=== PATIENT | female | born 1960 | race Caucasian/White ===

== ENCOUNTER 2020-01-15 00:37 | Outpatient (CLI) | payer BC, SELFPAY ==
[2020-01-15 18:53] LABS: SARS-CoV-2 RNA PCR Negative
== END 2020-01-15 00:38 | disposition home or self-care (01) ==
LOC: ANHCOVIDDT 00:37
PROVIDERS: PCP Family Medicine; Visit Provider Internal Medicine Gastroenterology
DX: Z01.812 Encounter for preprocedural laboratory examination (principal); Z11.59 Encounter for screening for other viral diseases
CPT/HCPCS: 87635; C9803; U0003

== ENCOUNTER 2020-01-17 00:18 | Day surgery (SDC) | payer BC, SELFPAY ==
[2020-01-09 12:35] VITALS: BMI 24.2
[2020-01-17] MEDS: LACTATED RINGERS 1,000 ML 150 ML IV CONT (07:34)
[2020-01-17 07:38] VITALS: BP 107/46; PULSE 60; RESP 16; TEMP 36.6; O2SAT 100
--- NOTE | 2020-01-17 07:50 | PM.HPGS ---
History of Present Illness History of Present Illness Consent: Risks, benefits, and alternatives have been discussed and questions answered. Patient agrees to proceed with procedure. Chief complaint: Neoplasm Screening Narrative: Brianna Norman is a 59 year old female here for screening colonoscopy. She has had a polyp PMFSH Past Medical History Medical History (Updated 01/17/20 @ 07:50 by Meño Lopez MD) Benign essential HTN Colon polyps Tobacco abuse Surgical History Surgical History History of endometrial ablation Hx of section Hx of tubal ligation Family History Family History Sibling Acute myocardial infarction Other Diabetes mellitus Social History Social History Smoking status: Current every day smoker Tobacco type: cigarettes Second hand tobacco smoke exposure: Yes Alcohol intake: current Substance use: never Substance use type: does not use Gender identity (if verbalized by the patient): Female Meds Home Medications and Allergies Home Medications Medication Instructions Recorded Confirmed Type amlodipine 10 mg tablet 10 mg PO DAILY #90 tablet 12/30/19 01/17/20 Rx Allergies Allergy/AdvReac Type Severity Reaction Status Date / Time codeine Allergy Severe pancreas Verified 01/17/20 07:37 rejects it Penicillins Allergy Itching Verified 01/17/20 07:37 Vital Signs Vital Signs - 24 hr 01/17/20 07:38 Temperature 36.6 C Pulse Rate 60 Respiratory Rate 16 Blood Pressure 107/46 L Pulse Oximetry 100 Exam Resp: Auscultation: clear to auscultation bilaterally Cardio: Rate: regular rate Rhythm: regular rhythm GI: GI Palp: Yes Soft to palpation and No Tenderness to palpation present (GI) Assessment and Plan Assessment and plan (1) Colon cancer screening: Code(s): Z12.11 - Encounter for screening for malignant neoplasm of colon Status: Acute Assessment and Plan: Colonoscopy with possible biopsy or polypectomy or cautery or injection of substances.
--- NOTE | 2020-01-17 08:20 | WPDANESEPPF ---
Anes - Initial Pre Proc Eval Procedure: Operation Date: 01/17/20 08:30 Proposed Procedures p Screening Colonoscopy - Meño Lopez MD Date/Time: 01/17/20 08:20 Surgeon: Meño Lopez MD Pre Op Diagnosis: Neoplasm Screening Patient Data Age: 59 Gender: F Height: 5 ft 5 in Weight: 67.5 kg Last Vital Signs Temp 98 F 01/17/20 07:38 Pulse 60 01/17/20 07:38 Resp 16 01/17/20 07:38 BP 107/46 L 01/17/20 07:38 Pulse Ox 100 01/17/20 07:38 Allergies Allergy/AdvReac Type Severity Reaction Status Date / Time codeine Allergy Severe pancreas Verified 01/17/20 07:37 rejects it Penicillins Allergy Itching Verified 01/17/20 07:37 Home Medications Medication Instructions Recorded Confirmed Type amlodipine 10 mg tablet 10 mg PO DAILY #90 tablet 12/30/19 01/17/20 Rx Patient hx anesthesia problems: none Family hx anesthesia problems: none PMFSH Past Medical History Medical History (Updated 01/17/20 @ 07:50 by Meño Lopez MD) Benign essential HTN Colon polyps Tobacco abuse Surgical History Surgical History History of endometrial ablation Hx of section Hx of tubal ligation Family History Family History Sibling Acute myocardial infarction Other Diabetes mellitus Social History Social History Smoking status: Current every day smoker Tobacco type: cigarettes Second hand tobacco smoke exposure: Yes Alcohol intake: current Substance use: never Substance use type: does not use Gender identity (if verbalized by the patient): Female Anes - Eval Final PreProcedure Day of Procedure 01/17/20 08:20 Patient weight: normal Heart: regular rate and rhythm Lungs: clear to auscultation Airway: Mallampati scale class II Neurological: alert and oriented Last oral intake: >/= 8 hours ASA classification: II Emergent: no Anesthetic plan: proceed Anesthesia type and monitoring: general GIVS and standard monitoring Informed Consent: The patient's anesthetic plan and its attendant risks and benefits were discussed with the patient/family/POA. Questions were solicited and answers provided to the satisfaction of the patient/family/POA.
[2020-01-17 08:48] VITALS: BP 100/65; PULSE 58; RESP 18; O2SAT 100
[2020-01-17 08:58] VITALS: BP 104/68; PULSE 57; RESP 15; O2SAT 100
[2020-01-17 09:08] VITALS: BP 111/75; PULSE 60; RESP 18; O2SAT 100
== END 2020-01-17 09:25 | disposition home or self-care (01) ==
PROVIDERS: PCP Family Medicine; Visit Provider Internal Medicine Gastroenterology
PROC: 0DJD8ZZ Inspection of Lower Intestinal Tract, Via Natural or Artificial Opening Endoscopic (ICD-10-PCS; CPT 45378; principal; 2020-01-17 08:30)
DX: Z12.11 Encounter for screening for malignant neoplasm of colon (principal); D12.4 Benign neoplasm of descending colon; K63.5 Polyp of colon; K57.30 Diverticulosis of large intestine without perforation or abscess without bleeding; I10 Essential (primary) hypertension; F17.210 Nicotine dependence, cigarettes, uncomplicated
CPT/HCPCS: 45385; 88305; J2704; J7120

== ENCOUNTER → 2020-09-01 02:55 | Outpatient (CLI) | payer BC, SELFPAY ==
[2020-09-01 18:08] LABS: SARS-CoV-2 RNA PCR Negative
== END ==
PROVIDERS: PCP Family Medicine; Visit Provider Podiatrist Foot & Ankle Surgery
DX: Z01.812 Encounter for preprocedural laboratory examination (principal); Z20.822 Contact with and (suspected) exposure to COVID-19
CPT/HCPCS: C9803; U0003; U0005

== ENCOUNTER 2020-09-01 13:03 | Outpatient (CLI) | payer BC, SELFPAY ==
--- NOTE | 2020-09-01 08:15 | ECG_ITS ---
Measurements Intervals [place] Rate: 62 P: 69 GA: 147 QRS: 56 QRSD: 88 T: 53 QT: 390 QTc: 396 Interpretive Statements SINUS RHYTHM INCOMPLETE RIGHT BUNDLE BRANCH BLOCK BORDERLINE R WAVE PROGRESSION, ANTERIOR LEADS BORDERLINE ST-T WAVE ABNORMALITY- ANTEROLAT/INF LEADS BORDERLINE ECG Electronically Signed On 09-01-2020 8:26:37 CDT by Luciano Rivera D.O.
== END 2020-09-01 13:04 | disposition home or self-care (01) ==
LOC: ANHSURGERY 09-23 13:04
PROVIDERS: PCP Family Medicine; Visit Provider Podiatrist Foot & Ankle Surgery
DX: I10 Essential (primary) hypertension (principal); Z01.818 Encounter for other preprocedural examination; I45.10 Unspecified right bundle-branch block; R94.31 Abnormal electrocardiogram [ECG] [EKG]
CPT/HCPCS: 93005

== ENCOUNTER 2020-09-04 01:10 | Day surgery (SDC) | payer BC, SELFPAY ==
[2020-08-26 13:48] VITALS: BMI 24.5
--- NOTE | ~2020-09-04 | XR_ITS ---
EXAMINATION: XR surgery orthopedic DATE: 09/04/2020 08:12 INDICATION: Cheilectomy of the right first metatarsophalangeal joint. TECHNIQUE: 2 fluoroscopic spot images of the right forefoot were obtained during procedure performed by Dr. Jacobs. Radiologist was not present for the imaging or procedure. The amount of fluoroscopy time used during this procedure was 0.1 minutes. COMPARISON: None. FINDINGS: Chronic osteotomy at the neck of the fifth metatarsal with smooth corticated margin and widening of t he fifth metacarpophalangeal joint space. Alignment is otherwise normal. No fractures. Moderate joint space narrowing at the first metacarpophalangeal joint. IMPRESSION: 1. Fluoroscopy utilized during reported cheilectomy at the right first metatarsophalangeal joint. See procedure note for further detail. Reviewed, dictated and finalized at location A. IMPRESSION: 1. Fluoroscopy utilized during reported cheilectomy at the right first metatars ophalangeal joint. See procedure note for further detail.
[2020-09-04 06:22] VITALS: BP 110/71; PULSE 66; RESP 18; TEMP 36.3; O2SAT 99
[2020-09-04] MEDS: LACTATED RINGERS 1,000 ML 30 ML IV CONT (06:42)
--- NOTE | 2020-09-04 06:50 | WPDANESEPPF ---
Anes - Initial Pre Proc Eval Procedure: Operation Date: 09/04/20 07:30 Proposed Procedures p Cheilectomy Of First Metatarsal Phalangeal Joint, Right Foot - Jacinto Jacobs JR, MD Date/Time: 09/04/20 06:50 Surgeon: Jacinto Jacobs JR, MD Pre Op Diagnosis: Bone Spur Right 1st MPJ Patient Data Age: 59 Gender: F Height: 5 ft 5 in Weight: 67 kg Allergies Allergy/AdvReac Type Severity Reaction Status Date / Time codeine Allergy Severe pancreas Verified 08/26/20 13:48 rejects it Penicillins Allergy Mild Itching Verified 08/26/20 13:48 Home Medications Medication Instructions Recorded Confirmed Type nicotine 21 mg/24 hr daily 1 patch TRANSDERMAL DAILY #28 ea 08/04/20 08/26/20 Rx transdermal patch amlodipine 10 mg PO HS 08/26/20 08/26/20 History Patient hx anesthesia problems: none Family hx anesthesia problems: none PMFSH Past Medical History Medical History Benign essential HTN Colon polyps Tobacco abuse Surgical History Surgical History History of endometrial ablation Hx of section Hx of colonoscopy 2019, repeat in 3 years- mltpl. polyps. Hx of tubal ligation Family History Family History Sibling Acute myocardial infarction Other Diabetes mellitus Social History Social History Social History: Smoking packs per day: 0.5 Smoking cigarettes per day: 10.0 Years smoked: 30 Smoking pack-years: 15.00 Smoking status: Current every day smoker Tobacco type: cigarettes Second hand tobacco smoke exposure: Yes Alcohol intake: current Alcohol use details: SOCIAL - APPROX TWICE/MONTH Substance use: never Substance use type: does not use Living arrangements: alone Gender identity (if verbalized by the patient): Female Spiritual care concerns: No Anes - Eval Final PreProcedure Day of Procedure 09/04/20 06:50 Patient weight: normal Heart: regular rate and rhythm Lungs: clear to auscultation Airway: Mallampati scale class II Neurological: alert and oriented Last oral intake: >/= 8 hours ASA classification: II Emergent: no Anesthetic plan: proceed Anesthesia type and monitoring: general GIVS and standard monitoring Informed Consent: The patient's anesthetic plan and its attendant risks and benefits were discussed with the patient/family/POA. Questions were solicited and answers provided to the satisfaction of the patient/family/POA.
--- NOTE | 2020-09-04 07:12 | WPDHPUPDATE1 ---
History and Physical Update Update Date/Time: 09/04/20 07:12 History and Physical has been reviewed, including an updated exam of the patient. There are NO changes in the patient's condition. Risks, benefits, and alternatives have been discussed and questions answered. Patient agrees to proceed with procedure.
[2020-09-04] MEDS: ceFAZolin 2 GM/D5W 50 ML 2 GM/50 ML BAG IVPB (07:23)
[2020-09-04] MEDS: LIDOCAINE HCL 2% PF INJ 5 ML VIAL 10 ML INFILTRATE (07:50)
[2020-09-04 08:16] VITALS: BP 127/67; PULSE 66; RESP 12; O2SAT 100
--- NOTE | 2020-09-04 08:24 | PM.PROC ---
Procedure Note - Detailed Date of procedure: 09/04/20 Pre-op diagnosis: Bone Spur Right 1st MPJ Post-op diagnosis: same Procedure performed: Cheilectomy 1st metatarsal phalangeal joint right foot Anesthesia: GLMA and local Surgeon: Jacinto Jacobs JR, DPM Estimated blood loss (mL): 1 Drains: No Packing: No Pathology: yes (Dorsal spur sent for gross and histo) Complications: No immediate complications Condition: stable Disposition: same day Findings: PROCEDURE IN DETAIL: Under mild sedation, the patient was brought into the operating room, placed on the operating table in supine position. A pneumatic ankle tourniquet was placed about the patient's right ankle. Following general LMA, a local anesthetic block was obtained about the foot and ankle utilizing 20 cc of a 1:1 of 2% Lidocaine plain and 0.5% Marcaine plain. The foot was then scrubbed, prepped, and draped in the usual aseptic manner. An Esmarch bandage was then used to exsanguinate the patient's foot and the pneumatic ankle tourniquet was then inflated. Surgery began in the following manner: Attention was directed to the dorsal aspect of the 1st metatarsophalangeal joint where there was a large osteophyte noted along the dorsomedial aspect of the joint. The incision was made starting along the central shaft of the 1st metatarsal and extending just proximal to the interphalangeal joint of the hallux. The incision was continued deep down through the subcutaneous tissues using sharp and blunt dissection. All bleeders were cauterized as necessary. At this point, the dissection was continued down to the level of the periosteum and capsular structures overlying the 1st metatarsophalangeal joint. A full length periosteum and capsular incision was made just medial to the extensor hallucis longus tendon. The periosteum and capsular structures were freed from the base of the proximal phalanx as well as the distal 1st metatarsal. At this point, the 1st metatarsophalangeal joint was identified. There was moderate loss of articular cartilage to the dorsal aspect of head of the 1st metatarsal . There was significant broadening and hypertrophy of the 1st metatarsophalangeal joint with a very large dorsal spur. Utilizing a sagittal bone saw, the hypertrophied 1st metatarsal was resected dorsally, medially, and laterally. A power bur was used to make sure that there were no rough edges and also to further debride the hypertrophic 1st metatarsal Approximately one third of the dorsal first metatarsal was resected. Next, a rongeur was used to resect all hypertrophic base of the proximal phalanx. Moreover, the wound site was then flushed with copious amounts of sterile saline. Fluoroscopy was adequate resection of the osseous proliferation to the first metatarsal phalangeal joint. Next, the periosteum and capsular structures were reapproximated with 3-0 PDS. Next, the subcutaneous structures were reapproximated with 4-0 Vicryl. Next, the skin was reapproximated and coapted utilizing 4-0 Monocryl in running subcuticular suture fashion technique. Upon completion of the procedure, the incision was dressed with Steri-Strips, Adaptic, 4x4s, Kerlix, and Coban. The pneumatic ankle tourniquet was then deflated and a prompt hyperemic response was noted to all digits of the foot. A surgical shoe was then applied to the affected lower extremity. It is important to note that Dr. Jacobs was present throughout the procedure. The patient did very well with the procedure and the anesthesia. He was transferred to the recovery room with vital signs stable and vascular status intact to all toes of the foot. Following a period of postoperative monitoring, the patient will be discharged home on the following written and oral postoperative instructions: 1. Keep the dressing clean, dry, and intact. 2. The patient to be protected weight bearing with a surgical shoe. 3. The patient should ice and elevate the affe
[2020-09-04 08:46] VITALS: BP 111/69; PULSE 58; RESP 16; O2SAT 97
--- NOTE | 2020-09-04 08:53 | SUR.PHASEII ---
PT AWAKE AND ALERT. STATES MILD PAIN TO FOOT. FAMILY AT BEDSIDE.
[2020-09-04 09:16] VITALS: BP 116/69; PULSE 67; RESP 18
== END 2020-09-04 09:32 | disposition home or self-care (01) ==
PROVIDERS: PCP Family Medicine; Visit Provider Podiatrist Foot & Ankle Surgery
PROC: (CPT 28289; principal; 2020-09-04 07:30)
DX: M25.774 Osteophyte, right foot (principal); M19.071 Primary osteoarthritis, right ankle and foot; I10 Essential (primary) hypertension; F17.210 Nicotine dependence, cigarettes, uncomplicated
CPT/HCPCS: 28122; 88304; 88309; 88311; J0690; J1170; J1200; J2250; J2405; J2704; J3010; J7120

== ENCOUNTER → 2021-10-06 17:41 | Outpatient (CLI) | payer BC, SELFPAY ==
--- NOTE | ~2021-10-06 | MM_ITS ---
EXAMINATION: MM screening tomi BI w ciro HISTORY: Screening TECHNIQUE: Craniocaudal and mediolateral oblique 3-D tomosynthesis images were obtained and synthetic 2-D images were generated. CAD analysis was submitted and interpreted. COMPARISON: Comparison to multiple prior studies sequentially, with oldest reviewed study dated 01/01. BREAST PARENCHYMAL COMPOSITION: There are scattered areas of fibroglandular density. FINDINGS: There is no evidence of suspicious mass, calcification, or architectural distortion to sugg est malignancy in either breast. There has been no suspicious interval change. IMPRESSION: 1. No mammographic evidence of malignancy. 2. Recommend routine screening mammography in one year. BI-RADS Category 1: Negative Reviewed, dictated and finalized at location A.
== END ==
PROVIDERS: PCP Family Medicine; Visit Provider Nurse Practitioner Gerontology
DX: Z12.31 Encounter for screening mammogram for malignant neoplasm of breast (principal)
CPT/HCPCS: 77063; 77067

== ENCOUNTER → 2021-10-18 16:15 | Outpatient (CLI) | payer BC, SELFPAY ==
--- NOTE | ~2021-10-18 | US_ITS ---
US thyroid INDICATION: Thyroid nodule TECHNIQUE: Real-time sonographic images of the thyroid gland were obtained. COMPARISON: No prior studies for comparison. FINDINGS: The right thyroid lobe measures 4.8 x 1.4 x 1.8 cm. The left thyroid lobe measures 4.8 x 1 .7 x 1.9 cm. In the right lobe there is a small 3 mm hypoechoic spongiform mass which is wider than t all, smoothly marginated without calcifications, TR 2, likely benign. Also in the right lobe near the isthmus is a oval hypoechoic mass with internal small internal cystic component measuring 1.9 x 1.5 x 1.1 cm. There is internal vascularity with posterior acoustic enhancement, wider than tall, slightl y irregular margins and no significant calcification, TR 4. Normal vascular flow is present. IMPRESSION: 1. Hypoechoic right thyroid mass measuring up to 1.9 cm. Ultrasound-guided fine-needle aspiration bi opsy recommended. Reviewed, dictated and finalized at location A. IMPRESSION: 1. Hypoechoic right thyroid mass measuring up to 1.9 cm. Ultrasound-guided fin e-needle aspiration biopsy recommended.
--- NOTE | ~2021-10-18 | XR_ITS ---
EXAM: XR hip RT min 3V w AP pelvis HISTORY: pain COMPARISON: None available FINDINGS: Normal mineralization. Mild degenerative change in the lower lumbar spine. Moderate right and mild left superior hip joint space narrowing. Subchondral sclerosis and cyst formation in the rig ht hip. Scattered right hip soft tissue calcification. No fracture or dislocation. Osteitis pubis. IMPRESSION: Moderate right hip osteoarthritis. Reviewed, dictated and finalized at location K.
== END ==
PROVIDERS: PCP Family Medicine; Visit Provider Family Medicine
DX: E04.1 Nontoxic single thyroid nodule (principal); G89.29 Other chronic pain; M54.50 Low back pain, unspecified; M16.11 Unilateral primary osteoarthritis, right hip
CPT/HCPCS: 73502; 76536

== ENCOUNTER → 2021-10-27 15:34 | Outpatient (CLI) | payer BC, SELFPAY ==
--- NOTE | ~2021-10-27 | XR_ITS ---
EXAM: XR lumbar spine 2-3V HISTORY: M54.50 - Low back pain, unspecified . COMPARISON: None available. FINDINGS: 5 nonrib-bearing lumbar-type vertebral bodies. Pedicles intact. 4 mm anterolisthesis of L4 on L5. Vertebral presumed physiologic wedging at L1. Mild disc space narrowing at L2-3 and L3-4, wit h moderate narrowing at L4-5. Facet sclerosis in the mid and lower lumbar spine. No fracture or dislo cation. IMPRESSION: Grade 1 anterolisthesis of L4 on L5, likely on a degenerative basis, with moderate degene rative disc disease. Mid and lower lumbar facet arthropathy. Reviewed, dictated and finalized at location K. IMPRESSION: Grade 1 anterolisthesis of L4 on L5, likely on a degenerative basis , with moderate degenerative disc disease. Mid and lower lumbar facet arthropat hy.
== END ==
PROVIDERS: PCP Family Medicine; Visit Provider Family Medicine
DX: M51.36 Other intervertebral disc degeneration, lumbar region (principal)
CPT/HCPCS: 72100

== ENCOUNTER 2021-11-04 08:37 | Outpatient (CLI) | payer BC, SELFPAY ==
--- NOTE | ~2021-11-04 | US_ITS ---
EXAMINATION: US FNA w image guidance DATE: 11/04/2021 10:16 INDICATION: Nontoxic single thyroid nodule. TECHNIQUE: The procedure and its benefits and risks were discussed with the patient. Risks specifically discusse d included bleeding. The patient verbalized understanding of the risks and agreed to proceed. The nec k was prepped and draped in the usual sterile manner. 1% lidocaine was used for local anesthesia. 6 passes were made with a 25G needle into the lesion under ultrasound guidance. There were no immedia te complications. FINDINGS: Grayscale ultrasound images demonstrate needles advanced into a 1.9 cm nodule in right thyroid lobe a nd thyroid isthmus for biopsy. IMPRESSION: 1. Ultrasound-guided fine needle aspiration of a 1.9 cm nodule in right thyroid lobe and thyroid ist hmus. Reviewed, dictated and finalized at location A. IMPRESSION: 1. Ultrasound-guided fine needle aspiration of a 1.9 cm nodule in right thyroi d lobe and thyroid isthmus.
== END 2021-11-04 08:38 | disposition home or self-care (01) ==
PROVIDERS: PCP Family Medicine; Visit Provider Nurse Practitioner Gerontology
DX: E04.1 Nontoxic single thyroid nodule (principal)
CPT/HCPCS: 10005; 88173; 88305

== ENCOUNTER → 2022-02-19 11:32 | Outpatient (CLI) | payer BC, SELFPAY ==
--- NOTE | ~2022-02-19 | US_ITS ---
EXAMINATION: US thyroid DATE: 02/19/2022 12:17 INDICATION: Thyroid nodule. TECHNIQUE: Multiple ultrasound images of the thyroid were obtained. COMPARISON: Ultrasound 10/18/2021 FINDINGS: The right thyroid lobe measures 4.7 x 1.6 x 2.2 cm. The left thyroid lobe measures 4.6 x 1.5 x 1.7 c m. In the right thyroid lobe, there is a 3 mm nodule, likely not clinically significant. In the right thyroid lobe and thyroid isthmus, there is a 1.6 cm predominantly solid, hypoechoic, wider than tall nodule with smooth margin and punctate echogenic foci (TI-RADS TR5). IMPRESSION: 1. Stable 1.6 cm thyroid nodule status post nondiagnostic biopsy on 11/04/2021. Repeat ultrasound-guid ed fine-needle aspiration is recommended. Reviewed, dictated and finalized at location A. IMPRESSION: 1. Stable 1.6 cm thyroid nodule status post nondiagnostic biopsy on 11/04/2021. Repeat ultrasound-guided fine-needle aspiration is recommended.
== END ==
PROVIDERS: PCP Family Medicine; Visit Provider Physician Assistant
DX: E04.1 Nontoxic single thyroid nodule (principal)
CPT/HCPCS: 76536

== ENCOUNTER 2022-03-05 20:36 | Emergency (ER) | payer BC, SELFPAY ==
--- NOTE | ~2022-03-05 | CT_ITS ---
EXAMINATION: CT abdomen pelvis w con DATE: 03/06/2022 00:51 INDICATION: Left lower quadrant pain. Nausea and vomiting. TECHNIQUE: Computed tomography (CT) of the abdomen and pelvis was performed with 100 cc Omnipaque 350 intravenous contrast. The dose-length product was 518.06 mGy-cm. Automated exposure control and iter ative reconstruction technique were employed. COMPARISON: CT dated 04/23/2017 FINDINGS: Lung bases are unremarkable. Heart size normal. No significant pleural or pericardial effus ion. Small fat-containing umbilical hernia. The liver, pancreas, adrenal glands and kidneys are unremarkable. There are small low-density lesion in the right kidney, most likely benign. There are calcified granulomas of the spleen. There is abnor mal thickening of the descending and proximal sigmoid colon. No evidence for perforation or abscess. Small amount of free fluid in the pelvis. Bladder is unremarkable. Multiple sclerotic lesion in T10, likely bone island. Mild lumbar spondylosis with grade 1 degenerative spondylolisthesis at L4-5. IMPRESSION: 1. Segmental thickening of the colon, consistent with colitis, most likely infectious or inflammatory . Ischemic colitis is less favored. Reviewed, dictated and finalized at location A. IMPRESSION: 1. Segmental thickening of the colon, consistent with colitis, most likely infe ctious or inflammatory. Ischemic colitis is less favored.
[2022-03-05 20:45] VITALS: BP 125/91; PULSE 96; RESP 17; TEMP 37.1; O2SAT 99
[2022-03-05 20:56] LABS: Basophils Percent Auto 0.3 % (0.2-1.2); Eosinophils Absolute Auto 0.1 K/mm3 (0-0.3); Eosinophils Percent Auto 1.2 % (0-4.4); Hematocrit 36.4 % (37.0-47.0); Immature Granulocyte Absolute 0.02 K/mm3 (0.00-0.031); Immature Granulocyte Percent A 0.2 % (0-0.5); Lymphocytes Absolute Auto 2.32 K/mm3 (0.9-3.2); Lymphocytes Percent Auto 24.6 % (18.3-44.2); Mean Corpuscular Hemoglobin 29.9 pg (26-34); Mean Corpuscular Volume 90.5 fl (80-100); Mean Platelet Volume 9.7 fl (7.4-10.4); Monocytes Absolute Auto 0.8 K/mm3 (0.1-0.6); Monocytes Percent Auto 8.2 % (2.6-8.5); Neutrophils Absolute Auto 6.2 K/mm3 (1.3-6.7); Neutrophils Percent Auto 65.5 % (45.5-73.1); Platelet Count Result 294 k/mm3 (150-375); Red Blood Count 4.02 M/mm3 (4.2-5.4); Red Cell Distribution Width 12.7 % (11.5-14.5); White Blood Count 9.4 K/mm3 (4.5-10.0)
[2022-03-05 21:06] LABS: Alanine Aminotransferase 22 U/L (6-35); Albumin Level 4.3 g/dL (3.5-5.1); Alkaline Phosphatase 57 U/L (38-126); Anion Gap 10 mmol/L (8-16); Aspartate Amino Transferase 34 U/L (14-36); Bilirubin,Total 0.5 mg/dL (0.2-1.3); Blood Urea Nitrogen 8 mg/dL (7-17); Calcium 9.1 mg/dL (8.4-10.2); Carbon Dioxide 24 mmol/L (22-30); Chloride 106 mmol/L (98-107); Estimated CRCL calculation 59 ml/min; Estimated Glomerular Filt Rate > 60; Glucose 101 mg/dL (65-110); INR 1.1; Potassium 3.6 mmol/L (3.4-5.0); Prothrombin Time 13.9 Seconds (11.1-14.7); Sodium 140 mmol/L (137-145)
[2022-03-05 21:07] LABS: Partial Thromboplastin Time 32.6 SECONDS (22.3-36.8)
[2022-03-05 22:52] VITALS: BP 147/98; PULSE 82; RESP 16; O2SAT 97
--- NOTE | 2022-03-05 23:52 | ED.GENADULT ---
HPI - General Adult General Chief complaint: GI Bleed Stated complaint: blood in stool Time Seen by Provider: 03/05/22 22:49 History of Present Illness HPI narrative: Patient is a 61-year-old female that presents the emergency department with chief complaint of left lower quadrant pain. Patient reports that she had some fullness to her abdomen she took some milk of magnesia and had multiple bowel movements. The patient reports toward the end of it she started having diarrhea and then had some blood/pink-tinged stool. Patient states that the pain in the left lower quadrant is sore reports that she has history of diverticulosis and has not had an episode of diverticulitis. Patient reports she is had several other bowel movements where she is passed some clots patient denies being on blood thinners Related Data Allergies Allergy/AdvReac Type Severity Reaction Status Date / Time codeine Allergy Severe pancreas Verified 03/05/22 22:52 FAILURE morphine Allergy Severe PANCREATIC Verified 03/05/22 22:52 FAILURE Penicillins Allergy Mild Itching Verified 03/05/22 22:52 Review of Systems Review of Systems: A 10 system review of systems was completed on the patient and is negative except for what is stated in the HPI. Nursing and ancillary documentation was reviewed. [facility] Past Medical History Medical History Benign essential HTN Colon polyps History of COVID-19 Tobacco abuse Surgical History Surgical History H/O foot surgery History of endometrial ablation Hx of section Hx of colonoscopy 2019, repeat in 3 years- mltpl. polyps. Hx of tubal ligation Family History Family History Sibling Acute myocardial infarction Heart disease Father Diabetes mellitus Social History Social History Social History: Smoking packs per day: 0.5 Smoking cigarettes per day: 10.0 Years smoked: 30 Smoking pack-years: 15.00 Smoking status: Former smoker Tobacco type: cigarettes Second hand tobacco smoke exposure: Yes Smoking end date: 05/05/21 Alcohol intake: current Alcohol use details: SOCIAL - APPROX TWICE/MONTH Substance use: never Substance use type: does not use Gender identity (if verbalized by the patient): Female Sexual Orientation (if Verbalized by the Patient): Straight or Heterosexual Spiritual care concerns: No Exam Narrative: GENERAL: Well-appearing, well-nourished, and in no acute distress. HEAD: Normocephalic, atraumatic. EYES: PERRLA and EOMI. ENT: Nares clear, no rhinorrhea or epistaxis. Mucous membranes moist. NECK: Supple. CHEST: Clear to auscultation. No respiratory distress. HEART: Regular rate and rhythm. No murmur heard. Normal peripheral pulses. ABDOMEN: Soft, nontender, nondistended, normal active bowel sounds. EXTREMITIES: Normal range of motion. No edema. SKIN: Warm, dry, no rash. NEURO: No focal deficits. Alert and oriented x3. PSYCH: Normal mood and affect. Course Course Emergency Course: CT scan showed evidence of colitis. Patient is feeling much better at this time the patient be started on Cipro and Flagyl Vital Signs Vital signs: Vital Signs Temperature 37.1 C 03/05/22 20:45 Pulse Rate 96 03/05/22 20:45 Respiratory Rate 17 03/05/22 20:45 Blood Pressure 125/91 H 03/05/22 20:45 Pulse Oximetry 99 03/05/22 20:45 Oxygen Delivery Room Air 03/05/22 20:45 Temperature 37.1 C 03/05/22 20:45 Pulse Rate 79 03/06/22 01:44 Respiratory Rate 16 03/06/22 01:44 Blood Pressure 122/82 03/06/22 01:44 Pulse Oximetry 96 03/06/22 01:44 Oxygen Delivery Room Air 03/05/22 20:45 Medical Decision Making Vital Signs Vital Signs: Vital Signs Temperature 37.1
[2022-03-06 00:06] VITALS: BP 118/85; PULSE 69; RESP 18; O2SAT 97
[2022-03-06] MEDS: ONDANSETRON INJ 4 MG/2 ML VIAL IV PUSH (00:10)
[2022-03-06] MEDS: SODIUM CHLORIDE 0.9% IV 1,000 ML 999 ML IV CONT (00:10)
[2022-03-06 01:44] VITALS: BP 122/82; PULSE 79; RESP 16; O2SAT 96
[2022-03-06] MEDS: metroNIDAZOLE 250 MG TABLET 500 MG PO (02:19)
[2022-03-06] MEDS: CIPROFLOXACIN 500 MG TAB PO (02:19)
== END 2022-03-06 02:23 | disposition home or self-care (01) ==
PROVIDERS: Emergency Provider Emergency Medicine; PCP Family Medicine
DX: K52.9 Noninfective gastroenteritis and colitis, unspecified (principal); I10 Essential (primary) hypertension; Z86.16 Personal history of COVID-19; Z86.010 Personal history of colon polyps; Z87.891 Personal history of nicotine dependence
CPT/HCPCS: 36415; 74177; 80053; 85025; 85610; 85730; 86850; 86900; 86901; 96361; 96374; 99284; A9270; J2405; J7030; Q9967

== ENCOUNTER 2022-03-22 09:05 | Outpatient (CLI) | payer BC, SELFPAY ==
--- NOTE | ~2022-03-22 | US_ITS ---
EXAMINATION: US FNA w image guidance DATE: 03/22/2022 09:53 INDICATION: Nontoxic single thyroid nodule. TECHNIQUE: The procedure and its benefits and risks were discussed with the patient. Risks specifically discusse d included bleeding. The patient verbalized understanding of the risks and agreed to proceed. The nec k was prepped and draped in the usual sterile manner. 1% lidocaine was used for local anesthesia. 6 passes were made with a 25G needle into the lesion under ultrasound guidance. There were no immedia te complications. FINDINGS: Grayscale ultrasound images demonstrate needles advanced into a 1.9 cm nodule in right thyroid lobe a nd thyroid isthmus for biopsy. IMPRESSION: 1. Ultrasound-guided fine needle aspiration of a thyroid nodule. Reviewed, dictated and finalized at location A.
== END 2022-03-22 09:06 | disposition home or self-care (01) ==
PROVIDERS: PCP Family Medicine; Visit Provider Physician Assistant
DX: E04.1 Nontoxic single thyroid nodule (principal)
CPT/HCPCS: 10005; 88173; 88305

== ENCOUNTER 2022-07-14 10:50 | Outpatient (RCR) | payer BC, SELFPAY ==
[2022-07-14 11:06] VITALS: BMI 28.7
== END 2022-10-03 12:36 | disposition home or self-care (01) ==
LOC: ANHDMC 10:50
PROVIDERS: PCP Internal Medicine; Visit Provider Internal Medicine
DX: E66.3 Overweight (principal); Z68.25 Body mass index [BMI] 25.0-25.9, adult; Z71.3 Dietary counseling and surveillance
CPT/HCPCS: 97802

== ENCOUNTER 2022-08-01 00:22 | Day surgery (SDC) | payer BC, SELFPAY ==
[2022-07-18 14:37] VITALS: BMI 28.4
--- NOTE | 2022-07-29 16:33 | PM.HPGS ---
History of Present Illness History of Present Illness Consent: Risks, benefits, and alternatives have been discussed and questions answered. Patient agrees to proceed with procedure. Chief complaint: noneffective gastritis&colitis,cbh,hxcolon polyps Narrative: Brianna Norman is a 61 year old female With a change in bowel habits. Reports 1-2 non-bloody pasty stools daily with associated bloating and gas since Feb after being diagnosed with colitis. she states that? back in February she developed severe left lower quadrant pain and constipation and bloody stools. This prompted her to follow up in [place] [facility]. CT scan revealed segmental thickening of the colon, consistent with colitis most likely infection or inflammatory. Ischemic colitis was less favored. ? She was treated with antibiotics and states pain got better but since then she reports 1-2 soft pasty stools per day with associated bloating and gas.? she does also have a history of polyps. 3 years ago I removed 3 polyps from her colon. Review of Systems Review of Systems: All systems reviewed & are unremarkable except as noted in HPI and below PMFSH Past Medical History Medical History Benign essential HTN Colon polyps History of COVID-19 Hypertension Tobacco abuse Surgical History Surgical History H/O foot surgery History of endometrial ablation Hx of section Hx of colonoscopy 2019, repeat in 3 years- mltpl. polyps. Hx of tubal ligation Family History Family History Sibling Acute myocardial infarction Heart disease Diabetes mellitus Father Diabetes mellitus Hypertension Mother Hypertension Social History Social History Social History: Smoking packs per day: 1 Smoking cigarettes per day: 20.0 Years smoked: 40 Smoking pack-years: 40.00 Smoking status: Former smoker Tobacco type: cigarettes Second hand tobacco smoke exposure: Yes Smoking end date: 05/05/21 Alcohol intake: current Drinks per week: 4 Alcohol use details: SOCIAL - APPROX TWICE/MONTH Substance use: current Substance use type: does not use Lack of Transportation: No Lack of Food: Never True Current Housing: I Have Housing Concerned About Future Housing: No Difficulty Paying Gas/Electric Bills: No Difficulty Paying for Meds: No Currently Unemployed: No Education: High School Diploma/GED Difficulty w/ Childcare or Family Care: No Living arrangements: alone Occupation/Education: occupation Gender identity (if verbalized by the patient): Female Sexual Orientation (if Verbalized by the Patient): Straight or Heterosexual Spiritual care concerns: No Meds Home Medications and Allergies Home Medications Medication Instructions Recorded Confirmed Type multivitamin 1 tablet PO DAILY 06/14/22 07/18/22 History Daily Probiotic 1 tablet PO DAILY 07/18/22 07/18/22 History Metamucil 2 packet PO DAILY 07/18/22 07/18/22 History amlodipine 10 mg tablet 10 mg PO HS #90 tabs 07/29/22 08/01/22 Rx Allergies Allergy/AdvReac Type Severity Reaction Status Date / Time codeine Allergy Severe pancreas Verified 08/01/22 07:27 FAILURE morphine Allergy Severe PANCREATIC Verified 08/01/22 07:27 FAILURE Penicillins Allergy Mild Itching Verified 08/01/22 07:27 Exam Const: General: alert Orientation/consciousness: patient oriented x3 Resp: Auscultation: clear to auscultation bilaterally Cardio: Rate: regular rate Rhythm: regular rhythm GI: GI Palp: Yes Soft to palpation and No Tenderness to palpation present (GI) Neuro: General: patient oriented x3 Assessment and Plan Assessment and plan (1) Change in bowel habits: Code(s): R19.4 - Change in bowel habit Status: Acute Asses
--- NOTE | 2022-08-01 07:23 | WPDANESEPPF ---
Anes - Initial Pre Proc Eval Procedure: Operation Date: 08/01/22 08:30 Proposed Procedures p Colonoscopy - Meño Lopez MD Date/Time: 08/01/22 07:23 Surgeon: Meño Lopez MD Pre Op Diagnosis: noneffective gastritis&colitis,cbh,hxcolon polyps Patient Data Age: 61 Gender: F Height: 1.65 m Weight: 77.5 kg Allergies Allergy/AdvReac Type Severity Reaction Status Date / Time codeine Allergy Severe pancreas Verified 08/01/22 07:27 FAILURE morphine Allergy Severe PANCREATIC Verified 08/01/22 07:27 FAILURE Penicillins Allergy Mild Itching Verified 08/01/22 07:27 Home Medications Medication Instructions Recorded Confirmed Type multivitamin 1 tablet PO DAILY 06/14/22 07/18/22 History Daily Probiotic 1 tablet PO DAILY 07/18/22 07/18/22 History Metamucil 2 packet PO DAILY 07/18/22 07/18/22 History amlodipine 10 mg tablet 10 mg PO HS #90 tabs 07/29/22 08/01/22 Rx Patient hx anesthesia problems: none Family hx anesthesia problems: none Results Review: All pre-operative results and documents have been reviewed as part of the pre-operative evaluation. [facility] Past Medical History Medical History Benign essential HTN Colon polyps History of COVID-19 Hypertension Tobacco abuse Surgical History Surgical History H/O foot surgery History of endometrial ablation Hx of section Hx of colonoscopy 2019, repeat in 3 years- mltpl. polyps. Hx of tubal ligation Family History Family History Sibling Acute myocardial infarction Heart disease Diabetes mellitus Father Diabetes mellitus Hypertension Mother Hypertension Social History Social History Social History: Smoking packs per day: 1 Smoking cigarettes per day: 20.0 Years smoked: 40 Smoking pack-years: 40.00 Smoking status: Former smoker Tobacco type: cigarettes Second hand tobacco smoke exposure: Yes Smoking end date: 05/05/21 Alcohol intake: current Drinks per week: 4 Alcohol use details: SOCIAL - APPROX TWICE/MONTH Substance use: current Substance use type: does not use Lack of Transportation: No Lack of Food: Never True Current Housing: I Have Housing Concerned About Future Housing: No Difficulty Paying Gas/Electric Bills: No Difficulty Paying for Meds: No Currently Unemployed: No Education: High School Diploma/GED Difficulty w/ Childcare or Family Care: No Living arrangements: alone Occupation/Education: occupation Gender identity (if verbalized by the patient): Female Sexual Orientation (if Verbalized by the Patient): Straight or Heterosexual Spiritual care concerns: No Anes - Eval Final PreProcedure Day of Procedure 08/01/22 07:23 Patient weight: normal Heart: regular rate and rhythm Lungs: clear to auscultation Airway: Mallampati scale class II Neurological: alert and oriented Last oral intake: >/= 8 hours ASA classification: II Emergent: no Anesthetic plan: proceed Anesthesia type and monitoring: general GIVS and standard monitoring Results Review: All pre-operative results and documents have been reviewed as part of the pre-operative evaluation. Informed Consent: The patient's anesthetic plan and its attendant risks and benefits were discussed with the patient/family/POA. Questions were solicited and answers provided to the satisfaction of the patient/family/POA.
[2022-08-01 07:29] VITALS: BP 116/81; PULSE 74; RESP 16; TEMP 36.6; O2SAT 97
[2022-08-01] MEDS: LACTATED RINGERS 1,000 ML 150 ML IV CONT (07:43)
[2022-08-01 08:41] VITALS: BP 104/67; PULSE 66; RESP 16; O2SAT 100
[2022-08-01 08:51] VITALS: BP 114/75; PULSE 64; RESP 16; O2SAT 100
[2022-08-01 09:01] VITALS: BP 116/74; PULSE 62; RESP 18; O2SAT 100
== END 2022-08-01 09:08 | disposition home or self-care (01) ==
PROVIDERS: PCP Internal Medicine; Visit Provider Internal Medicine Gastroenterology
PROC: 0DJD8ZZ Inspection of Lower Intestinal Tract, Via Natural or Artificial Opening Endoscopic (ICD-10-PCS; CPT 45378; principal; 2022-08-01 08:30)
DX: R19.4 Change in bowel habit (principal); K57.30 Diverticulosis of large intestine without perforation or abscess without bleeding; D12.4 Benign neoplasm of descending colon; I10 Essential (primary) hypertension; Z87.891 Personal history of nicotine dependence; Z87.19 Personal history of other diseases of the digestive system
CPT/HCPCS: 45380; 88305; J2704; J7120

== ENCOUNTER 2022-09-23 16:20 | Outpatient (CLI) | payer BC, SELFPAY ==
--- NOTE | ~2022-09-23 | CT_ITS ---
EXAMINATION: CT lung screening DATE: 09/23/2022 16:38 INDICATION: Personal history of nicotine dependence, current smoker with 30 pack year history TECHNIQUE: Computed tomography (CT) of the chest was performed without intravenous contrast. The dose -length product (DLP) was 86.01 mGy-cm. Automated exposure control and iterative reconstruction techn [employer] were employed. COMPARISON: None FINDINGS: There is a 3 mm nodule of the right middle lobe. There are scattered 1 to 2 mm nodules in t he upper lobes. No pleural effusion or pneumothorax. The lungs are free of acute opacities. No pathol ogically enlarged thoracic lymph nodes are identified. The heart size is normal. There is calcified c oronary artery atherosclerosis. Calcified mediastinal and bilateral hilar lymph nodes are consistent with old granulomatous disease. Punctate calcifications in otherwise normal appearing liver and splee n also likely represent healed granulomatous disease. IMPRESSION: 1. Lung-RADS category 2: Benign appearance or behavior. Continue annual screening with noncontrast lo w-dose chest CT in 12 months. Reviewed, dictated and finalized at location F. IMPRESSION: 1. Lung-RADS category 2: Benign appearance or behavior. Continue annual screeni ng with noncontrast low-dose chest CT in 12 months.
== END 2022-09-23 16:21 | disposition home or self-care (01) ==
PROVIDERS: PCP Internal Medicine; Visit Provider Internal Medicine
DX: Z12.2 Encounter for screening for malignant neoplasm of respiratory organs (principal); F17.210 Nicotine dependence, cigarettes, uncomplicated
CPT/HCPCS: 71271

== ENCOUNTER 2022-10-20 12:24 | Outpatient (CLI) | payer BC, SELFPAY ==
--- NOTE | 2022-10-20 12:26 | ECHO_ITS ---
Patient Info Name: Brianna Norman Age: 61 years : 1960 Gender: Female Ht: 65 in Wt: 168 lbs BSA: 1.89 m2 Technical Quality: Good Exam Date: 10/20/2022 1:10 PM Exam Location: [facility] Pulmonary Patient Status: Outpatient Admit Date: 10/20/2022 Staff Ordering Physician: Villa Talavera DO Swamper: Abiola Engle RDCS Attending Provider: Villa Talavera DO Referring Physician: Sadaf HUERTAS; Exam Type: CA echo doppler color flow Study Info Indications R06.09 - Other forms of dyspnea Complete two-dimensional, color flow and Doppler transthoracic echocardiogram is performed. Summary 1. Complete two-dimensional, color flow and Doppler transthoracic echocardiogram is performed. 2. Left ventricular chamber dimension is normal. 3. Left ventricular systolic function is normal, estimated at 60-65%. 4. The left ventricular diastolic function is grade II diastolic dysfunction. 5. E/e' 14 is mildly elevated. 6. Left atrial chamber dimension is mildly enlarged. 7. There is mild mitral valve regurgitation. 8. There is trace pulmonic regurgitation. Left Ventricle E/e' 14 is mildly elevated. Left ventricular chamber dimension is normal. Left ventricular systolic function is normal, estimated at 60-65%. The left ventricular diastolic function is grade II diastolic dysfunction. Right Ventricle Right ventricular systolic function is normal and with normal TAPSE 1.8 cm. Right ventricular chamber dimension is normal. Left Atria Left atrial chamber dimension is mildly enlarged. Right Atria Right atrial chamber dimension is normal. Aortic Valve The aortic valve is trileaflet. There is no aortic valve stenosis. There is no aortic valve regurgitation. Pulmonic Valve There is trace pulmonic regurgitation. Mitral Valve There is no mitral valve stenosis. There is mild mitral valve regurgitation. Tricuspid Valve There is no tricuspid valve regurgitation. Pericardium/Pleural There is no pericardial effusion. Inferior Vena Cava Normal inferior vena cava with >50% collapse upon inspiration consistent with normal right atrial pressure, 5 mmHg. Aorta The aortic root size at the sinus of Valsalva is normal. Left Ventricular Outflow Tract Name Value Normal LVOT 2D LVOT Diameter 1.9 cm LVOT Doppler LVOT Peak Gradient 5 mmHg LVOT Mean Gradient 2 mmHg LVOT VTI 24 cm LVOT VTI/AV VTI Ratio 0.8 LVOT Stroke Volume 71 ml LVOT CO 4.4 l/min LVOT CI 2.4 l/min/m2 Pulmonic Valve Name Value Normal RVOT Doppler RVOT Peak Gradient 2 mmHg PV Doppler PV Peak Gradient 3 mmHg Mitral Valve
== END 2022-10-20 12:25 | disposition home or self-care (01) ==
LOC: ANHCARD 12:24
PROVIDERS: PCP Internal Medicine; Visit Provider Internal Medicine
DX: R06.09 Other forms of dyspnea (principal); R42 Dizziness and giddiness; I34.0 Nonrheumatic mitral (valve) insufficiency
CPT/HCPCS: 93306

== ENCOUNTER 2023-05-19 13:26 | Outpatient (CLI) | payer BC, SELFPAY ==
--- NOTE | ~2023-05-19 | MR_ITS ---
MRI of the lumbar spine Clinical History: Back pain Technique: Axial T2-weighted images, and sagittal T1-weighted, T2-weighted, and and T2 fat-sat images were acquired. Findings: There is no fracture in the lumbar spine. There is 3 mm anterolisthesis of L4 over L5. No b one marrow signal abnormality seen. At L1-L2, there is no disc bulge or herniation. No significant central canal stenosis or neural elizabeth inal narrowing. At L2-L3, there is minimal disc bulge. There is minimal facet joint degenerative change. No spinal ca nal stenosis or neural foraminal narrowing. At L3-L4, there is mild disc bulge with advanced facet arthropathy. No central canal stenosis or neur al foraminal narrowing. At L4-L5, there is disc bulge and advanced facet arthropathy. No delfino central canal stenosis. There is minimal right neural foraminal narrowing. Left neural foramen preserved. At L5-S1, there is central disc protrusion with severe facet arthropathy bilaterally. No central corinne l stenosis. There is mild left neural foraminal narrowing. Paravertebral soft tissues are unremarkable. Impression: Mild degenerative spondylosis, as above. Minimal grade 1 anterolisthesis of L4 over L5. Reviewed, dictated and finalized at location . TRANSFER TECHNICIAN Impression: Mild degenerative spondylosis, as above. Minimal grade 1 anterolisthesis of L4 over L5.
== END 2023-05-19 13:27 | disposition home or self-care (01) ==
LOC: ANHIMG 13:30
PROVIDERS: PCP Internal Medicine; Visit Provider Physician Assistant
DX: M43.06 Spondylolysis, lumbar region (principal)
CPT/HCPCS: 72148

== ENCOUNTER 2023-10-07 10:06 | Outpatient (CLI) | payer BC, SELFPAY ==
--- NOTE | ~2023-10-07 | MM_ITS ---
EXAMINATION: MM screening tomi BI w ciro HISTORY: Screening mammogram TECHNIQUE: Craniocaudal and mediolateral oblique 3-D tomosynthesis images were obtained and synthetic 2-D images were generated. CAD analysis was submitted and interpreted. COMPARISON: October 06, 2021, 05/11/2020 bilateral screening mammogram examinations BREAST PARENCHYMAL COMPOSITION: There are scattered areas of fibroglandular density. FINDINGS: Biopsy marker on the right; history of prior benign right breast biopsy and benign left axi llary biopsy. There is no evidence of suspicious mass, calcification, or architectural distortion to suggest malignancy in either breast. There has been no suspicious interval change. IMPRESSION: 1. No mammographic evidence of malignancy. 2. Recommend routine screening mammography in one year. BI-RADS Category 1: Negative Reviewed, dictated and finalized at location A.
== END 2023-10-07 10:07 ==
LOC: MICIMG 10:07
DX: Z12.31 Encounter for screening mammogram for malignant neoplasm of breast (principal)
CPT/HCPCS: 77063; 77067

== ENCOUNTER 2023-10-10 07:18 | Outpatient (CLI) | payer BC, SELFPAY ==
[2023-10-10 08:07] LABS: Basophils Percent Auto 0.7 % (0.2-1.2); Eosinophils Absolute Auto 0.1 K/mm3 (0-0.3); Eosinophils Percent Auto 2.4 % (0-4.4); Hematocrit 39.5 % (37.0-47.0); Hemoglobin 12.8 g/dL (12.0-15.0); Immature Granulocyte Absolute 0.02 K/mm3 (0.00-0.031); Immature Granulocyte Percent A 0.4 % (0-0.5); Lymphocytes Absolute Auto 1.75 K/mm3 (0.9-3.2); Lymphocytes Percent Auto 31.8 % (18.3-44.2); Mean Corpuscular HGB Conc 32.4 g/dl (32-36); Mean Corpuscular Hemoglobin 30.5 pg (26-34); Mean Platelet Volume 10.5 fl (7.4-10.4); Monocytes Absolute Auto 0.5 K/mm3 (0.1-0.6); Monocytes Percent Auto 8.7 % (2.6-8.5); Neutrophils Absolute Auto 3.1 K/mm3 (1.3-6.7); Platelet Count Result 298 k/mm3 (150-375); White Blood Count 5.5 K/mm3 (4.5-10.0)
[2023-10-10 08:11] LABS: Alanine Aminotransferase 16 U/L (6-35); Albumin Level 4.4 g/dL (3.5-5.1); Alkaline Phosphatase 63 U/L (38-126); Anion Gap 4 mmol/L (4-12); Aspartate Amino Transferase 19 U/L (14-36); Bilirubin,Total 0.5 mg/dL (0.2-1.3); Blood Urea Nitrogen 16 mg/dL (7-17); Calcium 9.3 mg/dL (8.4-10.2); Carbon Dioxide 26 mmol/L (22-30); Chloride 110 mmol/L (98-107); Cholesterol 214 mg/dL (0-200); Estimated Glomerular Filt Rate > 60; Glucose 108 mg/dL (65-110); HDL Direct 68 mg/dL; Potassium 4.3 mmol/L (3.4-5.0); Sodium 140 mmol/L (137-145); Triglycerides 78 mg/dL (<150)
[2023-10-10 08:22] LABS: LDL Cholesterol Direct 118 mg/dL
== END 2023-10-10 07:19 | disposition home or self-care (01) ==
LOC: ANHLAB 07:19
PROVIDERS: Visit Provider Physician Assistant
DX: E78.5 Hyperlipidemia, unspecified (principal); I10 Essential (primary) hypertension; R53.83 Other fatigue
CPT/HCPCS: 36415; 80053; 80061; 84443; 85025

== ENCOUNTER 2024-01-11 08:23 | Emergency (ER) | payer BC, SELFPAY ==
--- NOTE | ~2024-01-11 | CT_ITS ---
CT of the Abdomen and Pelvis: Indication: Abdominal pain Technique: 2.5 mm axial scans were obtained through the abdomen and pelvis following intravenous adm inistration of 100 cc of Omnipaque 350. Dose reduction technique was used on this scan by utilizing a utomated exposure control and iterative reconstruction technique. The dose-length product (DLP) was 6 41.23 mGy-cm. COMPARISON: 03/06/2022 Findings: Scans through the lung bases are unremarkable. The liver, spleen, pancreas, gallbladder, adrenals and kidneys are within normal limits. There are at herosclerotic calcifications of the aorta. No lymphadenopathy. No bowel obstruction or bowel wall thickening. There is no evidence to suggest acute appendicitis. Images through the pelvis were performed. Urinary bladder unremarkable. No adnexal mass seen. No asci senia. Impression: No significant abnormalities seen. Reviewed, dictated and finalized at [facility]. Impression: No significant abnormalities seen.
--- NOTE | 2024-01-11 08:27 | ED.GENADULT ---
HPI - General Adult General Chief complaint: Abdominal Pain Stated complaint: COLITIS? Time Seen by Provider: 01/11/24 08:26 History of Present Illness HPI narrative: Patient is a 63-year-old female who presents ER with concerns for colitis. Reports she had a loose bowel movement today that had pink blood within it. No large clots. Patient recently increased the dosage of her is up found injection for weight loss. This was 5 days ago. She has been having some abdominal cramping related to this. No fevers or chills or sweats. No urinary symptoms. Related Data Allergies Allergy/AdvReac Type Severity Reaction Status Date / Time codeine Allergy Severe pancreas Verified 01/11/24 08:45 FAILURE morphine Allergy Severe PANCREATIC Verified 01/11/24 08:45 FAILURE Penicillins Allergy Mild Itching Verified 01/11/24 08:45 Review of Systems Review of Systems: All systems reviewed & are unremarkable except as noted in HPI and below Constitutional: Constitutional: Reports no additional constitutional complaints Cardiovascular: Cardiovascular: Reports no additional cardiovascular complaints Respiratory: Respiratory: Reports no additional respiratory complaints Gastrointestinal: Gastrointestinal: Reports abdominal pain, Reports diarrhea, Denies nausea and Denies vomiting Genitourinary: Genitourinary: Reports no additional female genitourinary complaints [facility] Past Medical History Medical History Benign essential HTN Colon polyps History of COVID-19 Hypertension Tobacco abuse Surgical History Surgical History H/O foot surgery History of endometrial ablation Hx of section Hx of colonoscopy 2019, repeat in 3 years- mltpl. polyps. Hx of tubal ligation Family History Family History Sibling Acute myocardial infarction Heart disease Diabetes mellitus Father Diabetes mellitus Hypertension Mother Hypertension Social History Social History Social History: Smoking packs per day: 1 Smoking cigarettes per day: 20.0 Years smoked: 40 Smoking pack-years: 40.00 Smoking status: Former smoker Tobacco type: cigarettes Second hand tobacco smoke exposure: Yes Smoking end date: 05/05/21 Alcohol intake: current Drinks per week: 4 Alcohol use details: SOCIAL - APPROX TWICE/MONTH Substance use: current Substance use type: does not use Lack of Transportation: No Lack of Food: Never True Current Housing: I Have Housing Concerned About Future Housing: No Difficulty Paying Gas/Electric Bills: No Difficulty Paying for Meds: No Currently Unemployed: No Education: High School Diploma/GED Difficulty w/ Childcare or Family Care: No Living arrangements: alone Occupation/Education: occupation Gender identity (if verbalized by the patient): Female Sexual Orientation (if Verbalized by the Patient): Straight or Heterosexual Spiritual care concerns: No Exam Narrative: GENERAL: Well-appearing, well-nourished, and in no acute distress. HEAD: Normocephalic, atraumatic. ENT: Mucous membranes moist. CHEST: Clear to auscultation. No respiratory distress. HEART: Regular rate and rhythm. Normal peripheral pulses. ABDOMEN: Soft, nontender, nondistended. EXTREMITIES: Normal range of motion. No edema. SKIN: Warm, dry, no rash. NEURO: Alert and oriented x3. PSYCH: Normal mood and affect. Course Vital Signs Vital signs: Vital Signs Temperature 98.5 F 01/11/24 08:32 Pulse Rate 84 01/11/24 08:32 Respiratory Rate 18 01/11/24 08:32 Blood Pressure 144/98 H 01/11/24 08:32 Pulse Oximetry 98 01/11/24 08:32 Oxygen Delivery Room Air 01/11/24 08:32 Temperature 98.5 F 01/11/24 08:32 Pulse Rate 84
[2024-01-11 08:32] VITALS: BP 144/98; PULSE 84; RESP 18; TEMP 36.9; O2SAT 98
[2024-01-11 08:51] LABS: Basophils Percent Auto 0.4 % (0.2-1.2); Eosinophils Percent Auto 0.3 % (0-4.4); Hematocrit 37.8 % (37.0-47.0); Hemoglobin 13.1 g/dL (12.0-15.0); Immature Granulocyte Absolute 0.02 K/mm3 (0.00-0.031); Immature Granulocyte Percent A 0.3 % (0-0.5); Lymphocytes Absolute Auto 1.29 K/mm3 (0.9-3.2); Lymphocytes Percent Auto 19.1 % (18.3-44.2); Mean Corpuscular HGB Conc 34.7 g/dl (32-36); Mean Corpuscular Volume 89.6 fl (80-100); Monocytes Absolute Auto 0.6 K/mm3 (0.1-0.6); Monocytes Percent Auto 8.9 % (2.6-8.5); Neutrophils Absolute Auto 4.8 K/mm3 (1.3-6.7); Platelet Count Result 302 k/mm3 (150-375); Red Blood Count 4.22 M/mm3 (4.2-5.4); Red Cell Distribution Width 12.3 % (11.5-14.5); White Blood Count 6.8 K/mm3 (4.5-10.0)
[2024-01-11 08:58] LABS: Alanine Aminotransferase 13 U/L (6-35); Albumin Level 4.8 g/dL (3.5-5.1); Alkaline Phosphatase 66 U/L (38-126); Anion Gap 13 mmol/L (4-12); Aspartate Amino Transferase 19 U/L (14-36); Bilirubin,Total 0.8 mg/dL (0.2-1.3); Blood Urea Nitrogen 10 mg/dL (7-17); Calcium 9.9 mg/dL (8.4-10.2); Carbon Dioxide 22 mmol/L (22-30); Chloride 100 mmol/L (98-107); Estimated CRCL calculation 58 ml/min; Estimated Glomerular Filt Rate > 60; Glucose 114 mg/dL (65-110); Lipase 118 U/L (23-300); Potassium 3.7 mmol/L (3.4-5.0); Sodium 135 mmol/L (137-145)
[2024-01-11 09:36] LABS: Add Urine Microscopic? YES; Appearance Urine Clear (Clear); Bacteria Urine None Seen /hpf; Bilirubin Urine Negative (Negative); Blood Urine Negative (Negative); Color Urine Yellow (Yellow); Glucose Urine UA Negative (Negative); Ketones Urine Negative (Negative); Leukocyte Esterase Ur 1+ LEU/UL (Negative); Need Manual Microscopic Reviewed; Nitrate Urine Negative (Negative); Protein Urine Negative (Negative); RBC Urine 0-2 /hpf (0-2); Specific Grav Ur 1.013 (1.001-1.035); Squamous Epithelial Cell Urine Occasional /hpf (Few); Urobilinogen Urine 0.2 mg/dL (<2.0); WBC Urine 0-5 /hpf (0-3); pH Urine 7.5 (5.0-9.0)
[2024-01-11 10:12] VITALS: BP 130/90; PULSE 77; RESP 19; O2SAT 99
[2024-01-11] MEDS: DICYCLOMINE HCL INJ 20 MG/2 ML VIAL IM (10:23)
[2024-01-11] MEDS: ONDANSETRON INJ 4 MG/2 ML VIAL IV PUSH (10:23)
== END 2024-01-11 10:29 | disposition home or self-care (01) ==
PROVIDERS: Emergency Provider Emergency Medicine; PCP Internal Medicine
DX: R10.9 Unspecified abdominal pain (principal); K92.1 Melena; I10 Essential (primary) hypertension; Z87.891 Personal history of nicotine dependence
CPT/HCPCS: 36415; 74177; 80053; 81001; 83690; 85025; 96372; 96374; 99284; J0500; J2405; Q9967

== ENCOUNTER 2024-02-26 16:35 | Outpatient (CLI) | payer BC, SELFPAY ==
[2024-02-26 17:26] LABS: Strep Group A RT-PCR NOT DETECTED (Negative)
== END 2024-02-26 16:36 | disposition home or self-care (01) ==
LOC: ANHLAB 16:37
PROVIDERS: PCP Internal Medicine; Visit Provider Internal Medicine
DX: J02.9 Acute pharyngitis, unspecified (principal)
CPT/HCPCS: 87651

== ENCOUNTER 2024-05-27 07:52 | Outpatient (CLI) | payer BC, SELFPAY ==
--- NOTE | ~2024-05-27 | CT_ITS ---
CT Scan of the Chest without Contrast: Clinical Indication: Lung cancer screening, nicotine dependence Technique: Contiguous sections were acquired throughout the chest without intravenous contrast. Dose reduction technique was used on this scan by utilizing automated exposure control and iterative recon struction technique. The dose-length product (DLP) was 57.12 mGy-cm. COMPARISON: 09/23/2022 Findings: There is no evidence of any significant mediastinal, hilar or axillary lymphadenopathy. Calcified med iastinal lymph nodes are present. There is no evidence of pleural or pericardial effusion. Stable 3 mm triangular nodule in the right middle lobe. Images through the upper abdomen reveal no abnormalities. Impression: Lung RADS 2: Benign appearance. 12 month follow-up screening CT advised. Reviewed, dictated and finalized at location . EMIC GUIDANCE SPECIALIST Impression: Lung RADS 2: Benign appearance. 12 month follow-up screening CT advised.
--- OUTSIDE RECORDS SUMMARY | 2024-06-02 01:44 | XMS_ITS | Encounter Summary ---
Author Organization [facility] Address [address] [place] [address] Care Team Providers Care Undergraduate Advisor Name Role Phone Sunny West MD Unavailable [phone] Jacky STEPHENS MD, Kelechi Primary Care Provider Brooke vailable Reason for Visit * Reason Onset Date Comments Smoking Cessation 12/21/2018 Encounter Details Date Type Department Care Team (Late st Contact Info) Description 12/21/2018 Telephone [facility] Medical [facility] Medicine [address] [place] [address] Kelechi Rico III, MD RETIRED Smoking Cessation Social History Tobacco Use Types Packs/Day Years Used Date Smoking Tobacco: Every Day Cigarettes 1 20 Started: 04/22/1995; Last attempted to quit: 04/22/2015 Smokeless Tobacco: Never Alcohol Use Standard Drinks/Week Comments Yes 0.8 (1 standard drink = 0.6 oz p ure alcohol) 04/20/09 Sex and Gender Information Value Date Recorded Sex Assigned at Not on file Gender Identity Not on file Sexual Orientation Not on file documented as of this encounter Miscellaneous Notes * Telephone Encounter - Courtney Burkett RN - 12/21/2018 12:19 PM CDT Spoke with pt, she will look into this and call back with a new pharmacy. * Telephone Encounter - Courtney Burkett RN - 12/21/2018 11:54 AM CDT Spoke with pharmacy, they do not carry this. Left message with pt to see which pharmacy she would like me to call. * Telephone Encounter - Kelechi Rico III, MD - 12/21/2018 11:05 AM CDT Nicotrol Inhaler * Telephone Encounter - Courtney Burkett RN - 12/21/2018 9:42 AM CDT Pt requesting to try nicorette inhalator, gum is not helping and thinks her additction is more related to the act of smoking rather than nicotine addiction. Requesting this to be sent as a script, states her insurance will cover. Can't find in [employer], ok to phone in? documented in this encounter Plan of Treatment Not on file documented as of this encounter Goals Goal Patient Goal Type Associated Problems Recent Progress Patient-Stated? Author Quit smoking / using tobacco Lifestyle On track( 015 11:44 AM HIGH WIRE ARTIST) No Courtney Dockery documented as of this encounter Visit Diagnoses Not on filedocumented in this encounter Care Teams Undergraduate Advisor Relationship Specialty Start Date End Date Sunny West MD PCP - OBGYN 03/28/08 Kelechi Rico III, MD RETIRED PCP - General 01/12/12 05/10/20 documented as of this encounter
--- OUTSIDE RECORDS SUMMARY | 2024-06-02 01:44 | XMS_ITS | Encounter Summary ---
Author Organization [facility] Health Address [address] [place] [address] Care Team Providers Care Associate Professor Of Surgery Name Role Phone Sunny [place] MD Unavailable [phone] Akilah Duong MD Primary Care Provider + Reason for Referral * Radiology Services (Routine) - Closed Specialty Diagnoses / Procedures Referred By Contac t Referred To Contact Diagnoses Visit for screening mammogram Procedures VICKY SCREENING DIGITAL IMAGE BILATERAL G0202 Akilah Duong MD [address] [place] [address] Phone: [phone] Fax: [phone] Referral ID Status Reason Start Date Expiration Date Visits Re quested Visits Authorized [id number] Closed 05/11/2020 05/11/2021 1 1 LEMAKER Reason for Visit * Radiology Services (Routine) - Closed Specialty Diagnoses / Procedures Referred By Lindy avila Referred To Contact Diagnoses Visit for screening mammogram Procedures VICKY SCREENING DIGITAL IMAGE BILATERAL G0202 Akilah Duong MD [address] [place] [address] Phone: [phone] Fax: [phone] Referral ID Status Reason Start Date Expiration Date Visits Re quested Visits Authorized [id number] Closed 05/11/2020 05/11/2021 1 1 Encounter Details Date Type Department Care Team (Latest Contact Info) Description 05/11/2020 12:30 PM CANDLEMAKER - 05/11/2020 11:59 PM CANDLEMAKER Hospital Encounter [facility] Breast Care [address] [facility] [address] [place] [address] Akilah Duong MD [address] [place] [address] Discharge Disposition: Home or Self Care Social History Tobacco Use Types Packs/Day Years [...] on file documented as of this encounter Medications at Time of Discharge Medication Sig Dispensed Refills Start Date End Date amLODIPine (NORVASC) 10 MG tablet Take 1 tablet by mouth once daily 90 tablet 3 07/03/2019 05/27/2024 nicotine (NICODERM CQ) 21 MG/24HR patch Apply 1 patch to skin once daily 30 patch 6 12/24/2018 05/27/2022 documented as of this encounter Plan of Treatment Not on file documented as of this encounter Goals Goal Patient Goal Type Associated Problems Recent Progress Patient-Stated? Author Quit smoking / using tobacco Lifestyle On track( 015 11:44 AM CANDLEMAKER) No Courtney Dockery documented as of this encounter Procedures Procedure Name Priority Date/Time Associated Diagnosis Comments MAMMO BILAT SCREENING Routine 05/11/2020 12:48 PM CANDLEMAKER Visit for screening mammogram documented in this encounter Results * VICKY SCREENING DIGITAL IMAGE BILATERAL G0202 (05/11/2020 12:48 PM CANDLEMAKER) Anatomical Region Laterality Modality Breast Bilateral Mammography 05/11/2020 1:35 PM CANDLEMAKER Impressions 05/11/2020 1:57 PM CANDLEMAKER No mammographic evidence of malignancy in either breast. ASSESSMENT: BIRADS Category 1: Negative mammogram. RECOMMENDATION: Bilateral screening mammogram in one year. Thank you for allowing us to participate in the care of your patient. [facility] Breast Care utilizes [employer] as a reminder system to notify patients of their next recommended mammogram. *Reading Radiologist: Jacki Glover on 05/11/2020 at 1:57 PM Narrative 05/11/2020 1:57 PM CANDLEMAKER EXAMINATION: Digital screening mammogram. Low-dose full-field digital breast tomosynthesis examination was performed with synthetic 2D images and 3D acquisitions. Computer assisted detection was utilized. DATE: 05/11/2020 12:32 PM PRIOR: ??03/08/2019 and prior mammograms dating back to 10/16/2014. BREAST PARENCHYMAL DENSITY: The breasts are heterogeneously dense, which may obscure small masses. RISK ASSESSMENT CALCULATION: Not offered due to COVID contact precautions. FINDINGS: No suspicious masses, areas of architectural distortion or microcalcifications are evident on synthetic 2D mammogram or tomosynthesis images. There has been no significant interval change since the prior examination. Akilah Duong MD MAMMO ORDERABLES documented in this encounter Visit Diagnoses Diagnosis Visit for screening mammogram Other screening mammogram documented in this encounter Care Teams Associate Professor Of Surgery Relationship Specialty Start Date End Date Sunny [place] MD PCP - OBGYN 03/28/08 Akilah Duong MD [address] [place] [address] PCP - General Family Medicine 05/11/20 08/16/22 documented as of this encounter
--- OUTSIDE RECORDS SUMMARY | 2024-06-02 01:44 | XMS_ITS | Encounter Summary ---
Author Organization [facility] Health Address [address] [place] [address] Care Team Providers Care Material Manager Name Role Phone Sunny [place] MD Unavailable [phone] Jacky STEPHENS MD, Kelechi Primary Care Provider Brooke vailable Reason for Referral * Radiology Services (Routine) - Closed Specialty Diagnoses / Procedures Referred By Contac t Referred To Contact Diagnoses Visit for screening mammogram Procedures VICKY SCREENING DIGITAL IMAGE BILATERAL G0202 Sunny [place] MD [address] [place] [address] Referral ID Status Reason Start Date Expiration Date Visits Re quested Visits Authorized [id number] Closed 03/08/2019 09/04/2019 1 1 Reason for Visit * Radiology Services (Routine) - Closed Specialty Diagnoses / Procedures Referred By Contac t Referred To Contact Diagnoses Visit for screening mammogram Procedures VICKY SCREENING DIGITAL IMAGE BILATERAL G0202 Sunny [place] MD [address] [place] [address] Referral ID Status Reason Start Date Expiration Date Visits Re quested Visits Authorized [id number] Closed 03/08/2019 09/04/2019 1 1 Encounter Details Date Type Department Care Team (Latest Contact Info) Description 03/08/2019 10:14 AM CDT - 03/08/2019 11:59 PM CDT Hospital Encounter [facility] Breast Care [address] [place] [address] Sunny [place] MD [address] [place] [address] Discharge Disposition: Home or Self Care Social [...] Sig Dispensed Refills Start Date End Date nicotine (NICODERM CQ) 21 MG/24HR patch Apply 1 patch to skin once daily 30 patch 6 12/24/2018 05/27/2022 documented as of this encounter Plan of Treatment Not on file documented as of this encounter Goals Goal Patient Goal Type Associated Problems Recent Progress Patient-Stated? Author Quit smoking / using tobacco Lifestyle On track( 015 11:44 AM SCREENING SPECIALIST) Courtney Victor documented as of this encounter Procedures Procedure Name Priority Date/Time Associated Diagnosis Comments MAMMO BILAT SCREENING Routine 03/08/2019 10:27 AM CDT Visit for screening mammogram documented in this encounter Results * VICKY SCREENING DIGITAL IMAGE BILATERAL G0202 (03/08/2019 10:27 AM CDT) Anatomical Region Laterality Modality Breast Bilateral Mammography 03/08/2019 10:3 3 AM CDT Impressions 03/08/2019 1:03 PM CDT No mammographic evidence of malignancy in either breast. ASSESSMENT: BIRADS Category 1: Negative mammogram. RECOMMENDATION: Bilateral screening mammogram in one year. Thank you for allowing us to participate in the care of your patient. [facility] Breast Care utilizes [employer] as a reminder system to notify patients of their next recommended mammogram. I, Jacki Glover, have personally reviewed the images and I agree with this report. Reading Radiologist: Jacki Glover MD on 03/08/2019 at 1:03 PM Narrative 03/08/2019 1:03 PM CDT EXAMINATION: Digital screening mammogram on 03/08/2019. Low-dose full-field digital breast tomosynthesis examination was performed with synthetic 2D images and 3D acquisitions. Computer assisted detection was utilized. PRIOR: Multiple prior mammograms, most recently 01/01/2018 and dating back to 10/16/2014. BREAST PARENCHYMAL DENSITY: The breasts are heterogeneously dense, which may obscure small masses. RISK ASSESSMENT CALCULATION: Based on the information provided by your patient, her lifetime risk of breast cancer is average (<15%). Additional quantitative risk model data and patient history details have been scanned as a document/letter in [facility] electronic medical record (media tab). Please note this information is only as accurate as the data entered by the patient. FINDINGS: No suspicious masses, areas of architectural distortion or microcalcifications are evident on synthetic 2D mammogram or tomosynthesis images. There has been no significant interval change since the prior examination. Sunny [place] MD MAMMO ORDERABLES documented in this encounter Visit Diagnoses Diagnosis Visit for screening mammogram Other screening mammogram documented in this encounter Care Teams Material Manager Relationship Specialty Start Date End Date Sunny [place] MD PCP - OBGYN 03/28/08 Kelechi Rico III, MD RETIRED PCP - General 01/12/12 05/10/20 documented as of this encounter
--- OUTSIDE RECORDS SUMMARY | 2024-06-02 01:44 | XMS_ITS | Encounter Summary ---
Author Organization [facility] Address [address] [place] [address] Care Team Providers Care Field Automobile Adjuster Name Role Phone Sunny [place] MD Unavailable [phone] Jacky STEPHENS MD, Kelechi Primary Care Provider Brooke vailable Reason for Visit * Reason Comments Hypertension Encounter Details Date Type Department Care Team (Late st Contact Info) Description 04/15/2019 1:30 PM TEST MANAGER Office Visit [facility] Medical [facility] - Internal Medicine [address] [facility] [address] [place], [place] [id number] Kelechi Rico III, MD RETIRED Essential hypertension (Primary Dx) Social History Tobacco Use Types Packs/Day Years Used Date Smoking Tobacco: Every Day Cigarettes 1 20 Started: 04/22/1995; Last attempted to quit: 04/22/2015 Smokeless Tobacco: Never Tobacco Cessation:Ready to Q uit: Yes; Counseling Given: Yes Alcohol Use Standard Drinks/Week Comments Yes 0.8 (1 standard drink = 0.6 oz p ure alcohol) 04/20/09 Sex and Gender Information Value Date Recorded Sex Assigned at Not on file Gender Identity Not on file Sexual Orientation Not on file documented as of this encounter Last Filed Vital Signs Vital Sign Reading Time Taken Comments Blood Pressure 136/94 04/15/2019 1:13 PM TEST MANAGER Pulse 72 04/15/2019 1:13 PM TEST MANAGER Temperature - - Respiratory Rate - - Oxygen Saturation - - Inhaled Oxygen Concentration - - Weight 67.6 kg (149 lb) 04/15/2019 1:13 PM TEST MANAGER Height 165.1 cm (5' 5 ) 04/15/2019 1:13 PM TEST MANAGER Body Mass Index 24.79 04/15/2019 1:13 PM TEST MANAGER documented in this encounter Progress Notes * Kelechi Rico III, MD - 04/15/2019 1:34 PM CST The patient is seen for follow up of consistently elevated BP. Mother and son have HTN. No added salt. ROS: taking medications as instructed, no medication side effects noted, no TIA's, no chest pain onexertion, no dyspnea on exertion, no swelling of ankles. 2 headaches last few months. Not a daily morning phenomenon. Catch and pain right hip and back. Son and family still with her. He is now contributing to housingcost. Smoking less, not daily. Med list reviewed with patient. Exam: BP 136/94 Pulse 72 Ht 1.651 m (5' 5 ) Wt 67.6 kg (149 lb) BMI 24.79 kg/m2 BP right arm 130 84 General appearance: alert, cooperative, breathing comfortably, no distress Carotid 2+, no bruits Heart: regular rhythm, normal S1 and S2, without murmurs, rubs or gallops Lungs: breath sounds normal and symmetric. No rales or wheezes Extremities: no clubbing, cyanosis. 0 edema. Assessment: Encounter Diagnosis Name Primary? Essential hypertension Yes Plan: Orders Placed This Encounter ??? amLODIPine (NORVASC) 5 MG tablet Sig: Take 1 tablet by mouth once daily Dispense: 30 tablet Refill: 11 Continue current medications. MANAGER documented in this encounter Plan of Treatment Not on file documented as of this encounter Goals Goal Patient Goal Type Associated Problems Recent Progress Patient-Stated? Author Quit smoking / using tobacco Lifestyle On track( 015 11:44 AM TEST MANAGER) No Courtney Dockery documented as of this encounter Visit Diagnoses Diagnosis Essential hypertension- Primary documented in this encounter Care Teams Field Automobile Adjuster Relationship Specialty Start Date End Date Sunny [place] MD PCP - OBGYN 03/28/08 Kelechi Rico III, MD RETIRED PCP - General 01/12/12 05/10/20 documented as of this encounter
--- OUTSIDE RECORDS SUMMARY | 2024-06-02 01:44 | XMS_ITS | Encounter Summary ---
Author Organization [facility] Address [address] [facility] [place] [address] Care Team Providers Care Advanced Practice Provider Name Role Phone Sunny West MD Unavailable [phone] Villa Talavera DO Primary Care Provider [phone] Reason for Visit * Reason Comments Well Women Exam Encounter Details Date Type Department Care Team (Late st Contact Info) Description 05/31/2023 11:00 AM SHEET TURNER Office Visit [facility] - OPTICAL MECHANIC APPRENTICE [address] [place] [address], [address] [place] [phone] Sunny West MD [address] [place] [address]. [address] [place] [phone] Pap smear, as part of routine gynecological examination (Primary Dx) Social History Tobacco Use Types Packs/Day Years Used Date Smoking Tobacco: Former Cigarettes 1 20 1 07/05/2000 - 05/05/2021 Smokeless Tobacco: Never Tobacco Cessation:Counseling Given: Not Answered Alcohol Use Standard Drinks/Week Comments Yes 0.8 (1 standard drink = 0.6 oz p ure alcohol) 04/20/09 PHQ-2 Answer Date Recorded PHQ2 TOTAL SCORE 0 05/27/2022 Sex and Gender Information Value Date Recorded Sex Assigned at Not on file Gender Identity Not on file Sexual Orientation Not on file documented as of this encounter Last Filed Vital Signs Vital Sign Reading Time Taken Comments Blood Pressure 136/84 05/31/2023 11:07 AM SHEET TURNER Pulse - - Temperature - - Respiratory Rate - - Oxygen Saturation - - Inhaled Oxygen Concentration - - Weight 75.8 kg (167 lb) 05/31/2023 11:07 AM SHEET TURNER Height 165.1 cm (5' 5 ) 05/31/2023 11:07 AM SHEET TURNER Body Mass Index 27.79 05/31/2023 11:07 AM SHEET TURNER documented in this encounter Progress Notes * Sunny West MD - 05/31/2023 11:22 AM CST Well Woman Yearly Exam (Post Menopausal) HISTORY: Brianna Norman is a 62 year old female here for a Well Woman exam. Patient does not have other gynecological issues or concerns. Last Pap: normal. Last mammogram: Performed 2021, and was normal Other pertinent REMEDIAL TEACHER history: None Other pertinent history: Medical, Surgical, Family, and Social History Reviewed. Allergies reviewed. Review of Systems Pertinent items are noted in HPI EXAMINATION BP 136/84 (BP SITE: LEFT ARM, BP POSITION: SITTING, BP Cuff Size: A) Ht 1.651 m (5' 5 ) Wt 75.8kg (167 lb) General Appearance: alert, cooperative, no distress Extremities: no clubbing, cyanosis or edema Breasts: symmetric, nontender, no masses or discharge Lungs: breath sounds normal and symmetric; no rales or wheezes Heart: regular rhythm, normal S1 and S2, without murmurs, gallops or rubs Abdomen: Soft without mass, non-tender Pelvic: Vulva and vagina appear normal. Bimanual exam reveals normal uterus and adnexa. Vaginal Atrophy: Yes,mild ASSESSMENT Normal Postmenopausal REMEDIAL TEACHER Well Woman Exam. Patient Active Problem List: Submucous leiomyoma of uterus GERD (gastroesophageal reflux disease) Vitamin D deficiency Pure hypercholesterolemia Family history of premature coronary artery disease Screen for colon cancer ord'd 05/02/13, Chronic depression Polyp of ascending colon-tubular adenoma PLAN See orders, medications, patient instructions. Routine Mammograms recommended. T TURNER documented in this encounter Plan of Treatment Not on file documented as of this encounter Goals Goal Patient Goal Type Associated Problems Recent Progress Patient-Stated? Author Quit smoking / using tobacco Lifestyle On track( 015 11:44 AM SHEET TURNER) No Courtney Dockery documented as of this encounter Procedures Procedure Name Priority Date/Time Associated Diagnosis Comments PAP IG RFLX HPV HR ASCUS RFLX 16/18/45 Routine 05/31/2023 12:12 PM SHEET TURNER Pap smear, as part of routine gynecological examination documented in this encounter Results * PAP IG RFLX HPV HR ASCUS RFLX 16/18/45 (05/31/2023 12:12 PM SHEET TURNER) Diagnosis [facility] ACCOUNT BILL Comment:NEGATIVE FOR INTRAEP ITHELIAL LESION OR MALIGNANCY. Specimen Adequacy [facility] ACCOUNT BILL Comment:Satisfactory for karen luation. No endocervical component is identified. Clinician Provided ICD10 [facility] ACCOUNT BILL Comment:Z01.419 Performed by [facility] ACCOUNT BILL Comment:Courtney Morelos Cytot echnologist ([facility]) Comment . [facility] ACCOUNT BILL Note [facility] ACCOUNT BILL Comment: The Pap smear is a screening test designed to aid in the detection of premalignant and malignant conditions of the uterine cervix. ??It is not a diagnostic procedure and should not be used as the sole means of detecting cervical cancer. ??Both false-positive and false-negative reports do occur. ? . IGLBP CPT Code Automation [facility] ACCOUNT BILL Comment: This liquid based ThinPrep(R) pap test was screened with the use of an image guided system. Note [facility] ACCOUNT BILL Comment: The HPV DNA reflex criteria were not met with this specimen result therefore, no HPV testing was performed. ? . Pathology/Cytolog y PART OF UTERINE CERVIX / Unknown 05/31/2023 12:12 PM SHEET TURNER 05/31/2023 Narrative [facility] ACCOUNT BILL - 06/02/2023 3:09 PM SHEET TURNER No. of containers..01 ThinPrep Vial Resulting Agency Comment Lab Testing performed at: [facility] [address] ??[place] [id number] Sunny [place] MD LAB - PATHOLOGY/CYTO LOGY ORDERABLES [facility] ACCOUNT BILL [address] [place] [address] documented in this encounter Visit Diagnoses Diagnosis Pap smear, as part of routine gynecological examination- Primary Screening for malignant neoplasm of the cervix documented in this encounter Care Teams Advanced Practice Provider Relationship Specialty Start Date End Date Sunny [place] MD PCP - OBGYN 03/28/08 Villa Talavera DO [address] [id number] PCP - General 08/17/22 documented as of this encounter
--- OUTSIDE RECORDS SUMMARY | 2024-06-02 01:44 | XMS_ITS | Encounter Summary ---
Author Organization [facility] Address [address] [place] [address] Care Team Providers Care Sr. Operations Manager Name Role Phone Sunny [place] MD Unavailable [phone] Jacky STEPHENS MD, Kelechi Primary Care Provider Brooke vailable Reason for Referral * Radiology Services (Routine) - Closed Specialty Diagnoses / Procedures Referred By Contac t Referred To Contact Nuclear Medicine Diagnoses Epigastric pain Procedures NM HEPATOBILIARY W CCK Kelechi Lopez III, MD RETIRED Referral ID Status Reason Start Date Expiration Date Visits Re quested Visits Authorized [id number] Closed 07/30/2018 01/26/2019 1 1 ATRIC AUDIOLOGIST Reason for Visit * Radiology Services (Routine) - Closed Specialty Diagnoses / Procedures Referred By Contac t Referred To Contact Nuclear Medicine Diagnoses Epigastric pain Procedures NM HEPATOBILIARY W CCK Kelechi Lopez III, MD RETIRED Referral ID Status Reason Start Date Expiration Date Visits Re quested Visits Authorized [id number] Closed 07/30/2018 01/26/2019 1 1 Encounter Details Date Type Department Care Team (Latest Contact Info) Description 08/06/2018 11:09 AM PEDIATRIC AUDIOLOGIST - 08/06/2018 11:59 PM PEDIATRIC AUDIOLOGIST Hospital Encounter [facility] - Nuclear Medicine [address] [place] [address] Kelechi Rico III, MD RETIRED Discharge Disposition: Home or Self Care Social [...] on file documented as of this encounter Plan of Treatment Not on file documented as of this encounter Goals Goal Patient Goal Type Associated Problems Recent Progress Patient-Stated? Author Quit smoking / using tobacco Lifestyle On track( 015 11:44 AM PEDIATRIC AUDIOLOGIST) No NahedCourtney murray documented as of this encounter Procedures Procedure Name Priority Date/Time Associated Diagnosis Comments NM HEPATOBILIARY W EF Routine 08/06/2018 1:05 PM PEDIATRIC AUDIOLOGIST Epigastric pain documented in this encounter Results * NM HEPATOBILIARY W CCK EF (08/06/2018 1:05 PM PEDIATRIC AUDIOLOGIST) Anatomical Region Laterality Modality Abdomen Nuclear Medicine 08/06/2018 3:28 PM PEDIATRIC AUDIOLOGIST Impressions 08/06/2018 3:33 PM PEDIATRIC AUDIOLOGIST 1. Delayed gallbladder filling at 90 minutes with normal ejection fraction of 96%. 2. No evidence of enterogastric reflux. Reading Radiologist: Ivanna Fong MD on 08/06/2018 at 3:33 PM Narrative 08/06/2018 3:33 PM PEDIATRIC AUDIOLOGIST Hepatobiliary scan with pharmacologic intervention. HISTORY: 57 year old female with abdominal pain. TECHNIQUE: A dose of 5.8 mCi Tc-99m Choletec was administered intravenously. Dynamic anterior images of the abdomen were obtained for 1 hour. Additional images of the abdomen were obtained at 60 minutes after drinking 8 ounces of Ensure. CCK is not available at this time. FINDINGS: ??No prior HIDA scan is available for comparison. There is normal clearance of the blood pool. Tracer activity is seen in biliary system and common bile duct at 10 minutes. Bowel activity is noted at 20 minutes. There is no evidence of gallbladder activity in the first 60 minutes. ??Additional delayed images at 90 minutes demonstrates diffuse gallbladder uptake. Post fatty meal images demonstrate adequate emptying of the gallbladder. By computer analysis gallbladder ejection fraction is calculated to be 96% which is normal. Procedure Note Ivanna Fong, DO - 08/06/2018 Hepatobiliary scan with pharmacologic intervention. HISTORY: 57 year old female with abdominal pain. TECHNIQUE: A dose of 5.8 mCi Tc-99m Choletec was administered intravenously. Dynamic anterior images of the abdomen were obtained for 1 hour. Additional images of the abdomen were obtained at 60 minutes after drinking 8 ounces of Ensure. CCK is not available at this time. FINDINGS: No prior HIDA scan is available for comparison. There is normal clearance of the blood pool. Tracer activity is seen in biliary system and common bile duct at 10 minutes. Bowel activity is noted at 20 minutes. There is no evidence of gallbladder activity in the first 60 minutes. Additional delayed images at 90 minutes demonstrates diffuse gallbladder uptake. Post fatty meal images demonstrate adequate emptying of the gallbladder. By computer analysis gallbladder ejection fraction is calculated to be 96% which is normal. IMPRESSION 1. Delayed gallbladder filling at 90 minutes with normal ejection fraction of 96%. 2. No evidence of enterogastric reflux. Reading Radiologist: Ivanna Fong MD on 08/06/2018 at 3:33 PM Kelechi Rico III, MD NM ORDERABLES documented in this encounter Visit Diagnoses Diagnosis Epigastric pain Abdominal pain, epigastric documented in this encounter Care Teams Sr. Operations Manager Relationship Specialty Start Date End Date Sunny [place] MD PCP - OBGYN 03/28/08 Kelechi Rico III, MD RETIRED PCP - General 01/12/12 05/10/20 documented as of this encounter
--- OUTSIDE RECORDS SUMMARY | 2024-06-02 01:44 | XMS_ITS | Encounter Summary ---
Author Organization [facility] Address [address] [place] [address] Care Team Providers Care Processor Inspector Name Role Phone Sunny West MD Unavailable [phone] Jacky STEPHENS MD, Kelechi Primary Care Provider Brooke vailable Reason for Visit * Reason Onset Date Comments Results 08/07/2018 Encounter Details Date Type Department Care Team (Late st Contact Info) Description 08/07/2018 Telephone [facility] Medical [facility] - Internal Medicine [address] [facility] [address] [place], [place] [id number] Kelechi Rico III, MD RETIRED Results Social History Tobacco Use Types Packs/Day Years [...] encounter Miscellaneous Notes * Telephone Encounter - Erin Silverio - 08/07/2018 10:07 AM CST Pt called back and advised of results. CAL SUPPORT SPECIALIST * Telephone Encounter - Courtney Dockery - 08/07/2018 10:00 AM CST Left a message for pt to call office back. CAL SUPPORT SPECIALIST * Telephone Encounter - Courtney Dockery - 08/07/2018 9:58 AM CST ----- Message from Kelechi Rico III, MD sent at 08/06/2018 6:54 PM MEDICAL SUPPORT SPECIALIST ----- Call pt-HIDA scan not indicative of biliary tract disease. Negative. CAL SUPPORT SPECIALIST documented in this encounter Plan of Treatment Not on file documented as of this encounter Goals Goal Patient Goal Type Associated Problems Recent Progress Patient-Stated? Author Quit smoking / using tobacco Lifestyle On track( 015 11:44 AM MEDICAL SUPPORT SPECIALIST) No Courtney Dockery documented as of this encounter Visit Diagnoses Not on filedocumented in this encounter Care Teams Processor Inspector Relationship Specialty Start Date End Date Sunny West MD PCP - OBGYN 03/28/08 Kelechi Rico III, MD RETIRED PCP - General 01/12/12 05/10/20 documented as of this encounter
--- OUTSIDE RECORDS SUMMARY | 2024-06-02 01:44 | XMS_ITS | Encounter Summary ---
Author Organization [facility] Health Address [address] [place] [address] Care Team Providers Care Golf Club Weighter Name Role Phone Sunny West MD Unavailable [phone] Villa Talavera DO Primary Care Provider [phone] Encounter Details Date Type Department Care Team (Latest Contact Info) Description 05/31/2023 Travel Social History Tobacco Use Types Packs/Day Years Used Date Smoking Tobacco: Former Cigarettes 1 20 1 07/05/2000 - 05/05/2021 Smokeless Tobacco: Never Alcohol Use Standard Drinks/Week [...] tobacco Lifestyle On track( 015 11:44 AM KISS SETTER HAND) No Courtney Dockery documented as of this encounter Visit Diagnoses Not on filedocumented in this encounter Care Teams Golf Club Weighter Relationship Specialty Start Date End Date Sunny West MD PCP - OBGYN 03/28/08 Villa Talavera DO [address] [facility] [address] [place] [address] PCP - General 08/17/22 documented as of this encounter
--- OUTSIDE RECORDS SUMMARY | 2024-06-02 01:44 | XMS_ITS | Encounter Summary ---
Author Organization [facility] Health Address [address] [place] [address] Care Team Providers Care Machine Assistant Name Role Phone Sunny West MD Unavailable [phone] Jacky STEPHENS MD, Kelechi Primary Care Provider Brooke vailable Encounter Details Date Type Department Care Team (Late st Contact Info) Description 08/22/2018 Orders Only [facility] [address] [place] [address] Document, Scanned Social History Tobacco Use Types Packs/Day Years [...] tobacco Lifestyle On track( 015 11:44 AM DIRECTOR OF HEAD START) No Courtney Dockery documented as of this encounter Procedures Procedure Name Priority Date/Time Associated Diagnosis Comments ENDOSCOPY, COLON, SCREENING Routine 08/16/2018 documented in this encounter Results * ENDOSCOPY, COLON, SCREENING (08/16/2018) Scanned Document GI PROCEDURE ORDERAB LES documented in this encounter Visit Diagnoses Not on filedocumented in this encounter Care Teams Machine Assistant Relationship Specialty Start Date End Date Sunny West MD PCP - OBGYN 03/28/08 Kelechi Rico III, MD RETIRED PCP - General 01/12/12 05/10/20 documented as of this encounter
--- OUTSIDE RECORDS SUMMARY | 2024-06-02 01:44 | XMS_ITS | Clinical Summary ---
Author Organization [facility] Address [address] [place] [address] Care Team Providers Care Route Delivery Manager Name Role Phone Sunny West MD Unavailable [phone] Vilal Talavera DO Primary Care Provider [phone] Source Comments [facility],non-owned Affiliates and Associated Physician Practices is amultiple site organization consisting of ambulatory clinics and hospital sitesin [place], [place], [place] and [place]. This disclosure is being madepursuant to the Care Everywhere program and may not contain all information available regarding this patient. Last updated 18.[facility] Allergies Active Allergy Reactions Criticality Noted Date Comments Amoxicillin Itching 07/10/2017 Codeine 08/14/2008 Medications * Be aware that medications may not be up to date on this document. Alwaysverify current medications with the patient. Medication Sig Dispensed Refills Start Date End Date Status Zepbound 7.5 MG/0.5ML injection Inject 7.5 (seven and one-half) mg subcutaneously every 7 days 05/06/2024 Active hydroCHLOROthiaz joyce (Hydrodiuril) 25 MG tablet Take 1 (one) tablet by mouth once daily 04/05/2024 Active amLODIPine (NORVASC) 10 MG tablet Take 1 tablet by mouth once daily 90 tablet 3 07/03/2019 4 Discontinue d(List Clean-Up) metroNIDAZOLE vaginal (Metrogel - Vaginal) 0.75 % vaginal gelIndications:B acterial Vaginosis Insert 1 applicator into the vagina at bedtime Use nightly for 5-7 days Reasons: Vaginosis caused by Bacteria 70 g 1 05/31/2023 4 Discontinue d(List Clean-Up) Active Problems Problem Noted Date Diagnosed Date Polyp of ascending colon-tubular adenoma 019 Chronic depression 05/22/2015 Screen for colon cancer ord'd 05/02/13, 07/04/19 15 Pure hypercholesterolemia 05/03/2013 Family history of premature coronary artery dise ase 05/03/2013 Overview (05/03/2013): Brother CT age 52 Vitamin D deficiency 04/04/2010 GERD (gastroesophageal reflux disease) 0 Submucous leiomyoma of uterus 10/15/2008 Overview (05/05/2009): S/P hysteroscopic removal Dr Parson Resolved Problems Problem Noted Date Diagnosed Date Resolved Date Perimenopausal 04/02/2010 01/02/2017 Excessive or frequent menstruation 10/15/2008 01/02/2017 Overview (05/05/2009): S/P Novasure ablation Encounters Date Type Department Care Team Description 05/27/2024 10:45 AM VISUAL MERCHANDISING COORDINATOR Office Visit [facility] Medical [facility] SET UP PERSON [address] [place] [address], [address] [place] [address] Sunny West MD Pap smear, as part of routine gynecological examination (Primary Dx) 05/27/2024 Travel from Last 3 Months Immunizations Name Administration Dates Next Due FLU VACCINE TRI IIV3 SPLIT PF IM (FLUVIRIN) 04/13 INFLUENZA 05/10/2018 INFLUENZA VACCINE, QUADR. (F LUZONE; FLULAVAL; FLUARIX; AFLURIA QUADRIVALENT; 6MO+), 0.5 ML (IIV4) 02/09/2019 PNEUMOCOCCAL PCV7 CONJ, PEDS 05/10/2018 PNEUMOCOCCAL PPSV23 03/29/2018 Family History Medical History Relation Name Comments Diabetes Brother 1 CT<55(male) Brother 1 Cancer - Breast Other cousin Hypertension Other cousin Relation Name Status Comments Brother 1 Alive Brother 2 Alive Brother 3 Alive Father Alive Mother Alive Other cousin Alive Social History Tobacco Use Types Packs/Day Years Used Date Smoking Tobacco: Former Cigarettes 1 20 1 07/05/2000 - 05/05/2021 Smokeless Tobacco: Never Tobacco Cessation:Counseling Given: Not Answered Alcohol Use Standard Drinks/Week Comments Yes 0.8 (1 standard drink = 0.6 oz p ure alcohol) 04/20/09 PHQ-2 Answer Date Recorded Patient Health Questionnaire-2 Score 0 05/27/2024 Sex and Gender Information Value Date Recorded Sex Assigned at Not on file Gender Identity Not on file Sexual Orientation Not on file Last Filed Vital Signs Vital Sign Reading Time Taken Comments Blood Pressure 112/70 05/27/2024 10:52 AM VISUAL MERCHANDISING COORDINATOR Pulse 72 05/24/2019 9:32 AM VISUAL MERCHANDISING COORDINATOR Temperature 37.3 ??C (99.1 ??F) 07/30/2018 2:39 PM CS T Respiratory Rate 12 05/24/2019 9:32 AM VISUAL MERCHANDISING COORDINATOR Oxygen Saturation 98% 07/30/2018 2:39 PM VISUAL MERCHANDISING COORDINATOR Inhaled Oxygen Concentration - - Weight 65.9 kg (145 lb 3.2 oz) 05/27/2024 10:52 AM VISUAL MERCHANDISING COORDINATOR Height 165.1 cm (5' 5 ) 05/27/2024 10:52 AM VISUAL MERCHANDISING COORDINATOR Body Mass Index 24.16 05/27/2024 10:52 AM VISUAL MERCHANDISING COORDINATOR Plan of Treatment Health Maintenance Due Date Last Done Comments COLOGUARD (AGES 45-75) - COLON CA SCREENING 1962 CT COLONOGRAPHY - COLON CA SCREENING 1962 FIT - COLON CA SCREENING 1962 FLEX SIG - COLON CA SCREENING 1962 HEPATITIS C SCREENING 12/24/1980 DTAP/TDAP/TD VACCINES (1 - Tdap) 1981 LUNG CANCER SCREENING 2012 ZOSTER VACCINE (1 of 2) 2012 COLON MONITORING 08/16/2021 08/16/2018, 07/02/2015 Colorectal Cancer Screening 08/16/2021 LIPID TESTING 07/31/2023 07/31/2018, 06/13, 05/02/2013, Additional history exists COVID-19 VACCINE ( season) 2024 09/09/2020, 08/12/2020 INFLUENZA VACCINE (#1) 2024 , 02/11/2020, 02/09/2019, Additional history exists MAMMOGRAM 10/06/2025 10/07/2023, 04/14, 03/08/2019, Additional history exists PAP SMEAR 05/27/2027 05/27/2024, 05/13, 05/27/2022, Additional history exists COLONOSCOPY - COLON CA SCREENING 08/16/2028 08/16/2018, 07/02/2015 Respiratory Syncytial Virus (RSV) Vaccine Pt: or over 60 yrs (1 - 1-dose 75+ series) 2037 PNEUMOCOCCAL VACCINE Aged Out 05/10/2018, 03/29/20 18 No longer eligible based on patient's age to complete this topic HIV SCREENING Completed 07/31/2018, 04/02/2010 DEPRESSION SCREENING Completed 05/27/2024, 05/27/20 HEPATITIS B VACCINE Aged Out No longe r eligible based on patient's age to complete this topic HIB VACCINE Aged Out No longer eligi ble based on patient's age to complete this topic HPV VACCINE Aged Out No longer eligi ble based on patient's age to complete this topic MENINGOCOCCAL VACCINE Aged Out No jose donta eligible based on patient's age to complete this topic Goals Goal Patient Goal Type Associated Problems Recent Progress Patient-Stated? Author Quit smoking / using tobacco Lifestyle On track( 015 11:44 AM VISUAL MERCHANDISING COORDINATOR) Courtney Victor Procedures Procedure Name Priority Date/Time Associated Diagnosis Comments PAP IG RFLX HPV HR ASCUS RFLX /18/45 Routine 05/27/2024 11:33 AM VISUAL MERCHANDISING COORDINATOR Pap smear, as part of routine gynecological examination MAMMOGRAM 10/07/2023 ENDOSCOPY, COLON, SCREENING Routine 08/16/2018 LIPID PROFILE W TCHOL/HDL Routine 07/31/2018 10:59 AM VISUAL MERCHANDISING COORDINATOR Routine general medical examination at a health care facility HIV-1 HIV-2 ANTIGEN/ANTIBODY W RFLX Routine 07/31/2018 10:59 AM VISUAL MERCHANDISING COORDINATOR STD exposure from Last 3 Months or Most Recently Relevant to Health Maintenance Results * PAP IG RFLX HPV HR ASCUS RFLX 16/18/45 (05/27/2024 11:33 AM VISUAL MERCHANDISING COORDINATOR) Diagnosis Comment [facility] ACCOUNT BILL Comment:NEGATIVE FOR INTRAEP ITHELIAL LESION OR MALIGNANCY. Specimen Adequacy Comment [facility] ACCOUNT BILL Comment:Satisfactory for karen luation. No endocervical component is identified. Clinician Provided ICD10 Comment [facility] ACCOUNT BILL Comment:Z01.419 Performed by Comment [facility] ACCOUNT BILL Comment:Reema Arroyo, Cyto technologist Comment . [facility] ACCOUNT BILL Note Comment [facility] ACCOUNT BILL Comment: The Pap smear is a screening test designed to aid in the detection of premalignant and malignant conditions of the uterine cervix. ??It is not a diagnostic procedure and should not be used as the sole means of detecting cervical cancer. ??Both false-positive and false-negative reports do occur. IGLBP CPT Code Automation Comment [facility] ACCOUNT BILL Comment: This liquid based ThinPrep(R) pap test was screened with the use of an image guided system. Note Comment [facility] ACCOUNT BILL Comment: The HPV DNA reflex criteria were not met with this specimen result therefore, no HPV testing was performed. Pathology/Cytolog y PART OF UTERINE CERVIX / Unknown 05/27/2024 11:33 AM VISUAL MERCHANDISING COORDINATOR 05/27/2024 Comment:Cervix Release to arabella avila Narrative [facility] ACCOUNT BILL - 06/01/2024 7:08 AM VISUAL MERCHANDISING COORDINATOR Performed at: ??01 - [address] ??[id number] Pet Adoption Counselor: Aleta Paiz MD, Phone: ??[phone] Specimen Comment: [id number] Specimen Comment: Source.............Cervix;Endocervix Specimen Comment: No. of containers..01 ThinPrep Vial Sunny West MD LAB - PATHOLOGY/CYTO LOGY ORDERABLES [facility] ACCOUNT BILL [address] [place] [address] * MAMMOGRAM (10/07/2023) Anatomical Region Laterality Modality Other 10/07/2023 Narrative 10/07/2023 Ordered by an unspecified provider. Scanned Document SCANNING ONLY * ENDOSCOPY, COLON, SCREENING (08/16/2018) Scanned Document GI PROCEDURE ORDERAB LES * HIV-1 HIV-2 ANTIGEN/ANTIBODY W RFLX (07/31/2018 10:59 AM VISUAL MERCHANDISING COORDINATOR) Pathologist [facility] HIV Screen 4th Generation w Reflex Non Reactive Non Reactive [facility] INSURANCE BILL Comment:FASTING Blood BLOOD SPECIMEN / Unknown 07/31/2018 10:59 AM VISUAL MERCHANDISING COORDINATOR 07/31/2018 Narrative Resulting Agency Comment [facility] [place] [address] [facility] ??[facility] [phone] Kelechi Rico III, MD LAB - SEROLOGY ORD ERABLES [facility] INSURANCE BILL [address] [place] [address] * (ABNORMAL) LIPID PROFILE W TCHOL/HDL (07/31/2018 10:59 AM VISUAL MERCHANDISING COORDINATOR) Pathologist [facility] Cholesterol 217(H) 100 - 199 mg/dL [facility] INSURANCE BILL Triglycerides 62 0 - 149 mg/dL [facility] INSURANCE BILL HDL Cholesterol 71 >39 mg/dL [facility] INSURANCE BILL VLDL Calculated 12 5 - 40 mg/dL [facility] INSURANCE BILL LDL Calculated 134(H) 0 - 99 mg/dL [facility] INSURANCE BILL Comment NOT NEEDED [facility] INSURANCE BILL Comment:Ancillary determined the test is not needed Cholesterol/HDL Ratio 3.1 0.0 - 4.4 ratio [facility] INSURANCE BILL Comment: ? T. Chol/HDL Ratio ? Men ??Women ? 1/2 Avg.Risk ??3.4 ?3.3 ? Avg.Risk ??5.0 ?4.4 ?2X Avg.Risk ??9.6 ?7.1 ?3X Avg.Risk 23.4 ?? 11.0 FASTING Blood BLOOD SPECIMEN / Unknown 07/31/2018 10:59 AM VISUAL MERCHANDISING COORDINATOR 07/31/2018 Narrative Resulting Agency Comment [facility] [address] ??[facility] [id number] Kelechi Rico III, MD LAB - CHEMISTRY OR DERABLES [facility] INSURANCE BILL [address] [place] [address] from Last 3 Months or Most Recently Relevant to Health Maintenance Advance Directives Documents on File Type Date Recorded Patient Boiler Cleaner Expl anation Adv Directive/Living Will/POA 05/01/2009 10:56 AM Care Teams Route Delivery Manager Relationship Specialty Start Date End Date Sunny West MD PCP - OBGYN 03/28/08 Vlila Talavera DO [address] [facility] [address] [place] [address] PCP - General 08/17/22
--- OUTSIDE RECORDS SUMMARY | 2024-06-02 01:44 | XMS_ITS | Encounter Summary ---
Author Organization [facility] Address [address] [place] [address] Care Team Providers Care Synthetic Filament Extruder Name Role Phone Sunny West MD Unavailable [phone] Jacky STEPHENS MD, Edwin Primary Care Provider Brooke vailable Sunny West MD Unavailable [phone] Reason for Visit * Reason Comments Hypertension Encounter Details Date Type Department Care Team (Late st Contact Info) Description 05/24/2019 9:30 AM SUPERVISOR POST WAVE Office Visit [facility] Medical [facility] - Internal Medicine [address] [facility] [address] [place], [place] [id number] Kelechi Rico III, MD RETIRED Essential hypertension [...] Sign Reading Time Taken Comments Blood Pressure 126/92 05/24/2019 9:32 AM SUPERVISOR POST WAVE Pulse 72 05/24/2019 9:32 AM SUPERVISOR POST WAVE Temperature - - Respiratory Rate 12 05/24/2019 9:32 AM SUPERVISOR POST WAVE Oxygen Saturation - - Inhaled Oxygen Concentration - - Weight 66.2 kg (146 lb) 05/24/2019 9:32 AM SUPERVISOR POST WAVE Height 165.1 cm (5' 5 ) 05/24/2019 9:32 AM SUPERVISOR POST WAVE Body Mass Index 24.3 05/24/2019 9:32 AM SUPERVISOR POST WAVE documented in this encounter Progress Notes * Kelechi Rico III, MD - 05/24/2019 9:35 AM CST The patient is seen for follow up of chronic HTN. ROS: taking medications as instructed, no medication side effects noted, no TIA's, no chest pain onexertion, no dyspnea on exertion, no swelling of ankles. No orthostasis. Back and hip doing better. Med list reviewed with patient. Exam: . BP 126/92 Pulse 72 Resp 12 Ht 1.651 m (5' 5 ) Wt 66.2 kg (146 lb) BMI 24.3 kg/m2 General appearance: alert, cooperative, breathing comfortably, no distress Carotid 2+, no bruits Heart: regular rhythm, normal S1 and S2, without murmurs, rubs or gallops Lungs: breath sounds normal and symmetric. No rales or wheezes Extremities: no clubbing, cyanosis. 0 edema. Assessment: Encounter Diagnosis Name Primary? Essential hypertension Yes Plan: Orders Placed This Encounter ??? amLODIPine (NORVASC) 10 MG tablet Sig: Take 1 tablet by mouth once daily Dispense: 90 tablet Refill: 3 Dose increased. Son will monitor BP, if not controlled will go to different med. RVISOR POST WAVE documented in this encounter Plan of Treatment Not on file documented as of this encounter Goals Goal Patient Goal Type Associated Problems Recent Progress Patient-Stated? Author Quit smoking / using tobacco Lifestyle On track( 015 11:44 AM SUPERVISOR POST WAVE) No Courtney Dockery documented as of this encounter Visit Diagnoses Diagnosis Essential hypertension- Primary documented in this encounter Care Teams Synthetic Filament Extruder Relationship Specialty Start Date End Date Sunny Wets MD PCP - OBGYN 03/28/08 Kelechi Rico III, MD RETIRED PCP - General 01/12/12 05/10/20 Sunny West MD [address] [place] [address] PCP - Attributed-[employer] 05/12/19 0 documented as of this encounter
--- OUTSIDE RECORDS SUMMARY | 2024-06-02 01:44 | XMS_ITS | Encounter Summary ---
Author Organization [facility] Health Address [address] [facility] [place] [address] Care Team Providers Care Canvas Products Sales Representative Name Role Phone Sunny West MD Unavailable [phone] Villa Talavera DO Primary Care Provider [phone] Encounter Details Date Type Department Care Team (Latest Contact Info) Description 05/27/2024 Travel Social History Tobacco Use Types Packs/Day [...] tobacco Lifestyle On track( 015 11:44 AM FALL INTERNSHIP) No Courtney Dockery documented as of this encounter Visit Diagnoses Not on filedocumented in this encounter Care Teams Canvas Products Sales Representative Relationship Specialty Start Date End Date Sunny West MD PCP - OBGYN 03/28/08 Villa Talavera DO [address] [facility] [address] [place] [address] PCP - General 08/17/22 documented as of this encounter
--- OUTSIDE RECORDS SUMMARY | 2024-06-02 01:44 | XMS_ITS | Encounter Summary ---
Author Organization [facility] Address [address] [place] [address] Care Team Providers Care Sterile Preparation Technician Name Role Phone Sunny West MD Unavailable [phone] Jacky STEPHENS MD, Kelechi Primary Care Provider Brooke vailable Reason for Visit * Reason Onset Date Comments Update 08/29/2018 Encounter Details Date Type Department Care Team (Late st Contact Info) Description 08/29/2018 Telephone [facility] Medical [facility] - Internal Medicine [address] [facility] [address] [place], [place] [id number] Kelechi Rico III, MD RETIRED Update Social History Tobacco Use Types Packs/Day Years [...] encounter Miscellaneous Notes * Telephone Encounter - Pushpa Ray - 08/29/2018 12:55 PM CDT She voices understanding and acceptance of this advice and will call back if any further questions or concerns. * Telephone Encounter - Kelechi Rico III, MD - 08/29/2018 12:14 PM CDT She'll never get a clean bill of health while she smokes. Much more likely to have complications from that than pancreatic disease. * Telephone Encounter - Pushpa Ray - 08/29/2018 11:55 AM CDT Patient was calling to report the the Zantac is helping her stomach issues and she is feeling well now. She is asking if she needs any other tests or if she needs to followup with you? She thinks everything has been checked out except her pancreas and wants to know if you are comfortable giving her a clear bill of health at this point? * Telephone Encounter - Kelechi Rico III, MD - 08/29/2018 10:27 AM CDT Zantac would not help the pancreas. Can try stopping the zantac. If sxs get worse restart it. * Telephone Encounter - Jessica Martinez - 08/29/2018 9:36 AM CDT Patient called to let you know that she has been taking OTC Zantac and that has been helping. She did have a colonoscopy and she had polyps which were removed. Should she continue taking Zantac? Do you feel as though she needs to go further to have pancreas checked? She is unsure what to do now? documented in this encounter Plan of Treatment Not on file documented as of this encounter Goals Goal Patient Goal Type Associated Problems Recent Progress Patient-Stated? Author Quit smoking / using tobacco Lifestyle On track( 015 11:44 AM INSTRUMENT TECH) No Courtney Dockery documented as of this encounter Visit Diagnoses Not on filedocumented in this encounter Care Teams Sterile Preparation Technician Relationship Specialty Start Date End Date Sunny West MD PCP - OBGYN 03/28/08 Kelechi Rico III, MD RETIRED PCP - General 01/12/12 05/10/20 documented as of this encounter
--- OUTSIDE RECORDS SUMMARY | 2024-06-02 01:44 | XMS_ITS | Encounter Summary ---
Author Organization [facility] Address [address] [place] [address] Care Team Providers Care Industrial Analyst Name Role Phone Sunny West MD Unavailable [phone] Jacky STEPHENS MD, Kelechi Primary Care Provider Brooke vailable Reason for Visit * Reason Onset Date Comments VAGINITIS 10/03/2018 Encounter Details Date Type Department Care Team (Late st Contact Info) Description 10/03/[address] [facility] - RAILWAY SIGNAL ELECTRICIAN [address] [place] [address] Sunny West MD [address] [facility] [place] [address] VAGINITIS Social History Tobacco Use Types Packs/Day Years [...] encounter Miscellaneous Notes * Telephone Encounter - Aga Kimball RN - 10/03/2018 10:57 AM CDT Pt calls with c/o very malodorous vaginal discharge with irritation. She requests Metrogel VAG. PerDr Jenna, Rx sent. Pt to call if no improvement. documented in this encounter Plan of Treatment Not on file documented as of this encounter Goals Goal Patient Goal Type Associated Problems Recent Progress Patient-Stated? Author Quit smoking / using tobacco Lifestyle On track( 015 11:44 AM STUDIO DATA ANALYST) Courtney Victor documented as of this encounter Visit Diagnoses Not on filedocumented in this encounter Care Teams Industrial Analyst Relationship Specialty Start Date End Date Sunny West MD PCP - OBGYN 03/28/08 Kelechi Rico III, MD RETIRED PCP - General 01/12/12 05/10/20 documented as of this encounter
--- OUTSIDE RECORDS SUMMARY | 2024-06-02 01:44 | XMS_ITS | Patient Health Summary ---
Author Organization [facility] Address [address] [place] [address] Care Team Providers Care Manager Equipment Name Role Phone Sunny West MD Unavailable [phone] Villa Talavera DO Primary Care Provider [phone] Note from [facility],non-owned Affiliates and Associated Physician Practices is amultiple site organization consisting of ambulatory clinics and hospital sitesin [place], [place], [place] and [place]. This disclosure is being madepursuant to the Care Everywhere program and may not contain all information available regarding this patient. Last updated 18.[facility] Allergies * Amoxicillin(Itching) * Codeine Medications * Be aware that medications may not be up to date on this document. Alwaysverify current medications with the patient. * Zepbound 7.5 MG/0.5ML injection(Started 05/06/2024) Inject 7.5 (seven and one-half) mg subcutaneously every 7 days * hydroCHLOROthiazide (Hydrodiuril) 25 MG tablet(Started 04/05/2024) Take 1 (one) tablet by mouth once daily Ended Medications* amLODIPine (NORVASC) 10 MG tablet(Started 07/03/2019) (Discontinued) Take 1 tablet by mouth once daily 3 refills by 07/02/2020 * metroNIDAZOLE vaginal (Metrogel - Vaginal) 0.75 % vaginal gel(Started 05/31/2023)(Discontinued) Insert 1 applicator into the vagina at bedtime Use nightly for 5-7 days Reasons: Vaginosis caused by Bacteria 1 refill by 05/30/2024 Active Problems Problem Noted Date Diagnosed Date Polyp of ascending colon-tubular adenoma 019 Chronic depression 05/22/2015 Screen for colon cancer ord'd 05/02/13, 07/04/19 15 Pure hypercholesterolemia 05/03/2013 Family history of premature coronary artery dise ase 05/03/2013 Vitamin D deficiency 04/04/2010 GERD (gastroesophageal reflux disease) 0 Submucous leiomyoma of uterus 10/15/2008 Resolved Problems Problem Noted Date Diagnosed Date Resolved Date Perimenopausal 04/02/2010 01/02/2017 Excessive or frequent menstruation 10/15/2008 01/02/2017 Immunizations * FLU VACCINE TRI IIV3 SPLIT PF IM (FLUVIRIN)(Given 05/02/2013) * INFLUENZA(Given 05/10/2018) * INFLUENZA VACCINE, QUADR. (FLUZONE; FLULAVAL; FLUARIX; AFLURIA QUADRIVALENT; 6MO+), 0.5 ML (IIV4)(Given 02/09/2019) * PNEUMOCOCCAL PCV7 CONJ, PEDS(Given 05/10/2018) * PNEUMOCOCCAL PPSV23(Given 03/29/2018) Social History Tobacco Use Types Packs/Day Years [...] Comments Blood Pressure 112/70 05/27/2024 10:52 AM PLAYER MANAGER Pulse 72 05/24/2019 9:32 AM PLAYER MANAGER Temperature 37.3 ??C (99.1 ??F) 07/30/2018 2:39 PM CS T Respiratory Rate 12 05/24/2019 9:32 AM PLAYER MANAGER Oxygen Saturation 98% 07/30/2018 2:39 PM PLAYER MANAGER Inhaled Oxygen Concentration - - Weight 65.9 kg (145 lb 3.2 oz) 05/27/2024 10:52 AM PLAYER MANAGER Height 165.1 cm (5' 5 ) 05/27/2024 10:52 AM PLAYER MANAGER Body Mass Index 24.16 05/27/2024 10:52 AM PLAYER MANAGER Procedures * PAP IG RFLX HPV HR ASCUS RFLX 16/18/45(Performed 05/27/2024) Performed for Pap smear, as part of routine gynecological examination * MAMMOGRAM(Performed 10/07/2023) * PAP IG RFLX HPV HR ASCUS RFLX 16/18/45(Performed 05/31/2023) Performed for Pap smear, as part of routine gynecological examination * PAP IG RFLX HPV HR ASCUS RFLX 16/18/45(Performed 05/27/2022) Performed for Pap smear, as part of routine gynecological examination * MAMMO BILAT SCREENING(Performed 05/11/2020) Performed for Visit for screening mammogram * PAP IG RFLX HPV HR ASCUS RFLX 16/18/45(Performed 03/08/2019) Performed for Pap smear, as part of routine gynecological examination * MAMMO BILAT SCREENING(Performed 03/08/2019) Performed for Visit for screening mammogram * ENDOSCOPY, COLON, SCREENING(Performed 08/16/2018) * NM HEPATOBILIARY W EF(Performed 08/06/2018) Performed for Epigastric pain * HIV-1 HIV-2 ANTIGEN/ANTIBODY W RFLX(Performed 07/31/2018) Performed for STD exposure * RPR W REFLEX CONFIRM(Performed 07/31/2018) Performed for STD exposure * CBC W AUTO DIFFERENTIAL(Performed 07/31/2018) Performed for Routine general medical examination at a health care facility * TSH(Performed 07/31/2018) Performed for Routine general medical examination at a health care facility * LIPID PROFILE W TCHOL/HDL(Performed 07/31/2018) Performed for Routine general medical examination at a health care facility * COMPREHENSIVE METABOLIC PANEL(Performed 07/31/2018) Performed for Routine general medical examination at a health care facility * CHLAMYDIA + GC AMPLIFIED PROBE(Performed 07/31/2018) Performed for STD exposure * MAMMO BILAT SCREENING(Performed 01/01/2018) Performed for Breast cancer screening, Visit for screening mammogram * PAP IG LB RFLX HPV HR ASCU RFLX 16,18(Performed 01/01/2018) Performed for Pap smear, as part of routine gynecological examination * MAMMO BILAT SCREENING(Performed 01/02/2017) Performed for Breast cancer screening * PAP IG LB RFLX HPV HR ASCU RFLX 16,18(Performed 01/02/2017) Performed for Routine gynecological examination * PATHOLOGY/CYTOLOGY REPORT ORDER(Performed 07/02/2015) * ENDOSCOPY, COLON, SCREENING(Performed 07/02/2015) * US BREAST LEFT BIOPSY(Performed 05/22/2015) Performed for Abnormal mammogram * PATHOLOGY TISSUE EXAM (STL)(Performed 05/22/2015) Performed for Abnormal mammogram * FLOW CYTOMETRY PANEL(Performed 05/22/2015) Performed for Abnormal mammogram * US BREAST LEFT LTD(Performed 05/22/2015) Performed for Abnormal mammogram * MAMMO BILAT DIAGNOSTIC(Performed 05/22/2015) Performed for Abnormal mammogram * US BREAST LEFT LTD(Performed 10/16/2014) Performed for Lump or mass in breast * MAMMO LEFT DIAGNOSTIC(Performed 10/16/2014) Performed for Breast lump * HEMOGLOBIN A1C(Performed 07/04/2014) Performed for Prediabetes * LIPID PROFILE W LDL/HDL RATIO(Performed 07/04/2014) Performed for Pure Hypercholesterolemia * BASIC METABOLIC PANEL (CALCIUM TOTAL)(Performed 07/04/2014) Performed for Prediabetes, Elevated blood pressure (not hypertension) * ALT(Performed 07/04/2014) Performed for Encounter for long-term (current) use of other medications * US BREAST RIGHT COMPLETE(Performed 02/07/2014) Performed for Abnormal mammogram, unspecified * MAMMO BILAT DIAGNOSTIC(Performed 02/07/2014) Performed for Abnormal mammogram * MICROALB/CREAT RATIO URINE RANDOM PANEL(Performed 05/02/2013) Performed for Elevated blood sugar * HEMOGLOBIN A1C(Performed 05/02/2013) Performed for Elevated blood sugar * TSH(Performed 05/02/2013) Performed for Routine general medical examination at a health care facility * LIPID PROFILE W LDL/HDL RATIO(Performed 05/02/2013) Performed for Routine general medical examination at a health care facility * COMPREHENSIVE METABOLIC PANEL(Performed 05/02/2013) Performed for Routine general medical examination at a health care facility * CBC W AUTO DIFFERENTIAL(Performed 05/02/2013) Performed for Routine general medical examination at a health care facility * US BREAST RIGHT COMPLETE(Performed 03/06/2013) Performed for Abnormal mammogram, unspecified * MAMMO BILAT DIAGNOSTIC(Performed 03/06/2013) Performed for Abnormal mammogram, Breast cancer screening * US BREAST RIGHT COMPLETE(Performed 08/23/2012) Performed for Abnormal mammogram, unspecified * MAMMO RIGHT DIAGNOSTIC(Performed 08/23/2012) Performed for Abnormal mammogram * US BREAST RIGHT COMPLETE(Performed 01/13/2012) Performed for Abnormal mammogram, unspecified * MAMMO RIGHT DIAGNOSTIC(Performed 01/13/2012) Performed for Abnormal mammogram * MAMMO BILAT SCREENING(Performed 12/27/2011) Performed for Screening for breast cancer * PAP IG LB RFLX HPV HR ASCU RFLX 16,18(Performed 12/27/2011) Performed for Routine gynecological examination * MAMMO RIGHT DIAGNOSTIC(Performed 08/17/2010) Performed for Abnormal mammogram * MAMMO STEREOTACTIC RIGHT NDL LOC(Performed 08/17/2010) Performed for Abnormal mammogram * MAMMO BREAST RIGHT SPECIMEN(Performed 08/17/2010) Performed for Abnormal mammogram, unspecified, Mammographic microcalcification * GROSS + MICRO EXAM(Performed 08/17/2010) * GROSS + MICRO EXAM(Performed 08/17/2010) Performed for Abnormal mammogram, unspecified, Mammographic microcalcification * MAMMO RIGHT DIAGNOSTIC(Performed 08/12/2010) * MAMMO BILAT SCREENING(Performed 08/02/2010) Performed for Screening mammogram * HIV-1 HIV-2 ANTIBODY(Performed 04/02/2010) Performed for Contact with or exposure to venereal diseases * VITAMIN D 25-HYDROXY(Performed 04/02/2010) Performed for Vitamin D deficiency * BASIC METABOLIC PANEL (CALCIUM TOTAL)(Performed 04/02/2010) Performed for Elevated blood pressure (not hypertension) * LIPID PROFILE W LDL/HDL RATIO(Performed 04/02/2010) Performed for Mixed hyperlipidemia * CBC W AUTO DIFFERENTIAL(Performed 04/02/2010) Performed for Unspecified iron deficiency anemia * ALT(Performed 04/02/2010) Performed for Encounter for long-term (current) use of other medications * MAMMO BILAT SCREENING(Performed 05/20/2009) * PAP IG RFLX HPV ASCU(Performed 05/05/2009) Performed for Routine Gynecological Examination * CARDIAC RHYTHM STRIP ORDER(Performed 05/02/2009) * MAMMO RIGHT DIAGNOSTIC(Performed 05/27/2008) * MAMMO BILAT SCREENING(Performed 05/12/2008) * PAP IG RFLX HPV ASCU(Performed 04/14/2008) Results * PAP IG RFLX HPV HR ASCUS RFLX 16/18/45 (05/27/2024 11:33 AM PLAYER MANAGER) Only the most recent of4 resultswithin the time period is included. Diagnosis Comment [facility] ACCOUNT BILL Comment:NEGATIVE FOR [...] UTERINE CERVIX / Unknown 05/27/2024 11:33 AM PLAYER MANAGER 05/27/2024 Comment:Cervix Release to [facility] Narrative [facility] ACCOUNT BILL - 06/01/2024 7:08 AM PLAYER MANAGER Performed at: ??01 - [facility] [address] ??[id number] Group Cio: Aleta Paiz MD, Phone: ??[phone] Specimen Comment: [id number] Specimen Comment: Source.............Cervix;Endocervix Specimen Comment: No. of containers..01 ThinPrep Vial Sunny West MD LAB - PATHOLOGY/CYTO LOGY ORDERABLES [facility] ACCOUNT BILL [address] [place] [address] * MAMMOGRAM (10/07/2023) Anatomical Region Laterality Modality Other 10/07/2023 Narrative 10/07/2023 Ordered by an unspecified provider. Scanned Document SCANNING ONLY * VICKY SCREENING DIGITAL IMAGE BILATERAL [id number] (05/11/2020 12:48 PM PLAYER MANAGER) Only the most recent of8 resultswithin the time period is included. Anatomical Region Laterality Modality Breast Bilateral Mammography 05/11/2020 1:35 PM PLAYER MANAGER Impressions 05/11/2020 1:57 PM PLAYER MANAGER No mammographic evidence of malignancy in either breast. ASSESSMENT: BIRADS Category 1: Negative mammogram. RECOMMENDATION: Bilateral screening mammogram in one year. Thank you for allowing us to participate in the care of your patient. [facility] utilizes [employer] as a reminder system to notify patients of their next recommended mammogram. *Reading Radiologist: Jacki Glover on 05/11/2020 at 1:57 PM Narrative 05/11/2020 1:57 PM PLAYER MANAGER EXAMINATION: Digital screening mammogram. Low-dose full-field digital [...] prior examination. Akilah Duong MD MAMMO ORDERABLES * ENDOSCOPY, COLON, SCREENING (08/16/2018) Scanned Document GI PROCEDURE ORDERAB LES * NM HEPATOBILIARY W CCK EF (08/06/2018 1:05 PM PLAYER MANAGER) Anatomical Region Laterality Modality Abdomen Nuclear Medicine 08/06/2018 3:28 PM PLAYER MANAGER Impressions 08/06/2018 3:33 PM PLAYER MANAGER 1. Delayed gallbladder filling at 90 minutes with normal ejection fraction of 96%. 2. No evidence of enterogastric reflux. Reading Radiologist: Ivanna Fong MD on 08/06/2018 at 3:33 PM Narrative 08/06/2018 3:33 PM PLAYER MANAGER Hepatobiliary scan with pharmacologic intervention. HISTORY: 57 [...] at 3:33 PM Kelechi Rico III, MD [place] ORDERABLES * HIV-1 HIV-2 ANTIGEN/ANTIBODY W RFLX (07/31/2018 10:59 AM PLAYER MANAGER) Pathologist [facility] HIV Screen 4th Generation w Reflex Non Reactive Non Reactive [facility] INSURANCE BILL Comment:FASTING Blood BLOOD SPECIMEN / Unknown 07/31/2018 10:59 AM PLAYER MANAGER 07/31/2018 Narrative Resulting Agency Comment [facility] [address] [facility] ??[facility] [phone] Kelechi Rico III, MD LAB - SEROLOGY ORD ERABLES [facility] INSURANCE BILL [address] [place] [address] * (ABNORMAL) LIPID PROFILE W TCHOL/HDL (07/31/2018 10:59 AM PLAYER MANAGER) Pathologist [facility] Cholesterol 217(H) 100 - 199 mg/dL [facility] [...] BLOOD SPECIMEN / Unknown 07/31/2018 10:59 AM PLAYER MANAGER 07/31/2018 Narrative Resulting Agency Comment [facility] [address] ??[place] [phone] Kelechi Rico III, MD LAB - CHEMISTRY OR DERABLES Performing Organization Address [facility] de Phone Number [facility] INSURANCE BILL [address] [place] [address] * RPR W REFLEX CONFIRM (07/31/2018 10:59 AM PLAYER MANAGER) RPR Non Reactive Non Reactive [facility] INSURANCE BILL Comment:FASTING Blood BLOOD SPECIMEN / Unknown 07/31/2018 10:59 AM PLAYER MANAGER 07/31/2018 Narrative Resulting Agency Comment [facility] [address] ??[place] [phone] Kelechi Rico III, MD LAB - CHEMISTRY OR DERABLES Performing Organization Address [facility] de Phone Number [facility] INSURANCE BILL [address] [place] [address] * CHLAMYDIA + GC AMPLIFIED PROBE (07/31/2018 10:59 AM PLAYER MANAGER) Chlamydia CHUCKY Urine Negative Negative [facility] INSURANCE BILL GC CHUCKY Urine Negative Negative [facility] INSURANCE BILL Comment:FASTING Microbiology URINE / Unknown 07/31/2018 1 0:59 AM PLAYER MANAGER 07/31/2018 Narrative Resulting Agency Comment [facility] [address] [place] ??[place] [phone] Kelechi Rico III, MD LAB - MICROBIOLOGY ORDERABLES [facility] INSURANCE BILL [address] [place] [address] * CBC WITH DIFFERENTIAL (07/31/2018 10:59 AM PLAYER MANAGER) Only the most recent of3 resultswithin the time period is included. WBC 6.4 3.4 - 10.8 x10E3/uL [facility] INSURANCE BILL RBC 4.09 3.77 - 5.28 x10E6/uL [facility] INSURANCE BILL Hemoglobin 12.0 11.1 - 15.9 g/dL [facility] INSURANCE BILL Hematocrit 37.2 34.0 - 46.6 % [facility] INSURANCE BILL MCV 91 79 - 97 fL [facility] INSURANCE BILL MCH 29.3 26.6 - 33.0 pg [facility] INSURANCE BILL MCHC 32.3 31.5 - 35.7 g/dL [facility] INSURANCE BILL RDW 13.5 12.3 - 15.4 % [facility] INSURANCE BILL Platelet Count 326 150 - 379 x10E3/uL [facility] INSURANCE BILL Granulocytes % 60 Not Estab. % [facility] INSURANCE BILL Lymphocytes % 30 Not Estab. % [facility] INSURANCE BILL Monocytes % 8 Not Estab. % [facility] INSURANCE BILL Eosinophils % 1 Not Estab. % [facility] INSURANCE BILL Basophils % 1 Not Estab. % [facility] INSURANCE BILL Immature Cells NOT NEEDED [facility] INSURANCE BILL Comment:Ancillary determined the test is not needed Granulocytes Absolute 3.8 1.4 - 7.0 x10E3/uL [facility] INSURANCE BILL Lymphocytes Absolute 1.9 0.7 - 3.1 x10E3/uL [facility] INSURANCE BILL Monocytes Absolute 0.5 0.1 - 0.9 x10E3/uL [facility] INSURANCE BILL Eosinophils Absolute 0.1 0.0 - 0.4 x10E3/uL [facility] INSURANCE BILL Basophils Absolute 0.0 0.0 - 0.2 x10E3/uL [facility] INSURANCE BILL Immature Granulocytes 0 Not Estab. % [facility] INSURANCE BILL Immature Granulocytes Absolute 0.0 0.0 - 0.1 x10E3/uL [facility] INSURANCE BILL nRBC NOT NEEDED [facility] INSURANCE BILL Comment:Ancillary determined the test is not needed Comment Hematology NOT NEEDED [facility] INSURANCE BILL Comment: FASTING Ancillary determined the test is not needed Blood BLOOD SPECIMEN / Unknown 07/31/2018 10:59 AM PLAYER MANAGER 07/31/2018 Narrative Resulting Agency Comment [facility] [address] [facility] ??[facility] [phone] Kelechi Rico III, MD LAB - HEMATOLOGY O RDERABLES [facility] INSURANCE BILL [address] [place] [address] * COMPREHENSIVE METABOLIC PANEL (07/31/2018 10:59 AM PLAYER MANAGER) Only the most recent of2 resultswithin the time period is included. Glucose 94 65 - 99 mg/dL [facility] INSURANCE BILL BUN 12 6 - 24 mg/dL [facility] INSURANCE BILL Creatinine 0.99 0.57 - 1.00 mg/dL [facility] INSURANCE BILL eGFR by MDRD 64 >59 mL/min/1.7 3 [facility] INSURANCE BILL eGFR by MDRD 74 >59 mL/min/1.7 3 [facility] INSURANCE BILL BUN/Creatinine Ratio 12 9 - 23 [facility] INSURANCE BILL Sodium 141 134 - 144 mmol/L [facility] INSURANCE BILL Potassium 5.0 3.5 - 5.2 mmol/L [facility] INSURANCE BILL Chloride 102 96 - 106 mmol/L [facility] INSURANCE BILL CO2 23 20 - 29 mmol/L [facility] INSURANCE BILL Calcium 9.7 8.7 - 10.2 mg/dL [facility] INSURANCE BILL Protein Total 7.1 6.0 - 8.5 g/dL [facility] INSURANCE BILL Albumin 4.6 3.5 - 5.5 g/dL [facility] INSURANCE BILL Globulin Total 2.5 1.5 - 4.5 g/dL [facility] INSURANCE BILL Albumin/Globulin Ratio 1.8 1.2 - 2.2 [facility] INSURANCE BILL Bilirubin Total 0.3 0.0 - 1.2 mg/dL [facility] INSURANCE BILL Alkaline Phosphatase 65 39 - 117 IU/L [facility] INSURANCE BILL AST 16 0 - 40 IU/L [facility] INSURANCE BILL ALT 9 0 - 32 IU/L [facility] INSURANCE BILL Comment:FASTING Blood BLOOD SPECIMEN / Unknown 07/31/2018 10:59 AM PLAYER MANAGER 07/31/2018 Narrative Resulting Agency Comment [facility] [address] ??[facility] [phone] Kelechi Rico III, MD LAB - CHEMISTRY OR DERABLES Performing Organization Address City/[facility] Co de Phone Number [facility] INSURANCE BILL [address] [place] [address] * TSH (07/31/2018 10:59 AM PLAYER MANAGER) Only the most recent of2 resultswithin the time period is included. TSH 0.816 0.450 - 4.500 uIU/mL [facility] INSURANCE BILL Comment:FASTING Blood BLOOD SPECIMEN / Unknown 07/31/2018 10:59 AM PLAYER MANAGER 07/31/2018 Narrative Resulting Agency Comment [facility] [facility] ??[facility] [phone] Kelechi Rico III, MD LAB - CHEMISTRY OR DERABLES Performing Organization Address [facility] de Phone Number [facility] INSURANCE BILL [address] [place] [address] * PAP IG LB RFLX HPV HR ASCU RFLX 16,18 (01/01/2018 9:53 AM CDT) Only the most recent of3 resultswithin the time period is included. Diagnosis [facility] INSURANCE BILL Comment:NEGATIVE FOR INTRAEP ITHELIAL LESION AND MALIGNANCY. Specimen Adequacy [facility] INSURANCE BILL Comment:Satisfactory for karen luation. No endocervical component is identified. Clinician Provided ICD10 [facility] INSURANCE BILL Comment: Z01.419 Z12.31 Performed by [facility] INSURANCE BILL Comment:Robert Coleman hnologist (ASCP) Comment . [facility] INSURANCE BILL Note [facility] INSURANCE BILL Comment: The Pap smear is a screening test designed to aid in the detection of premalignant and malignant conditions of the uterine cervix. ??It is not a diagnostic procedure and should not be used as the sole means of detecting cervical cancer. ??Both false-positive and false-negative reports do occur. ? . IGLBP CPT Code Automation [facility] INSURANCE BILL Comment: This liquid based ThinPrep(R) pap test was screened with the use of an image guided system. Note [facility] INSURANCE BILL Comment: The HPV DNA reflex criteria were not met with this specimen result therefore, no HPV testing was performed. ? . PART OF UTERINE CERVIX / Unknown 01/01/2018 9:53 AM CDT 01/02/2018 Narrative [facility] INSURANCE BILL - 01/04/2018 11:14 AM CDT No. of containers..01 ThinPrep Vial Resulting Agency Comment [facility] [address] [facility] ??[place] [phone] Sunny West MD LAB - PATHOLOGY/CYTO LOGY ORDERABLES [facility] INSURANCE BILL [address] [place] [address] * PATHOLOGY/CYTOLOGY REPORT ORDER (07/02/2015) Scanned Document LAB - PATHOLOGY/CYTO LOGY ORDERABLES * ENDOSCOPY, COLON, SCREENING (07/02/2015) Scanned Document GI PROCEDURE ORDERAB LES * US GUIDED LEFT BREAST BIOPSY (05/22/2015 4:37 PM PLAYER MANAGER) Anatomical Region Laterality Modality Left Ultrasound Biopsy of unspecified body site (procedure) 05/22/2015 4:58 PM PLAYER MANAGER Addenda Addendum by Abiola Duran MD on 05/26/2015 4:52 PM PLAYER MANAGER Pathology results for left axillary lymph node biopsy showed benign follicular hyperplasia, no evidence of malignancy. ??Findings are benign and concordant with imaging. ??No further imaging followup is required. Patient may return to screening with next bilateral screening mammogram in one year. ??These results were given to the patient via telephone conversation by Dr. Monte on 05/26/2015 at 1:45 PM. I, Abiola Duran, have personally reviewed the images and I agree with this report. Impressions 05/22/2015 5:22 PM PLAYER MANAGER Successful ultrasound-guided core biopsy of enlarged lymph node in the axilla of the left breast with clip placed at the site of biopsy. Multiple core biopsies were sent to pathology in formalin and saline. This report was dictated by Kwadwo Monte MD (resident physician). IAbiola, have personally reviewed the images and I agree with this report. Narrative 05/22/2015 5:22 PM PLAYER MANAGER ULTRASOUND GUIDED CORE BIOPSY- LEFT AXILLARY NODE - clip placed HISTORY: 54 year-old female here for ultrasound-guided core biopsy of enlarged lymph node in the left axilla. COMPARISON: Diagnostic left breast mammogram and left axillary ultrasound from earlier same day. TECHNIQUE: The procedure was explained in detail to the patient, all questions were answered, and written informed consent was obtained. ??A pre-procedure time-out was performed using two patient identifiers, confirming patient identity and procedure to be performed. ??The correct side was marked. Using sterile technique, local anesthesia was achieved with 1% lidocaine. Under ultrasound guidance, using a 14G spring-loaded Fision biopsy device, multiple core biopsies were obtained of the enlarged lymph node in the left axilla, and sent to pathology in both formalin and saline. Approach was from lateral. A paperclip shaped clip was subsequently placed at the site of biopsy. The needle was removed and hemostasis achieved. The patient tolerated the procedure well with no immediate complications and was discharged to home with the standard post-core biopsy instruction sheet. Sunny West MD US ORDERABLES * GROSS + MICRO EXAM (STL) (05/22/2015 4:34 PM PLAYER MANAGER) Case Report Surgical Pathology Report ? Case: [id number] ? Authorizing Provider: ??Sunny West MD ?Collected: ? 05/22/2015 04:34 PM ? Ordering Location: ? [facility] ?Received: ?05/22/2015 05:00 PM ? Pathologist: ? Jaimie Villegas MD ? Specimens: ?? A) - Lymph Node, left axillary ? B) - Lymph Node, Flow cytometry ? 05/25/2015 4:13 PM PLAYER MANAGER [facility] Final Diagnosis 1. ??Specimen labeled Breast, left, biopsy : -- ??Benign follicular hyperplasia 2. ??Lymph node, axillary, ultrasound-guided needle-biopsy, flow-cytometric immunophenotypic analysis: -- ??Indication for test: Lymphadenopathy -- ??No evidence of non-Hodgkin lymphoma, see description GM/tc/MM/lv 05/25/2015 4:13 PM PLAYER MANAGER [facility] Clinical History Palpable left axillary lymph node with no suspicious masses in breast MM 05/25/2015 4:[address] [facility] Gross Description Received are two containers, each labeled Brianna Norman. ?? Container 1 is received in formalin and is labeled left breast. ??The container holds three [id number] cylindrical tissue cores and tissue fragments measuring from 0.2 cm in length x 0.2 cm in diameter up to 1 cm in length x 0.2 cm in diameter. ??The specimen is entirely submitted in a cassette labeled A1. Received in saline are two yellow-sanders fatty cylindrical tissue cores labeled as left breast. ??The tissue cores measure 3 cm in length x 0.1 cm in diameter up to 4 cm in length x 0.1 cm in diameter. ??The cores are placed in RPMI and submitted for flow cytometry. ?? DYT/rtc 05/25/2015 4:[address] [facility] Microscopic Description Sections show multiple cores of lymph node tissue showing multiple lymphoid follicles with active germinal centers and prominent tingible body formation. ??They are surrounded by a collar of small lymphocytes. ??Adipose tissue is noted. ??There is no evidence of breast tissue, atypia, or malignancy. ?? GM/tc To highlight the architecture of the node and to rule out lymphoma, immunohistochemical stains are performed. CD20 highlights the lymphoid follicles. CD10 and bcl-6 highlight the enlarged germinal centers which are negative for bcl-2. CD3, CD5 and CD43 staining are similar and all highlight the interfollicular small and mature T-cells. CD30 is negative for Hodgkin cells (control worked appropriately). Cyclin D1 stains scattered cells. CD23 highlights the intact dendritic meshwork. Overall, the histology, cytomorphology in conjunction with the immunohistochemical stains and flow cytometric data is that of a benign lymphoid hyperplasia. MM/rodney 05/25/2015 4:[address] [facility] Flow Cytometry Summary Flow cytometric analysis of the suspension prepared from the left axillary lymph node reveals a viability of 81% with 73% of cells within the lymphocyte region and 27% within the CD45-/debris region. Cells within the lymphocyte regions are composed of 68% T-cells with increased CD4/CD8 ratio of 9.2, and 29% polyclonal B-cells. There is no aberrant loss or gain of CD2, CD5 or CD7 by the T-cell population and there is no co-expression of CD5 or CD10 by the B-cell population. Based on the flow-cytometric data which fail to identify an aberrant of population of T-cells or a monoclonal population of B-cells, there is no diagnostic evidence of involvement of the left axillary lymph node by a non-Hodgkin lymphoma. MM/lv 05/25/2015 4:13 PM PLAYER MANAGER [facility] Pathology/Cytology ENTIRE LYMPH NODE / Unknown 05/22/2015 4:34 PM PLAYER MANAGER 05/22/2015 5:00 PM PLAYER MANAGER Miscellaneous samples (specimen) ENTIRE LYMPH NODE / Unknown 05/22/2015 4:34 PM PLAYER MANAGER 05/25/2015 1:10 PM PLAYER MANAGER Sunny West MD LAB - PATHOLOGY/CYTO LOGY ORDERABLES Performing Organization Address [facility] Co de Phone Number [facility] [address] [place] [address] * FLOW CYTOMETRY PANEL (05/22/2015 4:34 PM PLAYER MANAGER) Flow Cytometry Result See Scanned Report 05/27/2015 2:52 PM PLAYER MANAGER [facility] NON INTERF Other (qualifier value) ENTIRE LYMPH NODE / Unknown Collection / Unknown 05/22/2015 4:34 PM PLAYER MANAGER 05/23/2015 6:59 AM PLAYER MANAGER Sunny West MD LAB - HEMATOLOGY ORD ERABLES Performing Organization Address City/[facility] Co de Phone Number [facility] NON INTERF [address] [place] [address] * US BREAST LEFT LTD (05/22/2015 1:36 PM PLAYER MANAGER) Only the most recent of2 resultswithin the time period is included. Anatomical Region Laterality Modality Breast Left Ultrasound 05/22/2015 1:36 PM PLAYER MANAGER Impressions 05/22/2015 5:09 PM PLAYER MANAGER 1. ??Enlarged left axillary lymph node. Since this lymph node remains enlarged, ultrasound-guided biopsy is recommended. 2. ??No mammographic evidence of malignancy in either breast. ASSESSMENT: BIRADS Category 4: Suspicious abnormality. Biopsy should be considered. RECOMMENDATION: Ultrasound guided biopsy of left axillary lymph node. Findings and recommendation were discussed with the patient by Dr. Duran. ??Biopsy was performed immediately following diagnostic evaluation. ??Please refer to separately dictated biopsy report. Thank you for allowing us to participate in the care of your patient. [facility] utilizes [employer] as a reminder system to notify patients of their next recommended mammogram. I, Abiola Duran, have personally reviewed the images and I agree with this report. Narrative 05/22/2015 5:09 PM PLAYER MANAGER EXAMINATION: Digital bilateral diagnostic mammogram and limited left breast ultrasound on 05/22/2015. Low-dose digital breast tomosynthesis examination was performed with 2D and 3D acquisitions. Computer assisted detection was utilized. PRIOR: Multiple prior mammograms and ultrasounds, most recently 10/16/2014, 02/07/2014, and 03/05/2013. HISTORY: 54-year-old female here for short interval followup of palpable left axillary node, which was deemed probably benign on evaluation in October 2014. ??Patient is also due for annual mammogram. FINDINGS: Breast parenchymal density: The breasts are heterogeneously dense, which may obscure small masses. Risk assessment calculation: Not performed. No suspicious masses, areas of architectural distortion or microcalcifications are evident on 2D mammogram or tomosynthesis images. ??There has been no significant interval change since the prior examination. An enlarged left axillary node appears mammographically similar to the prior study. ??Targeted ultrasound of the left axilla demonstrates an unchanged enlargement of an axillary node, measuring 1.6 cm with a thickened cortex (0.7 cm). ??The fatty hilum is effaced. ??Adjacent to this is a normal benign-appearing 12 mm lymph node. Procedure Note Abiola Duran MD - 05/22/2015 EXAMINATION: Digital bilateral diagnostic mammogram and limited left breast ultrasound on 05/22/2015. Low-dose digital breast tomosynthesis examination was performed with 2D and 3D acquisitions. Computer assisted detection was utilized. PRIOR: Multiple prior mammograms and ultrasounds, most recently 10/16/2014, 02/07/2014, and 03/05/2013. HISTORY: 54-year-old female here for short interval followup of palpable left axillary node, which was deemed probably benign on evaluation in October 2014. Patient is also due for annual mammogram. FINDINGS: Breast parenchymal density: The breasts are heterogeneously dense, which may obscure small masses. Risk assessment calculation: Not performed. No suspicious masses, areas of architectural distortion or microcalcifications are evident on 2D mammogram or tomosynthesis images. There has been no significant interval change since the prior examination. An enlarged left axillary node appears mammographically similar to the prior study. Targeted ultrasound of the left axilla demonstrates an unchanged enlargement of an axillary node, measuring 1.6 cm with a thickened cortex (0.7 cm). The fatty hilum is effaced. Adjacent to this is a normal benign-appearing 12 mm lymph node. IMPRESSION 1. Enlarged left axillary lymph node. Since this lymph node remains enlarged, ultrasound-guided biopsy is recommended. 2. No mammographic evidence of malignancy in either breast. ASSESSMENT: BIRADS Category 4: Suspicious abnormality. Biopsy should be considered. RECOMMENDATION: Ultrasound guided biopsy of left axillary lymph node. Findings and recommendation were discussed with the patient by Dr. Duran. Biopsy was performed immediately following diagnostic evaluation. Please refer to separately dictated biopsy report. Thank you for allowing us to participate in the care of your patient. [facility] utilizes [employer] as a reminder system to notify patients of their next recommended mammogram. I, Abiola Duran, have personally reviewed the images and I agree with this report. Sunny West MD US ORDERABLES * (ABNORMAL) MAMMO DIAG DIRECT DIGITAL IMAGE BILA (05/22/2015 1:19 PM PLAYER MANAGER) Only the most recent of3 resultswithin the time period is included. Anatomical Region Laterality Modality Bilateral Mammography 05/22/2015 1:36 PM PLAYER MANAGER Impressions 05/22/2015 5:09 PM PLAYER MANAGER 1. ??Enlarged left axillary lymph node. Since this lymph node remains enlarged, ultrasound-guided biopsy is recommended. 2. ??No mammographic evidence of malignancy in either breast. ASSESSMENT: BIRADS Category 4: Suspicious abnormality. Biopsy should be considered. RECOMMENDATION: Ultrasound guided biopsy of left axillary lymph node. Findings and recommendation were discussed with the patient by Dr. Duran. ??Biopsy was performed immediately following diagnostic evaluation. ??Please refer to separately dictated biopsy report. Thank you for allowing us to participate in the care of your patient. [facility] utilizes [employer] as a reminder system to notify patients of their next recommended mammogram. I, Abiola Duran, have personally reviewed the images and I agree with this report. Narrative 05/22/2015 5:09 PM PLAYER MANAGER EXAMINATION: Digital bilateral diagnostic mammogram and limited left breast ultrasound on 05/22/2015. Low-dose digital breast tomosynthesis examination was performed with 2D and 3D acquisitions. Computer assisted detection was utilized. PRIOR: Multiple prior mammograms and ultrasounds, most recently 10/16/2014, 02/07/2014, and 03/05/2013. HISTORY: 54-year-old female here for short interval followup of palpable left axillary node, which was deemed probably benign on evaluation in October 2014. ??Patient is also due for annual mammogram. FINDINGS: Breast parenchymal density: The breasts are heterogeneously dense, which may obscure small masses. Risk assessment calculation: Not performed. No suspicious masses, areas of architectural distortion or microcalcifications are evident on 2D mammogram or tomosynthesis images. ??There has been no significant interval change since the prior examination. An enlarged left axillary node appears mammographically similar to the prior study. ??Targeted ultrasound of the left axilla demonstrates an unchanged enlargement of an axillary node, measuring 1.6 cm with a thickened cortex (0.7 cm). ??The fatty hilum is effaced. ??Adjacent to this is a normal benign-appearing 12 mm lymph node. Sunny West MD MAMMO ORDERABLES * (ABNORMAL) MAMMO DIAG DIRECT DIGITAL IMAGE UNIL LEFT (10/16/2014 2:37 PM CDT) Anatomical Region Laterality Modality Left Mammography 10/16/2014 3:28 PM CDT Narrative 10/16/2014 3:32 PM CDT EXAMINATION: Left digital diagnostic mammogram and ultrasound on 10/16/14 INDICATION: Palpable abnormality left axilla FINDINGS: Computer assisted detection was utilized. ?? Tissue is heterogeneously dense which may obscure small masses. A marker was placed over the area of clinical concern which is barely visible on the mammogram. ??A partially imaged density is present deep in the axilla. Breast parenchymal pattern is unchanged from prior studies of [id number]. Ultrasound of the palpable area demonstrates a 12 mm benign-appearing lymph node. There is an adjacent 1.5 cm lymph node with a thickened cortex. This is likely reactive. Short-term followup left axillary ultrasound is recommended. This could be performed at the time of patient's mammogram which is due in February 2015. ASSESSMENT: BIRADS Category 3: ??Probably benign finding. ??Short interval follow up suggested.. RECOMMENDATION: Bilateral diagnostic mammogram and left axillary ultrasound in February 2015 Thank you for allowing us to participate in the care of your patient. [facility] utilizes [employer] as a reminder system to notify patients of their next recommended mammogram. Sunny West MD MAMMO ORDERABLES * (ABNORMAL) LIPID PROFILE W LDL/HDL (PO REF LAB) (07/04/2014 9:27 AM PLAYER MANAGER) Only the most recent of3 resultswithin the time period is included. Cholesterol 210(H) 100 - 199 mg/dL [facility] INSURANCE BILL Triglycerides 87 0 - 149 mg/dL [facility] INSURANCE BILL HDL Cholesterol 73 >39 mg/dL [facility] INSURANCE BILL Comment: According to ATP-III Guidelines, HDL-C >59 mg/dL is considered a negative risk factor for CHD. VLDL Calculated 17 5 - 40 mg/dL [facility] INSURANCE BILL LDL Calculated 120(H) 0 - 99 mg/dL [facility] INSURANCE BILL Comment NOT NEEDED [facility] INSURANCE BILL Comment:Ancillary determined the test is not needed LDL/HDL Ratio 1.6 0.0 - 3.2 ratio units [facility] INSURANCE BILL Comment: ? LDL/HDL Ratio ? Men ??Women ? 1/2 Avg.Risk ??1.0 ?1.5 ? Avg.Risk ??3.6 ?3.2 ?2X Avg.Risk ??6.2 ?5.0 ?3X Avg.Risk ??8.0 ?6.1 Blood specimen (specimen) BLOOD SPECIMEN / Unknown 07/04/2014 9:27 AM PLAYER MANAGER 07/04/2014 12:55 PM PLAYER MANAGER Narrative Resulting Agency Comment [facility] [address] ??[facility] [phone] Kelechi Rico III, MD LAB - CHEMISTRY OR DERABLES [facility] INSURANCE BILL * HEMOGLOBIN A1C (07/04/2014 9:27 AM PLAYER MANAGER) Only the most recent of2 resultswithin the time period is included. Hemoglobin A1c 5.6 4.8 - 5.6 % [facility] INSURANCE BILL Comment: ? . ? Increased risk for diabetes: 5.7 - 6.4 ? Diabetes: >6.4 ? Glycemic control for adults with diabetes: <7.0 Whole blood specimen (specimen) BLOOD SPECIMEN WITH EDTA / Unknown 07/04/2014 9:27 AM PLAYER MANAGER 07/04/2014 12:55 PM PLAYER MANAGER Narrative Resulting Agency Comment [facility] ??[facility] [phone] Kelechi Rico III, MD LAB - CHEMISTRY OR DERABLES [facility] INSURANCE BILL * (ABNORMAL) BASIC METABOLIC PANEL (CALCIUM TOTAL) (07/04/2014 9:27 AM PLAYER MANAGER) Only the most recent of2 resultswithin the time period is included. Glucose 102(H) 65 - 99 mg/dL [facility] INSURANCE BILL BUN 11 6 - 24 mg/dL [facility] INSURANCE BILL Creatinine 0.87 0.57 - 1.00 mg/dL [facility] INSURANCE BILL eGFR by MDRD 77 >59 mL/min/1.7 3 [facility] INSURANCE BILL eGFR by MDRD 89 >59 mL/min/1.7 3 [facility] INSURANCE BILL BUN/Creatinine Ratio 13 9 - 23 [facility] INSURANCE BILL Sodium 140 134 - 144 mmol/L [facility] INSURANCE BILL Potassium 4.1 3.5 - 5.2 mmol/L [facility] INSURANCE BILL Chloride 100 97 - 108 mmol/L [facility] INSURANCE BILL CO2 24 18 - 29 mmol/L [facility] INSURANCE BILL Calcium 10.0 8.7 - 10.2 mg/dL [facility] INSURANCE BILL Comment:Please note refere nce interval change Blood specimen (specimen) BLOOD SPECIMEN / Unknown 07/04/2014 9:27 AM PLAYER MANAGER 07/04/2014 12:55 PM PLAYER MANAGER Narrative Resulting Agency Comment [facility] [address] ??[facility] [phone] Kelechi Rico III, MD LAB - CHEMISTRY OR DERABLES Performing Organization Address City/[facility]/ZIP Co de Phone Number [facility] INSURANCE BILL * ALT (07/04/2014 9:27 AM PLAYER MANAGER) Only the most recent of2 resultswithin the time period is included. ALT 9 0 - 32 IU/L [facility] INSURANCE BILL Blood specimen (specimen) BLOOD SPECIMEN / Unknown 07/04/2014 9:27 AM PLAYER MANAGER 07/04/2014 12:55 PM PLAYER MANAGER Narrative Resulting Agency Comment [facility] [place] [address] [facility] ??[facility] [phone] Kelechi Rico III, MD LAB - CHEMISTRY OR DERABLES [facility] INSURANCE BILL * US BREAST UNILATERAL RIGHT (02/07/2014 11:15 AM CDT) Only the most recent of4 resultswithin the time period is included. Anatomical Region Laterality Modality Breast Right Ultrasound 02/07/2014 11:1 6 AM CDT Impressions 02/07/2014 11:22 AM CDT 1. ??No mammographic evidence of malignancy in either breast. 2. ??Asymmetry in the lateral right breast demonstrates two-year stability and is benign. 3. ??Nodular area in the upper inner quadrant of the right breast reflects normal breast tissue and is also benign. ASSESSMENT: BIRADS Category 2: ?? Benign finding(s). RECOMMENDATION: Patient may return to screening with next bilateral screening mammogram due in one year. Thank you for allowing us to participate in the care of your patient. [facility] utilizes [employer] as a reminder system to notify patients of their next recommended mammogram. Narrative 02/07/2014 11:22 AM CDT EXAMINATION: Digital bilateral diagnostic mammogram and right breast targeted ultrasound on 02/07/2014. PRIOR: Multiple prior mammograms and ultrasounds, most recently 03/06/2013, 08/23/2012, 01/13/2012, and 12/27/2011. HISTORY: 53-year-old female here for short interval followup of an asymmetry in the lateral right breast, initially seen on screening mammogram from December 2011. ??A nodular area seen on ultrasound in the right breast at 2:00, 4 cm from the nipple, has also been followed from August 2012. ??Multiple other complicated cysts and clusters of cysts have been seen in the right breast on ultrasound. FINDINGS: Computer assisted detection was utilized. There are scattered areas of fibroglandular density. ??The asymmetry in the lateral right breast is unchanged from December 2011, in keeping with benign finding. No suspicious masses, areas of architectural distortion or microcalcifications are evident. There has been no significant interval change since the prior examination. Targeted ultrasound was performed of the right breast at 2:00, 4 cm from the nipple, in location of nodular area seen on prior examination. No suspicious mass or macrocyst is seen. ??The previously seen nodule likely reflected normal breast tissue. Incidental note is made of multiple adjacent complicated cysts and clusters of cysts. Procedure Note Abiola Duran MD - 02/07/2014 EXAMINATION: Digital bilateral diagnostic mammogram and right breast targeted ultrasound on 02/07/2014. PRIOR: Multiple prior mammograms and ultrasounds, most recently 03/06/2013, 08/23/2012, 01/13/2012, and 12/27/2011. HISTORY: 53-year-old female here for short interval followup of an asymmetry in the lateral right breast, initially seen on screening mammogram from December 2011. A nodular area seen on ultrasound in the right breast at 2:00, 4 cm from the nipple, has also been followed from August 2012. Multiple other complicated cysts and clusters of cysts have been seen in the right breast on ultrasound. FINDINGS: Computer assisted detection was utilized. There are scattered areas of fibroglandular density. The asymmetry in the lateral right breast is unchanged from December 2011, in keeping with benign finding. No suspicious masses, areas of architectural distortion or microcalcifications are evident. There has been no significant interval change since the prior examination. Targeted ultrasound was performed of the right breast at 2:00, 4 cm from the nipple, in location of nodular area seen on prior examination. No suspicious mass or macrocyst is seen. The previously seen nodule likely reflected normal breast tissue. Incidental note is made of multiple adjacent complicated cysts and clusters of cysts. IMPRESSION 1. No mammographic evidence of malignancy in either breast. 2. Asymmetry in the lateral right breast demonstrates two-year stability and is benign. 3. Nodular area in the upper inner quadrant of the right breast reflects normal breast tissue and is also benign. ASSESSMENT: BIRADS Category 2: Benign finding(s). RECOMMENDATION: Patient may return to screening with next bilateral screening mammogram due in one year. Thank you for allowing us to participate in the care of your patient. [facility] utilizes [employer] as a reminder system to notify patients of their next recommended mammogram. Sunny West MD US ORDERABLES * MICROALB/CREAT RATIO URINE RANDOM PANEL (05/02/2013 3:04 PM PLAYER MANAGER) Creatinine 24 Hour Urine 19.0 15.0 - 278.0 mg/dL [facility] ACCOUNT BILL Microalbumin Urine 2.6 0.0 - 17.0 ug/mL [facility] ACCOUNT BILL Microalbumin/Crea tinine Ratio 13.7 0.0 - 30.0 mg/g creat [facility] ACCOUNT BILL Urine specimen (specimen) URINE / Unknown 05/02/2013 3:04 PM PLAYER MANAGER 05/02/2013 5:25 PM PLAYER MANAGER Narrative Resulting Agency Comment [facility] [address] ??[facility] [phone] Kelechi Rico III, MD LAB - URINE CHEMIS TRY ORDERABLES [facility] ACCOUNT BILL * MAMMO DIAG DIRECT DIGITAL IMAGE UNIL RIGHT (08/23/2012 11:40 AM CDT) Only the most recent of5 resultswithin the time period is included. Anatomical Region Laterality Modality Right Mammography 08/24/2012 12:1 6 PM CDT Narrative 08/24/2012 12:56 PM CDT EXAMINATION: Right digital diagnostic mammogram and ultrasound on 08/23/2012 INDICATION: Six month followup DENSITY: Extremely dense (>75% glandular) which may lower the sensitivity of mammography FINDINGS: Computer assisted detection was utilized. Comparison with prior study of 01/13/2012 is made. A biopsy clip is noted in the right subareolar region. The previously described nodular density in the right breast is not seen on today's exam. Right breast ultrasound was then performed and compared with prior study of 01/13/2012. A wider than tall predominantly hypoechoic structure at the 12:00 position 4 cm from the nipple measures 5 x 2 mm on today's exam, previously 7.5 x 2 mm. At the 12:00 position 3 cm from the nipple, a wider than tall 5 x 2 mm structure is again noted which is relatively unchanged in size. At the 12:00 position 2 cm from the nipple, a gently lobulated wider than tall structure measuring 5 x 3 mm is seen which was not noted on the prior study. In the subareolar region a heterogeneous ovoid structure measuring 5 x 2 mm is relatively stable in appearance. A cyst in the subareolar region measuring 8 x 5 mm is again noted. At the 1:00 position 5 cm from the nipple, a complex cyst measuring 11 x 4 mm is essentially unchanged in size. At the 2:00 position 4 cm from the nipple, a 9 x 6 mm ovoid hypoechoic solid appearing structure is new. A wider than tall hypoechoic structure at the 3:00 position 1 cm from the nipple measuring 4.5 x 4.1 cm is stable. At the 5:00 position 3 cm from the nipple, a wider than tall oval hypoechoic structure measuring 5.5 x 2.1 cm is seen which was not present on the prior study. At the 8:00 position 3 cm the nipple, a wider than tall hypoechoic structure measuring 8 x 3 mm has increased in size as it previously measured 6 x 2 mm. At the 10:00 position 5 cm from the nipple, a 7.5 x 3.5 mm hypoechoic structure is again seen. A cystic structure is noted at the 10:00 position 4 cm from the nipple measuring 3 x 2 mm. ASSESSMENT: BIRADS Category 3: ??Probably benign finding. ??Short interval follow up suggested. RECOMMENDATION: Diagnostic right breast mammogram and ultrasound in six months when the patient returns for yearly mammogram. [facility] utilizes [employer] as a reminder system to notify patients of their next recommended mammogram. Procedure Note Tian Oliver MD - 08/24/2012 EXAMINATION: Right digital diagnostic mammogram and ultrasound on 08/23/2012 INDICATION: Six month followup DENSITY: Extremely dense (>75% glandular) which may lower the sensitivity of mammography FINDINGS: Computer assisted detection was utilized. Comparison with prior study of 01/13/2012 is made. A biopsy clip is noted in the right subareolar region. The previously described nodular density in the right breast is not seen on today's exam. Right breast ultrasound was then performed and compared with prior study of 01/13/2012. A wider than tall predominantly hypoechoic structure at the 12:00 position 4 cm from the nipple measures 5 x 2 mm on today's exam, previously 7.5 x 2 mm. At the 12:00 position 3 cm from the nipple, a wider than tall 5 x 2 mm structure is again noted which is relatively unchanged in size. At the 12:00 position 2 cm from the nipple, a gently lobulated wider than tall structure measuring 5 x 3 mm is seen which was not noted on the prior study. In the subareolar region a heterogeneous ovoid structure measuring 5 x 2 mm is relatively stable in appearance. A cyst in the subareolar region measuring 8 x 5 mm is again noted. At the 1:00 position 5 cm from the nipple, a complex cyst measuring 11 x 4 mm is essentially unchanged in size. At the 2:00 position 4 cm from the nipple, a 9 x 6 mm ovoid hypoechoic solid appearing structure is new. A wider than tall hypoechoic structure at the 3:00 position 1 cm from the nipple measuring 4.5 x 4.1 cm is stable. At the 5:00 position 3 cm from the nipple, a wider than tall oval hypoechoic structure measuring 5.5 x 2.1 cm is seen which was not present on the prior study. At the 8:00 position 3 cm the nipple, a wider than tall hypoechoic structure measuring 8 x 3 mm has increased in size as it previously measured 6 x 2 mm. At the 10:00 position 5 cm from the nipple, a 7.5 x 3.5 mm hypoechoic structure is again seen. A cystic structure is noted at the 10:00 position 4 cm from the nipple measuring 3 x 2 mm. ASSESSMENT: BIRADS Category 3: Probably benign finding. Short interval follow up suggested. RECOMMENDATION: Diagnostic right breast mammogram and ultrasound in six months when the patient returns for yearly mammogram. [facility] [place] utilizes [employer] as a reminder system to notify patients of their next recommended mammogram. Sunny West MD MAMMO ORDERABLES * MAMMO RIGHT STEREOTACTIC LOC MP (08/17/2010 12:03 PM PLAYER MANAGER) Anatomical Region Laterality Modality Breast Right Mammography 08/17/2010 12:1 4 PM PLAYER MANAGER Addenda This result is currently undergoing an addendum. Addendum by Sandip Fagan MD on 08/18/2010 3:05 PM PLAYER MANAGER Pathology results are consistent with fibrocystic disease. Findings are concordant. Short-term followup right breast diagnostic mammogram in 6 months is recommended. The patient was informed of these findings and recommendations. Impressions 08/17/2010 12:14 PM PLAYER MANAGER Successful stereotactic localization and biopsy right breast microcalcifications Narrative 08/17/2010 12:14 PM PLAYER MANAGER Right breast stereotactic localization and biopsy Right breast surgical specimen Right breast unilateral digital diagnostic mammogram Clinical: Microcalcifications seen on outside mammogram FINDINGS: After obtaining informed consent, patient was placed on the stereotactic table in the prone position. The microcalcifications were localized with the breast compressed in the cc position for a superior approach. The skin was cleaned and anesthetized in a sterile fashion. Microcalcifications were biopsied. Specimen radiograph demonstrates the microcalcifications of interest in 2 of the core samples. A tissue marker was placed at the site of biopsy. Two-view postbiopsy mammogram demonstrates the tissue marker in the expected position. Procedure Note Sandip Fagan MD - 08/17/2010 Right breast stereotactic localization and biopsy Right breast surgical specimen Right breast unilateral digital diagnostic mammogram Clinical: Microcalcifications seen on outside mammogram FINDINGS: After obtaining informed consent, patient was placed on the stereotactic table in the prone position. The microcalcifications were localized with the breast compressed in the cc position for a superior approach. The skin was cleaned and anesthetized in a sterile fashion. Microcalcifications were biopsied. Specimen radiograph demonstrates the microcalcifications of interest in 2 of the core samples. A tissue marker was placed at the site of biopsy. Two-view postbiopsy mammogram demonstrates the tissue marker in the expected position. IMPRESSION Successful stereotactic localization and biopsy right breast microcalcifications Sunny West MD MAMMO ORDERABLES * VICKY BREAST RIGHT SPECIMEN [id number] (08/17/2010 11:34 AM PLAYER MANAGER) Anatomical Region Laterality Modality Right Mammography 08/17/2010 12:1 4 PM PLAYER MANAGER Impressions 08/17/2010 12:14 PM PLAYER MANAGER Successful stereotactic localization and biopsy right breast microcalcifications Narrative 08/17/2010 12:14 PM PLAYER MANAGER Right breast stereotactic localization and biopsy Right breast surgical specimen Right breast unilateral digital diagnostic mammogram Clinical: Microcalcifications seen on outside mammogram FINDINGS: After obtaining informed consent, patient was placed on the stereotactic table in the prone position. The microcalcifications were localized with the breast compressed in the cc position for a superior approach. The skin was cleaned and anesthetized in a sterile fashion. Microcalcifications were biopsied. Specimen radiograph demonstrates the microcalcifications of interest in 2 of the core samples. A tissue marker was placed at the site of biopsy. Two-view postbiopsy mammogram demonstrates the tissue marker in the expected position. Procedure Note Sandip Fagan MD - 08/17/2010 Right breast stereotactic localization and biopsy Right breast surgical specimen Right breast unilateral digital diagnostic mammogram Clinical: Microcalcifications seen on outside mammogram FINDINGS: After obtaining informed consent, patient was placed on the stereotactic table in the prone position. The microcalcifications were localized with the breast compressed in the cc position for a superior approach. The skin was cleaned and anesthetized in a sterile fashion. Microcalcifications were biopsied. Specimen radiograph demonstrates the microcalcifications of interest in 2 of the core samples. A tissue marker was placed at the site of biopsy. Two-view postbiopsy mammogram demonstrates the tissue marker in the expected position. IMPRESSION Successful stereotactic localization and biopsy right breast microcalcifications Sunny West MD MAMMO ORDERABLES * GROSS + MICRO EXAM (08/17/2010 11:25 AM PLAYER MANAGER) Only the most recent of2 resultswithin the time period is included. Result CASE NUMBER [id number] Comment: ORDERING PHYSICIAN ??SANDIP FAGAN SPECIMEN TYPE ?Breast Biopsy-right breast tissue Date ? 08/17/2010 Physician ?Lilia West Gross Description ? The specimen is received in two Formalin containers labeled with the patient's name, Brianna Norman. The first container is labeled right breast tissue, and consists of a 1 x 1 x 0.5 cm aggregate of congested yellow sanders fibro-fatty cores of tissue, submitted entirely in cassette A. The second container is labeled right breast calcium, and consists of a 1 x 0.7 x 0.4 cm aggregate of yellow sanders fibro-fatty cores of tissue, submitted entirely in cassette B. LW gongora Microscopic Exam ? The right breast biopsy shows benign breast parenchyma with two small foci of dilated ducts. ??No microcalcifications, carcinoma in situ or invasive malignancy is seen. ?? The right breast with calcium shows fibrocystic disease with microcalcifications. ??No atypical ductal hyperplasia, carcinoma in situ or invasive malignancy is seen. ??Deeper cutsx2 show the same. MM/vl Diagnosis ? I. ?Breast, right, stereotactic needle biopsy -- ?Benign breast parenchyma -- ?No evidence of malignancy II. ?? Breast, right, with calcium, stereotactic needle biopsy -- ?Fibrocystic disease -- ?Microcalcifications -- ?No evidence of malignancy MM/vl Protection Specialist ? vl Pathologist ?Joann Lock MD [place]. ?08/18/2010 1302 <3> CPT code ? 33134p3 MISCELLANEOUS SAMPLES / Unknown 08/17/2010 11:25 AM PLAYER MANAGER 08/17/2010 12:23 PM PLAYER MANAGER Historical Provider LAB - PATHOLOGY/C YTOLOGY ORDERABLES * HIV-1 HIV-2 ANTIBODY (04/02/2010 2:04 PM CDT) HIV-1 Antibody O.D. Ratio <1.00 <1.00 [facility] INSURANCE BILL Comment:Index Value: Specime n reactivity relative to the negative cutoff. HIV-1/HIV-2 Non Reactive Non Reactive [facility] INSURANCE BILL BLOOD SPECIMEN / Unknown 04/02/2010 2:04 PM CDT 04/02/2010 6:18 PM CDT Narrative Resulting Agency Comment [address] ??[facility] [phone] Kelechi Rico III, MD LAB - CHEMISTRY OR DERABLES Performing Organization Address City/[facility]/ZIP Co de Phone Number [facility] INSURANCE BILL * (ABNORMAL) VITAMIN D 25-HYDROXY (04/02/2010 2:04 PM CDT) Vitamin D, 25 Hydroxy 25.8(L) 32.0 - 100.0 ng/mL [facility] INSURANCE BILL Comment: Recent studies consider the lower limit of 32.0 ng/mL to be a threshold for optimal health. Jayson BW. J Nutr. 2004;135(2):317-22. BLOOD SPECIMEN / Unknown 04/02/2010 2:04 PM CDT 04/02/2010 6:18 PM CDT Narrative Resulting Agency Comment [address] ??[facility] [phone] Kelechi Rico III, MD LAB - CHEMISTRY OR DERABLES [facility] INSURANCE BILL * PAP SMEAR IG RFLX HPV ASCU (PO REF LAB) (05/05/2009 11:28 AM PLAYER MANAGER) Only the most recent of2 resultswithin the time period is included. Diagnosis [facility] INSURANCE BILL Comment:NEGATIVE FOR INTRAEP ITHELIAL LESION AND MALIGNANCY. Specimen Adequacy [facility] INSURANCE BILL Comment: Satisfactory for evaluation. ??Endocervical and/or squamous metaplastic cells (endocervical component) are present. Clinician Provided ICD9 [facility] INSURANCE BILL Comment:V72.31 ; Routine dive supervisor ecological examination Performed by [facility] INSURANCE BILL Comment:Itzel Winkler Cytot echnologist (ASC) Comment . [facility] INSURANCE BILL Note [facility] INSURANCE BILL Comment: The Pap smear is a screening test designed to aid in the detection of premalignant and malignant conditions of the uterine cervix. ??It is not a diagnostic procedure and should not be used as the sole means of detecting cervical cancer. ??Both false-positive and false-negative reports do occur. ? . IGLBP CPT Code Automation [facility] INSURANCE BILL Comment: This liquid based ThinPrep(R) pap test was screened with the use of an image guided system. Reflex [facility] INSURANCE BILL Comment: The HPV DNA reflex criteria were not met with this specimen result therefore, no HPV testing was performed. ? . MICROSCOPIC CYTOLOGIC EXAMINATION OF SMEAR OF SPECIMEN FROM FEMALE GENITAL TRACT PREPARED USING PAPANICOLAOU TECHNIQUE / Unknown 05/05/2009 11:28 AM PLAYER MANAGER 05/06/2009 12:12 AM PLAYER MANAGER Narrative [facility] INSURANCE BILL - 05/11/2009 8:08 PM PLAYER MANAGER No. of containers..01 CYTYC Thin Prep Vial Resulting Agency Comment [facility] [place] [address] [facility] ??[place] [phone] Sunny West MD LAB - PATHOLOGY/CYTO LOGY ORDERABLES [facility] INSURANCE BILL * CARDIAC RHYTHM STRIP ORDER (05/02/2009 7:18 AM PLAYER MANAGER) Narrative 05/02/2009 7:18 AM PLAYER MANAGER Ordered by an unspecified provider. Transcriptions Document, Scanned - 04/21/2009 12:00 AM PLAYER MANAGER Scanned Document CARDIAC SERVICES ORD ERABLES * US TRANSVAG ONLY (10/15/2008 5:12 PM CDT) Sunny West MD ORDERABLES Care Teams Manager Equipment Relationship Specialty Start Date End Date Sunny West MD PCP - OBGYN 03/28/08 Villa Talavera DO [address] [facility] [address] [place] [address] PCP - General 08/17/22
--- OUTSIDE RECORDS SUMMARY | 2024-06-02 01:44 | XMS_ITS | Encounter Summary ---
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 - SIGHT EFFECTS SPECIALIST [address] [place] [address] Sunny West MD [address] [facility] [place] [address] Pap smear, as part of routine [...] Sign Reading Time Taken Comments Blood Pressure 150/88 03/08/2019 11:54 AM CDT Pulse - - Temperature - - Respiratory Rate - - Oxygen Saturation - - Inhaled Oxygen Concentration - - Weight 65.5 kg (144 lb 8 oz) 03/08/2019 11:54 AM CDT Height 165.1 cm (5' 5 ) 03/08/2019 11:54 AM CDT Body Mass Index 24.05 03/08/2019 11:54 AM CDT documented in this encounter Progress Notes * Sunny West MD - 03/08/2019 12:11 PM CDT Well Woman Yearly Exam (Post Menopausal) HISTORY: Brianna Norman is a 58 year old white female here for a Well Woman exam. Patient does not have other gynecological issues or concerns. Last Pap: normal. Last mammogram: Performed today Other pertinent CREATIVE COORDINATOR history: None Other pertinent history: Medical, Surgical, Family, and Social History Reviewed. Allergies reviewed. Review of Systems Pertinent items are noted in HPI EXAMINATION BP 150/88 (BP SITE: LEFT ARM, BP POSITION: SITTING, BP CUFF SIZE: 11) Ht 5' 5 Wt 144 lb 8 oz BMI 24.05 kg/m2 General Appearance: alert, cooperative, no distress Extremities: no clubbing, cyanosis or edema Breasts: symmetric, nontender, no masses or discharge Lungs: breath sounds normal and symmetric; no rales or wheezes Heart: regular rhythm, normal S1 and S2, without murmurs, gallops or rubs Abdomen: Soft without mass, non-tender Pelvic: Vulva and vagina appear normal. Bimanual exam reveals normal uterus and adnexa. Vaginal Atrophy: no ASSESSMENT Normal Postmenopausal CREATIVE COORDINATOR Well Woman Exam. Patient Active Problem List: Submucous leiomyoma of uterus GERD (gastroesophageal reflux disease) Vitamin D deficiency Pure hypercholesterolemia Family history of premature coronary artery disease Screen for colon cancer ord'd 05/02/13, Chronic depression Polyp of ascending colon-tubular adenoma PLAN See orders, medications, patient instructions. Routine Mammograms recommended. Calcium and Vitamin D intake discussed. Bone density indications discussed. documented in this encounter Plan of Treatment Not on file documented as of this encounter Goals Goal Patient Goal Type Associated Problems Recent Progress Patient-Stated? 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 Specimen Adequacy [facility] INSURANCE BILL Comment:Satisfactory for karen luation. No endocervical component is identified. Clinician Provided ICD10 [facility] INSURANCE BILL Comment:Z01.419 Performed by [facility] INSURANCE BILL Comment:John Monroy totechnologist (ASCP) Comment . [facility] INSURANCE BILL Note [...] y PART OF UTERINE CERVIX / Unknown 03/08/2019 12:07 PM CDT 03/08/2019 Narrative [facility] INSURANCE BILL - 03/12/2019 3:08 PM CDT Source.............Cervix;Endocervix Other..............Post Menopausal No. of containers..01 ThinPrep Vial Resulting Agency Comment Lab Testing performed at: [facility] [address] [facility] ??[place] [phone] Sunny West MD LAB - PATHOLOGY/CYTO LOGY ORDERABLES [facility] INSURANCE BILL [address] [place] [address] documented in this encounter Visit Diagnoses Diagnosis Pap smear, as part of routine gynecological examination- Primary Screening for malignant neoplasm of the cervix documented in this encounter Care Teams Alarm Adjuster Relationship Specialty Start Date End Date Sunny West MD PCP - OBGYN 03/28/08 Kelechi Rico III, MD RETIRED PCP - General 01/12/12 05/10/20 documented as of this encounter
--- OUTSIDE RECORDS SUMMARY | 2024-06-02 01:44 | XMS_ITS | Encounter Summary ---
Author Organization [facility] Address [address] [place] [address] Care Team Providers Care Equipment Operator Wage Hand Name Role Phone Sunny West MD Unavailable [phone] Jacky STEPHENS MD, Edwin Primary Care Provider Brooke vailable Sunny West MD Unavailable [phone] Reason for Visit * Reason Onset Date Comments MEDICATION REFILL 07/03/2019 Encounter Details Date Type Department Care Team (Late st Contact Info) Description 07/03/2019 Refill [facility] - Internal Medicine [address] [place] [address] Kelechi Rico III, MD RETIRED MEDICATION REFILL Social History Tobacco Use Types Packs/Day Years [...] Miscellaneous Notes * Telephone Encounter - Courtney Dockery - 07/03/2019 2:43 PM CST Requested Prescriptions Pending Prescriptions Disp Refills ??? amLODIPine (NORVASC) 10 MG tablet 90 tablet 3 Sig: Take 1 tablet by mouth once daily Last OV: 05/24/2019 Next OV: Visit date not found Last fill: 05/24/2019 GENCY ROOM SPECIALIST documented in this encounter Plan of Treatment Not on file documented as of this encounter Goals Goal Patient Goal Type Associated Problems Recent Progress Patient-Stated? Author Quit smoking / using tobacco Lifestyle On track( 015 11:44 AM EMERGENCY ROOM SPECIALIST) No Courtney Dockery documented as of this encounter Visit Diagnoses Not on filedocumented in this encounter Care Teams Equipment Operator Wage Hand Relationship Specialty Start Date End Date Sunny West MD PCP - OBGYN 03/28/08 Kelechi Rico III, MD RETIRED PCP - General 01/12/12 05/10/20 Sunny West MD [address] [place] [address] PCP - Attributed-[employer] 05/12/19 0 documented as of this encounter
--- OUTSIDE RECORDS SUMMARY | 2024-06-02 01:44 | XMS_ITS | Encounter Summary ---
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
--- OUTSIDE RECORDS SUMMARY | 2024-06-02 01:44 | XMS_ITS | Referral Summary ---
Author Organization [facility] Address [address] [facility] [place] [address] Care Team Providers Care Ship'S Pilot Name Role Phone Sunny West MD Unavailable [phone] Villa Talavera DO Primary Care Provider [phone] Source Comments [facility],non-owned Affiliates and Associated Physician Practices is amultiple site organization consisting of ambulatory clinics and hospital sitesin [place], [place], [place] and [place]. This disclosure is being madepursuant to the Care Everywhere program and may not contain all information available regarding this patient. Last updated 18.[facility] Encounters Date Type Department Care Team Description 05/27/2024 Travel 05/27/2024 10:45 AM CROSSBOW MAKER Office Visit [facility] - CLERICAL SUPPORT SPECIALIST [address] [place] [address], [address] [place] [address] Sunny West MD Pap smear, as part of routine gynecological examination (Primary Dx) from Last 3 Months Allergies Active Allergy Reactions Criticality Noted Date [...] artery dise ase 05/03/2013 Overview (05/03/2013): Brother [place] age 52 Vitamin D deficiency 04/04/2010 GERD (gastroesophageal reflux disease) 0 Submucous leiomyoma of uterus 10/15/2008 Overview (05/05/2009): S/P hysteroscopic removal Dr Parson Resolved Problems Problem Noted Date Diagnosed Date Resolved Date Perimenopausal 04/02/2010 01/02/2017 Excessive or frequent menstruation 10/15/2008 01/02/2017 Overview (05/05/2009): S/P Novasure ablation Immunizations Name Administration Dates Next Due FLU VACCINE TRI IIV3 SPLIT PF IM (FLUVIRIN) 04/13 INFLUENZA 05/10/2018 INFLUENZA VACCINE, QUADR. (F LUZONE; FLULAVAL; FLUARIX; AFLURIA QUADRIVALENT; 6MO+), 0.5 ML (IIV4) 02/09/2019 PNEUMOCOCCAL PCV7 CONJ, PEDS 05/10/2018 PNEUMOCOCCAL PPSV23 03/29/2018 Social History Tobacco Use Types Packs/Day Years [...] Comments Blood Pressure 112/70 05/27/2024 10:52 AM CROSSBOW MAKER Pulse 72 05/24/2019 9:32 AM CROSSBOW MAKER Temperature 37.3 ??C (99.1 ??F) 07/30/2018 2:39 PM CS T Respiratory Rate 12 05/24/2019 9:32 AM CROSSBOW MAKER Oxygen Saturation 98% 07/30/2018 2:39 PM CROSSBOW MAKER Inhaled Oxygen Concentration - - Weight 65.9 kg (145 lb 3.2 oz) 05/27/2024 10:52 AM CROSSBOW MAKER Height 165.1 cm (5' 5 ) 05/27/2024 10:52 AM CROSSBOW MAKER Body Mass Index 24.16 05/27/2024 10:52 AM CROSSBOW MAKER Plan of Treatment Not on file Goals Goal Patient Goal Type Associated Problems Recent Progress Patient-Stated? Author Quit smoking / using tobacco Lifestyle On track( 015 11:44 AM CROSSBOW MAKER) No Courtney Dockery Procedures Procedure Name Priority Date/Time Associated Diagnosis Comments PAP IG RFLX HPV HR ASCUS RFLX 16/18/45 Routine 05/27/2024 11:33 AM CROSSBOW MAKER Pap smear, as part of routine gynecological examination MAMMOGRAM 10/07/2023 ENDOSCOPY, COLON, SCREENING Routine 08/16/2018 LIPID PROFILE W TCHOL/HDL Routine 07/31/2018 10:59 AM CROSSBOW MAKER Routine general medical examination at a health care facility HIV-1 HIV-2 ANTIGEN/ANTIBODY W RFLX Routine 07/31/2018 10:59 AM CROSSBOW MAKER STD exposure from Last 3 Months or Most Recently Relevant to Health Maintenance Results * PAP IG RFLX HPV HR ASCUS RFLX 16/18/45 (05/27/2024 11:33 AM CROSSBOW MAKER) Diagnosis Comment [facility] ACCOUNT BILL Comment:NEGATIVE FOR [...] UTERINE CERVIX / Unknown 05/27/2024 11:33 AM CROSSBOW MAKER 05/27/2024 Comment:Cervix Release to [facility] Narrative [facility] ACCOUNT BILL - 06/01/2024 7:08 AM CROSSBOW MAKER Performed at: ??[address] [facility] ??[id number] Gas Prover: Aleta Paiz MD, Phone: ??[phone] Specimen Comment: [id number] Specimen Comment: Source.............Cervix;Endocervix Specimen Comment: No. of containers..01 ThinPrep Vial Sunny West MD LAB - PATHOLOGY/CYTO LOGY ORDERABLES [facility] ACCOUNT BILL [address] [place] [address] * MAMMOGRAM (10/07/2023) Anatomical Region Laterality Modality Other 10/07/2023 Narrative 10/07/2023 Ordered by an unspecified provider. Scanned Document SCANNING ONLY * ENDOSCOPY, COLON, SCREENING (08/16/2018) Scanned Document GI PROCEDURE ORDERAB LES * HIV-1 HIV-2 ANTIGEN/ANTIBODY W RFLX (07/31/2018 10:59 AM CROSSBOW MAKER) Pathologist [facility] HIV Screen 4th Generation w Reflex Non Reactive Non Reactive [facility] INSURANCE BILL Comment:FASTING Blood BLOOD SPECIMEN / Unknown 07/31/2018 10:59 AM CROSSBOW MAKER 07/31/2018 Narrative Resulting Agency Comment [facility] [address] [facility] ??[facility] [phone] Kelechi Rico III, MD LAB - SEROLOGY ORD ERABLES [facility] INSURANCE BILL [address] [place] [address] * (ABNORMAL) LIPID PROFILE W TCHOL/HDL (07/31/2018 10:59 AM CROSSBOW MAKER) Pathologist [facility] Cholesterol 217(H) 100 - 199 mg/dL [...] BLOOD SPECIMEN / Unknown 07/31/2018 10:59 AM CROSSBOW MAKER 07/31/2018 Narrative Resulting Agency Comment [facility] [address] [facility] ??[facility] [phone] Kelechi Rico III, MD LAB - CHEMISTRY OR DERABLES [facility] INSURANCE BILL [address] [place] [address] from Last 3 Months or Most Recently Relevant to Health Maintenance Advance Directives Documents on File Type Date Recorded Patient Ham Stripper Expl anation Adv Directive/Living Will/POA 05/01/2009 10:56 AM Care Teams Ship'S Pilot Relationship Specialty Start Date End Date Sunny West MD PCP - OBGYN 03/28/08 Villa Talavera DO [address] [facility] [address] [place] [address] PCP - General 08/17/22
--- OUTSIDE RECORDS SUMMARY | 2024-06-02 01:44 | XMS_ITS | Encounter Summary ---
Author Organization [facility] Address [address] [place] [address] Care Team Providers Care Occupational Health And Safety Officer Name Role Phone Sunny West MD Unavailable [phone] Jacky STEPHENS MD, Kelechi Primary Care Provider Brooke vailable Reason for Visit * Reason Onset Date Comments Smoking Cessation 12/24/2018 Encounter Details Date Type Department Care Team (Late st Contact Info) Description 12/24/2018 Telephone [facility] Medical [facility] - Internal Medicine [address] [facility] [place] [address] Kelechi Rico III, MD RETIRED [...] Telephone Encounter - Courtney Burkett RN - 12/24/2018 10:48 AM CDT Requesting that OTC be sent as an Rx for a program through her insurance that requires a script. States she is smoking 1 pack in 24 hrs. The gum she has is 2mg and states she needs something stronger. * Telephone Encounter - Kelechi Rico III, MD - 12/24/2018 10:46 AM CDT I think they are all OTC now. Size of patch depends on how much she is smoking. * Telephone Encounter - Courtney Burkett RN - 12/24/2018 10:27 AM CDT Cannot find a pharmacy that carries nicotrol inahler, requesting to use patches instead for smokingcessation. Please Rx. documented in this encounter Plan of Treatment Not on file documented as of this encounter Goals Goal Patient Goal Type Associated Problems Recent Progress Patient-Stated? 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
--- OUTSIDE RECORDS SUMMARY | 2024-06-02 01:44 | XMS_ITS | Encounter Summary ---
Author Organization [facility] Address [address] [facility] [place] [address] Care Team Providers Care Assistant Men'S Lacrosse Coach Name Role Phone Sunny West MD Unavailable [phone] Villa Talavera DO Primary Care Provider [phone] Reason for Visit * Reason Comments De Icer Installer Routine Exam Encounter Details Date Type Department Care Team (Late st Contact Info) Description 05/27/2024 10:45 AM MARKETING RESEARCH INTERN Office Visit [facility] Medical [facility] - ASSISTANT PROFESSOR OF CRIMINAL JUSTICE [address] [place] [address], [address] [place] [phone] Sunny West MD [address] [place] [address]. [address] [place] [phone] Pap smear, as part of routine [...] Comments Blood Pressure 112/70 05/27/2024 10:52 AM MARKETING RESEARCH INTERN Pulse - - Temperature - - Respiratory Rate - - Oxygen Saturation - - Inhaled Oxygen Concentration - - Weight 65.9 kg (145 lb 3.2 oz) 05/27/2024 10:52 AM MARKETING RESEARCH INTERN Height 165.1 cm (5' 5 ) 05/27/2024 10:52 AM MARKETING RESEARCH INTERN Body Mass Index 24.16 05/27/2024 10:52 AM MARKETING RESEARCH INTERN documented in this encounter Progress Notes * Sunny West MD - 05/27/2024 11:12 AM CST Well Woman Yearly Exam (Post Menopausal) HISTORY: Brianna Norman is a 63 year old female here for a Well Woman exam. Good wt loss results with Zepbound Patient does not have other gynecological issues or concerns. Last Pap: normal. Last mammogram: Performed 2023, and was normal Other pertinent LEATHER COATER history: None Other pertinent history: Medical, Surgical, Family, and Social History Reviewed. Allergies reviewed. Review of Systems Pertinent items are noted in HPI EXAMINATION BP 112/70 (BP Location: Right arm, Patient Position: Sitting) Ht 1.651 m (5' 5 ) Wt 65.9 kg (145 lb 3.2 oz) General Appearance: alert, cooperative, no distress Extremities: [...] adnexa. Vaginal Atrophy: no ASSESSMENT Normal Postmenopausal LEATHER COATER Well Woman Exam. Patient Active Problem List: Submucous leiomyoma of uterus GERD (gastroesophageal reflux disease) Vitamin D deficiency Pure hypercholesterolemia Family history of premature coronary artery disease Screen for colon cancer ord'd 05/02/13, Chronic depression Polyp of ascending colon-tubular adenoma PLAN See orders, medications, patient instructions. Routine Mammograms recommended. ETING RESEARCH INTERN documented in this encounter Plan of Treatment Not on file documented as of this encounter Goals Goal Patient Goal Type Associated Problems Recent Progress Patient-Stated? Author Quit smoking / using tobacco Lifestyle On track( 015 11:44 AM MARKETING RESEARCH INTERN) No Courtney Dockery documented as of this encounter Procedures Procedure Name Priority Date/Time Associated Diagnosis Comments PAP IG RFLX HPV HR ASCUS RFLX 16/18/45 Routine 05/27/2024 11:33 AM MARKETING RESEARCH INTERN Pap smear, as part of routine gynecological examination documented in this encounter Results * PAP IG RFLX HPV HR ASCUS RFLX 16/18/45 (05/27/2024 11:33 AM MARKETING RESEARCH INTERN) Diagnosis Comment [facility] ACCOUNT BILL Comment:NEGATIVE FOR [...] UTERINE CERVIX / Unknown 05/27/2024 11:33 AM MARKETING RESEARCH INTERN 05/27/2024 Comment:Cervix Release to pa austin Narrative [facility] ACCOUNT BILL - 06/01/2024 7:08 AM MARKETING RESEARCH INTERN Performed at: ??01 - [facility] [place] [place] [id number] Superintendent Ammunition Storage: Aleta Paiz MD, Phone: ??[phone] Specimen Comment: [id number] Specimen Comment: Source.............Cervix;Endocervix Specimen Comment: No. of containers..01 ThinPrep Vial Sunny West MD LAB - PATHOLOGY/CYTO LOGY ORDERABLES [facility] ACCOUNT [place] [address] [place] [address] documented in this encounter Visit Diagnoses Diagnosis Pap smear, as part of routine gynecological examination- Primary Screening for malignant neoplasm of the cervix documented in this encounter Care Teams Assistant Men'S Lacrosse Coach Relationship Specialty Start Date End Date Sunny West MD PCP - OBGYN 03/28/08 Villa Talavera DO [address] [facility] [[email or web address] [address] [place] [address] PCP - General 08/17/22 documented as of this encounter
--- OUTSIDE RECORDS SUMMARY | 2024-06-02 01:44 | XMS_ITS | Encounter Summary ---
Author Organization [facility] Address [address] [facility] [place] [address] Care Team Providers Care Tread Tuber Machine Operator Name Role Phone Sunny West MD Unavailable [phone] Akilah Duong MD Primary Care Provider + Reason for Visit * Reason Comments Establish Care Last seen 2019 Mixer And Blender Routine Exam Encounter Details Date Type Department Care Team (Late st Contact Info) Description 05/27/2022 10:45 AM NANOTECHNICIAN Office Visit [facility] Medical [facility] - SINKER PULLER [address] [place] [address], [address] [place] [phone] Sunny West MD [address] [place] [address] [address] Pap smear, as part of routine [...] Sign Reading Time Taken Comments Blood Pressure 130/80 05/27/2022 10:48 AM NANOTECHNICIAN Pulse - - Temperature - - Respiratory Rate - - Oxygen Saturation - - Inhaled Oxygen Concentration - - Weight 76.4 kg (168 lb 6.4 oz) 05/27/2022 10:48 AM NANOTECHNICIAN Height 165.1 cm (5' 5 ) 05/27/2022 10:48 AM NANOTECHNICIAN Body Mass Index 28.02 05/27/2022 10:48 AM NANOTECHNICIAN documented in this encounter Progress Notes * Sunny West MD - 05/27/2022 11:09 AM CST Well Woman Yearly Exam (Post Menopausal) HISTORY: Brianna Norman is a 61 year old white female here for a Well Woman exam. Patient does not have other gynecological issues or concerns. Last Pap: normal. 2019 Last mammogram: was normal Other pertinent AVIONICS SYSTEMS REPAIRER history: None Other pertinent history: Medical, Surgical, Family, and Social History Reviewed. Allergies reviewed. Review of Systems Pertinent items are noted in HPI EXAMINATION BP 130/80 (BP SITE: RIGHT ARM, BP POSITION: SITTING, BP CUFF SIZE: 11) Ht 1.651 m (5' 5 ) Wt 76.4 kg (168 lb 6.4 oz) General Appearance: alert, cooperative, no distress [...] adnexa. Vaginal Atrophy: Yes,mild ASSESSMENT Normal Postmenopausal AVIONICS SYSTEMS REPAIRER Well Woman Exam. Patient Active Problem List: Submucous leiomyoma of uterus GERD (gastroesophageal reflux disease) Vitamin D deficiency Pure hypercholesterolemia Family history of premature coronary artery disease Screen for colon cancer ord'd 05/02/13, Chronic depression Polyp of ascending colon-tubular adenoma PLAN See orders, medications, patient instructions. Routine Mammograms recommended. Calcium and Vitamin D intake discussed. Bone density indications discussed. TECHNICIAN documented in this encounter Plan of Treatment Not on file documented as of this encounter Goals Goal Patient Goal Type Associated Problems Recent Progress Patient-Stated? Author Quit smoking / using tobacco Lifestyle On track( 015 11:44 AM NANOTECHNICIAN) No Micheal Dockeryssica documented as of this encounter Procedures Procedure Name Priority Date/Time Associated Diagnosis Comments PAP IG RFLX HPV HR ASCUS RFLX 16/18/45 Routine 05/27/2022 11:00 AM NANOTECHNICIAN Pap smear, as part of routine gynecological examination documented in this encounter Results * PAP IG RFLX HPV HR ASCUS RFLX 16/18/45 (05/27/2022 11:00 AM NANOTECHNICIAN) Diagnosis [facility] ACCOUNT BILL Comment:NEGATIVE FOR INTRAEP ITHELIAL LESION OR MALIGNANCY. Specimen Adequacy [facility] ACCOUNT BILL Comment: Satisfactory for evaluation. ??Endocervical and/or squamous metaplastic cells (endocervical component) are present. Clinician Provided ICD10 [facility] ACCOUNT BILL Comment:Z01.419 Performed by [facility] ACCOUNT BILL Comment:Yenni Osorio, Cytot echnologist ([facility]) Comment . [facility] ACCOUNT BILL Note [facility] [...] y PART OF UTERINE CERVIX / Unknown 05/27/2022 11:00 AM NANOTECHNICIAN 05/30/2022 Narrative [facility] ACCOUNT BILL - 06/07/2022 5:07 PM NANOTECHNICIAN Source.............Cervix;Endocervix No. of containers..01 ThinPrep Vial Resulting Agency Comment Lab Testing performed at: [facility] [address] ??[place] [id number] Sunny West MD LAB - PATHOLOGY/CYTO LOGY ORDERABLES [facility] ACCOUNT BILL [address] [place] [address] documented in this encounter Visit Diagnoses Diagnosis Pap smear, as part of routine gynecological examination- Primary Screening for malignant neoplasm of the cervix documented in this encounter Care Teams Tread Tuber Machine Operator Relationship Specialty Start Date End Date Sunny West MD PCP - OBGYN 03/28/08 Akilah Duong MD [address] [place] [address] PCP - General Family Medicine 05/11/20 08/16/22 documented as of this encounter
--- OUTSIDE RECORDS SUMMARY | 2024-06-02 01:45 | XMS_ITS | Encounter Summary ---
Author Organization [facility] Address [address] [place] [address] Care Team Providers Care Rn Licensed Practical Name Role Phone Sunny West MD Unavailable [phone] Jacky STEPHENS MD, Kelechi Primary Care Provider Brooke vailable Reason for Referral * Radiology Services - Closed Specialty Diagnoses / Procedures Referred By Lindy avila Referred To Contact Diagnoses Abnormal mammogram Procedures US BREAST LEFT LTD Sunny West MD [facility] [address] [place] [address] Referral ID Status Reason Start Date Expiration Date Visits Re quested Visits Authorized [id number] Closed 05/22/2015 11/18/2015 1 1 IFIED PEST CONTROL TECHNICIAN Reason for Visit * Radiology Services - Closed Specialty Diagnoses / Procedures Referred By Lindy avila Referred To Contact Diagnoses Abnormal mammogram Procedures US BREAST LEFT LTD Sunny West MD [facility] [address] [place] [address] Referral ID Status Reason Start Date Expiration Date Visits Re quested Visits Authorized [id number] Closed 05/22/2015 11/18/2015 1 1 Encounter Details Date Type Department Care Team (Latest Contact Info) Description 05/22/2015 1:29 PM CERTIFIED PEST CONTROL TECHNICIAN - 05/22/2015 3:19 PM CERTIFIED PEST CONTROL TECHNICIAN Hospital Encounter [facility] Imaging Services - Ultrasound [address] [place] [address] Sunny West MD [address] [place] [address] Discharge Disposition: Home or Self Care Social History Tobacco Use Types Packs/Day Years Used Date Smoking Tobacco: Former Cigarettes 1 20 1 06/22/1994 - 04/22/2015 Smokeless Tobacco: Never Alcohol Use Standard Drinks/Week Comments Yes 0.8 (1 standard drink = 0.6 oz p ure alcohol) 04/20/09 Sex and Gender Information Value Date Recorded Sex Assigned at Not on file Gender Identity Not on file Sexual Orientation Not on file documented as of this encounter Medications at Time of Discharge Medication Sig Dispensed Refills Start Date End Date buPROPion XL 24hr (WELLBUTRIN-XL) 150 MG tablet Take 1 Tab by mouth once daily 30 Tab 5 05/22/2015 01/02/2017 ibuprofen (ADVIL; MOTRIN) 100 MG/5ML suspension Take by mouth every 6 hours as needed for Pain or Fever 01/02/2017 multivitamin daily (THERAGRAN) tablet Take 1 Tab by mouth daily with food 01/02/2017 Probiotic Product (Xsilon PO) 01/02/2017 documented as of this encounter Plan of Treatment Not on file documented as of this encounter Goals Goal Patient Goal Type Associated Problems Recent Progress Patient-Stated? Author Quit smoking / using tobacco Lifestyle On track( 015 11:44 AM CERTIFIED PEST CONTROL TECHNICIAN) Courtney Victor documented as of this encounter Procedures Procedure Name Priority Date/Time Associated Diagnosis Comments US BREAST LEFT LTD Routine 05/22/2015 1: 36 PM CERTIFIED PEST CONTROL TECHNICIAN Abnormal mammogram documented in this encounter Results * US BREAST LEFT LTD (05/22/2015 1:36 PM CERTIFIED PEST CONTROL TECHNICIAN) Anatomical Region Laterality Modality Breast Left Ultrasound 05/22/2015 1:36 PM CERTIFIED PEST CONTROL TECHNICIAN Impressions 05/22/2015 5:09 PM CERTIFIED PEST CONTROL TECHNICIAN 1. ??Enlarged left axillary lymph node. Since this lymph node remains enlarged, ultrasound-guided biopsy is recommended. 2. ??No mammographic evidence of malignancy in either breast. ASSESSMENT: BIRADS Category 4: Suspicious abnormality. Biopsy should be considered. RECOMMENDATION: Ultrasound guided biopsy of left axillary lymph node. Findings and recommendation were discussed with the patient by Dr. Duarn. ??Biopsy was performed immediately following diagnostic evaluation. ??Please refer to separately dictated biopsy report. Thank you for allowing us to participate in the care of your patient. [facility] [place] utilizes Biopara[employer] as a reminder system to notify patients of their next recommended mammogram. I, Abiola Duran, have personally reviewed the images and I agree with this report. Narrative 05/22/2015 5:09 PM CERTIFIED PEST CONTROL TECHNICIAN EXAMINATION: Digital bilateral diagnostic mammogram and limited [...] participate in the care of your patient. [facility] [place] utilizes Biopara[employer] as a reminder system to notify patients of their next recommended mammogram. I, Abiola Duran, have personally reviewed the images and I agree with this report. Sunny West MD ORDERABLES documented in this encounter Visit Diagnoses Diagnosis Abnormal mammogram Abnormal mammogram, unspecified documented in this encounter Care Teams Rn Licensed Practical Relationship Specialty Start Date End Date Sunny West MD PCP - OBGYN 03/28/08 Kelechi Rico III, MD RETIRED PCP - General 01/12/12 05/10/20 documented as of this encounter
--- OUTSIDE RECORDS SUMMARY | 2024-06-02 01:45 | XMS_ITS | Encounter Summary ---
Author Organization [facility] Address [address] [place] [address] Care Team Providers Care [employer]vp [employer] Name Role Phone Sunny West MD Unavailable [phone] Jacky STEPHENS MD, Kelechi Primary Care Provider Brooke vailable Reason for Visit * Reason Onset Date Comments Medication Management 07/24/2014 Scheduling 07/24/2014 Encounter Details Date Type Department Care Team (Late st Contact Info) Description 07/24/2014 Telephone [facility] Medical [facility] - Internal Medicine [address] [facility] [place] [address] Kelechi Rico III, MD RETIRED Medication Management; Scheduling Social History Tobacco Use Types Packs/Day Years Used Date Smoking Tobacco: Every Day Cigarettes 1 20 Smokeless Tobacco: Never Alcohol Use Standard Drinks/Week Comments Yes 0.8 (1 standard drink = 0.6 oz p ure alcohol) 04/20/09 Sex and Gender Information Value Date Recorded Sex Assigned at Not on file Gender Identity Not on file Sexual Orientation Not on file documented as of this encounter Miscellaneous Notes * Telephone Encounter - Elio Chang RN - 07/24/2014 11:05 AM CST OV cx, she will call back later to r/s FU in summer. CLEANER * Telephone Encounter - Kelechi Rico III, MD - 07/24/2014 10:18 AM AUTO CLEANER yes CLEANER * Telephone Encounter - Elio Chang RN - 07/24/2014 9:57 AM CST Doing OK w/increased buproprion to 300mg. Asked if she can FU later in November or December vs next week. Started new job and doesn't have any PTO yet. CLEANER documented in this encounter Plan of Treatment Not on file documented as of this encounter Goals Goal Patient Goal Type Associated Problems Recent Progress Patient-Stated? Author Quit smoking / using tobacco Lifestyle On track( 015 11:44 AM AUTO CLEANER) No Courtney Dockery documented as of this encounter Visit Diagnoses Not on filedocumented in this encounter Care Teams Svp Marketing [employer] Relationship Specialty Start Date End Date Sunny West MD PCP - OBGYN 03/28/08 Kelechi Rico III, MD RETIRED PCP - General 01/12/12 05/10/20 documented as of this encounter
--- OUTSIDE RECORDS SUMMARY | 2024-06-02 01:45 | XMS_ITS | Encounter Summary ---
Author Organization [facility] Address [address] [facility] [place] [address] Care Team Providers Care Differential Repairer Name Role Phone Sunny West MD Unavailable [phone] Jacky STEPHENS MD, Kelechi Primary Care Provider Brooke vailable Reason for Referral * Radiology Services - Closed Specialty Diagnoses / Procedures Referred By Lindy avila Referred To Contact Diagnoses Abnormal mammogram Procedures MAMMO DIAG DIRECT DIGITAL IMAGE Sunny Verdugo MD [address] [place] [address] [address] Referral ID Status Reason Start Date Expiration Date Visits Re quested Visits Authorized [id number] Closed 12/24/2013 06/22/2014 1 1 Encounter Details Date Type Department Care Team (Late st Contact Info) Description 12/24/2013 Orders Only [facility] [facility] - COMMANDER INTERNAL AFFAIRS [address] [facility] [address] [place] [address] Sunny West MD [address] [place] [address] Abnormal mammogram Social History Tobacco Use Types Packs/Day Years [...] on file documented as of this encounter Results * MAMMO DIAG DIRECT DIGITAL IMAGE BILAlexis (02/07/2014 10:41 AM CDT) Anatomical Region Laterality Modality Bilateral Mammography 02/07/2014 11:1 6 AM CDT Impressions 02/07/2014 [...] participate in the care of your patient. [facility] [place] utilizes Snapcious as a reminder system to notify patients [...] adjacent complicated cysts and clusters of cysts. Sunny West MD MAMMO ORDERABLES documented in this encounter Visit Diagnoses Diagnosis Abnormal mammogram- Primary Abnormal mammogram, unspecified Abnormal mammogram Abnormal mammogram, unspecified documented in this encounter Care Teams Differential Repairer Relationship Specialty Start Date End Date Sunny West MD PCP - OBGYN 03/28/08 Kelechi Rico III, MD RETIRED PCP - General 01/12/12 05/10/20 documented as of this encounter
--- OUTSIDE RECORDS SUMMARY | 2024-06-02 01:45 | XMS_ITS | Encounter Summary ---
Author Organization [facility] Address [address] [place] [address] Care Team Providers Care Electronic Lab Technician Name Role Phone Sunny West MD Unavailable [phone] Jacky STEPHENS MD, Kelechi Primary Care Provider Brooke vailable Reason for Visit * Reason Comments Hyperlipidemia Mass Encounter Details Date Type Department Care Team (Late st Contact Info) Description 10/23/2014 10:15 AM CDT Office Visit [facility] Medical [facility] - Internal Medicine [address] [facility] [place] [address] [place] [address] Kelechi Rico III, MD RETIRED Reactive lymphoid hyperplasia (Primary Dx) Social History Tobacco Use Types Packs/Day Years Used Date Smoking Tobacco: Every Day Cigarettes 1 20 Smokeless Tobacco: Never Tobacco Cessation:Ready to Q [...] Sign Reading Time Taken Comments Blood Pressure 114/74 10/23/2014 10:25 AM CDT Pulse 72 10/23/2014 10:25 AM CDT Temperature - - Respiratory Rate 12 10/23/2014 10:25 AM CDT Oxygen Saturation - - Inhaled Oxygen Concentration - - Weight 64 kg (141 lb) 10/23/2014 10:25 AM CDT Height 165.1 cm (5' 5 ) 10/23/2014 10:25 AM CDT Body Mass Index 23.46 10/23/2014 10:25 AM CDT documented in this encounter Patient Instructions * Patient Instructions* Courtney Araiza - 10/23/2014 10:25 AM CDT Where can I go for support and more information? There are many ways to quit smoking. Some may work better for you than others. Your caregiver can help you find the best plan to quit. [employer] Phone: 5-315-UKEK-NOW ( ) www.smokefree.[employer] Phone: Phone: www.lung.org Instant Rewards of Quitting When you smoke, the chemicals in tobacco reach your lungs quickly every time you inhale. Your bloodthen carries the toxins to every organ in your body. There is no safe amount of cigarette smoke. After you quit, your body begins to heal within 20 minutes of your last cigarette, and the nicotine leaves your body within three days. As your body starts to repair itself, you may feel worse instead of better. Withdrawal can be difficult, but this is a sign that your body is healing. -Taken from www.Smokefree.gov Long?term Rewards of Quitting Tobacco use in the [place] causes about 443,000 deaths each year, or nearly one in every fivedeaths. Quitting can help you add years to your life. Smokers on average 13 years earlier than non-smokers. Take control of your health by quitting (and staying quit). Over time, you will greatlylower your risk of from lung cancer and other diseases, such as: Heart disease Stroke Chronic bronchitis Emphysema At least 13 other kinds of cancer -Taken from www.Smokefree.gov Tips if you slip ??? Don't be discouraged if you slip up and smoke one or two cigarettes. One cigarette is better than an entire pack. But don't use it as excuse to start smoking again because it's a slippery slope. ??? Don't be too hard on yourself. One slip up doesn't make you a failure. It doesn't mean you can't quit for good. ??? Don't be too easy on yourself either. If you slip up??? don't say??? Well??? I've blown it. I might as well smoke the rest of this pack . It's important to get back on the non-smoking track right away. Remember??? your goal is no cigarettes--not even one puff. ??? Feel good about all the time you went without smoking. Try to learn how to make your coping skills better. ??? Identify the trigger. Exactly what was it that made you smoke? Be aware of that trigger. Decidenow how you will cope with it when it comes up again. ??? Learn from your experience. What has helped you the most to keep from smoking? Make sure to do that on your next try. ??? Are you using a medicine to help you quit? Don't stop using your medicine after only one or twocigarettes. Stay with it. It will help you get back on track. ??? See your provider or another health professional. He or she can help motivate you to quit smoking. -Taken from www.smokefree.gov documented in this encounter Progress Notes * Kelechi Rico III, MD - 10/23/2014 10:41 AM CDT Patient seen for lump left axilla that on CARPET CLEANER exam and tomi was LN. Been present 6 weeks. Keeps checking it. Has dog that nips that arm and gets frequent scratches that side. Depression-appetite good and sleeping at night. GERD controlled. Med list reviewed with patient. Exam: BP 114/74 mmHg Pulse 72 Resp 12 Wt 63.957 kg (141 lb) BMI 23.46 kg/m2 General appearance: alert, cooperative, breathing comfortably, no distress Vesta 1 cm moveable post left axillary node Carotid 2+, no bruits Heart: regular rhythm, normal S1 and S2, without murmurs, rubs or gallops Lungs: breath sounds normal and symmetric. No rales or wheezes Extremities: no clubbing, cyanosis. 0 edema. Ass: Encounter Diagnosis Name Primary? Reactive lymphoid hyperplasia Yes Plan: No additional treatment. Continue current medications. documented in this encounter Plan of Treatment Not on file documented as of this encounter Goals Goal Patient Goal Type Associated Problems Recent Progress Patient-Stated? Author Quit smoking / using tobacco Lifestyle On track( 015 11:44 AM ANAESTHESIOLOGIST) Courtney Victor documented as of this encounter Visit Diagnoses Diagnosis Reactive lymphoid hyperplasia- Primary Enlargement of lymph nodes documented in this encounter Care Teams Electronic Lab Technician Relationship Specialty Start Date End Date Sunny West MD PCP - OBGYN 03/28/08 Kelechi Rico III, MD RETIRED PCP - General 01/12/12 05/10/20 documented as of this encounter
--- OUTSIDE RECORDS SUMMARY | 2024-06-02 01:45 | XMS_ITS | Encounter Summary ---
Author Organization [facility] Address [address] [place] [address] Care Team Providers Care Equipment Inspector Name Role Phone Sunny West MD Unavailable [phone] Jacky STEPHENS MD, Kelechi Primary Care Provider Brooke vailable Reason for Visit * Reason Onset Date Comments VAGINITIS 05/11/2016 Encounter Details Date Type Department Care Team (Late st Contact Info) Description 05/11/2016 Telephone [facility] Group - CRM SYSTEM ADMINISTRATOR [address] [facility] [address] [place] [address] Sunny West MD [address] [facility] [place] [address] VAGINITIS Social History Tobacco Use [...] Telephone Encounter - Aga Kimball RN - 05/11/2016 10:57 AM CST Pt calls with c/o terrible vaginal odor and mild irritation. She notes minimal itching. She requests vaginal gel. Per Dr West, will send Metrogel VAG. To call if no improvement. EOTYPE CASTER documented in this encounter Plan of Treatment Not on file documented as of this encounter Goals Goal Patient Goal Type Associated Problems Recent Progress Patient-Stated? Author Quit smoking / using tobacco Lifestyle On track( 015 11:44 AM STEREOTYPE CASTER) No Courtney Dockery documented as of this encounter Visit Diagnoses Not on filedocumented in this encounter Care Teams Equipment Inspector Relationship Specialty Start Date End Date Sunny West MD PCP - OBGYN 03/28/08 Kelechi Rico III, MD RETIRED PCP - General 01/12/12 05/10/20 documented as of this encounter
--- OUTSIDE RECORDS SUMMARY | 2024-06-02 01:45 | XMS_ITS | Encounter Summary ---
Author Organization [facility] Address [address] [place] [address] Care Team Providers Care Soc Analyst Name Role Phone Sunny West MD Unavailable Jacky STEPHENS MD, Kelechi Primary Care Provider Brooke vailable Reason for Referral * Radiology Services - Closed Specialty Diagnoses / Procedures Referred By Lindy avila Referred To Contact Mammography Diagnoses Abnormal mammogram Procedures MAMMO DIAG DIRECT DIGITAL IMAGE Sunny Verdugo MD [address] [place] [phone] [place] [address] Referral ID Status Reason Start Date Expiration Date Visits Re quested Visits Authorized [id number] Closed 05/12/2015 11/08/2015 1 1 ITAL CLEANING SPECIALIST Reason for Visit * Radiology Services - Closed Specialty Diagnoses / Procedures Referred By Lindy t Referred To Contact Mammography Diagnoses Abnormal mammogram Procedures MAMMO DIAG DIRECT DIGITAL IMAGE Sunny Verdugo MD [address] [place] [phone] [place] [id number] Referral ID Status Reason Start Date Expiration Date Visits Re quested Visits Authorized [id number] Closed 05/12/2015 11/08/2015 1 1 Encounter Details Date Type Department Care Team (Latest Contact Info) Description 05/22/2015 1:04 PM HOSPITAL CLEANING SPECIALIST - 05/22/2015 1:28 PM HOSPITAL CLEANING SPECIALIST Hospital Encounter [facility] [address] [facility] [address] [place] [address] Sunny West MD [address] [facility] [place] [address] Discharge Disposition: Home or Self Care Social [...] on file documented as of this encounter Discharge Instructions * Discharge Instructions* Shelby Arreola RN - 05/22/2015 2:36 PM HOSPITAL CLEANING SPECIALIST Non-Surgical Biopsy Care Instructions 1. Your care provider will call you with the results of your biopsy in 24-72 hours. 2. You will have some mild discomfort and bruising-this is normal! 3. Take two (2) Acetaminophen (Tylenol) when you get home and follow directions how to take them the rest of today. You may also take it tomorrow, if needed. Avoid taking Aspirin, Ibuprofen (such asAdvil, Nuprin, Motrin, Naproxen/Aleve) for 48 hours after the procedure. If applicable, you may resume your Advil on Monday, May 24, 2015. 4. Wear your bra for 24 hours. Wear the ice pack for 20 minutes every hour today and tomorrow if needed. 5. Do not participate in any strenuous activity or lift anything heavier than a quart of milk today. As you increase your activity tomorrow, if it hurts don't do it. 6. If you have a Bulky dressing (Steri strip, gauze and tape): Do not go swimming or get in a hot tub until you have a scab over the incision, usually 3- 5 days. After 24 hours, on Monday, May 23, 2015, remove the gauze and tape to take a shower. The steri strip will remain on until for about2-5 days. It will curl up on the edges and eventually fall off. You may place a bandaid over the steri strip, if needed. If the steri strip causes any irritation, remove it immediately and apply an ointment over the area. 7. If you have any problems, redness, and/or swelling, or if your pain goes above 7, call your doctor. If you have bleeding or excessive swelling, apply pressure immediately and call your doctor. ITAL CLEANING SPECIALIST documented in this encounter Medications at Time of Discharge Medication Sig Dispensed Refills Start Date End Date buPROPion XL 24hr (WELLBUTRIN-XL) 150 MG tablet Take 1 Tab by mouth once daily 30 Tab 5 05/22/2015 01/02/2017 documented as of this encounter H&P Notes * Kwadwo Monte MD - 05/22/2015 2:25 PM CST Pre-Procedure Medical History and Physical Evaluated By: Kwadwo Monte MD, 05/22/2015 2:26 PM HPI:Brianna Norman is a 54 y.o. female with enlarged left axillary lymph node. Procedure: Ultrasound-guided left axillary lymph node core biopsy. Allergies Allergies Allergen Reactions ??? Codeine Past Medical History Past Medical History Diagnosis Date ??? Abnormal uterine bleeding Past Surgical History Past Surgical History Procedure Laterality Date ??? section ??? Bilateral tubal ligation (btl) ??? Dilation and curettage ??? Hysteroscopy 04/21/09 with ablation ??? Breast biopsy 2010 ??? Hysteroscopy, myomectomy 2008 Dr Hernandez ??? Needle biopsy 2011 right Pre-Procedure Physician Physical Assessment (completed by physician): There were no vitals filed for this visit. Heart: Normal rate and rhythm. Lungs: Clear. Plan: Proceed with ultrasound guided biopsy with local anesthesia. Kwadwo Monte MD ITAL CLEANING SPECIALIST documented in this encounter Procedure Notes * Abiola Duran MD - 05/22/2015 4:35 PM CSTAssociated Order(s): US GUIDED LEFT BREAST BIOPSY Procedure(s): US BREAST LEFT BIOPSY Pre-Procedure Diagnose(s): Enlarged lymph node Post-Procedure Diagnose(s): Enlarged lymph nodes ULTRASOUND GUIDED LEFT AXILLA/BREAST BIOPSY 05/22/2015 Patient was identified using two demographics (name and date of ) and side of biopsy was verified. The correct side was marked. Risks and benefits of procedure, with possible alternative methods, were explained to patient. Ultrasound-guided biopsy was performed of the enlarged left axillary node by Dr. Duran and Dr. Monte. Local anesthesia was achieved with lidocaine 1%. A 14G spring-loaded biopsy device was used and multiple samples were obtained and sent to pathology. Clip was placed at site of biopsy. The patient tolerated the procedure well with minimal bleeding and no immediate complication. Instructions were reviewed with the patient by the technologist. Written discharge instructions were given to the patient. I told her I would call as soon as results were available, likely within 2-3business days. Kwadwo Monte MD ITAL CLEANING SPECIALIST documented in this encounter Plan of Treatment Not on file documented as of this encounter Goals Goal Patient Goal Type Associated Problems Recent Progress Patient-Stated? Author Quit smoking / using tobacco Lifestyle On track( 015 11:44 AM HOSPITAL CLEANING SPECIALIST) No Courtney Dockery documented as of this encounter Procedures Procedure Name Priority Date/Time Associated Diagnosis Comments US BREAST LEFT BIOPSY Routine 05/22/2015 4:37 PM HOSPITAL CLEANING SPECIALIST Abnormal mammogram FLOW CYTOMETRY PANEL Routine 05/22/2015 4:34 PM HOSPITAL CLEANING SPECIALIST Abnormal mammogram MAMMO BILAT DIAGNOSTIC Routine 05/22/2015 1:19 PM HOSPITAL CLEANING SPECIALIST Abnormal mammogram documented in this encounter Results * FLOW CYTOMETRY PANEL (05/22/2015 4:34 PM HOSPITAL CLEANING SPECIALIST) Flow Cytometry Result See Scanned Report 05/27/2015 2:52 PM HOSPITAL CLEANING SPECIALIST [facility] Other (qualifier value) ENTIRE LYMPH NODE / Unknown Collection / Unknown 05/22/2015 4:34 PM HOSPITAL CLEANING SPECIALIST 05/23/2015 6:59 AM HOSPITAL CLEANING SPECIALIST Sunny West MD LAB - HEMATOLOGY ORD ERABLES [facility] [address] * (ABNORMAL) MAMMO DIAG DIRECT DIGITAL IMAGE BILA (05/22/2015 1:19 PM HOSPITAL CLEANING SPECIALIST) Anatomical Region Laterality Modality Bilateral Mammography 05/22/2015 1:36 PM HOSPITAL CLEANING SPECIALIST Impressions 05/22/2015 5:09 PM HOSPITAL CLEANING SPECIALIST 1. ??Enlarged left axillary lymph node. Since [...] participate in the care of your patient. [facility] [place] utilizes [employer] as a reminder system to notify patients of their next recommended mammogram. I, Abiola Duran, have personally reviewed the images and I agree with this report. Narrative 05/22/2015 5:09 PM HOSPITAL CLEANING SPECIALIST EXAMINATION: Digital bilateral diagnostic mammogram and limited [...] lymph node. Sunny West MD MAMMO ORDERABLES documented in this encounter Visit Diagnoses Diagnosis Abnormal mammogram Abnormal mammogram, unspecified documented in this encounter Care Teams Soc Analyst Relationship Specialty Start Date End Date Sunny West MD PCP - OBGYN 03/28/08 Kelechi Rico III, MD RETIRED PCP - General 01/12/12 05/10/20 documented as of this encounter
--- OUTSIDE RECORDS SUMMARY | 2024-06-02 01:45 | XMS_ITS | Encounter Summary ---
Author Organization [facility] Address [address] [place] [address] Care Team Providers Care Still Tender Name Role Phone Sunny West MD Unavailable [phone] Jacky STEPHENS MD, Kelechi Primary Care Provider Brooke vailable Reason for Visit * Reason Onset Date Comments YEAST INFECTION 07/30/2015 Encounter Details Date Type Department Care Team (Late st Contact Info) Description 07/30/2015 Telephone [facility] Group - STRUCTURAL SHOP HELPER [address] [facility] [address] [place] [address] Sunny West MD [address] [facility] [place] [phone] YEAST INFECTION Social History Tobacco Use Types Packs/Day Years [...] encounter Miscellaneous Notes * Telephone Encounter - Itzel Guillen - 07/30/2015 3:02 PM CST Patient called today and states that she has just finished a course of antibiotics and now feels like she has the symptoms of a yeast infection. Vaginal itching and slight discharge. Diflucan was prescribed. E STUDIES FACULTY MEMBER documented in this encounter Plan of Treatment Not on file documented as of this encounter Goals Goal Patient Goal Type Associated Problems Recent Progress Patient-Stated? Author Quit smoking / using tobacco Lifestyle On track( 015 11:44 AM SPACE STUDIES FACULTY MEMBER) Courtney Victor documented as of this encounter Visit Diagnoses Not on filedocumented in this encounter Care Teams Still Tender Relationship Specialty Start Date End Date Sunny West MD PCP - OBGYN 03/28/08 Kelechi Rico III, MD RETIRED PCP - General 01/12/12 05/10/20 documented as of this encounter
--- OUTSIDE RECORDS SUMMARY | 2024-06-02 01:45 | XMS_ITS | Encounter Summary ---
Author Organization [facility] Address [address] [place] [address] Care Team Providers Care Plater Hot Dip Name Role Phone Sunny West MD Unavailable [phone] Jacky STEPHENS MD, Kelechi Primary Care Provider Brooke vailable Reason for Referral * Radiology Services - Closed Specialty Diagnoses / Procedures Referred By Contac t Referred To Contact Diagnoses Breast lump Procedures MAMMO DIAG DIRECT DIGITAL IMAGE UNIL LEFT Sunny West MD [address] [place] [address] [facility] [address] [facility] [place] [address] Referral ID Status Reason Start Date Expiration Date Visits Re quested Visits Authorized [id number] Closed 09/01/2014 02/28/2015 1 1 Reason for Visit * Radiology Services - Closed Specialty Diagnoses / Procedures Referred By Contac t Referred To Contact Diagnoses Breast lump Procedures MAMMO DIAG DIRECT DIGITAL IMAGE UNIL LEFT Sunny West MD [address] [place] [address] [facility] [address] [place] [address] Referral ID Status Reason Start Date Expiration Date Visits Re quested Visits Authorized [id number] Closed 09/01/2014 02/28/2015 1 1 Encounter Details Date Type Department Care Team (Latest Contact Info) Description 10/16/2014 1:29 PM CDT - 10/16/2014 2:34 PM CDT Hospital Encounter [facility] [address] [facility] [address] [place] [address] Sunny West MD [address] [facility] [place] [phone] Discharge Disposition: Home or Self Care Social [...] Date End Date buPROPion XL 24hr (WELLBUTRIN-XL) 300 MG tablet Take 1 Tab by mouth once daily. 31 Tab 11 07/04/2014 05/22/2015 lovastatin (MEVACOR) 40 MG tablet Take 1 Tab by mouth at bedtime. 30 Tab 11 05/03/2013 10/23/2014 documented as of this encounter Progress Notes * Kelechi Rico III, MD - 10/16/2014 4:04 PM CDTQuick Note: noted documented in this encounter Plan of Treatment Not on file documented as of this encounter Goals Goal Patient Goal Type Associated Problems Recent Progress Patient-Stated? Author Quit smoking / using tobacco Lifestyle On track( 015 11:44 AM VERTICAL CONTOUR BAND SAW OPERATOR) Courtney Victor documented as of this encounter Procedures Procedure Name Priority Date/Time Associated Diagnosis Comments MAMMO LEFT DIAGNOSTIC Routine 10/16/2014 2:37 PM CDT Breast lump documented in this encounter Results * (ABNORMAL) MAMMO DIAG DIRECT DIGITAL IMAGE [...] pattern is unchanged from prior studies of [id number]. Ultrasound of the palpable area demonstrates a [...] participate in the care of your patient. [facility] [place] utilizes [employer] as a reminder system to notify patients of their next recommended mammogram. Sunny West MD MAMMO ORDERABLES documented in this encounter Visit Diagnoses Diagnosis Breast lump Lump or mass in breast documented in this encounter Care Teams Plater Hot Dip Relationship Specialty Start Date End Date Sunyn West MD PCP - OBGYN 03/28/08 Kelechi Rico III, MD RETIRED PCP - General 01/12/12 05/10/20 documented as of this encounter
--- OUTSIDE RECORDS SUMMARY | 2024-06-02 01:45 | XMS_ITS | Encounter Summary ---
Author Organization [facility] Address [address] [place] [address] Care Team Providers Care Mineral Engineer Name Role Phone Sunny West MD Unavailable [phone] Jacky STEPHENS MD, Edwin Primary Care Provider Brooke vailable Reason for Visit * Reason Onset Date Comments Question 10/20/2014 Encounter Details Date Type Department Care Team (Late st Contact Info) Description 10/20/[address] [facility] - Internal Medicine [address] [facility] [place] [address] Kelechi Rico III, MD RETIRED Question Social History Tobacco Use Types Packs/Day Years [...] Telephone Encounter - Elio Chang RN - 10/20/2014 10:26 AM CDT Asked if PCP removes skin tags in office. Informed her did not think so but can have looked at during OV. She wants to make sure not associated w/ some lymph node tenderness near breast tissue. documented in this encounter Plan of Treatment Not on file documented as of this encounter Goals Goal Patient Goal Type Associated Problems Recent Progress Patient-Stated? Author Quit smoking / using tobacco Lifestyle On track( 015 11:44 AM GREY GOODS MARKER) Courtney Victor documented as of this encounter Visit Diagnoses Not on filedocumented in this encounter Care Teams Mineral Engineer Relationship Specialty Start Date End Date Sunny West MD PCP - OBGYN 03/28/08 Kelechi Rico III, MD RETIRED PCP - General 01/12/12 05/10/20 documented as of this encounter
--- OUTSIDE RECORDS SUMMARY | 2024-06-02 01:45 | XMS_ITS | Encounter Summary ---
Author Organization [facility] Address [address] [place] [address] Care Team Providers Care Ground Water Contractor Name Role Phone Sunny West MD Unavailable Jacky STEPHENS MD, Kelechi Primary Care Provider Brooke vailable Reason for Visit * Reason Comments Hyperlipidemia Depression Encounter Details Date Type Department Care Team (Latest Contact Info) Description 07/04/2014 9:00 AM BOOKKEEPING CLERK Office Visit [facility] Medical [facility] - Internal Medicine [address] [facility] [address] [place], [place] [id number] Kelechi Rico III, MD RETIRED Pure hypercholesterolemia (Primary Dx); GERD (gastroesophageal reflux disease); Perimenopausal; Prediabetes; Encounter for long-term (current) use of other medications; Elevated blood pressure (not hypertension); Screen for colon cancer Social History Tobacco Use Types Packs/Day Years Used Date Smoking Tobacco: Every Day Cigarettes 1 20 Smokeless Tobacco: Never Tobacco Cessation:Ready to Q uit: No; Counseling Given: Yes Alcohol Use Standard Drinks/Week Comments Yes 0.8 (1 standard drink = 0.6 oz p ure alcohol) 04/20/09 Sex and Gender Information Value Date Recorded Sex Assigned at Not on file Gender Identity Not on file Sexual Orientation Not on file documented as of this encounter Last Filed Vital Signs Vital Sign Reading Time Taken Comments Blood Pressure 124/78 07/04/2014 9:01 AM BOOKKEEPING CLERK Pulse 72 07/04/2014 9:01 AM BOOKKEEPING CLERK Temperature - - Respiratory Rate 12 07/04/2014 9:01 AM BOOKKEEPING CLERK Oxygen Saturation - - Inhaled Oxygen Concentration - - Weight 64 kg (141 lb) 07/04/2014 9:01 AM BOOKKEEPING CLERK Height 165.1 cm (5' 5 ) 07/04/2014 9:01 AM BOOKKEEPING CLERK Body Mass Index 23.46 07/04/2014 9:01 AM BOOKKEEPING CLERK documented in this encounter Patient Instructions * Patient Instructions* Courtney Araiza - 07/04/2014 9:01 AM BOOKKEEPING CLERK Where can I go for support and more information? There are many ways to quit smoking. Some may work better for you than others. Your caregiver can help you find the best plan to quit. [employer] Phone: 5-705-BAYW-NOW ( ) [email or web address] Phone: Phone: www.lung.org Instant Rewards [...] that your body is healing. -Taken from www.SmokeWHILLee.gov Long?term Rewards of Quitting Tobacco use in [...] you to quit smoking. -Taken from www.smokefree.gov KEEPING CLERK documented in this encounter Progress Notes * Kelechi Rico III, MD - 07/04/2014 9:04 AM CST Patient seen for several FU's Joey she's been with 4 years just kind of disappeared last Jan. Feels like he's but probably michael just left her Son has girl . Depression just barely manageable. No ideation or planning. Able to sleep. Functioning OK at work, but very preoccupied and ruminates about boyfriend. GERD-not bothering. Teeth breaking. Dentist told her to quit smoking. Perimenopausal sxs. Med list reviewed with patient. Exam: BP 124/78 Pulse 72 Resp 12 Wt 63.957 kg (141 lb) BMI 23.46 kg/m2 General appearance: alert, cooperative, breathing comfortably, no distress Carotid 2+, no bruits Heart: regular rhythm, normal S1 and S2, without murmurs, rubs or gallops Lungs: breath sounds normal and symmetric. No rales or wheezes Extremities: no clubbing, cyanosis. 0 edema. Ass: Encounter Diagnoses Name Primary? Pure hypercholesterolemia Yes ??? GERD (gastroesophageal reflux disease) ??? Perimenopausal ??? Prediabetes ??? Encounter for long-term (current) use of other medications ??? Elevated blood pressure (not hypertension) ??? Screen for colon cancer Plan: Orders Placed This Encounter ??? ALT ??? BASIC METABOLIC PANEL (CALCIUM TOTAL) ??? LIPID PROFILE W LDL/HDL (PO REF LAB) ??? HEMOGLOBIN A1C ??? AMB REFERRAL TO GASTROENTEROLOGY Standing Status: Future Number of Occurrences: Standing Expiration Date: 07/04/2015 Referral Type: Evaluate Referral Reason: Specialty Services Required Number of Visits Requested: 1 ??? buPROPion XL 24hr (WELLBUTRIN-XL) 300 MG tablet Sig: Take 1 Tab by mouth once daily. Dispense: 31 Tab Refill: 11 Not on lovastatin KEEPING CLERK documented in this encounter Plan of Treatment Not on file documented as of this encounter Goals Goal Patient Goal Type Associated Problems Recent Progress Patient-Stated? Author Quit smoking / using tobacco Lifestyle On track( 015 11:44 AM BOOKKEEPING CLERK) Courtney Victor documented as of this encounter Procedures Procedure Name Priority Date/Time Associated Diagnosis Comments LIPID PROFILE W LDL/HDL RATIO Routine 07/04/2014 9:27 AM BOOKKEEPING CLERK Pure Hypercholesterolemia HEMOGLOBIN A1C Routine 07/04/2014 9:27 AM BOOKKEEPING CLERK Prediabetes BASIC METABOLIC PANEL (CALCIUM TOTAL) Routine 07/04/2014 9:27 AM BOOKKEEPING CLERK Prediabetes Elevated blood pressure (not hypertension) ALT Routine 07/04/2014 9:27 AM BOOKKEEPING CLERK Encounter for long-term (current) use of other medications documented in this encounter Results * HEMOGLOBIN A1C (07/04/2014 9:27 AM BOOKKEEPING CLERK) Hemoglobin A1c 5.6 4.8 - 5.6 % [facility] INSURANCE BILL Comment: ? . ? Increased risk for diabetes: 5.7 - 6.4 ? Diabetes: >6.4 ? Glycemic control for adults with diabetes: <7.0 Whole blood specimen (specimen) BLOOD SPECIMEN WITH EDTA / Unknown 07/04/2014 9:27 AM BOOKKEEPING CLERK 07/04/2014 12:55 PM BOOKKEEPING CLERK Narrative Resulting Agency Comment [facility] [address] [facility] ??[facility] [phone] Kelechi Rico III, MD LAB - CHEMISTRY OR DERABLES [facility] INSURANCE BILL * (ABNORMAL) LIPID PROFILE W LDL/HDL (PO REF LAB) (07/04/2014 9:27 AM BOOKKEEPING CLERK) Cholesterol 210(H) 100 - 199 mg/dL [facility] [...] BLOOD SPECIMEN / Unknown 07/04/2014 9:27 AM BOOKKEEPING CLERK 07/04/2014 12:55 PM BOOKKEEPING CLERK Narrative Resulting Agency Comment [facility] [address] [facility] ??[facility] [phone] Kelechi Rico III, MD LAB - CHEMISTRY OR DERABLES [facility] INSURANCE BILL * (ABNORMAL) BASIC METABOLIC PANEL (CALCIUM TOTAL) (07/04/2014 9:27 AM BOOKKEEPING CLERK) Glucose 102(H) 65 - 99 mg/dL [facility] INSURANCE BILL BUN 11 6 - 24 mg/dL [facility] INSURANCE BILL Creatinine 0.87 0.57 - 1.00 mg/dL [facility] INSURANCE BILL eGFR by MDRD 77 >59 mL/min/1.7 3 [facility] INSURANCE BILL eGFR by MDRD 89 >59 mL/min/1.7 3 [facility] INSURANCE BILL BUN/Creatinine Ratio 13 - [facility] INSURANCE BILL Sodium 140 134 - [...] BLOOD SPECIMEN / Unknown 07/04/2014 9:27 AM BOOKKEEPING CLERK 07/04/2014 12:55 PM BOOKKEEPING CLERK Narrative Resulting Agency Comment [facility] [place] [id number] [facility] ??[facility] [phone] Kelechi Rico III, MD LAB - CHEMISTRY OR DERABLES [facility] INSURANCE BILL * ALT (07/04/2014 9:27 AM BOOKKEEPING CLERK) ALT 9 0 - 32 IU/L [facility] INSURANCE BILL Blood specimen (specimen) BLOOD SPECIMEN / Unknown 07/04/2014 9:27 AM BOOKKEEPING CLERK 07/04/2014 12:55 PM BOOKKEEPING CLERK Narrative Resulting Agency Comment [facility] [id number] [facility] ??[facility] [id number] Kelechi Rico III, MD LAB - CHEMISTRY OR DERABLES [facility] INSURANCE BILL documented in this encounter Visit Diagnoses Diagnosis Pure hypercholesterolemia- Primary GERD (gastroesophageal reflux disease) Esophageal reflux Perimenopausal Symptomatic menopausal or female climacteric states Prediabetes Other abnormal glucose Encounter for long-term (current) use of other medications Elevated blood pressure (not hypertension) Elevated blood pressure reading without diagnosis of hypertension Screen for colon cancer Special screening for malignant neoplasms, colon documented in this encounter Care Teams Ground Water Contractor Relationship Specialty Start Date End Date Sunny West MD PCP - OBGYN 03/28/08 Kelechi Rico III, MD RETIRED PCP - General 01/12/12 05/10/20 documented as of this encounter
--- OUTSIDE RECORDS SUMMARY | 2024-06-02 01:45 | XMS_ITS | Encounter Summary ---
Author Organization [facility] Health Address [address] [place] [address] Care Team Providers Care Ambulette Driver Name Role Phone Sunny West MD Unavailable Jacky STEPHENS MD, Kelechi Primary Care Provider Brooke vailable Reason for Referral * Radiology Services - Closed Specialty Diagnoses / Procedures Referred By Lindy t Referred To Contact Mammography Diagnoses Abnormal mammogram Procedures US GUIDED LEFT BREAST BIOPSY Sunny West MD [address] [place] [phone] [place] [address] Referral ID Status Reason Start Date Expiration Date Visits Re quested Visits Authorized [id number] Closed 05/22/2015 11/18/2015 1 1 MOVER Reason for Visit * Radiology Services - Closed Specialty Diagnoses / Procedures Referred By Lindy t Referred To Contact Mammography Diagnoses Abnormal mammogram Procedures US GUIDED LEFT BREAST BIOPSY Sunny West MD [address] [place] [phone] [place] [id number] Referral ID Status Reason Start Date Expiration Date Visits Re quested Visits Authorized [id number] Closed 05/22/2015 11/18/2015 1 1 Encounter Details Date Type Department Care Team (Latest Contact Info) Description 05/22/2015 3:20 PM MOLD MOVER - 05/22/2015 11:59 PM MOLD MOVER Hospital Encounter [facility] Health Imaging Services - Ultrasound [address] [place] [address] Sunny West MD [address] [place] [phone] Discharge Disposition: Home or Self Care Social [...] Sign Reading Time Taken Comments Blood Pressure 128/89 05/22/2015 3:54 PM MOLD MOVER Pulse 75 05/22/2015 3:54 PM MOLD MOVER Temperature 36.8 ??C (98.3 ??F) 05/22/2015 3:54 PM CS T Respiratory Rate 22 05/22/2015 3:54 PM MOLD MOVER Oxygen Saturation 100% 05/22/2015 3:54 PM MOLD MOVER Inhaled Oxygen Concentration - - Weight - - Height - - Body Mass Index - - documented in this encounter Medications at Time [...] mouth daily with food 01/02/2017 Probiotic Product (OTERO [employer] [facility] PO) 01/02/2017 documented as of this encounter Progress Notes * Abiola Duran MD - 05/26/2015 4:24 PM CST Pathology from ultrasound-guided left axillary lymph biopsy showed: Final Diagnosis ?? 1. ??Specimen labeled Breast, left, biopsy : -- ??Benign follicular hyperplasia 2. ??Lymph node, axillary, ultrasound-guided needle-biopsy, flow-cytometric immunophenotypic analysis: -- ??Indication for test: Lymphadenopathy -- ??No evidence of non-Hodgkin lymphoma, see description GM/tc/MM/lv ? at ??4:13 PM These benign findings are concordant with the imaging findings. I talked with Brianna today over the phone and answered her questions. Recommend bilateral screening mammogram (due in January 2016). Kwadwo Monte MD MOVER documented in this encounter Plan of Treatment Not on file documented as of this encounter Goals Goal Patient Goal Type Associated Problems Recent Progress Patient-Stated? Author Quit smoking / using tobacco Lifestyle On track( 015 11:44 AM MOLD MOVER) No Courtney Dockery documented as of this encounter Procedures Procedure Name Priority Date/Time Associated Diagnosis Comments US BREAST LEFT BIOPSY Routine 05/22/2015 4:37 PM MOLD MOVER Abnormal mammogram PATHOLOGY TISSUE EXAM (STL) Routine 05/22/2015 4:34 PM MOLD MOVER Abnormal mammogram documented in this encounter Results * US GUIDED LEFT BREAST BIOPSY (05/22/2015 4:37 PM MOLD MOVER) Anatomical Region Laterality Modality Left Ultrasound Biopsy of unspecified body site (procedure) 05/22/2015 4:58 PM MOLD MOVER Addenda Addendum by Abiola Duran MD on 05/26/2015 4:52 PM MOLD MOVER Pathology results for left axillary lymph node [...] with this report. Impressions 05/22/2015 5:22 PM MOLD MOVER Successful ultrasound-guided core biopsy of enlarged lymph node in the axilla of the left breast with clip placed at the site of biopsy. Multiple core biopsies were sent to pathology in formalin and saline. This report was dictated by Kwadwo Monte MD (resident physician). I, Abiola Duran, have personally reviewed the images and I agree with this report. Narrative 05/22/2015 5:22 PM MOLD MOVER ULTRASOUND GUIDED CORE BIOPSY- LEFT AXILLARY NODE [...] Under ultrasound guidance, using a 14G spring-loaded Bard biopsy device, multiple core biopsies were obtained [...] post-core biopsy instruction sheet. Sunny West MD ORDERABLES * GROSS + MICRO EXAM (STL) (05/22/2015 4:34 PM MOLD MOVER) Case Report Surgical Pathology Report ? Case: [id number] ? Authorizing Provider: ??Sunny West MD ?Collected: ? 05/22/2015 04:34 PM ? Ordering Location: ? [facility] ULTRASOUND ?Received: ?05/22/2015 05:00 PM ? Pathologist: ? Jaimie Villegas MD ? Specimens: ?? A) - Lymph Node, left axillary ? B) - Lymph Node, Flow cytometry ? 05/25/2015 4:[address] [facility] Final Diagnosis 1. ??Specimen labeled Breast, left, biopsy : -- ??Benign follicular hyperplasia 2. ??Lymph node, axillary, ultrasound-guided needle-biopsy, flow-cytometric immunophenotypic analysis: -- ??Indication for test: Lymphadenopathy -- ??No evidence of non-Hodgkin lymphoma, see description GM/tc/MM/lv 05/25/2015 4:[address] [facility] Clinical History Palpable left axillary lymph node with no suspicious masses in breast MM 05/25/2015 4:[address] [facility] Gross Description Received are two containers, each labeled Brianna Norman. ?? Container 1 is received in formalin and is labeled left breast. ??The container holds three [id number] cylindrical tissue cores and tissue fragments measuring [...] ?? DYT/rtc 05/25/2015 4:[address] [facility] Microscopic Description Sections show [...] is that of a benign lymphoid hyperplasia. MARVIN/rodney 05/25/2015 4:[address] [facility] Flow Cytometry Summary Flow [...] axillary lymph node by a non-Hodgkin lymphoma. MM/minh 05/25/2015 4:[address] [facility] Pathology/Cytology ENTIRE LYMPH NODE / Unknown 05/22/2015 4:34 PM MOLD MOVER 05/22/2015 5:00 PM MOLD MOVER Miscellaneous samples (specimen) ENTIRE LYMPH NODE / Unknown 05/22/2015 4:34 PM MOLD MOVER 05/25/2015 1:10 PM MOLD MOVER Sunny West MD LAB - PATHOLOGY/CYTO LOGY ORDERABLES Performing Organization Address City/State/[facility] Co de Phone Number [facility] [address] [place] [address] documented in this encounter Visit Diagnoses Diagnosis Abnormal mammogram Abnormal mammogram, unspecified documented in this encounter Administered Medications Inactive Administered Medications - up to 3 most recent administrations Medication Order MAR Action Action Date Dose Rate Site lidocaine (XYLOCAINE) 1 % injection Subcutaneous, ONCE, 1 dose, On Mon05/22/15 at 1545 $ Given 05/22/2015 4:37 PM MOLD MOVER 10 mL See Comments sodium bicarbonate 8.4 % injection 50 mEq 50 mEq, Subcutaneous, ONCE, 1 dose, On Mon05/22/15 at 1545 $ Given 05/22/2015 4:38 PM MOLD MOVER 2 mL See C omments documented in this encounter Care Teams Ambulette Driver Relationship Specialty Start Date End Date Sunny West MD PCP - OBGYN 03/28/08 Kelechi Rico III, MD RETIRED PCP - General 01/12/12 05/10/20 documented as of this encounter
--- OUTSIDE RECORDS SUMMARY | 2024-06-02 01:45 | XMS_ITS | Encounter Summary ---
Author Organization [facility] Address [address] [place] [address] Care Team Providers Care Patient Registration Rep Name Role Phone Sunny West MD Unavailable [phone] Jacky STEPHENS MD, Kelechi Primary Care Provider Brooke vailable Reason for Visit * Reason Onset Date Comments URI 07/10/2017 Encounter Details Date Type Department Care Team (Late st Contact Info) Description 07/10/2017 Telephone [facility] Medical [facility] - Internal Medicine [address] [facility] [address] [place], [place] [phone] Kelechi Rico III, MD RETIRED URI Social History Tobacco Use Types Packs/Day Years [...] encounter Miscellaneous Notes * Telephone Encounter - Emeli Brown LPN - 07/10/2017 1:28 PM CST Left detailed VM informing pt of requested med sent. F STEWARD/STEWARDESS * Telephone Encounter - Kelechi Rico III, MD - 07/10/2017 10:19 AM CHIEF STEWARD/STEWARDESS sent F STEWARD/STEWARDESS * Telephone Encounter - Emeli Brown LPN - 07/10/2017 10:10 AM CST Pt called back after I left a message, she said If an antibiotic was sent she needs a yeast infection pill. She did not mention this in her initial call. Digna Mahoney. F STEWARD/STEWARDESS * Telephone Encounter - Emeli Brown LPN - 07/10/2017 10:08 AM CST Call to pt, left detailed VM informing her per Dr. Rico. Discussed use of new medications, possible SE and importance of taking all of the antibiotic as directed even if feeling better right away.ERX location confirmed. F STEWARD/STEWARDESS * Telephone Encounter - Kelechi Rico III, MD - 07/10/2017 8:48 AM CHIEF STEWARD/STEWARDESS Prescribe Z giorgio. Sent Prescribe Valtrex 1000 mg 2 tablets at a time 12 hours apart #4. Refill x5 Sent [facility] well exam, not seen for 2 years F STEWARD/STEWARDESS * Telephone Encounter - Emeli Brown LPN - 07/10/2017 8:37 AM CST Temp 102, body aches Fri and Sat, no longer has fever or body aches. Sinus congestion and viral sores on her nose and mouth. Thick yellow mucous from the nose. Pressure at the bridge of her nose. Has been taking Advil Cold and sinus. Digna Mahoney. F STEWARD/STEWARDESS documented in this encounter Plan of Treatment Not on file documented as of this encounter Goals Goal Patient Goal Type Associated Problems Recent Progress Patient-Stated? Author Quit smoking / using tobacco Lifestyle On track( 015 11:44 AM CHIEF STEWARD/STEWARDESS) No Courtney Dockery documented as of this encounter Visit Diagnoses Not on filedocumented in this encounter Care Teams Patient Registration Rep Relationship Specialty Start Date End Date Sunny West MD PCP - OBGYN 03/28/08 Kelechi Rico III, MD RETIRED PCP - General 01/12/12 05/10/20 documented as of this encounter
--- OUTSIDE RECORDS SUMMARY | 2024-06-02 01:45 | XMS_ITS | Encounter Summary ---
Author Organization [facility] Health Address [address] [facility] [place] [address] Care Team Providers Care Comb Capper Name Role Phone Sunny West MD Unavailable [phone] Jacky STEPHENS MD, Kelechi Primary Care Provider Brooke vailable Reason for Referral * Radiology Services - Closed Specialty Diagnoses / Procedures Referred By Lindy t Referred To Contact Diagnoses Abnormal mammogram Procedures MAMMO DIAG DIRECT DIGITAL IMAGE Sunny Verdugo MD [address] [place] [phone] [facility] Sched [address] [place] [address] Referral ID Status Reason Start Date Expiration Date Visits Re quested Visits Authorized [id number] Closed 12/24/2013 06/22/2014 1 1 Reason for Visit * Radiology Services - Closed Specialty Diagnoses / Procedures Referred By Lindy avila Referred To Contact Diagnoses Abnormal mammogram Procedures MAMMO DIAG DIRECT DIGITAL IMAGE Sunny Verdugo MD [address] [place] [phone] [facility] Sched [address] [place] [id number] Referral ID Status Reason Start Date Expiration Date Visits Re quested Visits Authorized [id number] Closed 12/24/2013 06/22/2014 1 1 Encounter Details Date Type Department Care Team (Latest Contact Info) Description 02/07/2014 9:30 AM CDT - 02/07/2014 9:59 AM CDT Hospital Encounter [facility] Breast Care [address] [facility] [address] [place] [address] Sunny West MD [address] [facility] [place] [phone] Discharge Disposition: Home or Self Care Social [...] Take 1 Tab by mouth once daily. 30 Tab 5 11/05/2013 06/01/2014 lovastatin (MEVACOR) 40 MG tablet Take 1 Tab by mouth at bedtime. 30 Tab 11 05/03/2013 10/23/2014 documented as of this encounter Plan of Treatment Not on file documented as of this encounter Procedures Procedure Name Priority Date/Time Associated Diagnosis Comments MAMMO BILAT DIAGNOSTIC Routine 02/07/2014 10:41 AM CDT Abnormal mammogram documented in this encounter Results * MAMMO DIAG DIRECT DIGITAL IMAGE BILA (02/07/2014 10:41 AM CDT) Anatomical Region Laterality [...] participate in the care of your patient. [facility] [place] utilizes Technology [employer] as a reminder system to notify patients [...] unspecified documented in this encounter Care Teams Comb Capper Relationship Specialty Start Date End Date Sunny West MD PCP - OBGYN 03/28/08 Kelechi Rico III, MD RETIRED PCP - General 01/12/12 05/10/20 documented as of this encounter
--- OUTSIDE RECORDS SUMMARY | 2024-06-02 01:45 | XMS_ITS | Encounter Summary ---
Author Organization [facility] Address [address] [place] [address] Care Team Providers Care Safe Technician Name Role Phone Sunny West MD Unavailable [phone] Jacky STEPHENS MD, Kelechi Primary Care Provider Brooke vailable Reason for Visit * Reason Onset Date Comments Medication Request 06/17/2015 Encounter Details Date Type Department Care Team (Late st Contact Info) Description 06/17/2015 Telephone [facility] Medical [facility] - Internal Medicine [address] [facility] [place] [address] Kelechi Rico III, MD RETIRED Medication Request Social History Tobacco Use Types Packs/Day Years [...] encounter Miscellaneous Notes * Telephone Encounter - Sabiha Centeno LPN - 06/17/2015 3:08 PM CST Rx sent to pharmacy. Pt notified. She voices understanding and acceptance of this advice and will call back if any further questions or concerns. SSIONS ADVISOR * Telephone Encounter - Kelechi Rico III, MD - 06/17/2015 2:44 PM ADMISSIONS ADVISOR ok SSIONS ADVISOR * Telephone Encounter - Sabiha Centeno LPN - 06/17/2015 2:17 PM CST Requesting a rx for vince donovan Her insurance will cover if she gets a rx SSIONS ADVISOR documented in this encounter Plan of Treatment Not on file documented as of this encounter Goals Goal Patient Goal Type Associated Problems Recent Progress Patient-Stated? Author Quit smoking / using tobacco Lifestyle On track( 015 11:44 AM ADMISSIONS ADVISOR) Courtney Victor documented as of this encounter Visit Diagnoses Not on filedocumented in this encounter Care Teams Safe Technician Relationship Specialty Start Date End Date Sunny West MD PCP - OBGYN 03/28/08 Kelechi Rico III, MD RETIRED PCP - General 01/12/12 05/10/20 documented as of this encounter
--- OUTSIDE RECORDS SUMMARY | 2024-06-02 01:45 | XMS_ITS | Encounter Summary ---
Author Organization [facility] Health Address [address] [place] [address] Care Team Providers Care Water Safety Instructor Name Role Phone Sunny West MD Unavailable [phone] Jacky STEPHENS MD, Kelechi Primary Care Provider Brooke vailable Reason for Referral * Radiology Services - Closed Specialty Diagnoses / Procedures Referred By Lindy avila Referred To Contact Mammography Diagnoses Abnormal mammogram Procedures US GUIDED LEFT BREAST BIOPSY Sunny West MD [address] [place] [address] [facility] [address] [place] [address] [address] [place] [address] Referral ID Status Reason Start Date Expiration Date Visits Re quested Visits Authorized [id number] Closed 05/22/2015 11/18/2015 1 1 EXAMINER Encounter Details Date Type Department Care Team (Late st Contact Info) Description 05/22/2015 Orders Only [facility] - BURR PICKER [address] [facility] [address] [place] [address] Sunny West MD [address] [place] [address] Abnormal mammogram Social History Tobacco [...] tobacco Lifestyle On track( 015 11:44 AM MAIL EXAMINER) No Courtney Dockery documented as of this encounter Results * US GUIDED LEFT BREAST BIOPSY (05/22/2015 4:37 PM MAIL EXAMINER) Anatomical Region Laterality Modality Left Ultrasound Biopsy of unspecified body site (procedure) 05/22/2015 4:58 PM MAIL EXAMINER Addenda Addendum by Abiola Duran MD on 05/26/2015 4:52 PM MAIL EXAMINER Pathology results for left axillary lymph node [...] with this report. Impressions 05/22/2015 5:22 PM MAIL EXAMINER Successful ultrasound-guided core biopsy of enlarged lymph node in the axilla of the left breast with clip placed at the site of biopsy. Multiple core biopsies were sent to pathology in formalin and saline. This report was dictated by Kwadwo Monte MD (resident physician). IAbiola, have personally reviewed the images and I agree with this report. Narrative 05/22/2015 5:22 PM MAIL EXAMINER ULTRASOUND GUIDED CORE BIOPSY- LEFT AXILLARY NODE [...] Under ultrasound guidance, using a 14G spring-loaded Amonix biopsy device, multiple core biopsies were obtained [...] biopsy instruction sheet. Sunny West MD ORDERABLES documented in this encounter Visit Diagnoses Diagnosis Abnormal mammogram- Primary Abnormal mammogram, unspecified Abnormal mammogram Abnormal mammogram, unspecified documented in this encounter Care Teams Water Safety Instructor Relationship Specialty Start Date End Date Sunny West MD PCP - OBGYN 03/28/08 Kelechi Rico III, MD RETIRED PCP - General 01/12/12 05/10/20 documented as of this encounter
--- OUTSIDE RECORDS SUMMARY | 2024-06-02 01:45 | XMS_ITS | Encounter Summary ---
Author Organization [facility] Address [address] [place] [address] Care Team Providers Care Golf Sales Manager Name Role Phone Sunny West MD Unavailable [phone] Jacky STEPHENS MD, Kelechi Primary Care Provider Brooke vailable Reason for Visit * Reason Onset Date Comments Medication Request 08/24/2015 Encounter Details Date Type Department Care Team (Late st Contact Info) Description 08/24/2015 Telephone [facility] Medical [facility] - Internal Medicine [address] [facility] [address] [place], [place] [id number] Kelechi Rico III, MD RETIRED Medication Request [...] Telephone Encounter - Courtney Burkett RN - 08/24/2015 5:00 PM CDT She voices understanding and acceptance of this advice and will call back if any further questions or concerns. * Telephone Encounter - Kelechi Rico III, MD - 08/24/2015 4:56 PM CDT Usually from this dose * Telephone Encounter - Courtney Burkett RN - 08/24/2015 4:53 PM CDT Ok to stop abruptly? * Telephone Encounter - Courtney Burkett RN - 08/24/2015 11:46 AM CDT States she will monitor her symptoms closely and call back if she needs to go back on it. * Telephone Encounter - Kelechi Rico III, MD - 08/24/2015 9:54 AM CDT Why? Bad idea * Telephone Encounter - Courtney Burkett RN - 08/24/2015 9:22 AM CDT Has been on 150mg of wellbutrin for 2 months. Would like to try to wean off of medication completely. Requesting weaning directions. documented in this encounter Plan of Treatment Not on file documented as of this encounter Goals Goal Patient Goal Type Associated Problems Recent Progress Patient-Stated? Author Quit smoking / using tobacco Lifestyle On track( 015 11:44 AM POLITICAL RESEARCHER) No Courtney Dockery documented as of this encounter Visit Diagnoses Not on filedocumented in this encounter Care Teams Golf Sales Manager Relationship Specialty Start Date End Date Sunny West MD PCP - OBGYN 03/28/08 Kelechi Rico III, MD RETIRED PCP - General 01/12/12 05/10/20 documented as of this encounter
--- OUTSIDE RECORDS SUMMARY | 2024-06-02 01:45 | XMS_ITS | Encounter Summary ---
Author Organization [facility] Address [address] [place] [address] Care Team Providers Care Band Attacher Name Role Phone Sunny West MD Unavailable [phone] Jacky STEPHENS MD, Kelechi Primary Care Provider Brooke vailable Reason for Visit * Reason Onset Date Comments Sinus Problem 07/22/2015 Encounter Details Date Type Department Care Team (Late st Contact Info) Description 07/22/2015 Telephone [facility] Medical [facility] - Internal Medicine [address] [facility] [place], [place] [id number] Kelechi Rico III, MD RETIRED Sinus Problem Social History Tobacco Use Types Packs/Day Years [...] encounter Miscellaneous Notes * Telephone Encounter - Brianna Mae - 07/22/2015 12:56 PM CST Advised pt of medications, verified pharmacy AR FUSER * Telephone Encounter - Kelechi Rico III, MD - 07/22/2015 10:19 AM COLLAR FUSER Medrol dospack Prescribe Augmentin 875mg 1 q12 hrs #20 AR FUSER * Telephone Encounter - Brianna Mae - 07/22/2015 9:07 AM CST Pressure behind eyes, pt feels whole sinus area is swollen, pt states blowing out green & yellow nasal drainage, no fever onset x 3 wks ago AR FUSER documented in this encounter Plan of Treatment Not on file documented as of this encounter Goals Goal Patient Goal Type Associated Problems Recent Progress Patient-Stated? Author Quit smoking / using tobacco Lifestyle On track( 015 11:44 AM COLLAR FUSER) Courtney Victor documented as of this encounter Visit Diagnoses Not on filedocumented in this encounter Care Teams Band Attacher Relationship Specialty Start Date End Date Sunny West MD PCP - OBGYN 03/28/08 Kelechi Rico III, MD RETIRED PCP - General 01/12/12 05/10/20 documented as of this encounter
--- OUTSIDE RECORDS SUMMARY | 2024-06-02 01:45 | XMS_ITS | Encounter Summary ---
Author Organization [facility] Health Address [address] [address] Care Team Providers Care Sheet Writer Name Role Phone Sunny West MD Unavailable [phone] Jacky STEPHENS MD, Kelechi Primary Care Provider Brooke vailable Reason for Referral * Radiology Services (Routine) - Closed Specialty Diagnoses / Procedures Referred By Lindy t Referred To Contact Mammography Diagnoses Breast cancer screening Procedures MAMMO SCREENING DIGITAL IMAGE Sunny Villafana MD [address] [place] [address] [place], [place] [id number] Referral ID Status Reason Start Date Expiration Date Visits Re quested Visits Authorized [id number] Closed 01/02/2017 07/01/2017 1 1 Reason for Visit * Radiology Services (Routine) - Closed Specialty Diagnoses / Procedures Referred By Contac t Referred To Contact Mammography Diagnoses Breast cancer screening Procedures MAMMO SCREENING DIGITAL IMAGE Sunny Villafana MD [address] [place] [address] [place] [address] Referral ID Status Reason Start Date Expiration Date Visits Re quested Visits Authorized [id number] Closed 01/02/2017 07/01/2017 1 1 Encounter Details Date Type Department Care Team (Latest Contact Info) Description 01/02/2017 11:02 AM CDT - 01/02/2017 11:59 PM CDT Hospital Encounter [facility] [address] [facility] [address] [place] [address] Sunny West MD [address] [facility] [place] [address] Discharge Disposition: Home or Self Care Social History Tobacco Use Types Packs/Day Years Used Date Smoking Tobacco: Former Cigarettes 20 1 06/22/1994 - 04/22/2015 Smokeless Tobacco: Never Alcohol Use Standard Drinks/Week Comments Yes 0.8 (1 standard drink = 0.6 oz p ure alcohol) 04/20/09 Sex and Gender Information Value Date Recorded Sex Assigned at Not on file Gender Identity Not on file Sexual Orientation Not on file documented as of this encounter Progress Notes * Kelechi Rico III, MD - 01/02/2017 2:47 PM CDT noted documented in this encounter Plan of Treatment Not on file documented as of this encounter Goals Goal Patient Goal Type Associated Problems Recent Progress Patient-Stated? Author Quit smoking / using tobacco Lifestyle On track( 015 11:44 AM SKIAGRAPHER) No Courtney Dockery documented as of this encounter Procedures Procedure Name Priority Date/Time Associated Diagnosis Comments MAMMO BILAT SCREENING Routine 01/02/2017 11:19 AM CDT Breast cancer screening documented in this encounter Results * MAMMO SCREENING DIGITAL IMAGE BILAT (01/02/2017 11:19 AM CDT) Anatomical Region Laterality Modality Breast Bilateral Mammography 01/02/2017 2:41 PM CDT Narrative 01/02/2017 2:42 PM CDT EXAMINATION: Digital screening mammogram with tomosynthesis ??on 01/02/2017. PRIOR: Several priors, most recent 2015 FINDINGS: Low dose full field digital tomosynthesis exam was performed with 3D acquisitions. Computer assisted detection was utilized. ??The tissue density is heterogeneously dense. This density pattern could obscure small masses. There is no significant change since the prior mammogram. ASSESSMENT: BIRADS Category 1: ??Negative mammogram. RECOMMENDATION: Bilateral screening mammogram in one year Thank you for allowing us to participate in the care of your patient. [facility] Breast [facility] utilizes [employer] as a reminder system to notify patients of their next recommended mammogram. Sunny West MD MAMMO ORDERABLES documented in this encounter Visit Diagnoses Diagnosis Breast cancer screening Breast screening, unspecified documented in this encounter Care Teams Sheet Writer Relationship Specialty Start Date End Date Sunny West MD PCP - OBGYN 03/28/08 Kelechi Rico III, MD RETIRED PCP - General 01/12/12 05/10/20 documented as of this encounter
--- OUTSIDE RECORDS SUMMARY | 2024-06-02 01:45 | XMS_ITS | Encounter Summary ---
Author Organization [facility] Address [address] [place] [address] Care Team Providers Care Work Force Advisor Name Role Phone Sunny West MD Unavailable [phone] Jacky STEPHENS MD, Kelechi Primary Care Provider Brooke vailable Reason for Visit * Reason Onset Date Comments Vaginal Problem 10/10/2017 Encounter Details Date Type Department Care Team (Late st Contact Info) Description 10/10/2017 Telephone [facility] - GAS PRODUCER [address] [address] Itzel Guillen Vaginal Problem Social History Tobacco Use Types Packs/Day [...] * Telephone Encounter - Itzel Guillen - 10/10/2017 1:22 PM CDT Patient called with c/o vaginal odor. No Itching or irritation. Patient is requesting medication documented in this encounter Plan of Treatment Not on file documented as of this encounter Goals Goal Patient Goal Type Associated Problems Recent Progress Patient-Stated? Author Quit smoking / using tobacco Lifestyle On track( 015 11:44 AM FOUR H AGENT) No Courtney Dockery documented as of this encounter Visit Diagnoses Not on filedocumented in this encounter Care Teams Work Force Advisor Relationship Specialty Start Date End Date Sunny West MD PCP - OBGYN 03/28/08 Kelechi Rico III, MD RETIRED PCP - General 01/12/12 05/10/20 documented as of this encounter
--- OUTSIDE RECORDS SUMMARY | 2024-06-02 01:45 | XMS_ITS | Encounter Summary ---
Author Organization [facility] Health Address [address] [place] [address] Care Team Providers Care Boat Crew Deck Hand Name Role Phone Sunny West MD Unavailable [phone] Jacky STEPHENS MD, Kelechi Primary Care Provider Brooke vailable Reason for Visit * Reason Comments Refill Request Encounter Details Date Type Department Care Team (Late st Contact Info) Description 06/01/2014 Refill [facility] Medical [facility] - Internal Medicine [address] [facility] [address] [place], [place] [id number] Kelechi Rico III, MD RETIRED Refill Request Social History Tobacco Use Types Packs/Day [...] * Telephone Encounter - Erin Silverio - 06/02/2014 11:49 AM CST Pt just started a new job. She is going to check with her boss and call us back to make an appt. 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
--- OUTSIDE RECORDS SUMMARY | 2024-06-02 01:45 | XMS_ITS | Encounter Summary ---
Author Organization [facility] Health Address [address] [facility] [place] [address] Care Team Providers Care Repair Specialist Name Role Phone Sunny West MD Unavailable [phone] Jacky STEPHENS MD, Kelechi Primary Care Provider Brooke vailable Reason for Referral * Radiology Services - Closed Specialty Diagnoses / Procedures Referred By Lindy avila Referred To Contact Diagnoses Abnormal mammogram, unspecified Procedures US BREAST UNILATERAL RIGHT Sunny West MD [address] [place] [address] Referral ID Status Reason Start Date Expiration Date Visits Re quested Visits Authorized [id number] Closed 02/07/2014 08/06/2014 1 1 Reason for Visit * Radiology Services - Closed Specialty Diagnoses / Procedures Referred By Lindy avila Referred To Contact Diagnoses Abnormal mammogram, unspecified Procedures US BREAST UNILATERAL RIGHT Sunny West MD [address] [place] [address] Referral ID Status Reason Start Date Expiration Date Visits Re quested Visits Authorized [id number] Closed 02/07/2014 08/06/2014 1 1 Encounter Details Date Type Department Care Team (Latest Contact Info) Description 02/07/2014 10:00 AM CDT - 02/07/2014 11:59 PM CDT Hospital Encounter [facility] Health Imaging Services - Ultrasound [address] [place] [address] Sunny West MD [address] [place] [address] Discharge Disposition: Home or Self [...] Priority Date/Time Associated Diagnosis Comments US BREAST RIGHT COMPLETE Routine 02/07/2014 11:15 AM CDT Abnormal mammogram, unspecified documented in this encounter Results * US BREAST UNILATERAL RIGHT (02/07/2014 11:15 AM CDT) Anatomical Region Laterality Modality Breast Right Ultrasound [...] participate in the care of your patient. [facility] [place] utilizes [employer] as a reminder system to notify patients [...] participate in the care of your patient. [facility] [place] utilizes [employer] as a reminder system to notify patients of their next recommended mammogram. Sunny West MD ORDERABLES documented in this encounter Visit Diagnoses Diagnosis Abnormal mammogram, unspecified documented in this encounter Care Teams Repair Specialist Relationship Specialty Start Date End Date Sunny West MD PCP - OBGYN 03/28/08 Kelechi Rico III, MD RETIRED PCP - General 01/12/12 05/10/20 documented as of this encounter
--- OUTSIDE RECORDS SUMMARY | 2024-06-02 01:45 | XMS_ITS | Encounter Summary ---
Author Organization [facility] Health Address [address] [place] [address] Care Team Providers Care Tooth Cutter Clutch Name Role Phone Sunny West MD Unavailable [phone] Jacky STEPHENS MD, Kelechi Primary Care Provider Brooke vailable Reason for Referral * Radiology Services - Closed Specialty Diagnoses / Procedures Referred By Lindy avila Referred To Contact Diagnoses Breast lump Procedures MAMMO DIAG DIRECT DIGITAL IMAGE UNIL LEFT Sunny West MD [address] [place] [address] [facility] [address] [facility] [address] [place] [address] Referral ID Status Reason Start Date Expiration Date Visits Re quested Visits Authorized [id number] Closed 09/01/2014 02/28/2015 1 1 Encounter Details Date Type Department Care Team (Late st Contact Info) Description 09/01/2014 Orders Only [facility] - HOUSING CASE MANAGER [address] [place], [place] [id number] Sunny West MD [address] [place] [address] Breast lump Social History Tobacco Use Types Packs/Day Years [...] tobacco Lifestyle On track( 015 11:44 AM SOFTWARE INTERN) No Courtney Dockery documented as of this encounter Results * (ABNORMAL) MAMMO DIAG [...] pattern is unchanged from prior studies of [id number]. Ultrasound of the palpable area demonstrates a [...] participate in the care of your patient. [facility] Breast Care at [place] utilizes [employer] as a reminder system to notify patients of their next recommended mammogram. Sunny West MD MAMMO ORDERABLES documented in this encounter Visit Diagnoses Diagnosis Breast lump- Primary Lump or mass in breast Breast lump Lump or mass in breast documented in this encounter Care Teams Tooth Cutter Clutch Relationship Specialty Start Date End Date Sunny West MD PCP - OBGYN 03/28/08 Kelechi Rico III, MD RETIRED PCP - General 01/12/12 05/10/20 documented as of this encounter
--- OUTSIDE RECORDS SUMMARY | 2024-06-02 01:45 | XMS_ITS | Encounter Summary ---
Author Organization [facility] Address [address] [place] [address] Care Team Providers Care Internal Affairs Commander Name Role Phone Sunny West MD Unavailable [phone] Jacky STEPHENS MD, Kelechi Primary Care Provider Brooke vailable Reason for Visit * Reason Onset Date Comments MEDICATION REFILL 11/05/2013 Encounter Details Date Type Department Care Team (Late st Contact Info) Description 11/05/2013 Refill [facility] Medical [facility] - Internal Medicine [address] [facility] [place] [address] Kelechi Rico III, MD RETIRED MEDICATION REFILL [...] Miscellaneous Notes * Telephone Encounter - Aga Conner RN - 11/05/2013 11:21 AM CDT Last ov 05/02/13 documented in this encounter Plan of Treatment Not on file documented as of this encounter Visit Diagnoses Not on filedocumented in this encounter Care Teams Internal Affairs Commander Relationship Specialty Start Date End Date Sunny West MD PCP - OBGYN 03/28/08 Kelechi Rico III, MD RETIRED PCP - General 01/12/12 05/10/20 documented as of this encounter
--- OUTSIDE RECORDS SUMMARY | 2024-06-02 01:45 | XMS_ITS | Encounter Summary ---
Author Organization [facility] Health Address [address] [place] [address] Care Team Providers Care Ladle Repairman Name Role Phone Sunny West MD Unavailable [phone] Jacky STEPHENS MD, Kelechi Primary Care Provider Brooke vailable Reason for Referral * Radiology Services (Routine) - Closed Specialty Diagnoses / Procedures Referred By Contac t Referred To Contact Mammography Diagnoses Breast cancer screening Visit for screening mammogram Procedures MAMMO BILAT SCREENING MAMMO BILAT SCREENING Sunny West MD [address] [place] [address] [place] [address] Referral ID Status Reason Start Date Expiration Date Visits Re quested Visits Authorized [id number] Closed 01/01/2018 06/30/2018 1 1 Reason for Visit * Radiology Services (Routine) - Closed Specialty Diagnoses / Procedures Referred By Contac t Referred To Contact Mammography Diagnoses Breast cancer screening Visit for screening mammogram Procedures MAMMO BILAT SCREENING MAMMO BILAT SCREENING Sunny West MD [address] [place] [address] [place] [address] Referral ID Status Reason Start Date Expiration Date Visits Re quested Visits Authorized [id number] Closed 01/01/2018 06/30/2018 1 1 Encounter Details Date Type Department Care Team (Latest Contact Info) Description 01/01/2018 11:51 AM CDT - 01/01/2018 11:59 PM CDT Hospital Encounter [facility] Breast Care [address] [facility] [address] [place] [address] Sunny West MD [address] [facility] [place] [phone] Discharge Disposition: Home or Self Care Social [...] tobacco Lifestyle On track( 015 11:44 AM MANUFACTURING SCHEDULER) No Courtney Dockery documented as of this encounter Procedures Procedure Name Priority Date/Time Associated Diagnosis Comments MAMMO BILAT SCREENING Routine 01/01/2018 12:03 PM CDT Breast cancer screening Visit for screening mammogram documented in this encounter Results * MAMMO BILAT SCREENING (01/01/2018 12:03 PM CDT) Anatomical Region Laterality Modality Breast Bilateral Mammography 01/01/2018 1:05 PM CDT Impressions 01/01/2018 2:58 PM CDT No mammographic evidence of malignancy in either breast. ASSESSMENT: BIRADS Category 1: Negative mammogram. RECOMMENDATION: Bilateral screening mammogram in one year. Thank you for allowing us to participate in the care of your patient. [facility] Breast Care utilizes [employer] as a reminder system to notify patients of their next recommended mammogram. I, Jacki Glover, have personally reviewed the images and I agree with this report. [place] Radiologist: Garima Reddy MD on 01/01/2018 at 2:58 PM Narrative 01/01/2018 2:58 PM CDT EXAMINATION: Digital screening mammogram on 01/01/2018. Low-dose full-field digital breast tomosynthesis examination was performed with synthetic 2D images and 3D acquisitions. Computer assisted detection was utilized. PRIOR: Multiple prior mammograms, most recently 01/02/2017 and 05/22/2015. BREAST PARENCHYMAL DENSITY: The breasts are heterogeneously dense, which may obscure small masses. FINDINGS: No suspicious masses, areas of architectural distortion or microcalcifications are evident on synthetic 2D mammogram or tomosynthesis images. ??There has been no significant interval change since the prior examination. Sunny West MD MAMMO ORDERABLES documented in this encounter Visit Diagnoses Diagnosis Visit for screening mammogram Other screening mammogram documented in this encounter Care Teams Ladle Repairman Relationship Specialty Start Date End Date Sunny West MD PCP - OBGYN 03/28/08 Kelechi Rico III, MD RETIRED PCP - General 01/12/12 05/10/20 documented as of this encounter
--- OUTSIDE RECORDS SUMMARY | 2024-06-02 01:45 | XMS_ITS | Encounter Summary ---
Author Organization [facility] Address [address] [place] [address] Care Team Providers Care Nurse Companion Name Role Phone Sunny West MD Unavailable [phone] Jacky STEPHENS MD, Kelechi Primary Care Provider Brooke vailable Reason for Visit * Reason Onset Date Comments Biopsy 05/22/2015 Encounter Details Date Type Department Care Team (Late st Contact Info) Description 05/22/2015 Telephone [facility] Breast Care [address] [facility] [address] [place] [address] Shelby Arreola RN Biopsy Social History Tobacco Use Types Packs/Day Years [...] tobacco Lifestyle On track( 015 11:44 AM FREIGHT TALLIER) Courtney Victor documented as of this encounter Visit Diagnoses Not on filedocumented in this encounter Care Teams Nurse Companion Relationship Specialty Start Date End Date Sunny West MD PCP - OBGYN 03/28/08 Kelechi Rico III, MD RETIRED PCP - General 01/12/12 05/10/20 documented as of this encounter
--- OUTSIDE RECORDS SUMMARY | 2024-06-02 01:45 | XMS_ITS | Encounter Summary ---
Author Organization [facility] Address [address] [place] [address] Care Team Providers Care Lead Technical Architect Name Role Phone Sunny West MD Unavailable [phone] Jacky STEPHENS MD, Kelechi Primary Care Provider Brooke vailable Reason for Visit * Reason Comments Hyperlipidemia Depression ESOPHAGEAL REFLUX Encounter Details Date Type Department Care Team (Latest Contact Info) Description 05/22/2015 11:45 AM BRAIDED RUG MAKER Office Visit [facility] Medical [facility] - Internal Medicine [address] [facility] [place] [place] [address] Kelechi Rico III, MD RETIRED Pure hypercholesterolemia (Primary Dx); Chronic depression Social History Tobacco Use Types Packs/Day Years Used Date Smoking Tobacco: Former Cigarettes 1 20 1 06/22/1994 - 04/22/2015 Smokeless Tobacco: Never Tobacco Cessation:Counseling Given: No Alcohol Use Standard Drinks/Week Comments Yes 0.8 (1 standard drink = 0.6 oz p ure alcohol) 04/20/09 Sex and Gender Information Value Date Recorded Sex Assigned at Not on file Gender Identity Not on file Sexual Orientation Not on file documented as of this encounter Last Filed Vital Signs Vital Sign Reading Time Taken Comments Blood Pressure 130/86 05/22/2015 11:44 AM BRAIDED RUG MAKER Pulse 72 05/22/2015 11:44 AM BRAIDED RUG MAKER Temperature - - Respiratory Rate 12 05/22/2015 11:44 AM BRAIDED RUG MAKER Oxygen Saturation - - Inhaled Oxygen Concentration - - Weight 67.1 kg (148 lb) 05/22/2015 11:44 AM BRAIDED RUG MAKER Height 165.1 cm (5' 5 ) 05/22/2015 11:44 AM BRAIDED RUG MAKER Body Mass Index 24.63 05/22/2015 11:44 AM BRAIDED RUG MAKER documented in this encounter Progress Notes * Kelechi Rico III, MD - 05/22/2015 11:47 AM CST The patient is seen for follow up of chronic HLP ROS: taking medications as instructed, no medication side effects noted, no new muscle aching, no TIA's, no chest pain on exertion, no dyspnea on exertion, no claudication or other sxs of vascular insufficiency. Quit smoking a month ago, feels great. Wants a fat burner. 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 No ideation or planning. Appetite too good, sleeping well. Thinks she would like to get off the wellbutrin. GERD not bothering Has another grandchild Med list reviewed with patient. Exam: BP 130/86 mmHg Pulse 72 Resp 12 Wt 67.132 kg (148 lb) BMI 24.63 kg/m2 General appearance: alert, cooperative, breathing comfortably, no distress Carotid 2+, no bruits Heart: regular rhythm, normal S1 and S2, without murmurs, rubs or gallops Lungs: breath sounds normal and symmetric. No rales or wheezes The abdomen is soft without tenderness, guarding, mass, rebound or organomegaly. Bowel sounds are normal. No CVA tenderness or inguinal adenopathy noted. Extremities: no clubbing, cyanosis. 0 edema. Lab review: labs are reviewed, up to date and normal. Assessment: Encounter Diagnoses Name Primary? Pure hypercholesterolemia Yes ??? Chronic depression Plan: Orders Placed This Encounter ??? buPROPion XL 24hr (WELLBUTRIN-XL) 150 MG tablet Sig: Take 1 Tab by mouth once daily Dispense: 30 Tab Refill: 5 Has colon ruy'd DED RUG MAKER documented in this encounter Plan of Treatment Not on file documented as of this encounter Goals Goal Patient Goal Type Associated Problems Recent Progress Patient-Stated? Author Quit smoking / using tobacco Lifestyle On track( 015 11:44 AM BRAIDED RUG MAKER) No Courtney Dockery documented as of this encounter Visit Diagnoses Diagnosis Pure hypercholesterolemia- Primary Chronic depression Depressive disorder, not elsewhere classified documented in this encounter Care Teams Lead Technical Architect Relationship Specialty Start Date End Date Sunny West MD PCP - OBGYN 03/28/08 Kelechi Rico III, MD RETIRED PCP - General 01/12/12 05/10/20 documented as of this encounter
--- OUTSIDE RECORDS SUMMARY | 2024-06-02 01:45 | XMS_ITS | Encounter Summary ---
Author Organization [facility] Address [address] [facility] [place] [address] Care Team Providers Care Lead Systems Analyst Name Role Phone Sunny West MD Unavailable [phone] Jacky STEPHENS MD, Kelechi Primary Care Provider Brooke vailable Reason for Referral * Radiology Services - Closed Specialty Diagnoses / Procedures Referred By Contac t Referred To Contact Diagnoses Lump or mass in breast Procedures US BREAST LEFT LTD Sunny West MD [address] [place] [address] Referral ID Status Reason Start Date Expiration Date Visits Re quested Visits Authorized [id number] Closed 10/16/2014 04/14/2015 1 1 Reason for Visit * Radiology Services - Closed Specialty Diagnoses / Procedures Referred By Lindy t Referred To Contact Diagnoses Lump or mass in breast Procedures US BREAST LEFT LTD Sunny West MD [address] [place] [address] Referral ID Status Reason Start Date Expiration Date Visits Re quested Visits Authorized [id number] Closed 10/16/2014 04/14/2015 1 1 Encounter Details Date Type Department Care Team (Latest Contact Info) Description 10/16/2014 2:35 PM CDT - 10/16/2014 11:59 PM CDT Hospital Encounter [facility] Health Imaging Services - Ultrasound [address] [place] [address] Sunny West MD [address] [place] [address] Discharge Disposition: Home or Self [...] tobacco Lifestyle On track( 015 11:44 AM CONCRETE JOURNEYMAN) Courtney Victor documented as of this encounter Procedures Procedure Name Priority Date/Time Associated Diagnosis Comments US BREAST LEFT LTD Routine 10/16/2014 2: 44 PM CDT Lump or mass in breast documented in this encounter Results * US BREAST LEFT LTD (10/16/2014 2:44 PM CDT) Anatomical Region Laterality Modality Breast Left Ultrasound 10/16/2014 3:28 PM CDT Narrative 10/16/2014 3:32 [...] pattern is unchanged from prior studies of 0857-3314. Ultrasound of the palpable area demonstrates a [...] participate in the care of your patient. [facility] Breast [facility] utilizes [employer] as a reminder system to notify patients of their next recommended mammogram. Procedure Note Lidya Fagan MD - 10/16/2014 EXAMINATION: Left digital diagnostic mammogram and ultrasound on 10/16/14 INDICATION: Palpable abnormality left axilla FINDINGS: Computer assisted detection was utilized. Tissue is heterogeneously dense which may obscure small masses. A marker was placed over the area of clinical concern which is barely visible on the mammogram. A partially imaged density is present deep in the axilla. Breast parenchymal pattern is unchanged from prior studies of 2098-1101. Ultrasound of the palpable area demonstrates a 12 mm benign-appearing lymph node. There is an adjacent 1.5 cm lymph node with a thickened cortex. This is likely reactive. Short-term followup left axillary ultrasound is recommended. This could be performed at the time of patient's mammogram which is due in February 2015. ASSESSMENT: BIRADS Category 3: Probably benign finding. Short interval follow up suggested.. RECOMMENDATION: Bilateral diagnostic mammogram and left axillary ultrasound in February 2015 Thank you for allowing us to participate in the care of your patient. [facility] Breast [facility] utilizes [employer] as a reminder system to notify patients of their next recommended mammogram. Sunny West MD ORDERABLES documented in this encounter Visit Diagnoses Diagnosis Lump or mass in breast documented in this encounter Care Teams Lead Systems Analyst Relationship Specialty Start Date End Date Sunny West MD PCP - OBGYN 03/28/08 Kelechi Rico III, MD RETIRED PCP - General 01/12/12 05/10/20 documented as of this encounter
--- OUTSIDE RECORDS SUMMARY | 2024-06-02 01:45 | XMS_ITS | Encounter Summary ---
Author Organization [facility] Address [address] [place] [address] Care Team Providers Care Bead Preparer Name Role Phone Sunny West MD Unavailable [phone] Jacky STEPHENS MD, Kelechi Primary Care Provider Brooke vailable Reason for Visit * Reason Onset Date Comments Pain Sinus 10/05/2015 Encounter Details Date Type Department Care Team (Late st Contact Info) Description 10/05/2015 Telephone [facility] Medical [facility] - Internal Medicine [address] [facility] [place] [address] Kelechi Rico III, MD RETIRED Pain Sinus Social History Tobacco Use Types Packs/Day Years [...] * Telephone Encounter - Brianna Mae - 10/05/2015 11:45 AM CDT Pt informed of Rx sent to her preferred pharmacy [facility]. Advised the pt to call the office if she has any further questions or concerns. * Telephone Encounter - Kelechi Rico III, MD - 10/05/2015 11:37 AM CDT Prescribe generic Diflucan 150 mg #4, take 1 every 3 days * Telephone Encounter - Brianna Mae - 10/05/2015 10:48 AM CDT Pt asking for Diflucan as well, states historically she gets yeast infections w/ antibiotics, please advise. * Telephone Encounter - Kelechi Rico III, MD - 10/05/2015 10:36 AM CDT Prescribe Augmentin 875mg 1 q12 hrs #20 * Telephone Encounter - Brianna Mae - 10/05/2015 10:20 AM CDT Pain pressure behind both eyes, yellow thick mucous from nasal area , afebrile x 1 week pt states she has been using Advil cold and sinus and Mucinex, pt states OTC not helping, pt requesting an antibiotic to be sent to her pharmacy? please advise. documented in this encounter Plan of Treatment Not on file documented as of this encounter Goals Goal Patient Goal Type Associated Problems Recent Progress Patient-Stated? Author Quit smoking / using tobacco Lifestyle On track( 015 11:44 AM SCHOOL PHYSICAL THERAPIST) No Courtney Dockery documented as of this encounter Visit Diagnoses Not on filedocumented in this encounter Care Teams Bead Preparer Relationship Specialty Start Date End Date Sunny West MD PCP - OBGYN 03/28/08 Kelechi Rico III, MD RETIRED PCP - General 01/12/12 05/10/20 documented as of this encounter
--- OUTSIDE RECORDS SUMMARY | 2024-06-02 01:45 | XMS_ITS | Encounter Summary ---
Author Organization [facility] [place] [facility] Address [address] [place] [address] Care Team Providers Care Body Shop Worker Name Role Phone Sunny West MD Unavailable [phone] Jacky STEPHENS MD, Kelechi Primary Care Provider Brooke vailable Reason for Referral * Radiology Services (Routine) - Closed Specialty Diagnoses / Procedures Referred By Lindy t Referred To Contact Mammography Diagnoses Breast cancer screening Procedures MAMMO SCREENING DIGITAL IMAGE BILAT Sunny West MD [address] [place] [address] [facility] [address] [place] [address] [address] [place] [address] Referral ID Status Reason Start Date Expiration Date Visits Re quested Visits Authorized [id number] Closed 01/02/2017 07/01/2017 1 1 Reason for Visit * Reason Comments Ampoule Examiner Routine Exam Encounter Details Date Type Department Care Team (Late st Contact Info) Description 01/02/2017 9:30 AM CDT Office Visit [facility] [place] [facility] Medical [facility] - DIRECTOR OF PRODUCT DEVELOPMENT [address] [place], [place] [id number] Sunny West MD [address] [place] [address] Routine gynecological examination (Primary Dx); Breast cancer screening Social History Tobacco Use Types Packs/Day Years [...] Sign Reading Time Taken Comments Blood Pressure 118/72 01/02/2017 9:41 AM CDT Pulse - - Temperature - - Respiratory Rate - - Oxygen Saturation - - Inhaled Oxygen Concentration - - Weight 65.5 kg (144 lb 8 oz) 01/02/2017 9:41 AM CDT Height 165.1 cm (5' 5 ) 01/02/2017 9:41 AM CDT Body Mass Index 24.05 01/02/2017 9:41 AM CDT documented in this encounter Progress Notes * Sunny West MD - 01/02/2017 9:57 AM CDT Well Woman Yearly Exam (Post Menopausal) HISTORY: Brianna Norman is a 56 y.o. white female here for a Well Woman exam. Patient does not have other gynecological issues or concerns. Last Pap: normal. 2011 Last mammogram: was normal Other pertinent TWISTING OPERATOR history: None Other pertinent history: Medical, Surgical, Family, and Social History Reviewed. Allergies reviewed. Review of Systems Pertinent items are noted in HPI EXAMINATION BP 118/72 Ht 5' 5 Wt 144 lb 8 [...] adnexa. Vaginal Atrophy: no ASSESSMENT Normal Postmenopausal TWISTING OPERATOR Well Woman Exam. Patient Active Problem List Diagnosis ??? Submucous leiomyoma of uterus ??? GERD (gastroesophageal reflux disease) ??? Vitamin D deficiency ??? Pure hypercholesterolemia ??? Family history of premature coronary artery disease ??? Screen for colon cancer ord'd 05/02/13, ??? Chronic depression PLAN See orders, medications, patient instructions. Routine Mammograms recommended. Calcium and Vitamin D intake discussed. Bone density indications discussed. documented in this encounter Plan of Treatment Not on file documented as of this encounter Goals Goal Patient Goal Type Associated Problems Recent Progress Patient-Stated? Author Quit smoking / using tobacco Lifestyle On track( 015 11:44 AM PROPERTY ADJUSTER) No NahedCourtney murray documented as of this encounter Procedures Procedure Name Priority Date/Time Associated Diagnosis Comments PAP IG LB RFLX HPV HR ASCU RFLX 16,18 Routine 01/02/2017 9:47 AM CDT Routine gynecological examination documented in this encounter Results * MAMMO SCREENING DIGITAL IMAGE BILAT (01/02/2017 11:19 AM CDT) Anatomical Region Laterality Modality Breast Bilateral Mammography 01/02/2017 2:41 PM CDT Narrative 01/02/2017 2:42 PM CDT EXAMINATION: Digital screening mammogram with tomosynthesis ??on 01/02/2017. PRIOR: Several priors, most recent 2014 FINDINGS: Low dose full field digital tomosynthesis [...] in the care of your patient. [facility] Breast Care utilizes [employer] as a reminder system to notify patients of their next recommended mammogram. Sunny West MD MAMMO ORDERABLES * PAP IG LB RFLX HPV HR ASCU RFLX 16,18 (01/02/2017 9:47 AM CDT) Diagnosis [facility] INSURANCE BILL Comment:NEGATIVE FOR INTRAEP ITHELIAL LESION AND MALIGNANCY. Specimen Adequacy [facility] INSURANCE BILL Comment:Satisfactory for karen luation. No endocervical component is identified. Clinician Provided ICD10 [facility] INSURANCE BILL Comment: Z01.419 Z12.39 Performed by [facility] INSURANCE BILL Comment:John Monroy totechnologist (ASCP) Comment [...] . PART OF UTERINE CERVIX / Unknown 01/02/2017 9:47 AM CDT 01/02/2017 Narrative [facility] INSURANCE BILL - 01/04/2017 1:11 PM CDT No. of containers..01 CYTYC Thin Prep Vial Resulting Agency Comment [facility] ??Panchito DALE [phone] Sunny West MD LAB - PATHOLOGY/CYTO LOGY ORDERABLES [facility] INSURANCE BILL [address] [place] [address] documented in this encounter Visit Diagnoses Diagnosis Routine gynecological examination- Primary Breast cancer screening Breast screening, unspecified documented in this encounter Care Teams Body Shop Worker Relationship Specialty Start Date End Date Sunny West MD PCP - OBGYN 03/28/08 Kelechi Rico III, MD RETIRED PCP - General 01/12/12 05/10/20 documented as of this encounter
--- OUTSIDE RECORDS SUMMARY | 2024-06-02 01:45 | XMS_ITS | Encounter Summary ---
Author Organization [facility] Address [address] [place] [address] Care Team Providers Care Cardroom Worker Name Role Phone Sunny West MD Unavailable [phone] Jacky STEPHENS MD, Kelechi Primary Care Provider Brooke vailable Reason for Visit * Reason Onset Date Comments Scheduling 06/02/2014 Encounter Details Date Type Department Care Team (Late st Contact Info) Description 06/02/2014 Telephone [facility] - Internal Medicine [address] [facility] [address] [place], [place] [id number] Kelechi Rico III, MD RETIRED Scheduling Social History Tobacco Use Types Packs/Day [...] Telephone Encounter - Elio Chang RN - 06/02/2014 1:54 PM CST sched FU OV for 07/04/14 RECORD CLERK documented in this encounter Plan of Treatment Not on file documented as of this encounter Visit Diagnoses Not on filedocumented in this encounter Care Teams Cardroom Worker Relationship Specialty Start Date End Date Sunny West MD PCP - OBGYN 03/28/08 Kelechi Rico III, MD RETIRED PCP - General 01/12/12 05/10/20 documented as of this encounter
--- OUTSIDE RECORDS SUMMARY | 2024-06-02 01:45 | XMS_ITS | Encounter Summary ---
Author Organization [facility] Health Address [address] [place] [address] Care Team Providers Care Inventory Coordinator Name Role Phone Sunny West MD Unavailable [phone] Jacky STEPHENS MD, Kelechi Primary Care Provider Brooke vailable Reason for Referral * Radiology Services (Routine) - Closed Specialty Diagnoses / Procedures Referred By Contac t Referred To Contact Nuclear Medicine Diagnoses Epigastric pain Procedures NM HEPATOBILIARY W CCK EF Kelechi Rico III, MD RETIRED Referral ID Status Reason Start Date Expiration Date Visits Re quested Visits Authorized [id number] Closed 07/30/2018 01/26/2019 1 1 VISION NEWS PHOTOGRAPHER Reason for Visit * Reason Comments Physical Encounter Details Date Type Department Care Team (Late st Contact Info) Description 07/30/2018 3:00 PM TELEVISION NEWS PHOTOGRAPHER Office Visit [facility] - Internal Medicine [address] [facility] [address] [place] [address] Kelechi Rico III, MD RETIRED Routine general medical examination at a health care facility (Primary Dx); Epigastric pain; STD exposure Social History Tobacco Use Types Packs/Day Years [...] Sign Reading Time Taken Comments Blood Pressure 148/100 07/30/2018 2:39 PM TELEVISION NEWS PHOTOGRAPHER Pulse 78 07/30/2018 2:39 PM TELEVISION NEWS PHOTOGRAPHER Temperature 37.3 ??C (99.1 ??F) 07/30/2018 2:39 PM CS T Respiratory Rate 12 07/30/2018 2:39 PM TELEVISION NEWS PHOTOGRAPHER Oxygen Saturation 98% 07/30/2018 2:39 PM TELEVISION NEWS PHOTOGRAPHER Inhaled Oxygen Concentration - - Weight 66.7 kg (147 lb) 07/30/2018 2:39 PM TELEVISION NEWS PHOTOGRAPHER Height 165.1 cm (5' 5 ) 07/30/2018 2:39 PM TELEVISION NEWS PHOTOGRAPHER Body Mass Index 24.46 07/30/2018 2:39 PM TELEVISION NEWS PHOTOGRAPHER documented in this encounter Progress Notes * Pushpa Ray - 08/02/2018 2:08 PM CST Dictated HPI 07/30/18 This 57-year-old, white female in April of 2017 developed chest pain radiating through to the back, numbness in the left arm, shortness of breath, and went to the emergency room. She was in the hospital for two days. Was ruled out of myocardial disease. Ultrasound of the gallbladder questionablyshowed inflammation. She declined a HIDA exam and the symptoms cleared. There was no evidence of arrhythmia while she was on a monitor. The past month she has felt like her system is gearing up to have the same type of attack but her symptoms are much more vague. She says she has been burping a lot. She has the sensation of a lump in her throat. She will develop epigastric discomfort that is relieved by Zantac and Mylanta but it takes at least an hour to improve. There is no associated diaphoresis, palpitations, nausea, vomiting, change in bowel habits. She says she feels like she is not getting enough oxygen to her brain. There is no trouble swallowing when this occurs. She does continue to smoke a pack of cigarettes per day. Denies pulmonary symptoms. She has no ongoing cough or wheezing episodes. She is under a great deal of stress with her son and his family. She has been basically supporting them while he is trying to complete school and working several jobs and producing multiple grandchildren for her. She has been functioning well at work and has none of the depressive symptoms that she has experienced in the past. There is a history of hyperlipidemia. Full review failed toidentify any other positives. VISION NEWS PHOTOGRAPHER * Kelechi Rico III, MD - 07/30/2018 3:22 PM CST .Subjective: (See transcribed HPI) Medical history, including Past Medical History, Family History, and Social History reviewed by me.If form also completed it will be scanned into the EHR or has been submitted electronically. Pt also requested STD testing. Objective: BP 148/100 Pulse 78 Temp 99.1 ??F (37.3 ??C) Resp 12 Ht 1.651 m (5' 5 ) Wt 66.7 kg (147 lb) SpO2 98% BMI 24.46 kg/m2 General appearance - alert, well appearing, and in no distress BP earlier today normal at work. Mental Status - alert, oriented to person, place, and time Skin - normal texture and turgor, no rashes Eyes -early cataracts, pupils equal and reactive, EOM normal, sclera anicteric, funduscopic exam shows sharp disc margins Ears - hearing adequate to conversation, bilateral TM's and external ear canals normal Nose - unremarkable Throat - mucous membranes moist, tongue midline, pharynx-no lesions or erythema Neck - trachea in midline, no JVD, carotid pulsations 2+ bilat. without bruits Thyroid - thyroid not enlarged, no obvious nodules or tenderness Lymph nodes - no adenopathy appreciated in the cervical, supraclavicular, axillary, or inguinal areas. Breasts - no abnormal masses, tenderness, or discharge Chest - normal symmetric expiratory excursions, no dullness to percussion, breath sounds heard wellin all areas, no rales, wheezes, or rhonchi Heart - PMI not displaced, normal rate, regular rhythm, normal S1, S2, no gallops, rubs, or murmurs Abdomen - normal bowel sounds, no hyperresonance or tenderness to percussion, no organomegaly or masses Back exam - straight, no CVA or flank tenderness Musculoskeletal - no joint tenderness, deformity or swelling Extremities - peripheral pulses normal, no pedal edema, no clubbing or cyanosis Female Genitalia: PHYSIOLOGICAL CHEMIST Rectal - due for colon next month Neurological - alert, oriented, CN II-XII normal, DTR's 2+ biceps, triceps, knees and ankles, vibration normal in toes and temp sensation normal in toes Med list reviewed with patient Assessment: Encounter Diagnoses Name Primary? Routine general medical examination at a health care facility Yes ??? Epigastric pain ??? STD exposure Plan: Orders Placed This Encounter ??? CHLAMYDIA + GC AMPLIFIED PROBE ??? NM HEPATOBILIARY W CCK EF Standing Status: Future Standing Expiration Date: 07/30/2019 Order Specific Question: Exam to be performed? Answer: Per Radiologist protocol ??? COMPREHENSIVE METABOLIC PANEL ??? LIPID PROFILE W TCHOL/HDL ??? TSH ??? CBC WITH DIFFERENTIAL ??? RPR W REFLEX CONFIRM ??? HIV-1 HIV-2 ANTIGEN/ANTIBODY W RFLX If no better with BID zantac will need upper scope at time of colonoscopy VISION NEWS PHOTOGRAPHER documented in this encounter Plan of Treatment Not on file documented as of this encounter Goals Goal Patient Goal Type Associated Problems Recent Progress Patient-Stated? Author Quit smoking / using tobacco Lifestyle On track( 015 11:44 AM TELEVISION NEWS PHOTOGRAPHER) Courtney Victor documented as of this encounter Procedures Procedure Name Priority Date/Time Associated Diagnosis Comments HIV-1 HIV-2 ANTIGEN/ANTIBODY W RFLX Routine 07/31/2018 10:59 AM TELEVISION NEWS PHOTOGRAPHER STD exposure LIPID PROFILE W TCHOL/HDL Routine 07/31/2018 10:59 AM TELEVISION NEWS PHOTOGRAPHER Routine general medical examination at a health care facility RPR W REFLEX CONFIRM Routine 07/31/2018 10:59 AM TELEVISION NEWS PHOTOGRAPHER STD exposure CHLAMYDIA + GC AMPLIFIED PROBE Routine 07/31/2018 10:59 AM TELEVISION NEWS PHOTOGRAPHER STD exposure CBC W AUTO DIFFERENTIAL Routine 07/31/2018 10:59 AM TELEVISION NEWS PHOTOGRAPHER Routine general medical examination at a health care facility COMPREHENSIVE METABOLIC PANEL Routine 07/31/2018 10:59 AM TELEVISION NEWS PHOTOGRAPHER Routine general medical examination at a health care facility TSH Routine 07/31/2018 10:59 AM TELEVISION NEWS PHOTOGRAPHER Routine general medical examination at a health care facility documented in this encounter Results * NM HEPATOBILIARY W CCK EF (08/06/2018 1:05 PM TELEVISION NEWS PHOTOGRAPHER) Anatomical Region Laterality Modality Abdomen Nuclear Medicine 08/06/2018 3:28 PM TELEVISION NEWS PHOTOGRAPHER Impressions 08/06/2018 3:33 PM TELEVISION NEWS PHOTOGRAPHER 1. Delayed gallbladder filling at 90 minutes with normal ejection fraction of 96%. 2. No evidence of enterogastric reflux. Reading Radiologist: Ivanna Fong MD on 08/06/2018 at 3:33 PM Narrative 08/06/2018 3:33 PM TELEVISION NEWS PHOTOGRAPHER Hepatobiliary scan with pharmacologic intervention. HISTORY: 57 [...] PM Kelechi Rico III, MD NM ORDERABLES * CHLAMYDIA + GC AMPLIFIED PROBE (07/31/2018 10:59 AM TELEVISION NEWS PHOTOGRAPHER) Chlamydia CHUCKY Urine Negative Negative [facility] INSURANCE BILL GC CHUCKY Urine Negative Negative [facility] INSURANCE BILL Comment:FASTING Microbiology URINE / Unknown 07/31/2018 1 0:59 AM TELEVISION NEWS PHOTOGRAPHER 07/31/2018 Narrative Resulting Agency Comment [facility] [address] ??[place] [phone] Kelechi Rico III, MD LAB - MICROBIOLOGY ORDERABLES [facility] INSURANCE BILL [address] [place] [address] * HIV-1 HIV-2 ANTIGEN/ANTIBODY W RFLX (07/31/2018 10:59 AM TELEVISION NEWS PHOTOGRAPHER) Pathologist [facility] HIV Screen 4th Generation w Reflex Non Reactive Non Reactive [facility] INSURANCE BILL Comment:FASTING Blood BLOOD SPECIMEN / Unknown 07/31/2018 10:59 AM TELEVISION NEWS PHOTOGRAPHER 07/31/2018 Narrative Resulting Agency Comment [facility] [address] [facility] ??[facility] [phone] Kelechi Rico III, MD LAB - SEROLOGY ORD ERABLES [facility] INSURANCE BILL [address] [place] [address] * RPR W REFLEX CONFIRM (07/31/2018 10:59 AM TELEVISION NEWS PHOTOGRAPHER) RPR Non Reactive Non Reactive [facility] INSURANCE BILL Comment:FASTING Blood BLOOD SPECIMEN / Unknown 07/31/2018 10:59 AM TELEVISION NEWS PHOTOGRAPHER 07/31/2018 Narrative Resulting Agency Comment [facility] [place] [address] ??[facility] [phone] Kelechi Rico III, MD LAB - CHEMISTRY OR DERABLES [facility] INSURANCE BILL [address] [place] [address] * CBC WITH DIFFERENTIAL (07/31/2018 10:59 AM TELEVISION NEWS PHOTOGRAPHER) WBC 6.4 3.4 - 10.8 x10E3/uL [facility] [...] BLOOD SPECIMEN / Unknown 07/31/2018 10:59 AM TELEVISION NEWS PHOTOGRAPHER 07/31/2018 Narrative Resulting Agency Comment [facility] [address] [facility] ??[facility] [phone] Kelechi Rico III, MD LAB - HEMATOLOGY O RDERABLES Performing Organization Address [facility]/ZIP Co de Phone Number [facility] INSURANCE BILL [address] [place] [address] * TSH (07/31/2018 10:59 AM TELEVISION NEWS PHOTOGRAPHER) TSH 0.816 0.450 - 4.500 uIU/mL [facility] INSURANCE BILL Comment:FASTING Blood BLOOD SPECIMEN / Unknown 07/31/2018 10:59 AM TELEVISION NEWS PHOTOGRAPHER 07/31/2018 Narrative Resulting Agency Comment [facility] [address] [facility] ??[facility] [phone] Kelechi Rico III, MD LAB - CHEMISTRY OR DERABLES Performing Organization Address [facility] Co de Phone Number [facility] INSURANCE BILL [address] [place] [address] * (ABNORMAL) LIPID PROFILE W TCHOL/HDL (07/31/2018 10:59 AM TELEVISION NEWS PHOTOGRAPHER) Cholesterol 217(H) 100 - 199 mg/dL [facility] [...] BLOOD SPECIMEN / Unknown 07/31/2018 10:59 AM TELEVISION NEWS PHOTOGRAPHER 07/31/2018 Narrative Resulting Agency Comment [facility] [address] ??[facility] [phone] Kelechi Rico III, MD LAB - CHEMISTRY OR DERABLES [facility] INSURANCE BILL [address] [place] [address] * COMPREHENSIVE METABOLIC PANEL (07/31/2018 10:59 AM TELEVISION NEWS PHOTOGRAPHER) Glucose 94 65 - 99 mg/dL [facility] [...] BLOOD SPECIMEN / Unknown 07/31/2018 10:59 AM TELEVISION NEWS PHOTOGRAPHER 07/31/2018 Narrative Resulting Agency Comment [facility] [address] ??[facility] [phone] Kelechi Rico III, MD LAB - CHEMISTRY OR DERABLES [facility] INSURANCE BILL [address] [place] [address] documented in this encounter Visit Diagnoses Diagnosis Routine general medical examination at a health care facility- Primary Epigastric pain Abdominal pain, epigastric STD exposure Epigastric pain Abdominal pain, epigastric documented in this encounter Care Teams Inventory Coordinator Relationship Specialty Start Date End Date Sunny West MD PCP - OBGYN 03/28/08 Kelechi Rico III, MD RETIRED PCP - General 01/12/12 05/10/20 documented as of this encounter
--- OUTSIDE RECORDS SUMMARY | 2024-06-02 01:45 | XMS_ITS | Encounter Summary ---
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 [place] [address] Pap smear, as part of routine gynecological examination (Primary Dx); Breast cancer screening [...] Sign Reading Time Taken Comments Blood Pressure 122/74 01/01/2018 9:48 AM CDT Pulse - - Temperature - - Respiratory Rate - - Oxygen Saturation - - Inhaled Oxygen Concentration - - Weight 67.4 kg (148 lb 11.2 oz) 01/01/2018 9:48 AM CDT Height 165.1 cm (5' 5 ) 01/01/2018 9:48 AM CDT Body Mass Index 24.74 01/01/2018 9:48 AM CDT documented in this encounter Progress Notes * Sunny West MD - 01/01/2018 10:28 AM CDT Well Woman Yearly Exam (Post Menopausal) HISTORY: Brianna Norman is a 57 y.o. white female here for a Well Woman exam. Lots of stress - family issues, caring for parents and grandkids etc Talked - consider counselling Dr. Dinh Patient does not have other gynecological issues or concerns. Last Pap: normal. Last mammogram: Performed 2016, and was normal Other pertinent SANITATION WORKER history: None Other pertinent history: Medical, Surgical, Family, and Social History Reviewed. Allergies reviewed. Review of Systems Pertinent items are noted in HPI EXAMINATION BP 122/74 Ht 5' 5 Wt 148 lb 11.2 oz BMI 24.74 kg/m2 General Appearance: alert, cooperative, no distress [...] adnexa. Vaginal Atrophy: no ASSESSMENT Normal Postmenopausal SANITATION WORKER Well Woman Exam. Patient Active Problem List [...] tobacco Lifestyle On track( 015 11:44 AM WHOLESALE AND RETAIL MERCHANT) No Courtney Dockery documented as of this encounter Procedures Procedure Name Priority Date/Time Associated Diagnosis Comments PAP IG LB RFLX HPV HR ASCU RFLX 16,18 Routine 01/01/2018 9:53 AM CDT Pap smear, as part of routine gynecological examination documented in this encounter Results * PAP IG LB RFLX HPV HR ASCU RFLX 16,18 (01/01/2018 9:53 AM CDT) Diagnosis [facility] INSURANCE BILL Comment:NEGATIVE FOR INTRAEP ITHELIAL LESION AND MALIGNANCY. Specimen Adequacy [facility] INSURANCE BILL Comment:Satisfactory for karen luation. No endocervical component is identified. Clinician Provided ICD10 [facility] INSURANCE BILL Comment: Z01.419 Z12.31 Performed by [facility] INSURANCE BILL Comment:Robert Coleman hnologist (ASCP) Comment . [facility] INSURANCE BILL Note [facility] INSURANCE BILL Comment: The Pap smear is [...] use of an image guided system. Note [facility] INSURANCE BILL Comment: The HPV DNA reflex criteria were not met with this specimen result therefore, no HPV testing was performed. ? . PART OF UTERINE CERVIX / Unknown 01/01/2018 9:53 AM CDT 01/02/2018 Narrative [facility] INSURANCE BILL - 01/04/2018 11:14 AM CDT No. of containers..01 ThinPrep Vial Resulting Agency Comment [facility] [place] [address] ??[place] [phone] Sunny West MD LAB - PATHOLOGY/CYTO LOGY ORDERABLES [facility] INSURANCE BILL [address] [place] [address] documented in this encounter Visit Diagnoses Diagnosis Pap smear, as part of routine gynecological examination- Primary Screening for malignant neoplasm of the cervix Breast cancer screening Breast screening, unspecified documented in this encounter Care Teams Senior Cytogenetic Technologist Relationship Specialty Start Date End Date Sunny West MD PCP - OBGYN 03/28/08 Kelechi Rico III, MD RETIRED PCP - General 01/12/12 05/10/20 documented as of this encounter
--- OUTSIDE RECORDS SUMMARY | 2024-06-02 01:45 | XMS_ITS | Encounter Summary ---
Author Organization [facility] Address [address] [place] [place] [address] Care Team Providers Care Server Security Administrator Name Role Phone Sunny West MD Unavailable [phone] Jacky STEPHENS MD, Kelechi Primary Care Provider Brooke vailable Reason for Visit * Reason Comments Mass lump under left arm pit Encounter Details Date Type Department Care Team (Late st Contact Info) Description 09/01/2014 3:45 PM CDT Office Visit [facility] - ELECTRICIAN CONSTRUCTOR SUPERVISOR [address] [facility] [address] [place] [address] Jacquelin Washburn MD [address] [facility] [place] [address] Axillary lump, left (Primary Dx) Social History Tobacco Use Types [...] Reading Time Taken Comments Blood Pressure 124/78 09/01/2014 3:45 PM CDT Pulse - - Temperature - - Respiratory Rate - - Oxygen Saturation - - Inhaled Oxygen Concentration - - Weight 64.5 kg (142 lb 3.2 oz) 09/01/2014 3:45 P M CDT Height 165.1 cm (5' 5 ) 09/01/2014 3:45 PM CDT Body Mass Index 23.66 09/01/2014 3:45 PM CDT documented in this encounter Progress Notes * Jacquelin Washburn MD - 09/01/2014 9:22 PM CDT Subjective: Brianna Norman presents for the evaluation of breast symptoms. Onset of the symptoms was 2-3 days ago. Description of the breast symptoms: left axillary lump on exam. Has not increased in size since she noticed it first. She has a dog and has multiple scratch gillette on left arm. Last mammogram in 01/2014: negative. I have reviewed the past medical and surgical history, social history, family history, problem list, allergies and medication lists. History of breast cancer in 1st cousin. Review of Systems A comprehensive review of systems was negative except as described in HPI. Objective: BP 124/78 Wt 142 lb 3.2 oz BMI 23.66 kg/m2 General appearance: alert, cooperative, no distress Neck: supple, symmetrical, trachea midline, no adenopathy and thyroid: not enlarged, symmetric, no tenderness/mass/nodules Breasts: bilateral breasts appear normal, no suspicious masses, no skin or nipple changes. Left axilla: 1 cm wide, round in shape, smooth outline, freely mobile lump palpable - likely LN enlargement Right axilla: No lumps/ LNs palpable Lung: clear to auscultation bilaterally Heart: regular rate and rhythm, S1, S2 normal, no murmur, click, rub or gallop Abdomen: soft without mass, non-tender, with normal bowel sounds Assessment: Normal breast exam Left axillary lymphadenopathy - single LN Plan: Patient asked to palpate regularly and see if it resolves sponttaneously. Patient explained that LNenlargement could be due to infection from scratches on her arm inflicted by her dog. If does not resolve, would recommend follow up by imaging and clinical exam Patient expressed understanding. All questions answered. Jacquelin Washburn MD documented in this encounter Plan of Treatment Not on file documented as of this encounter Goals Goal Patient Goal Type Associated Problems Recent Progress Patient-Stated? Author Quit smoking / using tobacco Lifestyle On track( 015 11:44 AM BIOPROCESS ENGINEER) Courtney Victor documented as of this encounter Visit Diagnoses Diagnosis Axillary lump, left- Primary documented in this encounter Care Teams Server Security Administrator Relationship Specialty Start Date End Date Sunny West MD PCP - OBGYN 03/28/08 Kelechi Rico III, MD RETIRED PCP - General 01/12/12 05/10/20 documented as of this encounter
--- OUTSIDE RECORDS SUMMARY | 2024-06-02 01:45 | XMS_ITS | Encounter Summary ---
Author Organization [facility] Health Address [address] [place] [address] Care Team Providers Care Faculty Head Name Role Phone Sunny West MD Unavailable [phone] Jacky STEPHENS MD, Kelechi Primary Care Provider Brooke vailable Reason for Referral * Radiology Services - Closed Specialty Diagnoses / Procedures Referred By Lindy avila Referred To Contact Mammography Diagnoses Abnormal mammogram Procedures MAMMO DIAG DIRECT DIGITAL IMAGE Sunny Verdugo MD [address] [place] [address] [facility] [address] [place] [address] [address] [place] [address] Referral ID Status Reason Start Date Expiration Date Visits Re quested Visits Authorized [id number] Closed 05/12/2015 11/08/2015 1 1 HORSE HITCH DRIVER Encounter Details Date Type Department Care Team (Late st Contact Info) Description 05/12/2015 Orders Only [facility] - PAY STATION ATTENDANT [address] [place], [place] [id number] Sunny West MD [address] [place] [address] Abnormal mammogram Social History Tobacco [...] Lifestyle On track( 015 11:44 AM FOUR HORSE HITCH DRIVER) No Courtney Dockery documented as of this encounter Results * (ABNORMAL) MAMMO DIAG DIRECT DIGITAL IMAGE BILA (05/22/2015 1:19 PM FOUR HORSE HITCH DRIVER) Anatomical Region Laterality Modality Bilateral Mammography 05/22/2015 1:36 PM FOUR HORSE HITCH DRIVER Impressions 05/22/2015 5:09 PM FOUR HORSE HITCH DRIVER 1. ??Enlarged left axillary lymph node. Since [...] participate in the care of your patient. [facility] [place] utilizes [employer] as a reminder system to notify patients of their next recommended mammogram. I, Abiola Duran, have personally reviewed the images and I agree with this report. Narrative 05/22/2015 5:09 PM FOUR HORSE HITCH DRIVER EXAMINATION: Digital bilateral diagnostic mammogram and limited [...] unspecified documented in this encounter Care Teams Faculty Head Relationship Specialty Start Date End Date Sunny West MD PCP - OBGYN 03/28/08 Kelechi Rico III, MD RETIRED PCP - General 01/12/12 05/10/20 documented as of this encounter
--- OUTSIDE RECORDS SUMMARY | 2024-06-02 01:45 | XMS_ITS | Encounter Summary ---
Author Organization [facility] Address [address] [place] [address] Care Team Providers Care Oil Pit Attendant Name Role Phone Sunny West MD Unavailable [phone] Jacky STEPHENS MD, Kelechi Primary Care Provider Brooke vailable Reason for Visit * Reason Onset Date Comments URI 04/25/2016 Encounter Details Date Type Department Care Team (Late st Contact Info) Description 04/25/2016 Telephone [facility] - Internal Medicine [address] [facility] [place] [address] Kelechi Rico III, MD RETIRED URI Social [...] Telephone Encounter - Aga Conner RN - 04/25/2016 12:11 PM CST Patient advised and verbalized understanding NKLER WORKER * Telephone Encounter - Kelechi Rico III, MD - 04/25/2016 11:22 AM SPRINKLER WORKER Ordered Will not help if viral. NKLER WORKER * Telephone Encounter - Courtney Burkett RN - 04/25/2016 11:02 AM SPRINKLER WORKER For 7 days sinus congestion, bilateral ear fullness, post nasal drainage. Thick yellow nasal drainage. Initially ran a temp. Currently afebrile. Taking advil cold and sinus. Symptoms are keeping her awake at night. Requesting a Zpak. NKLER WORKER documented in this encounter Plan of Treatment Not on file documented as of this encounter Goals Goal Patient Goal Type Associated Problems Recent Progress Patient-Stated? Author Quit smoking / using tobacco Lifestyle On track( 015 11:44 AM SPRINKLER WORKER) No Courtney Dockery documented as of this encounter Visit Diagnoses Not on filedocumented in this encounter Care Teams Oil Pit Attendant Relationship Specialty Start Date End Date Sunny West MD PCP - OBGYN 03/28/08 Kelechi Rico III, MD RETIRED PCP - General 01/12/12 05/10/20 documented as of this encounter
--- OUTSIDE RECORDS SUMMARY | 2024-06-02 01:46 | XMS_ITS | Encounter Summary ---
Author Organization [facility] Address [address] [facility] [place] [address] Care Team Providers Care Underpresser Hand Name Role Phone Sunny West MD Unavailable [phone] Jacky STEPHENS MD, Kelechi Primary Care Provider Brooke vailable Reason for Visit * Reason Onset Date Comments YEAST INFECTION 04/27/2012 Encounter Details Date Type Department Care Team (Late st Contact Info) Description 04/27/2012 Telephone [facility] - CARD GRINDER HELPER [address] [place] [address] Sunny West MD [address] [place] [address] YEAST INFECTION Social History Tobacco Use Types Packs/Day Years Used Date Smoking Tobacco: Every Day Cigarettes 1 20 Alcohol Use Standard Drinks/Week Comments Yes 0.8 [...] on filedocumented in this encounter Care Teams Underpresser Hand Relationship Specialty Start Date End Date Sunny West MD PCP - OBGYN 03/28/08 Kelechi Rico III, MD RETIRED PCP - General 01/12/12 05/10/20 documented as of this encounter
--- OUTSIDE RECORDS SUMMARY | 2024-06-02 01:46 | XMS_ITS | Encounter Summary ---
Author Organization [facility] Address [address] [place] [address] Care Team Providers Care Infant Lead Teacher Name Role Phone Sunny West MD Unavailable [phone] Jacky STEPHENS MD, Kelechi Primary Care Provider Brooke vailable Reason for Referral * - Closed Specialty Diagnoses / Procedures Referred By Lindy avila Referred To Contact Diagnoses Abnormal mammogram Breast cancer screening Procedures MAMMO DIAG DIRECT DIGITAL IMAGE Sunny Verdugo MD [address] [place] [address] Referral ID Status Reason Start Date Expiration Date Visits Re quested Visits Authorized [id number] Closed 03/06/2013 09/02/2013 1 1 Encounter Details Date Type Department Care Team (Late st Contact Info) Description 03/06/2013 Orders Only [facility] - ENDLESS BELT FINISHER [address] [place] [id number] Sunny West MD [address] [place] [address] Abnormal mammogram ; Breast cancer screening Social History Tobacco Use [...] * (ABNORMAL) MAMMO DIAG DIRECT DIGITAL IMAGE STEPHANIE (03/06/2013 11:24 AM CDT) Anatomical Region Laterality Modality Bilateral Mammography 03/08/2013 8:02 AM CDT Narrative 03/08/2013 8:13 AM CDT EXAMINATION: Bilateral digital diagnostic mammogram on 03/06/2013 with right breast ultrasound. INDICATION: Short-term followup of right breast nodule FINDINGS: Computer assisted detection was utilized. ??The tissue density is heterogeneously dense which ??may obscure small masses. ??Multiple views of both breasts are obtained and compared with multiple prior exams. The area of interest previously was a nodular density seen laterally in the right breast and a nodule is still present at this site seen essentially only on the standard right CC view. It is smoothly marginated and noncalcified measuring around 8 mm. This is the same nodule that was seen on the examination of 12/27/2011 but was not seen on the last diagnostic examination of 08/23/2012. A surgical clip is again seen in the right breast. No other findings are seen in either breast. Sonographic examination of the right breast is ??then obtained and ??is compared with the prior exam of 08/23/2012. At the 12:00 location 4 cm from the nipple, there is again a smoothly marginated hypoechoic cystic mass with internal septation compatible with a complicated cyst measuring around 5 mm, unchanged. A small complicated cyst is seen nearby as well. A 5 mm simple cyst is seen the 12:00 position 2 cm from the nipple. A few slightly dilated ducts are visible. Near the nipple, there is a 9 mm cystic area with minimal internal echoes. It measures up to 13 mm in width. This could represent a dilated duct or alternatively a slightly complicated cyst. This was seen before and is unchanged. At the 1:00 position 5 cm from the nipple, a 15 mm complicated cyst is again seen, not grossly changed. At the 2:00 position 4 cm from the nipple, a 7 mm well-circumscribed nodule which is probably solid is seen, unchanged. Nearby an 8mm wider than taller solid nodule is seen unchanged as well, most likely a fibroadenoma. A 6 mm complicated septated cyst is present at the 9:00 position 3 cm from the nipple. At the 10:00 position 5 cm from the nipple, a 12 mm complicated cyst is seen. It is difficult to be sure that any of these lesions correspond to the mammographic finding. ASSESSMENT: BIRADS Category 3: ??Probably benign finding. ??Short interval follow up suggested. RECOMMENDATION: 6 month followup right breast diagnostic mammogram and ultrasound.. Procedure Note Donnie Palomino MD - 03/08/2013 EXAMINATION: Bilateral digital diagnostic mammogram on 03/06/2013 with right breast ultrasound. INDICATION: Short-term followup of right breast nodule FINDINGS: Computer assisted detection was utilized. The tissue density is heterogeneously dense which may obscure small masses. Multiple views of both breasts are obtained and compared with multiple prior exams. The area of interest previously was a nodular density seen laterally in the right breast and a nodule is still present at this site seen essentially only on the standard right CC view. It is smoothly marginated and noncalcified measuring around 8 mm. This is the same nodule that was seen on the examination of 12/27/2011 but was not seen on the last diagnostic examination of 08/23/2012. A surgical clip is again seen in the right breast. No other findings are seen in either breast. Sonographic examination of the right breast is then obtained and is compared with the prior exam of 08/23/2012. At the 12:00 location 4 cm from the nipple, there is again a smoothly marginated hypoechoic cystic mass with internal septation compatible with a complicated cyst measuring around 5 mm, unchanged. A small complicated cyst is seen nearby as well. A 5 mm simple cyst is seen the 12:00 position 2 cm from the nipple. A few slightly dilated ducts are visible. Near the nipple, there is a 9 mm cystic area with minimal internal echoes. It measures up to 13 mm in width. This could represent a dilated duct or alternatively a slightly complicated cyst. This was seen before and is unchanged. At the 1:00 position 5 cm from the nipple, a 15 mm complicated cyst is again seen, not grossly changed. At the 2:00 position 4 cm from the nipple, a 7 mm well-circumscribed nodule which is probably solid is seen, unchanged. Nearby an 8mm wider than taller solid nodule is seen unchanged as well, most likely a fibroadenoma. A 6 mm complicated septated cyst is present at the 9:00 position 3 cm from the nipple. At the 10:00 position 5 cm from the nipple, a 12 mm complicated cyst is seen. It is difficult to be sure that any of these lesions correspond to the mammographic finding. ASSESSMENT: BIRADS Category 3: Probably benign finding. Short interval follow up suggested. RECOMMENDATION: 6 month followup right breast diagnostic mammogram and ultrasound.. Sunny West MD MAMMO ORDERABLES documented in this encounter Visit Diagnoses Diagnosis Abnormal mammogram Abnormal mammogram, unspecified Breast cancer screening Breast screening, unspecified Abnormal mammogram- Primary Abnormal mammogram, unspecified Breast cancer screening Breast screening, unspecified documented in this encounter Care Teams Infant Lead Teacher Relationship Specialty Start Date End Date Sunny West MD PCP - OBGYN 03/28/08 Kelechi Rico III, MD RETIRED PCP - General 01/12/12 05/10/20 documented as of this encounter
--- OUTSIDE RECORDS SUMMARY | 2024-06-02 01:46 | XMS_ITS | Encounter Summary ---
Author Organization [facility] Address [address] [place] [address] Care Team Providers Care Student Finance Specialist Name Role Phone Sunny West MD Unavailable [phone] Jacky STEPHENS MD, Kelechi Primary Care Provider Brooke vailable Reason for Visit * Reason Comments Pain Pelvic Rt side Encounter Details Date Type Department Care Team (Late st Contact Info) Description 03/05/2013 1:30 PM CDT Office Visit [facility] Medical [facility] [place] GOLD ATTENDANT [address] [place] [address] Sunny West MD [address] [place] [address] Pelvic pain in female (Primary Dx) Social History Tobacco Use Types [...] Sign Reading Time Taken Comments Blood Pressure 112/78 03/05/2013 1:34 PM CDT Pulse - - Temperature - - Respiratory Rate - - Oxygen Saturation - - Inhaled Oxygen Concentration - - Weight 63 kg (139 lb) 03/05/2013 1:34 PM CDT Height - - Body Mass Index 23.13 08/16/2010 9:53 AM BUYER GRAIN documented in this encounter Progress Notes * Sunny West MD - 03/05/2013 1:58 PM CDT Had intermittent but severe RLQ pain yesterday Pain suddenly went away but some mild lower abd discomfort remains today On menses yesterday - periods not bad since ablation Pelvic: nl Cx and fundus, no masses, non tender Trans Vag US : mod cul de sac fluid, small uterine fibroids, no adnexal masses IMP: Probable ruptured ovarian cyst Plan: NSAID's and observe documented in this encounter Plan of Treatment Not on file documented as of this encounter Visit Diagnoses Diagnosis Pelvic pain in female- Primary Unspecified symptom associated with female genital organs documented in this encounter Care Teams Student Finance Specialist Relationship Specialty Start Date End Date Sunny West MD PCP - OBGYN 03/28/08 Kelechi Rico III, MD RETIRED PCP - General 01/12/12 05/10/20 documented as of this encounter
--- OUTSIDE RECORDS SUMMARY | 2024-06-02 01:46 | XMS_ITS | Encounter Summary ---
Author Organization [facility] Address [address] [place] [address] Care Team Providers Care Mine Promotor Name Role Phone Sunny West MD Unavailable [phone] Jacky STEPHENS MD, Kelechi Primary Care Provider Brooke vailable Reason for Visit * Reason Onset Date Comments YEAST INFECTION 12/07/2010 Encounter Details Date Type Department Care Team (Late st Contact Info) Description 12/07/2010 Telephone [facility] - REGIONAL SERVICE MANAGER [address] [place] [address] Sunny West MD [address] [place] [address] YEAST INFECTION Social History Tobacco [...] on filedocumented in this encounter Care Teams Mine Promotor Relationship Specialty Start Date End Date Sunny West MD PCP - OBGYN 03/28/08 Kelechi Rico III, MD RETIRED PCP - General 03/13/09 01/11/12 documented as of this encounter
--- OUTSIDE RECORDS SUMMARY | 2024-06-02 01:46 | XMS_ITS | Encounter Summary ---
Author Organization [facility] Address [address] [place] [address] Care Team Providers Care Teacher Adult Education Name Role Phone Sunny West MD Unavailable [phone] Jacky STEPHENS MD, Kelechi Primary Care Provider Brooke vailable Reason for Visit * - Closed Specialty Diagnoses / Procedures Referred By Lindy avila Referred To Contact Diagnoses Screening for breast cancer Procedures MAMMO SCREENING DIGITAL IMAGE BILAT Sunny West MD [address] [place] [address] Referral ID Status Reason Start Date Expiration Date Visits Re quested Visits Authorized [id number] Closed 12/20/2011 06/17/2012 1 1 Encounter Details Date Type Department Care Team (Latest Contact Info) Description 12/27/2011 12:01 AM CDT - 12/27/2011 11:59 PM CDT Hospital Encounter [facility] Breast Care [address] [place] [address] Sunny West MD [address] [place] [address] Medical Outpatient Discharge Disposition: Home or Self Care Social [...] as of this encounter Miscellaneous Notes * Miscellaneous Scans - Document, Scanned - 01/09/2012 1:48 PM CDT documented in this encounter Plan of Treatment Not on file documented as of this encounter Procedures Procedure Name Priority Date/Time Associated Diagnosis Comments MAMMO BILAT SCREENING Routine 12/27/2011 2:27 PM CDT Screening for breast cancer documented in this encounter Results * MAMMO SCREENING DIGITAL IMAGE BILAT (12/27/2011 2:27 PM CDT) Anatomical Region Laterality Modality Breast Bilateral Mammography 01/06/2012 1:36 PM CDT Narrative 01/06/2012 1:36 PM CDT EXAMINATION: Digital screening mammogram on 12/27/2011. PRIOR: Postbiopsy images of the right breast from 2010 FINDINGS: Computer assisted detection was utilized. ??The tissue density is dense. There is an 8mm density seen laterally in the right breast on the CC view. Additional evaluation of this is indicated. No other findings are seen. ASSESSMENT: BIRADS Category 0: ?? Incomplete - Needs additional imaging evaluation. RECOMMENDATION: Additional views and possible ultrasound of the right breast. [facility] utilizes Get[employer]com as a reminder system to notify patients of their next recommended mammogram. Procedure Note Donnie Palomino MD - 01/06/2012 EXAMINATION: Digital screening mammogram on 12/27/2011. PRIOR: Postbiopsy images of the right breast from 2010 FINDINGS: Computer assisted detection was utilized. The tissue density is dense. There is an 8mm density seen laterally in the right breast on the CC view. Additional evaluation of this is indicated. No other findings are seen. ASSESSMENT: BIRADS Category 0: Incomplete - Needs additional imaging evaluation. RECOMMENDATION: Additional views and possible ultrasound of the right breast. [facility] Breast [facility] utilizes Get[employer]com as a reminder system to notify patients of their next recommended mammogram. Sunny West MD MAMMO ORDERABLES documented in this encounter Visit Diagnoses Diagnosis Screening for breast cancer Breast screening, unspecified Other screening mammogram documented in this encounter Care Teams Teacher Adult Education Relationship Specialty Start Date End Date Sunny West MD PCP - OBGYN 03/28/08 Kelechi Rico III, MD RETIRED PCP - General 03/13/09 01/11/12 documented as of this encounter
--- OUTSIDE RECORDS SUMMARY | 2024-06-02 01:46 | XMS_ITS | Encounter Summary ---
Author Organization [facility] Address [address] [place] [address] Care Team Providers Care Airbrush Artist Photography Name Role Phone Sunny West MD Unavailable [phone] Jacky STEPHENS MD, Kelechi Primary Care Provider Brooke vailable Reason for Visit * Reason Onset Date Comments MEDICATION REFILL 06/07/2013 Encounter Details Date Type Department Care Team (Late st Contact Info) Description 06/07/2013 Refill [facility] Medical [facility] - Internal Medicine [address] [place] [address] Kelechi Rico III, MD RETIRED MEDICATION REFILL [...] Telephone Encounter - Aga Conner RN - 06/07/2013 3:20 PM CST Pt said her insurance won't cover her wellbutrin until 06/12/13 and wanted 6 day supply to hold her over. Sent to pharmacy. ING DAY COORDINATOR documented in this encounter Plan of Treatment Not on file documented as of this encounter Visit Diagnoses Not on filedocumented in this encounter Care Teams Airbrush Artist Photography Relationship Specialty Start Date End Date Sunny West MD PCP - OBGYN 03/28/08 Kelechi Rico III, MD RETIRED PCP - General 01/12/12 05/10/20 documented as of this encounter
--- OUTSIDE RECORDS SUMMARY | 2024-06-02 01:46 | XMS_ITS | Encounter Summary ---
Author Organization [facility] Address [address] [place] [address] Care Team Providers Care Roofer Assistant Name Role Phone Sunny West MD Unavailable [phone] Jacky STEPHENS MD, Kelechi Primary Care Provider Brooke vailable Reason for Visit * Reason Onset Date Comments MEDICATION REFILL 08/06/2010 Encounter Opened In Error 08/23/2010 Encounter Details Date Type Department Care Team (Late st Contact Info) Description 08/06/2010 Refill [facility] - MFTS [address] [place], [place] [id number] Sunny West MD [address] [place] [address] MEDICATION REFILL; Encounter Opened In Error Social History Tobacco Use Types Packs/Day Years [...] * Telephone Encounter - Itzel Guillen - 08/23/2010 1:27 PM CDT Brianna Norman encounter was opened in error. Please disregard any activity associated with this encounter. documented in this encounter Plan of Treatment Not on file documented as of this encounter Visit Diagnoses Diagnosis ERRONEOUS ENCOUNTER--DISREGARD- Primary documented in this encounter Care Teams Roofer Assistant Relationship Specialty Start Date End Date Sunny Wets MD PCP - OBGYN 03/28/08 Kelechi Rico III, MD RETIRED PCP - General 03/13/09 01/11/12 documented as of this encounter
--- OUTSIDE RECORDS SUMMARY | 2024-06-02 01:46 | XMS_ITS | Encounter Summary ---
Author Organization [facility] Address [address] [place] [address] Care Team Providers Care Skin Care Instructor Name Role Phone Sunny West MD Unavailable [phone] Jacky STEPHENS MD, Kelechi Primary Care Provider Brooke vailable Encounter Details Date Type Department Care Team (Late st Contact Info) Description 08/16/2010 Orders Only [facility] Medical [facility] - MECHANICAL DRAFTER [address] [place], [place] [id number] Sunny West MD [address] [place] [id number] Abnormal mammogram Social History Tobacco Use Types [...] as of this encounter Results * MAMMO RIGHT STEREOTACTIC LOC MP (08/17/2010 12:03 PM ICT ANALYST) Anatomical Region Laterality Modality Breast Right Mammography 08/17/2010 12:1 4 PM ICT ANALYST Addenda This result is currently undergoing an addendum. Addendum by Ju Fagan MD on 08/18/2010 3:05 PM ICT ANALYST Pathology results are consistent with fibrocystic disease. Findings are concordant. Short-term followup right breast diagnostic mammogram in 6 months is recommended. The patient was informed of these findings and recommendations. Impressions 08/17/2010 12:14 PM ICT ANALYST Successful stereotactic localization and biopsy right breast microcalcifications Narrative 08/17/2010 12:14 PM ICT ANALYST Right breast stereotactic localization and biopsy Right [...] marker in the expected position. Procedure Note Ju Fagan MD - 08/17/2010 Right breast stereotactic [...] breast microcalcifications Sunny West MD MAMMO ORDERABLES documented in this encounter Visit Diagnoses Diagnosis Abnormal mammogram- Primary Abnormal mammogram, unspecified Abnormal mammogram Abnormal mammogram, unspecified Abnormal mammogram, unspecified Mammographic microcalcification documented in this encounter Care Teams Skin Care Instructor Relationship Specialty Start Date End Date Sunny West MD PCP - OBGYN 03/28/08 Kelechi Rico III, MD RETIRED PCP - General 03/13/09 01/11/12 documented as of this encounter
--- OUTSIDE RECORDS SUMMARY | 2024-06-02 01:46 | XMS_ITS | Encounter Summary ---
Author Organization [facility] Address [address] [place] [address] Care Team Providers Care Rn Call Center Name Role Phone Sunny West MD Unavailable [phone] Jacky STEPHENS MD, Kelechi Primary Care Provider Brooke vailable Reason for Visit * Reason Onset Date Comments YEAST INFECTION 08/31/2010 Encounter Details Date Type Department Care Team (Late st Contact Info) Description 08/31/[address] [facility] - [place] MAKER [address] [place] [address] Sunny West MD [address] [place] [address] YEAST INFECTION Social History Tobacco [...] on filedocumented in this encounter Care Teams Rn Call Center Relationship Specialty Start Date End Date Sunny West MD PCP - OBGYN 03/28/08 Kelechi Rico III, MD RETIRED PCP - General 03/13/09 01/11/12 documented as of this encounter
--- OUTSIDE RECORDS SUMMARY | 2024-06-02 01:46 | XMS_ITS | Encounter Summary ---
Author Organization [facility] Address [address] [place] [address] Care Team Providers Care Territory Account Executive Name Role Phone Sunny West MD Unavailable [phone] Jacky STEPHENS MD, Kelechi Primary Care Provider Brooke vailable Reason for Visit * Reason Onset Date Comments After Hours Call 12/06/2010 Encounter Details Date Type Department Care Team (Late st Contact Info) Description 12/06/2010 Telephone [facility] Medical [facility] - Internal Medicine [address] [facility] [place] [address] Kelechi Rico III, MD RETIRED After Hours Call Social History Tobacco Use Types Packs/Day Years [...] encounter Miscellaneous Notes * Telephone Encounter - Kelechi Rico III, MD - 12/06/2010 7:00 AM CDT 11/04 UTI Prescribed generic Cipro 250 mg 1 bid #10 documented in this encounter Plan of Treatment Not on file documented as of this encounter Visit Diagnoses Not on filedocumented in this encounter Care Teams Territory Account Executive Relationship Specialty Start Date End Date Sunny West MD PCP - OBGYN 03/28/08 Kelechi Rico III, MD RETIRED PCP - General 03/13/09 01/11/12 documented as of this encounter
--- OUTSIDE RECORDS SUMMARY | 2024-06-02 01:46 | XMS_ITS | Encounter Summary ---
Author Organization [facility] Health Address [address] [place] [address] Care Team Providers Care Pearl Glue Drier Name Role Phone Sunny West MD Unavailable Jacky STEPHENS MD, Kelechi Primary Care Provider Brooke vailable Reason for Visit * - Closed Specialty Diagnoses / Procedures Referred By Lindy avila Referred To Contact Mammography Diagnoses Breast cancer screening Procedures MAMMO SCREENING DIGITAL IMAGE BILAT Sunny West MD [address] [place] [phone] [facility] [address] [place] [address] [place] [id number] Referral ID Status Reason Start Date Expiration Date Visits Re quested Visits Authorized [id number] Closed 03/04/2013 08/31/2013 1 1 Encounter Details Date Type Department Care Team (Latest Contact Info) Description 03/06/2013 10:45 AM CDT - 03/06/2013 11:14 AM CDT Hospital Encounter [facility] Breast [facility] [address] [place] [address] [place] [id number] Sunny West MD [address] [place] [address] Discharge Disposition: Home or Self [...] * Miscellaneous Scans - Document, Scanned - 03/07/2013 9:18 PM CDT documented in this encounter Plan of Treatment Not on file documented as of this encounter Procedures Procedure Name Priority Date/Time Associated Diagnosis Comments MAMMO BILAT DIAGNOSTIC Routine 03/06/2013 11:24 AM CDT Abnormal mammogram Breast cancer screening documented in this encounter Results * (ABNORMAL) MAMMO DIAG DIRECT DIGITAL IMAGE BILA (03/06/2013 11:24 AM CDT) Anatomical Region Laterality [...] unspecified documented in this encounter Care Teams Pearl Glue Drier Relationship Specialty Start Date End Date Sunny West MD PCP - OBGYN 03/28/08 Kelechi Rico III, MD RETIRED PCP - General 01/12/12 05/10/20 documented as of this encounter
--- OUTSIDE RECORDS SUMMARY | 2024-06-02 01:46 | XMS_ITS | Encounter Summary ---
Author Organization [facility] Address [address] [place] [address] Care Team Providers Care Turbo Electric Operator Name Role Phone Sunny West MD Unavailable [phone] Jacky STEPHENS MD, Edwin Primary Care Provider Brooke vailable Reason for Visit * Reason Comments Physical Encounter Details Date Type Department Care Team (Late st Contact Info) Description 05/02/2013 2:30 PM NETWORKING TECHNICIAN Office Visit [facility] Medical [facility] - Internal Medicine [address] [place], [place] [id number] Kelechi Rico III, MD RETIRED Need for prophylactic vaccination and inoculation against influenza (Primary Dx); Routine general medical examination at a health care facility; Perimenopausal symptoms; Globus hystericus; Family history of premature coronary artery disease; Screen for colon cancer; Elevated blood sugar Social History Tobacco Use Types Packs/Day Years Used Date Smoking Tobacco: Every Day Cigarettes 1 20 Smokeless Tobacco: Never Tobacco Cessation:Counseling Given: No [...] Sign Reading Time Taken Comments Blood Pressure 128/92 05/02/2013 2:16 PM NETWORKING TECHNICIAN Pulse 72 05/02/2013 2:16 PM NETWORKING TECHNICIAN Temperature - - Respiratory Rate 12 05/02/2013 2:16 PM NETWORKING TECHNICIAN Oxygen Saturation - - Inhaled Oxygen Concentration - - Weight 63.5 kg (140 lb) 05/02/2013 2:16 PM NETWORKING TECHNICIAN Height 166.4 cm (5' 5.5 ) 05/02/2013 2:16 PM NETWORKING TECHNICIAN Body Mass Index 22.94 05/02/2013 2:16 PM NETWORKING TECHNICIAN documented in this encounter Progress Notes * Pushpa Ray - 05/14/2013 9:42 AM CST Dictated HPI 05/02/13 This 52-year-old, white female spent her last year at work having a great deal of difficulty with anxiety reactions, nausea, vomiting, hyperventilation, numbness, and finally quit her job in December. Most of the symptoms cleared but she is still stuck with a sensation that there is something in her throat, on and off. It never awakens her a night; does not interfere with swallowing. There will intermittently be some hoarseness but it is not a persistent thing. She does continues to smoke a pack ofcigarettes per day. No ongoing pulmonary symptoms. In the past she had been bothered by GERD. That has not been an issue. Review of systems is positive for a flutter sensation in her rhythm periodically but no other associated symptoms. No other positives on full review. ORKING TECHNICIAN * Kelechi Rico III, MD - 05/02/2013 2:47 PM CST .Subjective: (See transcribed HPI) Medical history form including Past Medical History, Family History, and Social History completed by the patient and reviewed by me. It will be scanned into the EHR. Objective: BP 128/92 Pulse 72 Resp 12 Wt 63.504 kg (140 lb) BMI 22.94 kg/m2 General appearance - alert, well appearing, and in no distress Mental Status - alert, oriented to person, place, and time Skin - normal texture and turgor, no rashes Eyes - pupils equal and reactive, EOM normal, sclera [...] edema, no clubbing or cyanosis Female Genitalia: SALES CLERK Rectal - SALES CLERK Neurological - alert, oriented, CN II-XII normal, DTR's 2+ biceps, triceps, knees, and ankles, vibration and temp sensation normal in feet Assessment: Encounter Diagnoses Name Primary? Need for prophylactic vaccination and inoculation against influenza Yes ??? Routine general medical examination at a health care facility ??? Perimenopausal symptoms ??? Globus hystericus ??? Family history of premature coronary artery disease ??? Screen for colon cancer ??? Elevated blood sugar Plan: Orders Placed This Encounter ??? FLU VACCINE NO PRSV 3 NETTE 3YRS PLUS IM ??? CBC W AUTO DIFFERENTIAL ??? COMPREHENSIVE METABOLIC PANEL ??? LIPID PROFILE W LDL/HDL (PO REF LAB) ??? TSH ??? HEMOGLOBIN A1C ??? MICROALB/CREAT RATIO URINE RANDOM PANEL ??? AMB REFERRAL TO GASTROENTEROLOGY Standing Status: Future Number of Occurrences: Standing Expiration Date: 05/02/2014 Referral Reason: Specialty Services Required Referred to Provider: Dionisio Rico Number of Visits Requested: 1 ??? buPROPion XL 24hr (WELLBUTRIN-XL) 150 MG tablet Sig: Take 1 Tab by mouth once daily. Dispense: 30 Tab Refill: 5 Doubt she'll take it ORKING TECHNICIAN documented in this encounter Plan of Treatment Not on file documented as of this encounter Procedures Procedure Name Priority Date/Time Associated Diagnosis Comments LIPID PROFILE W LDL/HDL RATIO Routine 05/02/2013 3:04 PM NETWORKING TECHNICIAN Routine general medical examination at a health care facility MICROALB/CREAT RATIO URINE RANDOM PANEL Routine 05/02/2013 3:04 PM NETWORKING TECHNICIAN Elevated blood sugar HEMOGLOBIN A1C Routine 05/02/2013 3:04 PM NETWORKING TECHNICIAN Elevated blood sugar CBC W AUTO DIFFERENTIAL Routine 05/02/2013 3:04 PM NETWORKING TECHNICIAN Routine general medical examination at a health care facility COMPREHENSIVE METABOLIC PANEL Routine 05/02/2013 3:04 PM NETWORKING TECHNICIAN Routine general medical examination at a health care facility TSH Routine 05/02/2013 3:04 PM NETWORKING TECHNICIAN Routine general medical examination at a [facility] care facility documented in this encounter Results * MICROALB/CREAT RATIO URINE RANDOM PANEL (05/02/2013 3:04 PM NETWORKING TECHNICIAN) Creatinine 24 Hour Urine 19.0 15.0 - 278.0 mg/dL [facility] ACCOUNT BILL Microalbumin Urine 2.6 0.0 - 17.0 ug/mL [facility] ACCOUNT BILL Microalbumin/Crea tinine Ratio 13.7 0.0 - 30.0 mg/g creat [facility] ACCOUNT BILL Urine specimen (specimen) URINE / Unknown 05/02/2013 3:04 PM NETWORKING TECHNICIAN 05/02/2013 5:25 PM NETWORKING TECHNICIAN Narrative Resulting Agency Comment [facility] [place] [id number] [facility] ??Formerly [facility] [phone] Kelechi Rico III, MD LAB - URINE CHEMIS TRY ORDERABLES [facility] ACCOUNT BILL * (ABNORMAL) HEMOGLOBIN A1C (05/02/2013 3:04 PM NETWORKING TECHNICIAN) Hemoglobin A1c 5.8(H) 4.8 - 5.6 % [facility] ACCOUNT BILL Comment: ? . ? Increased risk for diabetes: 5.7 - 6.4 ? Diabetes: >6.4 ? Glycemic control for adults with diabetes: <7.0 Whole blood specimen (specimen) BLOOD SPECIMEN / Unknown 05/02/2013 3:04 PM NETWORKING TECHNICIAN 05/02/2013 5:25 PM NETWORKING TECHNICIAN Narrative Resulting Agency Comment [facility] [id number] ??[facility]ly [facility] [phone] Kelechi Rico III, MD LAB - CHEMISTRY OR DERABLES Performing Organization Address City/[facility]/ZIP Co de Phone Number [facility] ACCOUNT BILL * TSH (05/02/2013 3:04 PM NETWORKING TECHNICIAN) TSH 0.574 0.450 - 4.500 uIU/mL [facility] ACCOUNT BILL Blood specimen (specimen) BLOOD SPECIMEN / Unknown 05/02/2013 3:04 PM NETWORKING TECHNICIAN 05/02/2013 5:25 PM NETWORKING TECHNICIAN Narrative Resulting Agency Comment [facility] [place] [id number] [facility] ??Formerly [facility] [phone] Kelechi Rico III, MD LAB - CHEMISTRY OR DERABLES Performing Organization Address City/[facility]/ZIP Co de Phone Number [facility] ACCOUNT BILL * (ABNORMAL) LIPID PROFILE W LDL/HDL (PO REF LAB) (05/02/2013 3:04 PM NETWORKING TECHNICIAN) Cholesterol 231(H) 100 - 199 mg/dL [facility] ACCOUNT BILL Triglycerides 99 0 - 149 mg/dL [facility] ACCOUNT BILL HDL Cholesterol 74 >39 mg/dL [facility] ACCOUNT BILL Comment: According to ATP-III Guidelines, HDL-C >59 mg/dL is considered a negative risk factor for CHD. VLDL Calculated 20 5 - 40 mg/dL [facility] ACCOUNT BILL LDL Calculated 137(H) 0 - 99 mg/dL [facility] ACCOUNT BILL Comment NOT NEEDED [facility] ACCOUNT BILL Comment:Ancillary determined the test is not needed LDL/HDL Ratio 1.9 0.0 - 3.2 ratio units [facility] ACCOUNT BILL Blood specimen (specimen) BLOOD SPECIMEN / Unknown 05/02/2013 3:04 PM NETWORKING TECHNICIAN 05/02/2013 5:25 PM NETWORKING TECHNICIAN Narrative Resulting Agency Comment [facility] [address] ??[facility]ly [facility] [phone] Kelechi Rico III, MD LAB - CHEMISTRY OR DERABLES [facility] ACCOUNT BILL * (ABNORMAL) COMPREHENSIVE METABOLIC PANEL (05/02/2013 3:04 PM NETWORKING TECHNICIAN) Glucose 95 65 - 99 mg/dL [facility] ACCOUNT BILL BUN 5(L) 6 - 24 mg/dL [facility] ACCOUNT BILL Creatinine 0.75 0.57 - 1.00 mg/dL [facility] ACCOUNT BILL eGFR by MDRD 93 >59 mL/min/1.7 3 [facility] ACCOUNT BILL eGFR by MDRD 107 >59 mL/min/1.7 3 [facility] ACCOUNT BILL BUN/Creatinine Ratio 7(L) 9 - 23 [facility] ACCOUNT BILL Sodium 142 134 - 144 mmol/L [facility] ACCOUNT BILL Potassium 3.7 3.5 - 5.2 mmol/L [facility] ACCOUNT BILL Chloride 102 97 - 108 mmol/L [facility] ACCOUNT BILL CO2 23 19 - 28 mmol/L [facility] ACCOUNT BILL Calcium 10.0 8.7 - 10.2 mg/dL [facility] ACCOUNT BILL Protein Total 7.6 6.0 - 8.5 g/dL [facility] ACCOUNT BILL Albumin 4.7 3.5 - 5.5 g/dL [facility] ACCOUNT BILL Globulin Total 2.9 1.5 - 4.5 g/dL [facility] ACCOUNT BILL Albumin/Globulin Ratio 1.6 1.1 - 2.5 [facility] ACCOUNT BILL Bilirubin Total 0.3 0.0 - 1.2 mg/dL [facility] ACCOUNT BILL Alkaline Phosphatase 52 39 - 117 IU/L [facility] ACCOUNT BILL AST 10 0 - 40 IU/L [facility] ACCOUNT BILL ALT 7 0 - 32 IU/L [facility] ACCOUNT BILL Blood specimen (specimen) BLOOD SPECIMEN / Unknown 05/02/2013 3:04 PM NETWORKING TECHNICIAN 05/02/2013 5:25 PM NETWORKING TECHNICIAN Narrative Resulting Agency Comment [facility] [address] ??[facility]ly [facility] [phone] Kelechi Rico III, MD LAB - CHEMISTRY OR DERABLES [facility] ACCOUNT BILL * (ABNORMAL) CBC W AUTO DIFFERENTIAL (05/02/2013 3:04 PM NETWORKING TECHNICIAN) WBC 11.1(H) 3.4 - 10.8 x10E3/uL [facility] ACCOUNT BILL RBC 4.15 3.77 - 5.28 x10E6/uL [facility] ACCOUNT BILL Hemoglobin 12.6 11.1 - 15.9 g/dL [facility] ACCOUNT BILL Hematocrit 37.9 34.0 - 46.6 % [facility] ACCOUNT BILL MCV 91 79 - 97 fL [facility] ACCOUNT BILL MCH 30.4 26.6 - 33.0 pg [facility] ACCOUNT BILL MCHC 33.2 31.5 - 35.7 g/dL [facility] ACCOUNT BILL RDW 12.6 12.3 - 15.4 % [facility] ACCOUNT BILL Platelet Count 336 155 - 379 x10E3/uL [facility] ACCOUNT BILL Granulocytes % 80(H) 40 - 74 % [facility] ACCOUNT [facility] Lymphocytes % 13(L) 14 - 46 % [facility] Monocytes % 7 4 - 12 % [facility]OUNT BILL Eosinophils % 0 0 - 5 % [facility] ACCOUNT BILL Basophils % 0 0 - 3 % [facility] ACCOUNT BILL Immature Cells NOT NEEDED [facility] ACCOUNT BILL Comment:Ancillary determined the test is not needed Granulocytes Absolute 8.9(H) 1.4 - 7.0 x10E3/uL [facility] ACCOUNT BILL Lymphocytes Absolute 1.5 0.7 - 3.1 x10E3/uL [facility] ACCOUNT BILL Monocytes Absolute 0.7 0.1 - 0.9 x10E3/uL [facility] ACCOUNT BILL Eosinophils Absolute 0.0 0.0 - 0.4 x10E3/uL [facility] ACCOUNT BILL Basophils Absolute 0.0 0.0 - 0.2 x10E3/uL [facility] ACCOUNT BILL Immature Granulocytes 0 0 - 2 % [facility] ACCOUNT BILL Immature Granulocytes Absolute 0.0 0.0 - 0.1 x10E3/uL [facility] ACCOUNT BILL nRBC NOT NEEDED [facility] ACCOUNT BILL Comment:Ancillary determined the test is not needed Comment Hematology NOT NEEDED [facility] ACCOUNT BILL Comment:Ancillary determined the test is not needed Blood specimen (specimen) BLOOD SPECIMEN / Unknown 05/02/2013 3:04 PM NETWORKING TECHNICIAN 05/02/2013 5:25 PM NETWORKING TECHNICIAN Narrative Resulting Agency Comment [facility] [place] [id number] [facility] ??[facility]ly [facility] [phone] Kelechi Rico III, MD LAB - HEMATOLOGY O RDERABLES [facility] ACCOUNT BILL documented in this encounter Visit Diagnoses Diagnosis Need for prophylactic vaccination and inoculation against influenza- Primary Routine general medical examination at a health care facility Perimenopausal symptoms Symptomatic menopausal or female climacteric states Globus hystericus Conversion disorder Family history of premature coronary artery disease Family history of ischemic heart disease Screen for colon cancer Special screening for malignant neoplasms, colon Elevated blood sugar Other abnormal glucose documented in this encounter Care Teams Turbo Electric Operator Relationship Specialty Start Date End Date Sunny West MD PCP - OBGYN 03/28/08 Kelechi Rico III, MD RETIRED PCP - General 01/12/12 05/10/20 documented as of this encounter
--- OUTSIDE RECORDS SUMMARY | 2024-06-02 01:46 | XMS_ITS | Encounter Summary ---
Author Organization [facility] Address [address] [place] [address] Care Team Providers Care Retail Experience Specialist Name Role Phone Sunny West MD Unavailable [phone] Jacky STEPHENS MD, Kelechi Primary Care Provider Brooke vailable Reason for Visit * Reason Onset Date Comments Vaginal Problem 05/09/2012 Encounter Details Date Type Department Care Team (Late st Contact Info) Description 05/09/2012 Telephone [facility] - WAFER PRODUCTION LEAD WORKER [address] [facility] [address] [place] [address] Sunny West MD [address] [place] [address] Vaginal Problem Social History Tobacco Use Types [...] on filedocumented in this encounter Care Teams Retail Experience Specialist Relationship Specialty Start Date End Date Sunny West MD PCP - OBGYN 03/28/08 Kelechi Rico III, MD RETIRED PCP - General 01/12/12 05/10/20 documented as of this encounter
--- OUTSIDE RECORDS SUMMARY | 2024-06-02 01:46 | XMS_ITS | Encounter Summary ---
Author Organization [facility] Address [address] [place] [address] Care Team Providers Care Agency Service Coordinator Name Role Phone Sunny West MD Unavailable [phone] Jacky STEPHENS MD, Kelechi Primary Care Provider Brooke vailable Reason for Visit * Reason Onset Date Comments Scheduling 08/16/2010 Encounter Details Date Type Department Care Team (Late st Contact Info) Description 08/16/2010 Telephone [facility] Breast Care [address] [facility] [address] [place], [place] [id number] Halle Rushing RN Scheduling Social History Tobacco Use Types Packs/Day [...] encounter Miscellaneous Notes * Telephone Encounter - Halle Rushing RN - 08/16/2010 9:51 AM SOLE EDGE INKER MACHINE Orders received from Dr West's office for right stereotactic guided breast biopsy. Previous films from [facility] reviewed by Dr. Palomino. Patient is scheduled for stereotactoc guided right breast biopsy with Dr. Ju Fagan on 08/17/2010t 10:30 am. EPIC pre-call information entered. EDGE INKER MACHINE * Telephone Encounter - Halle Rushing RN - 08/16/2010 8:51 AM SOLE EDGE INKER MACHINE Received call from patient 08/13/2010 that she has outside films of screening mammogram and diagnostic mammogram, with recommendation for stereotactic guided biopsy of right breast calcifications. She had called her physician Dr West, who recommended she notify us to schedule biopsy.Call placed Mario West's office and message left on [facility] on 08/13/2010. Have opening for 08/17 with Beatriz Fagan, pending Dr West's order. Patient requested to drop off films for radiologyto review and have arrived. EDGE INKER MACHINE documented in this encounter Plan of Treatment Not on file documented as of this encounter Visit Diagnoses Not on filedocumented in this encounter Care Teams Agency Service Coordinator Relationship Specialty Start Date End Date Sunny West MD PCP - OBGYN 03/28/08 Kelechi Rico III, MD RETIRED PCP - General 03/13/09 01/11/12 documented as of this encounter
--- OUTSIDE RECORDS SUMMARY | 2024-06-02 01:46 | XMS_ITS | Encounter Summary ---
Author Organization [facility] Address [address] [place] [address] Care Team Providers Care Canvas Cutter Name Role Phone Sunny West MD Unavailable [phone] Jacky STEPHENS MD, Kelechi Primary Care Provider Brooke vailable Encounter Details Date Type Department Care Team (Latest Contact Info) Description 08/17/2010 10:12 AM TIRE CARE MANAGER - 08/17/2010 11:59 PM TIRE CARE MANAGER Hospital Encounter [facility] [address] [facility] [address] [place], [place] [id number] Discharge Disposition: Home or Self Care Social [...] Sign Reading Time Taken Comments Blood Pressure 101/66 08/17/2010 10:14 AM TIRE CARE MANAGER Pulse 78 08/17/2010 10:14 AM TIRE CARE MANAGER Temperature 36.8 ??C (98.2 ??F) 08/17/2010 10:[address] Respiratory Rate 20 08/17/2010 10:14 AM TIRE CARE MANAGER Oxygen Saturation 98% 08/17/2010 10:14 AM TIRE CARE MANAGER Inhaled Oxygen Concentration - - Weight 59 kg (130 lb) 08/16/2010 9:53 AM TIRE CARE MANAGER Height 165.1 cm (5' 5 ) 08/16/2010 9:53 AM TIRE CARE MANAGER Body Mass Index 21.63 08/16/2010 9:53 AM TIRE CARE MANAGER documented in this encounter Medications at Time of Discharge Medication Sig Dispensed Refills Start Date End Date acyclovir (ZOVIRAX) 5 % cream Apply to affected area 5 times daily. 2 grams 11 09/23/2009 12/27/2011 amoxicillin (AMOXIL) 500 MG capsule Take 1 Cap by mouth every 8 hours. 30 Cap 0 08/10/2010 12/27/2011 azithromycin (ZITHROMAX) 250 MG tablet Take by mouth. Take 2 tablets now, then 1 tablet daily for 4 more days. 6 0 03/20/2009 12/27/2011 Cholecalciferol (VITAMIN D) 2000 UNIT TABS Take 1 Tab by mouth daily. 0 04/04/2010 12/27/2011 metronidazole vaginal (METROGEL - VAGINAL) 0.75 % vaginal gel Insert 1 Applicator into the vagina at bedtime. Continue for 7-10 days. 70 g 0 07/05/2010 12/27/2011 documented as of this encounter Progress Notes * Halle Rushing RN - 08/18/2010 4:23 PM CST Post stereotactic guided right breast biopsy call completed. Patient feeling well. Denies pain or bleeding. Received call from Dr Fagan with benign pathology results. Verbalized understanding radiology recommendation for image follow up in 6 months. Results called to [place] at Dr Simons's office. CARE MANAGER * Halle Rushing RN - 08/18/2010 8:47 AM CST Post right breast stereotactic guided biopsy call completed. Patient feeling well. Denies any pain or discomfort. Folded gauze dressing dry and intact, will remove later today and shower. No redness,bruising or swelling noted around outside of dressing. Verbalizes understanding of discharge instructions. Verbalizes understanding that results are still pending and Dr. Fagan will call as soonas results available. CARE MANAGER * Halle Rushing RN - 08/17/2010 12:13 PM CST Stereotactic guided right breast biopsy completed by Dr. Fagan. Patient tolerated procedure well. Denies pain. Firm pressure to upper right breast x 10 minutes. Small 3 mm incision dry. Skin prep applied, skin edges approximated and secured with steristrips. Covered with folded 4 x 4 and taped. Ice bag to site. Assisted to chair. Taking water well. Discharge instructions reviewed with patient and given written copy. Verbalizes understanding of discharge instructions. Post biopsy mammogram for clip placement completed. Patient discharged with father, denies pain, right breast dressing dryand intact. Ice bag tucked inside bra. CARE MANAGER documented in this encounter H&P Notes * Ju Fagan MD - 08/17/2010 10:50 AM CST BREAST INTERVENTION PROCEDURE H&P Chief Complaint / History of Present Illness: Indeterminate breast lesion requiring image guided percutaneous sampling. Procedure Planned: Stereotactic Vacuum Assisted Core Breast Biopsy Side of Procedure: right Past Medical History Illnesses: Past Medical History Diagnosis Date ??? Abnormal uterine bleeding Exam: General appearance: alert, cooperative, no distress Heart: Regular rate Lungs: Breath sounds normal; no wheezes Mental Status: Alert and Oriented. Breast: No visible abnormality. Sedation plan: 1% percutaneous lidocaine and percutaneous lidocaine with epinephrine Consent: Risks, benefits and alternatives were discussed with the patient and consent for procedurewas obtained. Allergies: Allergies Allergen Reactions ??? Codeine Medications: Current outpatient prescriptions:amoxicillin (AMOXIL) 500 MG capsule, Take 1 Cap by mouth every 8 hours., Disp: 30 Cap, Rfl: 0; Cholecalciferol (VITAMIN D) 2000 UNIT TABS, Take 1 Tab by mouth daily., Disp: , Rfl: 0; acyclovir (ZOVIRAX) 5 % cream, Apply to affected area 5 times daily. , Disp: 2 grams, Rfl: 11 metronidazole vaginal (METROGEL - VAGINAL) 0.75 % vaginal gel, Insert 1 Applicator into the vagina at bedtime. Continue for 7-10 days., Disp: 70 g, Rfl: 0; azithromycin (ZITHROMAX) 250 MG tablet, Take by mouth. Take 2 tablets now, then 1 tablet daily for 4 more days. , Disp: 6, Rfl: 0 Current facility-administered medications:lidocaine (XYLOCAINE) 1 % injection, , Infiltration, Once, Ju Fagan MD; lidocaine 2% - epinephrine 1:100,000 injection , , Infiltration, Once,Ju Fagan MD; sodium bicarbonate 8.4 % injection 50 mEq, 50 mEq, Intravenous, Once, Ju Fagan MD CARE MANAGER documented in this encounter Procedure Notes * Ju Fagan MD - 08/17/2010 11:25 AM CST Stereotactic needle biopsy Breast Post-biopsy Note 08/17/2010 11:25 AM Radiologist: Ju Fagan MD Light Technician: Hanane Adame RT Name of procedure: Sterotactic right breast biopsy Description of procedure: Percutaneous biopsy breast utilizing stereotactic guidance Estimated blood loss: none Specimens removed: Right breast Diagnosis: breast calcifications Risks and benefits of procedure, with possible alternative methods, were explained to patient. Needle biopsy of right breast performed utilizing stereotactic guidance after routine prep. Patient tolerated satisfactorily. Full note to follow. CARE MANAGER documented in this encounter Miscellaneous Notes * Miscellaneous Scans - Document, Scanned - 08/20/2010 9:45 PM TIRE CARE MANAGER * Miscellaneous Scans - Document, Scanned - 08/20/2010 9:33 PM TIRE CARE MANAGER * Miscellaneous Scans - Document, Scanned - 08/20/2010 9:33 PM TIRE CARE MANAGER documented in this encounter Plan of Treatment Not on file documented as of this encounter Procedures Procedure Name Priority Date/Time Associated Diagnosis Comments MAMMO RIGHT DIAGNOSTIC Routine 08/17/2010 1:37 PM TIRE CARE MANAGER Abnormal mammogram MAMMO STEREOTACTIC RIGHT NDL LOC Routine 08/17/2010 12:03 PM TIRE CARE MANAGER Abnormal mammogram MAMMO BREAST RIGHT SPECIMEN Routine 08/17/2010 11:34 AM TIRE CARE MANAGER Abnormal mammogram, unspecified Mammographic microcalcification GROSS + MICRO EXAM Routine 08/17/2010 11 :25 AM TIRE CARE MANAGER Abnormal mammogram, unspecified Mammographic microcalcification documented in this encounter Results * MAMMO DIAG DIRECT DIGITAL IMAGE UNIL RIGHT (08/17/2010 1:37 PM TIRE CARE MANAGER) Anatomical Region Laterality Modality Right Mammography 08/17/2010 12:1 4 PM TIRE CARE MANAGER Impressions 08/17/2010 12:14 PM TIRE CARE MANAGER Successful stereotactic localization and biopsy right breast microcalcifications Narrative 08/17/2010 12:14 PM TIRE CARE MANAGER Right breast stereotactic localization and biopsy [...] position. Procedure Note Ju Fagan MD - 08/18/2010 Right breast stereotactic localization and biopsy Right [...] microcalcifications Sunny West MD MAMMO ORDERABLES * MAMMO RIGHT STEREOTACTIC LOC MP (08/17/2010 12:03 PM TIRE CARE MANAGER) Anatomical Region Laterality Modality Breast Right Mammography 08/17/2010 12:1 4 PM TIRE CARE MANAGER Addenda This result is currently undergoing an addendum. Addendum by Ju Fagan MD on 08/18/2010 3:05 PM TIRE CARE MANAGER Pathology results are consistent with fibrocystic disease. Findings are concordant. Short-term followup right breast diagnostic mammogram in 6 months is recommended. The patient was informed of these findings and recommendations. Impressions 08/17/2010 12:14 PM TIRE CARE MANAGER Successful stereotactic localization and biopsy right breast microcalcifications Narrative 08/17/2010 12:14 PM TIRE CARE MANAGER Right breast stereotactic localization and biopsy [...] MAMMO ORDERABLES * VICKY BREAST RIGHT SPECIMEN [id number] (08/17/2010 11:34 AM TIRE CARE MANAGER) Anatomical Region Laterality Modality Right Mammography 08/17/2010 12:1 4 PM TIRE CARE MANAGER Impressions 08/17/2010 12:14 PM TIRE CARE MANAGER Successful stereotactic localization and biopsy right breast microcalcifications Narrative 08/17/2010 12:14 PM TIRE CARE MANAGER Right breast stereotactic localization and biopsy [...] GROSS + MICRO EXAM (08/17/2010 11:25 AM TIRE CARE MANAGER) [facility] Date 08/17/10 [facility] Physician(s) Lilia West [facility] Gross Description [facility] Comment: The specimen is received in two Formalin [...] of tissue, submitted entirely in cassette B. :gongora Microscopic Examination [facility] Comment: The right breast biopsy shows benign breast parenchyma with two small foci of dilated ducts. ??No microcalcifications, carcinoma in situ or invasive malignancy is seen. ?? The right breast with calcium shows fibrocystic disease with microcalcifications. ??No atypical ductal hyperplasia, carcinoma in situ or invasive malignancy is seen. ??Deeper cutsx2 show the same. MM/vl Diagnosis [facility] Comment: I. ?Breast, right, stereotactic needle biopsy: -- ?Benign breast parenchyma -- ?No evidence of malignancy II. ?? Breast, right, with calcium, stereotactic needle biopsy: -- ?Fibrocystic disease -- ?Microcalcifications -- ?No evidence of malignancy MM/vl [facility] LABORATORY Pathologist Joann Lock MD [facility] SNOMED [facility] CPT Code 58642u5 [facility] BIOPSY OF BREAST / Unknown 08/17/2010 11:25 AM TIRE CARE MANAGER 08/17/2010 12:23 PM TIRE CARE MANAGER Lidya Fagan MD LAB - PATHOLOGY/CY TOLOGY ORDERABLES Performing Organization Address City/State/[facility] Co de Phone Number [facility] [address] [place] [address] documented in this encounter Visit Diagnoses Diagnosis Abnormal mammogram Abnormal mammogram, unspecified Abnormal mammogram, unspecified Mammographic microcalcification documented in this encounter Administered Medications Inactive Administered Medications - up to 3 most recent administrations Medication Order MAR Action Action Date Dose Rate Site lidocaine (XYLOCAINE) 1 % injection Infiltration, ONCE, 1 dose, On Mon08/17/10 at 1030 $ Given 08/17/2010 11:00 AM TIRE CARE MANAGER 6 mL Right Mammary lidocaine 2% - epinephrine 1:100,000 injection Infiltration, ONCE, 1 dose, On Mon08/17/10 at 1030 $ Given 08/17/2010 11:00 AM TIRE CARE MANAGER 12 mL Right Mammary sodium bicarbonate 8.4 % injection 50 mEq 50 mEq, Intravenous, ONCE, 1 dose, On Mon08/17/10 at 1030 $ Given 08/17/2010 10:30 AM TIRE CARE MANAGER 2 mEq Right Mammary documented in this encounter Care Teams Canvas Cutter Relationship Specialty Start Date End Date Sunny West MD PCP - OBGYN 03/28/08 Kelechi Rico III, MD RETIRED PCP - General 03/13/09 01/11/12 documented as of this encounter
--- OUTSIDE RECORDS SUMMARY | 2024-06-02 01:46 | XMS_ITS | Encounter Summary ---
Author Organization [facility] Address [address] [place] [address] Care Team Providers Care Security Vehicle Patrol Officer Name Role Phone Sunny West MD Unavailable [phone] Jacky STEPHENS MD, Kelechi Primary Care Provider Brooke vailable Reason for Referral * - Closed Specialty Diagnoses / Procedures Referred By Lindy avila Referred To Contact Diagnoses Abnormal mammogram Procedures MAMMO DIAG DIRECT DIGITAL IMAGE UNIL RIGHT Sunny West MD [address] [place] [address] Referral ID Status Reason Start Date Expiration Date Visits Re quested Visits Authorized [id number] Closed 01/09/2012 07/07/2012 1 1 Reason for Visit * - Closed Specialty Diagnoses / Procedures Referred By Lindy avila Referred To Contact Diagnoses Abnormal mammogram Procedures MAMMO DIAG DIRECT DIGITAL IMAGE UNIL RIGHT Sunny West MD [address] [place] [address] Referral ID Status Reason Start Date Expiration Date Visits Re quested Visits Authorized [id number] Closed 01/09/2012 07/07/2012 1 1 Encounter Details Date Type Department Care Team (Latest Contact Info) Description 01/13/2012 2:27 PM CDT - 01/13/2012 11:59 PM CDT Hospital Encounter [facility] Breast Care [address] [place] [address] Discharge Disposition: Home or Self Care Social [...] * Miscellaneous Scans - Document, Scanned - 01/31/2012 8:18 AM CDT documented in this encounter Plan of Treatment Not on file documented as of this encounter Procedures Procedure Name Priority Date/Time Associated Diagnosis Comments US BREAST RIGHT COMPLETE Routine 01/13/2012 3:35 PM CDT Abnormal mammogram, unspecified MAMMO RIGHT DIAGNOSTIC Routine 01/13/2012 3:04 PM CDT Abnormal mammogram documented in this encounter Results * US BREAST UNILATERAL RIGHT (01/13/2012 3:35 PM CDT) Anatomical Region Laterality Modality Breast Right Ultrasound 01/13/2012 3:39 PM CDT Narrative 01/13/2012 3:39 PM CDT EXAMINATION: Right digital diagnostic mammogram on 01/13/2012. INDICATION: Abnormal screening FINDINGS: Computer assisted detection was utilized. ??The tissue density is dense. The patient returned for additional evaluation of a possible nodule seen anteriorly and laterally in the right breast on the mammogram. Images today suggest 6 to 7 mm nodule at this site but it is difficult to be sure. This is sen only on the CC view. Sonographic examination of the right breast is then performed. Multiple nodules are scattered throughout the breast and most of these are complicated cysts. At, for example, at the 12 o'clock position 4 cm from the nipple, there is an 8 x 2 mm complicated cyst. Just ??deep to the nipple a 5 mm hypoechoic smoothly marginated nodule is present, ??also most likely a complicated cyst. Larger complicated cysts are seen elsewhere. At the one o'clock position 5 cm from the nipple, a septated complicated cyst measuring up to 13 mm is present. A 4 mm complicated cyst is present at the three o'clock position 1 cm from the nipple. A 10 mm complicated cyst is present at the 10 o'clock position 5 cm. from the nipple. At o'clock position 1 cm from the nipple a 4 mm complicated cyst is present. At the 11 o'clock position 2 cm from the nipple, a small simple cyst is seen. Multiple dilated ducts are seen just deep to the some of which contains an echogenic material, but I do not see a mass within them. ASSESSMENT: BIRADS Category 3: ??Probably benign finding. ??Short interval follow up suggested.. RECOMMENDATION: Six month followup right breast diagnostic mammogram and ultrasound. Procedure Note Donnie Palomino MD - 01/13/2012 EXAMINATION: Right digital diagnostic mammogram on 01/13/2012. INDICATION: Abnormal screening FINDINGS: Computer assisted detection was utilized. The tissue density is dense. The patient returned for additional evaluation of a possible nodule seen anteriorly and laterally in the right breast on the mammogram. Images today suggest 6 to 7 mm nodule at this site but it is difficult to be sure. This is sen only on the CC view. Sonographic examination of the right breast is then performed. Multiple nodules are scattered throughout the breast and most of these are complicated cysts. At, for example, at the 12 o'clock position 4 cm from the nipple, there is an 8 x 2 mm complicated cyst. Just deep to the nipple a 5 mm hypoechoic smoothly marginated nodule is present, also most likely a complicated cyst. Larger complicated cysts are seen elsewhere. At the one o'clock position 5 cm from the nipple, a septated complicated cyst measuring up to 13 mm is present. A 4 mm complicated cyst is present at the three o'clock position 1 cm from the nipple. A 10 mm complicated cyst is present at the 10 o'clock position 5 cm. from the nipple. At o'clock position 1 cm from the nipple a 4 mm complicated cyst is present. At the 11 o'clock position 2 cm from the nipple, a small simple cyst is seen. Multiple dilated ducts are seen just deep to the some of which contains an echogenic material, but I do not see a mass within them. ASSESSMENT: BIRADS Category 3: Probably benign finding. Short interval follow up suggested.. RECOMMENDATION: Six month followup right breast diagnostic mammogram and ultrasound. Sunny West MD US ORDERABLES * MAMMO DIAG DIRECT DIGITAL IMAGE UNIL RIGHT (01/13/2012 3:04 PM CDT) Anatomical Region Laterality Modality Right Mammography 01/13/2012 3:39 PM CDT Narrative 01/13/2012 3:39 PM CDT EXAMINATION: Right digital diagnostic mammogram on 01/13/2012. INDICATION: Abnormal screening FINDINGS: Computer assisted detection was utilized. ??The tissue density is dense. The patient returned for additional evaluation of a possible nodule seen anteriorly and laterally in the right breast on the mammogram. Images today suggest 6 to 7 mm nodule at this site but it is difficult to be sure. This is sen only on the CC view. Sonographic examination of the right breast is then performed. Multiple nodules are scattered throughout the breast and most of these are complicated cysts. At, for example, at the 12 o'clock position 4 cm from the nipple, there is an 8 x 2 mm complicated cyst. Just ??deep to the nipple a 5 mm hypoechoic smoothly marginated nodule is present, ??also most likely a complicated cyst. Larger complicated cysts are seen elsewhere. At the one o'clock position 5 cm from the nipple, a septated complicated cyst measuring up to 13 mm is present. A 4 mm complicated cyst is present at the three o'clock position 1 cm from the nipple. A 10 mm complicated cyst is present at the 10 o'clock position 5 cm. from the nipple. At o'clock position 1 cm from the nipple a 4 mm complicated cyst is present. At the 11 o'clock position 2 cm from the nipple, a small simple cyst is seen. Multiple dilated ducts are seen just deep to the some of which contains an echogenic material, but I do not see a mass within them. ASSESSMENT: BIRADS Category 3: ??Probably benign finding. ??Short interval follow up suggested.. RECOMMENDATION: Six month followup right breast diagnostic mammogram and ultrasound. Procedure Note Donnie Palomino MD - 01/13/2012 EXAMINATION: Right digital diagnostic mammogram on 01/13/2012. INDICATION: Abnormal screening FINDINGS: Computer assisted detection was utilized. The tissue density is dense. The patient returned for additional evaluation of a possible nodule seen anteriorly and laterally in the right breast on the mammogram. Images today suggest 6 to 7 mm nodule at this site but it is difficult to be sure. This is sen only on the CC view. Sonographic examination of the right breast is then performed. Multiple nodules are scattered throughout the breast and most of these are complicated cysts. At, for example, at the 12 o'clock position 4 cm from the nipple, there is an 8 x 2 mm complicated cyst. Just deep to the nipple a 5 mm hypoechoic smoothly marginated nodule is present, also most likely a complicated cyst. Larger complicated cysts are seen elsewhere. At the one o'clock position 5 cm from the nipple, a septated complicated cyst measuring up to 13 mm is present. A 4 mm complicated cyst is present at the three o'clock position 1 cm from the nipple. A 10 mm complicated cyst is present at the 10 o'clock position 5 cm. from the nipple. At o'clock position 1 cm from the nipple a 4 mm complicated cyst is present. At the 11 o'clock position 2 cm from the nipple, a small simple cyst is seen. Multiple dilated ducts are seen just deep to the some of which contains an echogenic material, but I do not see a mass within them. ASSESSMENT: BIRADS Category 3: Probably benign finding. Short interval follow up suggested.. RECOMMENDATION: Six month followup right breast diagnostic mammogram and ultrasound. Sunny West MD MAMMO ORDERABLES documented in this encounter Visit Diagnoses Diagnosis Abnormal mammogram Abnormal mammogram, unspecified Abnormal mammogram, unspecified documented in this encounter Care Teams Security Vehicle Patrol Officer Relationship Specialty Start Date End Date Sunny West MD PCP - OBGYN 03/28/08 Kelechi Rico III, MD RETIRED PCP - General 01/12/12 05/10/20 documented as of this encounter
--- OUTSIDE RECORDS SUMMARY | 2024-06-02 01:46 | XMS_ITS | Encounter Summary ---
Author Organization [facility] Address [address] [place] [address] Care Team Providers Care Diamond Merchant Name Role Phone Sunny West MD Unavailable [phone] Jacky STEPHENS MD, Kelechi Primary Care Provider Brooke vailable Reason for Visit * Reason Comments Vaginal Problem vaginal bump Encounter Details Date Type Department Care Team (Late st Contact Info) Description 07/14/2009 1:45 PM AUTOMATIC MOUNTER Office Visit [facility] - ELECTRONIC TRAIN CONTROL TECHNICIAN [address] [facility] [address] [place] [address] Sunny West MD 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) Social History Tobacco Use Types [...] Sign Reading Time Taken Comments Blood Pressure 110/70 07/14/2009 1:32 PM AUTOMATIC MOUNTER Pulse - - Temperature - - Respiratory Rate - - Oxygen Saturation - - Inhaled Oxygen Concentration - - Weight 62.1 kg (137 lb) 07/14/2009 1:32 PM AUTOMATIC MOUNTER Height - - Body Mass Index 22.11 04/21/2009 10:59 AM AUTOMATIC MOUNTER documented in this encounter Progress Notes * Sunny West MD - 07/14/2009 2:45 PM CST Painful bump on L labia Worries it could be HSV Exam: small SQ cyst/abscess L labia majora Reassure MATIC MOUNTER documented in this encounter Plan of Treatment Not on file documented as of this encounter Visit Diagnoses Diagnosis Other specified noninflammatory disorder of vulva and perineum- Primary documented in this encounter Care Teams Diamond Merchant Relationship Specialty Start Date End Date Sunny West MD PCP - OBGYN 03/28/08 Kelechi Rico III, MD RETIRED PCP - General 03/13/09 01/11/12 documented as of this encounter
--- OUTSIDE RECORDS SUMMARY | 2024-06-02 01:46 | XMS_ITS | Encounter Summary ---
Author Organization [facility] Address [address] [place] [address] Care Team Providers Care Tray Checker Name Role Phone Sunny West MD Unavailable [phone] Jacky STEPHENS MD, Kelechi Primary Care Provider Brooke vailable Encounter Details Date Type Department Care Team (Late st Contact Info) Description 04/04/2010 Orders Only [facility] Medical [facility] - Internal Medicine [address] [place] [place] [address] Kelechi Rico III, MD RETIRED Elevated blood sugar Social History Tobacco Use [...] as of this encounter Plan of Treatment Scheduled Orders Name Type Priority Associated Diagnoses Orde r Schedule HEMOGLOBIN A1C Lab Routine Elevated blood sugar Ordered: 04/04/2010 MICROALBUMIN URINE RANDOM Lab Routine Elevated blood sugar Ordered: 04/04/2010 documented as of this encounter Visit Diagnoses Diagnosis Elevated blood sugar- Primary Other abnormal glucose documented in this encounter Care Teams Tray Checker Relationship Specialty Start Date End Date Sunny West MD PCP - OBGYN 03/28/08 Kelechi Rico III, MD RETIRED PCP - General 03/13/09 01/11/12 documented as of this encounter
--- OUTSIDE RECORDS SUMMARY | 2024-06-02 01:46 | XMS_ITS | Encounter Summary ---
Author Organization [facility] Address [address] [place] [address] Care Team Providers Care Offset Label Rewinder Name Role Phone Sunny West MD Unavailable [phone] Jacky STEPHENS MD, Kelechi Primary Care Provider Brooke vailable Encounter Details Date Type Department Care Team (Late st Contact Info) Description 08/11/[address] [facility] Medical [facility] - SHELL PLATER [address] [place] [address] Sunny West MD [address] [place] [address] Screening mammogram Social History Tobacco Use Types Packs/Day [...] Associated Diagnosis Comments MAMMO BILAT SCREENING Routine 08/02/2010 Screening mammogram documented in this encounter Results * MAMMO SCREENING DIGITAL IMAGE BILAT (08/02/2010) Anatomical Region Laterality Modality Breast Bilateral Other Sunny West MD MAMMO ORDERABLES documented in this encounter Visit Diagnoses Diagnosis Screening mammogram Other screening mammogram documented in this encounter Care Teams Offset Label Rewinder Relationship Specialty Start Date End Date Sunny West MD PCP - OBGYN 03/28/08 Kelechi Rico III, MD RETIRED PCP - General 03/13/09 01/11/12 documented as of this encounter
--- OUTSIDE RECORDS SUMMARY | 2024-06-02 01:46 | XMS_ITS | Encounter Summary ---
Author Organization [facility] Address [address] [place] [address] Care Team Providers Care System Trainer Name Role Phone Sunny West MD Unavailable [phone] Jacky STEPHENS MD, Edwin Primary Care Provider Brooke vailable Reason for Visit * Reason Comments Physical Encounter Details Date Type Department Care Team (Late st Contact Info) Description 04/02/2010 1:40 PM CDT Office Visit [facility] Medical [facility] - Internal Medicine [address] [place], [place] [id number] Kelechi Rico III, MD RETIRED Routine general medical examination at a health care facility (Primary Dx); Unspecified iron deficiency anemia; Mixed hyperlipidemia; Elevated blood pressure (not hypertension); Encounter for long-term (current) use of other medications; Contact with or exposure to venereal diseases; Vitamin D deficiency; GERD (gastroesophageal reflux disease); Perimenopausal Social History Tobacco Use Types Packs/Day Years [...] Sign Reading Time Taken Comments Blood Pressure 120/74 04/02/2010 1:39 PM CDT Pulse 72 04/02/2010 1:39 PM CDT Temperature - - Respiratory Rate 12 04/02/2010 1:39 PM CDT Oxygen Saturation - - Inhaled Oxygen Concentration - - Weight 61.7 kg (136 lb) 04/02/2010 1:39 PM CDT Height - - Body Mass Index 21.95 04/21/2009 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 In general she has been enjoying good health. She has an occasional anxiety attack sensation but is able to control it. She is having hot flashes. At the end of last year she had to have endometrial ablation for excessive bleeding. She is having small periods just starting again at this time. She continues to smoke a pack of cigarettes per day but can go hours without having one at all. There are no pulmonary symptoms and the indigestion is controllable with Mylanta or Pepcid Complete. There is occasional discomfort in the right knee but nothing that hampers normal activity. No other positives on full review. * Kelechi Rico III, MD - 04/02/2010 1:46 PM CDT Patient seen for knot found on thyroid, saw thyroid doctor and is being followed. Requesting STD testing. Told she has 2 bulging discs in lower back and gets pain shooting from LS area down right leg to knee. .Subjective: (See transcribed HPI) Objective: BP 120/74 Pulse 72 Resp 12 Wt 136 lb (61.689 kg) General appearance - alert, well appearing, and in no distress Mental Status - alert, oriented to person, place, and time Skin - normal texture and turgor, no rashes Eyes - pupils equal and reactive, EOM normal, sclera anicteric, funduscopic exam shows sharp disc margins Ears - hearing adaquate to conversation, bilateral TM's and external ear canals normal Nose - unremarkable Throat - mucous membranes moist, tongue midline, pharynx-no lesions or erythema Neck - tachea in midline, no JVD, carotid pulsations 2+ [...] murmurs Abdomen - normal bowel sounds, no hyperreasonance or tenderness to percussion, no organomegaly or masses Back exam - straight, no CVA or flank tenderness Musculoskeletal - no joint tenderness, deformity or swelling Extremities - peripheral pulses normal, no pedal edema, no clubbing or cyanosis Female Genitalia: GYB 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 Routine general medical examination at a health care facility Yes ??? Unspecified iron deficiency anemia ??? Mixed hyperlipidemia ??? Elevated blood pressure (not hypertension) ??? Encounter for long-term (current) use of other medications ??? Contact with or exposure to venereal diseases ??? Vitamin D deficiency ??? GERD (gastroesophageal reflux disease) ??? Perimenopausal Plan: Orders Placed This Encounter ??? Alt ??? Cbc w auto differential ??? Lipid profile w ldl/hdl (po ref lab) ??? Basic metabolic panel (calcium total) ??? Vitamin d 25-hydroxy ??? Hiv-1 hiv-2 antibody documented in this encounter Plan of Treatment Not on file documented as of this encounter Procedures Procedure Name Priority Date/Time Associated Diagnosis Comments LIPID PROFILE W LDL/HDL RATIO Routine 04/02/2010 2:04 PM CDT Mixed hyperlipidemia HIV-1 HIV-2 ANTIBODY Routine 04/02/2010 2:04 PM CDT Contact with or exposure to venereal diseases VITAMIN D 25-HYDROXY Routine 04/02/2010 2:04 PM CDT Vitamin D deficiency CBC W AUTO DIFFERENTIAL Routine 04/02/2010 2:04 PM CDT Unspecified iron deficiency anemia BASIC METABOLIC PANEL (CALCIUM TOTAL) Routine 04/02/2010 2:04 PM CDT Elevated blood pressure (not hypertension) ALT Routine 04/02/2010 2:04 PM CDT Encounter for long-term (current) use of other medications documented in this encounter Results * HIV-1 HIV-2 ANTIBODY (04/02/2010 2:04 PM CDT) HIV-1 Antibody O.D. Ratio <1.00 <1.00 [facility] INSURANCE BILL Comment:Index Value: Specime n reactivity relative to the negative cutoff. HIV-1/HIV-2 Non Reactive Non Reactive [facility] INSURANCE BILL BLOOD SPECIMEN / Unknown 04/02/2010 2:04 PM CDT 04/02/2010 6:18 PM CDT Narrative Resulting Agency Comment [facility] [address] ??[facility] [phone] Kelechi Rico III, MD LAB - CHEMISTRY OR DERABLES Performing Organization Address [facility] Co de Phone Number [facility] INSURANCE BILL * (ABNORMAL) VITAMIN D 25-HYDROXY (04/02/2010 2:04 PM CDT) Vitamin D, 25 Hydroxy 25.8(L) 32.0 - 100.0 ng/mL [facility] INSURANCE BILL Comment: Recent studies consider the lower limit of 32.0 ng/mL to be a threshold for optimal health. Jayson BW. J Nutr. 2005 Jul;135(2):317-22. BLOOD SPECIMEN / Unknown 04/02/2010 2:04 PM CDT 04/02/2010 6:18 PM CDT Narrative Resulting Agency Comment [facility] [address] ??[facility] [phone] Kelechi Rico III, MD LAB - CHEMISTRY OR DERABLES Performing Organization Address [facility]/ZIP Co de Phone Number [facility] INSURANCE BILL * (ABNORMAL) BASIC METABOLIC PANEL (CALCIUM TOTAL) (04/02/2010 2:04 PM CDT) Glucose 157(H) 65 - 99 mg/dL [facility] INSURANCE BILL BUN 8 5 - 26 mg/dL [facility] INSURANCE BILL Creatinine 0.84 0.57 - 1.00 mg/dL [facility] INSURANCE BILL eGFR by MDRD >59 >59 mL/min/1.7 3 [facility] INSURANCE BILL eGFR by MDRD >59 >59 mL/min/1.7 3 [facility] INSURANCE BILL Comment: Note: ??Persistent reduction for 3 months or more in an eGFR <60 mL/min/1.73 m2 defines CKD. ??Patients with eGFR values >/=60 mL/min/1.73 m2 may also have CKD if evidence of persistent proteinuria is present. Additional information may be found at [email or web address]. BUN/Creatinine Ratio 10 8 - 27 [facility] INSURANCE BILL Sodium 140 135 - 145 mmol/L [facility] INSURANCE BILL Potassium 4.1 3.5 - 5.2 mmol/L [facility] INSURANCE BILL Chloride 102 97 - 108 mmol/L [facility] INSURANCE BILL CO2 21 20 - 32 mmol/L [facility] INSURANCE BILL Calcium 9.6 8.7 - 10.2 mg/dL [facility] INSURANCE BILL BLOOD SPECIMEN / Unknown 04/02/2010 2:04 PM CDT 04/02/2010 6:18 PM CDT Narrative Resulting Agency Comment [facility] ??[facility] [phone] Kelechi Rico III, MD LAB - CHEMISTRY OR DERABLES [facility] INSURANCE BILL * (ABNORMAL) LIPID PROFILE W LDL/HDL (PO REF LAB) (04/02/2010 2:04 PM CDT) Cholesterol 190 100 - 199 mg/dL [facility] INSURANCE BILL Triglycerides 69 0 - 149 mg/dL [facility] INSURANCE BILL HDL Cholesterol 62 >39 mg/dL [facility] INSURANCE BILL Comment: According to ATP-III Guidelines, HDL-C >59 mg/dL is considered a negative risk factor for CHD. VLDL Calculated 14 5 - 40 mg/dL [facility] INSURANCE BILL LDL Calculated 114(H) 0 - 99 mg/dL [facility] INSURANCE BILL LDL/HDL Ratio 1.8 0.0 - 3.2 ratio units [facility] INSURANCE BILL BLOOD SPECIMEN / Unknown 04/02/2010 2:04 PM CDT 04/02/2010 6:18 PM CDT Narrative Resulting Agency Comment [facility] [address] ??[facility] [phone] Kelechi Rico III, MD LAB - CHEMISTRY OR DERABLES [facility] INSURANCE BILL * (ABNORMAL) CBC W AUTO DIFFERENTIAL (04/02/2010 2:04 PM CDT) WBC 10.9(H) 4.0 - 10.5 x10E3/uL [facility] INSURANCE BILL RBC 3.95 3.80 - 5.10 x10E6/uL [facility] INSURANCE BILL Hemoglobin 11.9 11.5 - 15.0 g/dL [facility] INSURANCE BILL Hematocrit 38.1 34.0 - 44.0 % [facility] INSURANCE BILL MCV 97 80 - 98 fL [facility] INSURANCE BILL MCH 30.1 27.0 - 34.0 pg [facility] INSURANCE BILL MCHC 31.2(L) 32.0 - 36.0 g/dL [facility] INSURANCE BILL RDW 12.9 11.7 - 15.0 % [facility] INSURANCE BILL Platelet Count 334 140 - 415 x10E3/uL [facility] INSURANCE BILL Granulocytes % 77(H) 40 - 74 % [facility] INSURANCE BILL Lymphocytes % 17 14 - 46 % [facility] INSURANCE BILL Monocytes % 6 4 - 13 % [facility] INSURANCE BILL Eosinophils % 0 0 - 7 % [facility] INSURANCE BILL Basophils % 0 0 - 3 % [facility] INSURANCE BILL Immature Cells CANCELED [facility] INSURANCE BILL Comment:Result canceled by [facility] Granulocytes Absolute 8.3(H) 1.8 - 7.8 x10E3/uL [facility] INSURANCE BILL Lymphocytes Absolute 1.8 0.7 - 4.5 x10E3/uL [facility] INSURANCE BILL Monocytes Absolute 0.7 0.1 - 1.0 x10E3/uL [facility] INSURANCE BILL Eosinophils Absolute 0.0 0.0 - 0.4 x10E3/uL [facility] INSURANCE BILL Basophils Absolute 0.0 0.0 - 0.2 x10E3/uL [facility] INSURANCE BILL Immature Granulocytes 0 0 - 1 % [facility] INSURANCE BILL Immature Granulocytes Absolute 0.0 0.0 - 0.1 x10E3/uL [facility] INSURANCE BILL nRBC CANCELED [facility] INSURANCE BILL Comment:Result canceled by t he ancillary Comment Hematology CANCELED [facility] INSURANCE BILL Comment:Result canceled by t he ancillary BLOOD SPECIMEN / Unknown 04/02/2010 2:04 PM CDT 04/02/2010 6:18 PM CDT Narrative Resulting Agency Comment [facility] [address] ??[facility] [phone] Kelechi Rico III, MD LAB - HEMATOLOGY O RDERABLES Performing Organization Address City/[facility]/ZIP Co de Phone Number [facility] INSURANCE BILL * ALT (04/02/2010 2:04 PM CDT) ALT 7 0 - 40 IU/L [facility] INSURANCE BILL BLOOD SPECIMEN / Unknown 04/02/2010 2:04 PM CDT 04/02/2010 6:18 PM CDT Narrative Resulting Agency Comment [facility] [address] ??[facility] [phone] Kelechi Rico III, MD LAB - CHEMISTRY OR DERABLES Performing Organization Address City/[facility]/ZIP Co de Phone Number [facility] INSURANCE BILL documented in this encounter Visit Diagnoses Diagnosis Routine general medical examination at a health care facility- Primary Iron deficiency anemia, unspecified Mixed hyperlipidemia Elevated blood pressure (not hypertension) Elevated blood pressure reading without diagnosis of hypertension Encounter for long-term (current) use of other medications Contact with or exposure to venereal diseases Vitamin d deficiency Unspecified vitamin D deficiency GERD (gastroesophageal reflux disease) Esophageal reflux Perimenopausal Symptomatic menopausal or female climacteric states documented in this encounter Care Teams System Trainer Relationship Specialty Start Date End Date Sunny West MD PCP - OBGYN 03/28/08 Kelechi Rico III, MD RETIRED PCP - General 03/13/09 01/11/12 documented as of this encounter
--- OUTSIDE RECORDS SUMMARY | 2024-06-02 01:46 | XMS_ITS | Encounter Summary ---
Author Organization [facility] Address [address] [place] [address] Care Team Providers Care Permit Review Assistant Name Role Phone Sunny West MD Unavailable [phone] Jacky STEPHENS MD, Kelechi Primary Care Provider Brooke vailable Reason for Visit * (Routine) - Closed Specialty Diagnoses / Procedures Referred By Lindy avila Referred To Contact Ultrasound Procedures US Rt Breast Sunny West MD [address] [place] [address] [facility] [address] [place] [address] Referral ID Status Reason Start Date Expiration Date Visits Re quested Visits Authorized [id number] Closed 08/23/2012 02/19/2013 1 1 Encounter Details Date Type Department Care Team (Latest Contact Info) Description 08/23/2012 11:30 AM CDT - 08/23/2012 11:59 PM CDT Hospital Encounter [facility] Imaging Services - Ultrasound [address] [place] [address] Sunny West MD [address] [place] [address] Discharge Disposition: Home or Self [...] Sig Dispensed Refills Start Date End Date terconazole (TERAZOL 7) 0.4 % vaginal cream Insert 1 Applicator into the vagina at bedtime. 1 applicator per vagina at bedtime for 7 days 45 g 1 07/17/2012 03/05/2013 documented as of this encounter Plan of Treatment Not on file documented as of this encounter Procedures Procedure Name Priority Date/Time Associated Diagnosis Comments US BREAST RIGHT COMPLETE Routine 08/23/2012 12:05 PM CDT Abnormal mammogram, unspecified documented in this encounter Results * US BREAST UNILATERAL RIGHT (08/23/2012 12:05 PM CDT) Anatomical Region Laterality Modality Breast Right Ultrasound 08/24/2012 12:1 6 PM CDT Narrative 08/24/2012 [...] when the patient returns for yearly mammogram. [facility] [place] utilizes [employer] as a reminder system to notify patients [...] when the patient returns for yearly mammogram. [facility] [place] utilizes [employer] as a reminder system to notify patients of their next recommended mammogram. Sunny West MD ORDERABLES documented in this encounter Visit Diagnoses Diagnosis Abnormal mammogram, unspecified documented in this encounter Care Teams Permit Review Assistant Relationship Specialty Start Date End Date Sunny West MD PCP - OBGYN 03/28/08 Kelechi Rico III, MD RETIRED PCP - General 01/12/12 05/10/20 documented as of this encounter
--- OUTSIDE RECORDS SUMMARY | 2024-06-02 01:46 | XMS_ITS | Encounter Summary ---
Author Organization [facility] Address [address] [place] [address] Care Team Providers Care Structural Engineering Drafting Officer Name Role Phone Sunny West MD Unavailable [phone] Jacky STEPHENS MD, Edwin Primary Care Provider Brooke vailable Encounter Details Date Type Department Care Team (Latest Contact Info) Description 05/03/2013 Orders Only [facility] - Internal Medicine [address] [facility] [address] Kelechi Rico III, MD RETIRED Pure hypercholesterolemia ; Prediabetes Social History Tobacco Use Types Packs/Day Years [...] encounter Visit Diagnoses Diagnosis Pure hypercholesterolemia- Primary Prediabetes Other abnormal glucose documented in this encounter Care Teams Structural Engineering Drafting Officer Relationship Specialty Start Date End Date Sunny West MD PCP - OBGYN 03/28/08 Kelechi Rico III, MD RETIRED PCP - General 01/12/12 05/10/20 documented as of this encounter
--- OUTSIDE RECORDS SUMMARY | 2024-06-02 01:46 | XMS_ITS | Encounter Summary ---
Author Organization [facility] Address [address] [place] [address] Care Team Providers Care Time Study Technologist Name Role Phone Sunny West MD Unavailable [phone] Jacky STEPHENS MD, Kelechi Primary Care Provider Brooke vailable Reason for Referral * - Closed Specialty Diagnoses / Procedures Referred By Lindy avila Referred To Contact Diagnoses Abnormal mammogram Procedures MAMMO DIAG DIRECT DIGITAL IMAGE UNIL RIGHT Sunny West MD [address] [place] [address] Referral ID Status Reason Start Date Expiration Date Visits Re quested Visits Authorized [id number] Closed 08/21/2012 02/17/2013 1 1 Encounter Details Date Type Department Care Team (Late st Contact Info) Description 08/21/2012 Orders Only [facility] Medical [facility] - STORE STANDARDS ASSOCIATE [address] [place] [address] Sunny West MD [address] [place] [address] Abnormal mammogram Social History Tobacco [...] IMAGE UNIL RIGHT (08/23/2012 11:40 AM CDT) Anatomical Region Laterality Modality Right Mammography 08/24/2012 [...] when the patient returns for yearly mammogram. [facility] [place] utilizes [employer] as a reminder system to notify patients [...] when the patient returns for yearly mammogram. [facility] [place] utilizes [employer] as a reminder system to notify patients of their next recommended mammogram. Sunny West MD MAMMO ORDERABLES documented in this encounter Visit Diagnoses Diagnosis Abnormal mammogram- Primary Abnormal mammogram, unspecified Abnormal mammogram Abnormal mammogram, unspecified documented in this encounter Care Teams Time Study Technologist Relationship Specialty Start Date End Date Sunny West MD PCP - OBGYN 03/28/08 Kelechi Rico III, MD RETIRED PCP - General 01/12/12 05/10/20 documented as of this encounter
--- OUTSIDE RECORDS SUMMARY | 2024-06-02 01:46 | XMS_ITS | Encounter Summary ---
Author Organization [facility] Address [address] [facility] [place] [address] Care Team Providers Care Toolroom Checker Name Role Phone Sunny West MD Unavailable Jacky STEPHENS MD, Kelechi Primary Care Provider Brooke vailable Reason for Referral * - Closed Specialty Diagnoses / Procedures Referred By Lindy avila Referred To Contact Diagnoses Abnormal mammogram Procedures MAMMO DIAG DIRECT DIGITAL IMAGE UNIL RIGHT Sunny West MD [address] [place] [address] Referral ID Status Reason Start Date Expiration Date Visits Re quested Visits Authorized [id number] Closed 01/09/2012 07/07/2012 1 1 Encounter Details Date Type Department Care Team (Late st Contact Info) Description 01/09/2012 Orders Only [facility] - MARBLE CEILING INSTALLER [address] [place] [address] Sunny West MD [address] [place] [address] Abnormal mammogram Social History Tobacco [...] unspecified documented in this encounter Care Teams Toolroom Checker Relationship Specialty Start Date End Date Sunny West MD PCP - OBGYN 03/28/08 Kelechi Rico III, MD RETIRED PCP - General 03/13/09 01/11/12 documented as of this encounter
--- OUTSIDE RECORDS SUMMARY | 2024-06-02 01:46 | XMS_ITS | Encounter Summary ---
Author Organization [facility] Address [address] [place] [address] Care Team Providers Care Patient Service Representative Name Role Phone Sunny West MD Unavailable Jacky STEPHENS MD, Kelechi Primary Care Provider Brooke vailable Reason for Visit * Reason Onset Date Comments HSV 09/23/2009 Encounter Details Date Type Department Care Team (Late st Contact Info) Description 09/23/2009 Telephone [facility] - Internal Medicine [address] [facility] [address] Kelechi Rico III, MD RETIRED HSV Social History Tobacco Use Types Packs/Day Years [...] Telephone Encounter - Courtney Burkett RN - 09/23/2009 10:56 AM CDT She voices understanding and acceptance of this advice and will call back if any further questions or concerns. * Telephone Encounter - Kelechi Rico III, MD - 09/23/2009 9:33 AM CDT Can refill prn * Telephone Encounter - Iliana Huston MA - 09/23/2009 9:31 AM CDT Pt. Started with a cold sore on outside of upper left lip started last pm had old rx for zovirax cream but wants to know if she can get a refill on this or does the ointment work just as well? documented in this encounter Plan of Treatment Not on file documented as of this encounter Visit Diagnoses Not on filedocumented in this encounter Care Teams Patient Service Representative Relationship Specialty Start Date End Date Sunny West MD PCP - OBGYN 03/28/08 Kelechi Rico III, MD RETIRED PCP - General 03/13/09 01/11/12 documented as of this encounter
--- OUTSIDE RECORDS SUMMARY | 2024-06-02 01:46 | XMS_ITS | Encounter Summary ---
Author Organization [facility] Address [address] [address] Care Team Providers Care Inker And Opaquer Name Role Phone Sunny West MD Unavailable [phone] Jacky STEPHENS MD, Kelechi Primary Care Provider Brooke vailable Reason for Visit * Reason Comments Oracle Soa Developer Routine Exam Encounter Details Date Type Department Care Team (Late st Contact Info) Description 12/27/2011 1:15 PM CDT Office Visit [facility] Medical [facility] - PASTE WORKER [address] [place] [address] Sunny West MD [address] [place] [address] Routine gynecological examination (Primary Dx) Social History Tobacco [...] Sign Reading Time Taken Comments Blood Pressure 108/62 12/27/2011 1:25 PM CDT Pulse - - Temperature - - Respiratory Rate - - Oxygen Saturation - - Inhaled Oxygen Concentration - - Weight 64 kg (141 lb) 12/27/2011 1:25 PM CDT Height - - Body Mass Index 23.46 08/16/2010 9:53 AM COMMUNITY MARKETING MANAGER documented in this encounter Progress Notes * Sunny West MD - 12/27/2011 1:42 PM CDT Well Woman Yearly Exam (Premenopausal) HISTORY: Brianna Norman is a 50 y.o. white female, Patient's last menstrual period was 12/13/2011., here for a Well Woman exam. Hot flashes at times - talked Patient does not have other gynecological issues or concerns. Last Pap: normal Last mammogram: breast Bx done last year - B9 Menses: regular monthly cycle without intermenstrual spotting., Flow is light Contraception: tubal ligation History Sexual Activity: History Sexual Activity ??? Sexually Active: Yes -- Male partner(s) ??? Control/ Protection: Tubal ligation Other pertinent DELIVERY MOTORCYCLE DRIVER history: none Other pertinent history: Medical, Surgical, Family, and Social History Reviewed. Allergies reviewed. Review of Systems Pertinent items are noted in HPI EXAMINATION BP 108/62 Wt 141 lb General Appearance: alert, cooperative, no distress Breasts: symmetric, nontender, no masses or discharge Heart: regular rhythm, normal S1 and S2, without murmurs, gallops or rubs Abdomen: soft without mass, non-tender, with normal bowel sounds Pelvic: Vulva and vagina appear normal. Bimanual exam reveals normal uterus and adnexa. Discharge: normal and physiologic ASSESSMENT Normal healthy female. Patient Active Problem List Diagnoses ??? Submucous Leiomyoma of Uterus ??? Excessive or Frequent Menstruation ??? GERD (gastroesophageal reflux disease) ??? Perimenopausal ??? Elevated blood sugar ??? Vitamin D deficiency PLAN See orders, medications, patient instructions. Breast self exam reviewed, patient encouraged to perform monthly. Mammogram indications discussed. STD screening was not indicated. documented in this encounter Plan of Treatment Not on file documented as of this encounter Procedures Procedure Name Priority Date/Time Associated Diagnosis Comments PAP IG LB RFLX HPV HR ASCU RFLX 16,18 Routine 12/27/2011 1:35 PM CDT Routine gynecological examination documented in this encounter Results * PAP IG RFLX HPV ASCU RFLX 16/18 (PO REF LAB) (12/27/2011 1:35 PM CDT) Diagnosis [facility] INSURANCE BILL Comment: NEGATIVE FOR INTRAEPITHELIAL LESION AND MALIGNANCY. PREDOMINANCE OF COCCOBACILLI CONSISTENT WITH SHIFT IN VAGINAL TEDDY IS PRESENT. Specimen Adequacy [facility] INSURANCE BILL Comment: Satisfactory for evaluation. ??Endocervical and/or squamous metaplastic cells (endocervical component) are present. Clinician Provided ICD9 [facility] INSURANCE BILL Comment:V72.31 ; Routine security threat analyst ecological examination Performed by [facility] INSURANCE BILL Comment:Vijay Byrd Cytotec hnologist (ASCP) Comment . [facility] INSURANCE BILL Note [facility] INSURANCE BILL Comment: The Pap smear is a screening test designed to aid in the detection of premalignant and malignant conditions of the uterine cervix. ??It is not a diagnostic procedure and should not be used as the sole means of detecting cervical cancer. ??Both false-positive and false-negative reports do occur. ? . [facility] CPT Code Automation [facility] INSURANCE BILL Comment: This liquid based ThinPrep(R) pap test was screened with the use of an image guided system. Note [facility] INSURANCE BILL Comment: The HPV DNA reflex criteria were not met with this specimen result therefore, no HPV testing was performed. ? . MICROSCOPIC CYTOLOGIC EXAMINATION OF SMEAR OF SPECIMEN FROM FEMALE GENITAL TRACT PREPARED USING PAPANICOLAOU TECHNIQUE / Unknown 12/27/2011 1:35 PM CDT 2011 1:24 AM CDT Narrative [facility] INSURANCE BILL - 12/30/2011 3:11 AM CDT No. of containers..01 CYTYC Thin Prep Vial Resulting Agency Comment [facility] [address] [facility] ??[place] [phone] Sunny West MD LAB - PATHOLOGY/CYTO LOGY ORDERABLES [facility] INSURANCE BILL documented in this encounter Visit Diagnoses Diagnosis Routine gynecological examination- Primary documented in this encounter Care Teams Inker And Opaquer Relationship Specialty Start Date End Date Sunny West MD PCP - OBGYN 03/28/08 Kelechi Rico III, MD RETIRED PCP - General 03/13/09 01/11/12 documented as of this encounter
--- OUTSIDE RECORDS SUMMARY | 2024-06-02 01:46 | XMS_ITS | Encounter Summary ---
Author Organization [facility] Address [address] [place] [address] Care Team Providers Care Traveling Accountant Name Role Phone Sunny West MD Unavailable [phone] Jacky STEPHENS MD, Kelechi Primary Care Provider Brooke vailable Encounter Details Date Type Department Care Team (Late st Contact Info) Description 07/05/2010 Orders Only [facility] Medical [facility] - CARTOGRAPHIC DESIGNER [address] [place], [place] [phone] Sunny West MD [address] [place] [address] Screening mammogram Social History Tobacco Use Types [...] as of this encounter Results * MAMMO SCREENING DIGITAL IMAGE BILAT (08/02/2010) Anatomical Region Laterality Modality Breast Bilateral Other Sunny West MD MAMMO ORDERABLES documented in this encounter Visit Diagnoses Diagnosis Screening mammogram- Primary Other screening mammogram documented in this encounter Care Teams Traveling Accountant Relationship Specialty Start Date End Date Sunny West MD PCP - OBGYN 03/28/08 Kelechi Rico III, MD RETIRED PCP - General 03/13/09 01/11/12 documented as of this encounter
--- OUTSIDE RECORDS SUMMARY | 2024-06-02 01:46 | XMS_ITS | Encounter Summary ---
Author Organization [facility] Address [address] [place] [address] Care Team Providers Care Clammer Name Role Phone Sunny West MD Unavailable [phone] Jacky STEPHENS MD, Kelechi Primary Care Provider Brooke vailable Reason for Visit * - Closed Specialty Diagnoses / Procedures Referred By Lindy avila Referred To Contact Ultrasound Diagnoses Abnormal mammogram, unspecified Procedures US BREAST UNILATERAL RIGHT Snuny West MD [address] [place] [address] [facility] [address] [place] [address] Referral ID Status Reason Start Date Expiration Date Visits Re quested Visits Authorized [id number] Closed 03/06/2013 09/02/2013 1 1 Encounter Details Date Type Department Care Team (Latest Contact Info) Description 03/06/2013 11:15 AM CDT - 03/06/2013 11:59 PM T Hospital Encounter [facility] Health Imaging Services - Ultrasound [address] [place] [address] Sunny West MD [address] [place] [address] Discharge Disposition: Home or Self [...] Diagnosis Comments US BREAST RIGHT COMPLETE Routine 03/06/2013 11:49 AM CDT Abnormal mammogram, unspecified documented in this encounter Results * US BREAST UNILATERAL RIGHT (03/06/2013 11:49 AM CDT) Anatomical Region Laterality Modality Breast Right Ultrasound 03/08/2013 8:02 AM CDT Narrative 03/08/2013 12:43 PM CDT EXAMINATION: Bilateral digital diagnostic mammogram on [...] diagnostic mammogram and ultrasound.. Sunny West MD US ORDERABLES documented in this encounter Visit Diagnoses Diagnosis Abnormal mammogram, unspecified documented in this encounter Care Teams Clammer Relationship Specialty Start Date End Date Sunny West MD PCP - OBGYN 03/28/08 Kelechi Rico III, MD RETIRED PCP - General 01/12/12 05/10/20 documented as of this encounter
--- OUTSIDE RECORDS SUMMARY | 2024-06-02 01:46 | XMS_ITS | Encounter Summary ---
Author Organization [facility] Address [address] [place] [address] Care Team Providers Care Hris Coordinator Name Role Phone Sunny West MD Unavailable [phone] Jacky STEPHENS MD, Kelechi Primary Care Provider Brooke vailable Reason for Visit * Reason Onset Date Comments Sinus Problem 08/10/2010 Encounter Details Date Type Department Care Team (Late st Contact Info) Description 08/10/2010 Telephone [facility] Medical [facility] - Internal Medicine [address] [facility] [place] [place] [address] Kelechi Rico III, MD RETIRED Sinus Problem [...] encounter Miscellaneous Notes * Telephone Encounter - Iliana Huston MA - 08/10/2010 4:03 PM CST Pt. Notified of instructions-sent rx. T BREAKER FEEDER * Telephone Encounter - Kelechi Rico III, MD - 08/10/2010 3:33 PM FIRST BREAKER FEEDER Prescribe Amoxicillin 500mg every 8 hrs until completed, #30 Use Advil Cold and Sinus every 4 hours as needed for congestion. Will need to ask pharmacist for itand sign a record. T BREAKER FEEDER * Telephone Encounter - Ronda Ley - 08/10/2010 1:52 PM CST Pt c/o sinus pressure and pain, blowing green mucus, watery eyes, post nasal drainage, ears popping, sneezing since Monday night. No fever. Please advise T BREAKER FEEDER documented in this encounter Plan of Treatment Not on file documented as of this encounter Visit Diagnoses Not on filedocumented in this encounter Care Teams Hris Coordinator Relationship Specialty Start Date End Date Sunny West MD PCP - OBGYN 03/28/08 Kelechi Rico III, MD RETIRED PCP - General 03/13/09 01/11/12 documented as of this encounter
--- OUTSIDE RECORDS SUMMARY | 2024-06-02 01:46 | XMS_ITS | Encounter Summary ---
Author Organization [facility] Address [address] [place] [address] Care Team Providers Care Rigging Up Man Name Role Phone Sunny West MD Unavailable [phone] Jacky STEPHENS MD, Kelechi Primary Care Provider Brooke vailable Reason for Visit * Reason Onset Date Comments MEDICATION REFILL 07/05/2010 Encounter Details Date Type Department Care Team (Late st Contact Info) Description 07/05/2010 Refill [facility] - STORAGE BATTERY CHARGER [address] [place] [address] Sunny West MD [address] [place] [phone] MEDICATION REFILL Social History Tobacco Use Types [...] on filedocumented in this encounter Care Teams Rigging Up Man Relationship Specialty Start Date End Date Sunny West MD PCP - OBGYN 03/28/08 Kelechi Rico III, MD RETIRED PCP - General 03/13/09 01/11/12 documented as of this encounter
--- OUTSIDE RECORDS SUMMARY | 2024-06-02 01:46 | XMS_ITS | Encounter Summary ---
Author Organization [facility] Health Address [address] [place] [address] Care Team Providers Care Civil Engineering Director Name Role Phone Sunny West MD Unavailable [phone] Jacky STEPHENS MD, Edwin Primary Care Provider Brooke vailable Jacky STEPHENS MD, Edwin Primary Care Provider Brooke vailable Encounter Details Date Type Department Care Team (Late st Contact Info) Description 08/17/2010 Orders Only [facility] [address] [place] [address] ProviderCarmine MD Social History Tobacco Use Types Packs/Day Years [...] Procedure Name Priority Date/Time Associated Diagnosis Comments GROSS + MICRO EXAM DAMION 08/17/2010 11 :25 AM MACHINE FEEDER RAW STOCK documented in this encounter Results * GROSS + MICRO EXAM (08/17/2010 11:25 AM MACHINE FEEDER RAW STOCK) Result CASE NUMBER [id number] Comment: ORDERING PHYSICIAN ??SANDIP CAZARES SPECIMEN TYPE ?Breast Biopsy-right breast tissue Date [...] ?Microcalcifications -- ?No evidence of malignancy MM/vl Service Parts Coordinator ? vl Pathologist ?Joann Lock MD Snomed. ?08/18/2010 1302 <3> CPT code ? 65489i9 MISCELLANEOUS SAMPLES / Unknown 08/17/2010 11:25 AM MACHINE FEEDER RAW STOCK 08/17/2010 12:23 PM MACHINE FEEDER RAW STOCK Historical Provider LAB - PATHOLOGY/C YTOLOGY ORDERABLES documented in this encounter Visit Diagnoses Not on filedocumented in this encounter Care Teams Civil Engineering Director Relationship Specialty Start Date End Date Sunny West MD PCP - OBGYN 03/28/08 Kelechi Rico III, MD RETIRED PCP - General 03/13/09 01/11/12 Kelechi Rico III, MD RETIRED PCP - General 01/12/12 05/10/20 documented as of this encounter
--- OUTSIDE RECORDS SUMMARY | 2024-06-02 01:46 | XMS_ITS | Encounter Summary ---
Author Organization [facility] Health Address [address] [facility] [place] [address] Care Team Providers Care Manager Electronic Name Role Phone Sunny West MD Unavailable [phone] Jacky STEPHENS MD, Kelechi Primary Care Provider Brooke vailable Reason for Visit * (Routine) - Closed Specialty Diagnoses / Procedures Referred By Lindy avila Referred To Contact Mammography Procedures Diag Rt MM-- Sunny West MD [address] [place] [address] [facility] [address] [place] [address] [place] [address] Referral ID Status Reason Start Date Expiration Date Visits Re quested Visits Authorized [id number] Closed 08/23/2012 02/19/2013 1 1 Encounter Details Date Type Department Care Team (Latest Contact Info) Description 08/23/2012 11:00 AM CDT - 08/23/2012 11:29 AM T Hospital Encounter [facility] [address] [place] [id number] Sunny West MD [address] [place] [address] Discharge Disposition: Home or Self [...] Associated Diagnosis Comments MAMMO RIGHT DIAGNOSTIC Routine 08/23/2012 11:40 AM CDT Abnormal mammogram documented in this [...] when the patient returns for yearly mammogram. [facility] [place] utilizes [employer] as a reminder system to notify patients [...] when the patient returns for yearly mammogram. [facility] [place] utilizes [employer] as a reminder system to notify patients of their next recommended mammogram. Sunny West MD MAMMO ORDERABLES documented in this encounter Visit Diagnoses Diagnosis Abnormal mammogram Abnormal mammogram, unspecified documented in this encounter Care Teams Manager Electronic Relationship Specialty Start Date End Date Sunny West MD PCP - OBGYN 03/28/08 Kelechi Rico III, MD RETIRED PCP - General 01/12/12 05/10/20 documented as of this encounter
--- OUTSIDE RECORDS SUMMARY | 2024-06-02 01:46 | XMS_ITS | Encounter Summary ---
Author Organization [facility] Address [address] [place] [address] Care Team Providers Care Carton Machine Operator Name Role Phone Sunny West MD Unavailable [phone] Jacky STEPHENS MD, Kelechi Primary Care Provider Brooke vailable Reason for Visit * Reason Comments Vaginal Problem Discharge,burning,it betty, bump Encounter Details Date Type Department Care Team (Late st Contact Info) Description 07/17/2012 11:00 AM E BUSINESS MANAGER Office Visit [facility] Group - ADAPTIVE PHYSICAL EDUCATOR [address] [place] [address] Sunny West MD [address] [facility] [facility] [address] [place] [phone] Vaginitis and vulvovaginitis, unspecified (Primary Dx) Social History Tobacco Use Types [...] Sign Reading Time Taken Comments Blood Pressure 112/74 07/17/2012 11:04 AM E BUSINESS MANAGER Pulse - - Temperature - - Respiratory Rate - - Oxygen Saturation - - Inhaled Oxygen Concentration - - Weight 64.4 kg (142 lb) 07/17/2012 11:04 AM E BUSINESS MANAGER Height - - Body Mass Index 23.63 08/16/2010 9:53 AM E BUSINESS MANAGER documented in this encounter Progress Notes * Sunny West MD - 07/17/2012 12:28 PM CST C/o itch and irritation Used Diflucan about 1 mo ago Also has bump in labial area Pelvic: small inclusion cyst R labia minora - expressed Wet prep - some yeast seen Rx : Terazol 7 E BUSINESS MANAGER documented in this encounter Plan of Treatment Not on file documented as of this encounter Visit Diagnoses Diagnosis Vaginitis and vulvovaginitis, unspecified- Primary documented in this encounter Care Teams Carton Machine Operator Relationship Specialty Start Date End Date Sunny West MD PCP - OBGYN 03/28/08 Kelechi Rico III, MD RETIRED PCP - General 01/12/12 05/10/20 documented as of this encounter
--- OUTSIDE RECORDS SUMMARY | 2024-06-02 01:46 | XMS_ITS | Encounter Summary ---
Author Organization [facility] Address [address] [place] [address] Care Team Providers Care Prototyper Name Role Phone Sunny West MD Unavailable [phone] Jacky STEPHENS MD, Kelechi Primary Care Provider Brooke vailable Encounter Details Date Type Department Care Team (Late st Contact Info) Description 08/06/2010 Orders Only [facility] Medical [facility] - CHANNEL LIP STIFFENER INSOLES [address] [place], [place] [phone] Sunny West MD [address] [place] [phone] Abnormal mammogram Social History Tobacco Use Types [...] DIGITAL IMAGE UNIL RIGHT (08/17/2010 1:37 PM WEEKEND RECEPTIONIST) Anatomical Region Laterality Modality Right Mammography 08/17/2010 12:1 4 PM WEEKEND RECEPTIONIST Impressions 08/17/2010 12:14 PM WEEKEND RECEPTIONIST Successful stereotactic localization and biopsy right breast microcalcifications Narrative 08/17/2010 12:14 PM WEEKEND RECEPTIONIST Right breast stereotactic localization and biopsy Right [...] Diagnosis Abnormal mammogram- Primary Abnormal mammogram, unspecified documented in this encounter Care Teams Prototyper Relationship Specialty Start Date End Date Sunny West MD PCP - OBGYN 03/28/08 Kelechi Rico III, MD RETIRED PCP - General 03/13/09 01/11/12 documented as of this encounter
--- OUTSIDE RECORDS SUMMARY | 2024-06-02 01:46 | XMS_ITS | Encounter Summary ---
Author Organization [facility] Health Address [address] [facility] [address] Care Team Providers Care Trauma Coordinator Name Role Phone Sunny West MD Unavailable [phone] Jacky STEPHENS MD, Kelechi Primary Care Provider Brooke vailable Reason for Referral * - Closed Specialty Diagnoses / Procedures Referred By Lindy avila Referred To Contact Diagnoses Screening for breast cancer Procedures MAMMO SCREENING DIGITAL IMAGE BILAT Sunny West MD [address] [place] [address] Referral ID Status Reason Start Date Expiration Date Visits Re quested Visits Authorized [id number] Closed 12/20/2011 06/17/2012 1 1 Encounter Details Date Type Department Care Team (Late st Contact Info) Description 12/20/[address] [facility] - DITTO MACHINE OPERATOR [address] [place] [address] Sunny West MD [address] [place] [address] Screening for breast cancer Social History Tobacco Use Types Packs/Day [...] and possible ultrasound of the right breast. [facility] utilizes [employer] as a reminder system to notify patients [...] and possible ultrasound of the right breast. [facility] utilizes [employer] as a reminder system to notify patients of their next recommended mammogram. Sunny West MD MAMMO ORDERABLES documented in this encounter Visit Diagnoses Diagnosis Screening for breast cancer- Primary Breast screening, unspecified Screening for breast cancer Breast screening, unspecified Other screening mammogram documented in this encounter Care Teams Trauma Coordinator Relationship Specialty Start Date End Date Sunny West MD PCP - OBGYN 03/28/08 Kelechi Rico III, MD RETIRED PCP - General 03/13/09 01/11/12 documented as of this encounter
--- OUTSIDE RECORDS SUMMARY | 2024-06-02 01:46 | XMS_ITS | Encounter Summary ---
Author Organization [facility] Address [address] [place] [address] Care Team Providers Care Nuclear Equipment Sales Engineer Name Role Phone Sunny West MD Unavailable [phone] Jacky STEPHENS MD, Kelechi Primary Care Provider Brooke vailable Encounter Details Date Type Department Care Team (Late st Contact Info) Description 03/04/2013 Orders Only [facility] Medical [facility] - METAL PLATER [address] [facility] [facility] [address] [place], [place] [phone] Sunny West MD [address] [place] [address] Abnormal mammogram ; Breast cancer [...] as of this encounter Visit Diagnoses Diagnosis Abnormal mammogram- Primary Abnormal mammogram, unspecified Breast cancer screening Breast screening, unspecified documented in this encounter Care Teams Nuclear Equipment Sales Engineer Relationship Specialty Start Date End Date Sunny West MD PCP - OBGYN 03/28/08 Kelechi Rico III, MD RETIRED PCP - General 01/12/12 05/10/20 documented as of this encounter
--- OUTSIDE RECORDS SUMMARY | 2024-06-02 01:47 | XMS_ITS | Encounter Summary ---
Author Organization [facility] Address [address] [place] [address] Care Team Providers Care Service Rig Operator Name Role Phone Sunny West MD Unavailable [phone] Jacky STEPHENS MD, Kelechi Primary Care Provider Brooke vailable Reason for Visit * Reason Onset Date Comments Sore Throat 03/20/2009 Encounter Details Date Type Department Care Team (Late st Contact Info) Description 03/20/2009 Telephone [facility] Medical [facility] - Internal Medicine [address] [facility] [place] [address] Kelechi Rico III, MD RETIRED Sore Throat Social History Tobacco Use Types Packs/Day Years Used Date Smoking Tobacco: Every Day Alcohol Use Standard Drinks/Week Comments Yes 0 (1 standard drink = 0.6 oz pur e alcohol) Sex and Gender Information Value Date Recorded Sex Assigned at Not on file Gender Identity Not on file Sexual Orientation Not on file documented as of this encounter Miscellaneous Notes * Telephone Encounter - Pushpa Ray - 03/20/2009 5:02 PM CDT Tried to call patient - no answer. Escribed Zpak. * Telephone Encounter - Kelechi Rico III, MD - 03/20/2009 4:57 PM CDT Prescribe Z giorgio * Telephone Encounter - Ronda Ley - 03/20/2009 4:42 PM CDT Pt c/o scratchy throat . Feels she may be getting a sore throat and it is late Monday so she wants a zpak. No fever, no drainage, no congestion but does seem to have a severe case of Monday bud nipping. documented in this encounter Plan of Treatment Not on file documented as of this encounter Visit Diagnoses Not on filedocumented in this encounter Care Teams Service Rig Operator Relationship Specialty Start Date End Date Sunny West MD PCP - OBGYN 03/28/08 Kelechi Rico III, MD RETIRED PCP - General 03/13/09 01/11/12 documented as of this encounter
--- OUTSIDE RECORDS SUMMARY | 2024-06-02 01:47 | XMS_ITS | Encounter Summary ---
Author Organization [facility] Address [address] [place] [address] Care Team Providers Care Senior Producer Name Role Phone Sunny West MD Unavailable [phone] Reason for Visit * Reason Comments Ultrasound Encounter Details Date Type Department Care Team (Latest Contact Info) Description 10/15/2008 11:30 AM CDT OBGYN RADIOLOGY [facility] Medical [facility] - SENIOR TECHNICAL EDITOR [address] [place] [id number] Excessive or Frequent Menstruation Social History Tobacco Use Types Packs/Day Years Used Date Smoking Tobacco: Every Day Alcohol Use Standard Drinks/Week Comments Yes 0 (1 standard drink = 0.6 oz pur e alcohol) Sex and Gender Information Value Date Recorded Sex Assigned at Not on file Gender Identity Not on file Sexual Orientation Not on file documented as of this encounter Procedure Notes * Thelma Curtis, BRANDY - 10/15/2008 4:48 PM CDTAssociated Order(s): US TRANSVAG ONLY [facility] ULTRASOUND of FEMALE PELVIS (non-, abdominal and/or endovaginal) Pt. Name: Brianna Norman : 1960 : Exam Date: 10/15/2008 LMP: No LMP recorded. Transabdominal: No Transvaginal: Yes Hormone Therapy: Yes Reason for Scan: Heavy periods Uterine orientation: anteverted Endometrial thickness: could not measure due to fibroids Uterine measurements: Length 91.1 mm. Height 50.5 mm. Texture of uterus: The uterus was homogenous Endometrial or uterine abnormalities: Two submucosal fibroids, 2.3cm x 2.2cm and 2.1cm x 2.0cm Right Ovary: normal Left Ovary: normal Fluid in Cul de Sac: The cul-de-sac is free and contains no fluid Other: Two submucosal fibroids 2.3cm and 2.1cm Exercise Manager: Thelma Curtis RDMS Images will be scanned into the record. Interpreting Physician: Sunny West M.D. Submucosal fibroids seen as above documented in this encounter Plan of Treatment Scheduled Orders Name Type Priority Associated Diagnoses Orde r Schedule US TRANSVAG ONLY Imaging Routine Excessive or Frequent Menstruation 1 Occurrences starting 10/15/2008 until 10/15/2009 documented as of this encounter Results * US TRANSVAG ONLY (10/15/2008 5:12 PM CDT) Sunny West MD US ORDERABLES documented in this encounter Visit Diagnoses Diagnosis Excessive or frequent menstruation- Primary documented in this encounter Care Teams Senior Producer Relationship Specialty Start Date End Date Sunny West MD PCP - OBGYN 03/28/08 documented as of this encounter
--- OUTSIDE RECORDS SUMMARY | 2024-06-02 01:47 | XMS_ITS | Encounter Summary ---
Author Organization [facility] Address [address] [place] [address] Care Team Providers Care Backend Java Developer Name Role Phone Sunny West MD Unavailable [phone] Jacky STEPHENS MD, Kelechi Primary Care Provider Brooke vailable Reason for Visit * Reason Comments Post-Op 2 weeks op / Novayanna e Encounter Details Date Type Department Care Team (Late st Contact Info) Description 05/05/2009 10:45 AM CHIEF INFORMATION SECURITY OFFICER Office Visit [facility] - MANUFACTURING TECHNOLOGY PROFESSOR [address] [place] [address] Sunny West MD [address] [place] [phone] Routine Gynecological Examination (Primary Dx) Social History Tobacco Use Types [...] Reading Time Taken Comments Blood Pressure 110/70 05/05/2009 11:05 AM CHIEF INFORMATION SECURITY OFFICER Pulse - - Temperature - - Respiratory Rate - - Oxygen Saturation - - Inhaled Oxygen Concentration - - Weight 61.2 kg (135 lb) 05/05/2009 11:05 AM CHIEF INFORMATION SECURITY OFFICER Height - - Body Mass Index 21.79 04/21/2009 10:59 AM CHIEF INFORMATION SECURITY OFFICER documented in this encounter Progress Notes * Sunny West MD - 05/05/2009 12:02 PM CST Well Woman Yearly Exam (Premenopausal) HISTORY: Brianna Norman is a 48 y.o. white female, No LMP recorded., here for a Well Woman exam. Did well post op ablation 2 weeks ago Patient does not have other gynecological issues or concerns. Last Pap: normal Last mammogram:was normal Menses: regular monthly cycle without intermenstrual spotting., Flow is excessive with use of 8 pads or tampons on heaviest days Contraception: tubal ligation History Sexual Activity: History Sexual Activity ??? Sexually Active: Not on file Other pertinent JAZZ MUSICIAN history: none Other pertinent history: Medical, Surgical, Family, and Social History Reviewed. Allergies reviewed. Review of Systems Pertinent items are noted in HPI EXAMINATION BP 110/70 Wt 135 lb General Appearance: alert, cooperative, no distress Breasts: symmetric, nontender, no masses or discharge Heart: regular rhythm, normal S1 and S2, without murmurs, gallops or rubs Abdomen: soft without mass, non-tender, with normal bowel sounds Pelvic: Vulva and vagina appear normal. Bimanual exam reveals normal uterus and adnexa. Discharge: normal and physiologic ASSESSMENT Normal healthy female. Patient Active Problem List Diagnoses Code ??? 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 Excessive or Frequent Menstruation 626.2 PLAN See orders, medications, patient instructions. Breast self exam reviewed, patient encouraged to perform monthly. Mammogram indications discussed. To do soon STD screening was not indicated. F INFORMATION SECURITY OFFICER documented in this encounter Plan of Treatment Not on file documented as of this encounter Procedures Procedure Name Priority Date/Time Associated Diagnosis Comments PAP IG RFLX HPV ASCU Routine 05/05/2009 11:28 AM CHIEF INFORMATION SECURITY OFFICER Routine Gynecological Examination documented in this encounter Results * PAP SMEAR IG RFLX HPV ASCU (PO REF LAB) (05/05/2009 11:28 AM CHIEF INFORMATION SECURITY OFFICER) Diagnosis [facility] INSURANCE BILL Comment:NEGATIVE FOR INTRAEP ITHELIAL LESION AND MALIGNANCY. Specimen Adequacy [facility] INSURANCE BILL Comment: Satisfactory for evaluation. ??Endocervical and/or squamous metaplastic cells (endocervical component) are present. Clinician Provided ICD9 [facility] INSURANCE BILL Comment:V72.31 ; Routine shank turner ecological examination Performed by [facility] INSURANCE BILL Comment:Itzel Winkler Cytot echnologist (ASCP) Comment . [facility] INSURANCE BILL Note [...] PAPANICOLAOU TECHNIQUE / Unknown 05/05/2009 11:28 AM CHIEF INFORMATION SECURITY OFFICER 05/06/2009 12:12 AM CHIEF INFORMATION SECURITY OFFICER Narrative [facility] INSURANCE BILL - 05/11/2009 8:08 PM CHIEF INFORMATION SECURITY OFFICER No. of containers..01 CYTYC Thin Prep Vial Resulting Agency Comment [facility] [address] [facility] ??[place] [phone] Sunny West MD LAB - PATHOLOGY/CYTO LOGY ORDERABLES [facility] INSURANCE BILL documented in this encounter Visit Diagnoses Diagnosis Routine gynecological examination- Primary documented in this encounter Care Teams Backend Java Developer Relationship Specialty Start Date End Date Sunny West MD PCP - OBGYN 03/28/08 Kelechi Rico III, MD RETIRED PCP - General 03/13/09 01/11/12 documented as of this encounter
--- OUTSIDE RECORDS SUMMARY | 2024-06-02 01:47 | XMS_ITS | Encounter Summary ---
Author Organization [facility] Address [address] [place] [address] Care Team Providers Care Financial Services Counselor Name Role Phone Sunny West MD Unavailable [phone] Reason for Visit * Reason Onset Date Comments URI 08/14/2008 Encounter Details Date Type Department Care Team (Late st Contact Info) Description 08/14/2008 Telephone [facility] Medical [facility] - Internal Medicine [address] [place] [address] [place] [address] Kelechi Rico III, MD RETIRED URI Social History Tobacco Use Types Packs/Day Years Used Date Smoking Tobacco: Never Assessed Sex and Gender Information Value Date Recorded Sex Assigned at Not on file Gender Identity Not on file Sexual Orientation Not on file documented as of this encounter Miscellaneous Notes * Telephone Encounter - Courtney Burkett RN - 08/14/2008 10:41 AM COMPOSITE TECHNICIAN She voices understanding and acceptance of this advice and will call back if any further questions or concerns. OSITE TECHNICIAN * Telephone Encounter - Kelechi Rico III, MD - 08/14/2008 9:32 AM COMPOSITE TECHNICIAN Prescribe Z giorgio Use Advil Cold and Sinus every 4 hours as needed for congestion. Will need to ask pharmacist for itand sign a record. OSITE TECHNICIAN * Telephone Encounter - Courtney Burkett RN - 08/14/2008 9:29 AM COMPOSITE TECHNICIAN Pt was told by son's MD Dr. Rico that her and her son both had flu last week. Had fever chills and sweating. Temp resolved but now sinus pain and pressure behind eyes. Yellow nasal drainage. Afebrile. Non productive cough. Taking tylenol multi symptom cold and robitussin DM. Requests Zpak or whatever you recommend. OSITE TECHNICIAN documented in this encounter Plan of Treatment Not on file documented as of this encounter Visit Diagnoses Not on filedocumented in this encounter Care Teams Financial Services Counselor Relationship Specialty Start Date End Date Sunny West MD PCP - OBLOUISEN 03/28/08 documented as of this encounter
--- OUTSIDE RECORDS SUMMARY | 2024-06-02 01:47 | XMS_ITS | Encounter Summary ---
Author Organization [facility] Health Address [address] [place] [address] Care Team Providers Care Rock Wool Applicator Name Role Phone Sunny West MD Unavailable [phone] Jacky STEPHENS MD, Kelechi Primary Care Provider Brooke vailable Encounter Details Date Type Department Care Team (Latest Contact Info) Description 04/21/2009 12:01 AM MARKETING AND DEVELOPMENT COORDINATOR - 04/21/2009 11:36 AM MARKETING AND DEVELOPMENT COORDINATOR Hospital Encounter [facility] [address] [place] [address] Sunny West MD [address] [facility] [place] [address] Surgery General Discharge Disposition: Home or Self Care Social [...] Sign Reading Time Taken Comments Blood Pressure 99/64 04/21/2009 10:13 AM MARKETING AND DEVELOPMENT COORDINATOR Pulse 58 04/21/2009 10:13 AM MARKETING AND DEVELOPMENT COORDINATOR Temperature 36.3 ??C (97.3 ??F) 04/21/2009 1 0:13 AM MARKETING AND DEVELOPMENT COORDINATOR Respiratory Rate 16 04/21/2009 10:1 3 AM MARKETING AND DEVELOPMENT COORDINATOR Oxygen Saturation 99% 04/21/2009 10: 13 AM MARKETING AND DEVELOPMENT COORDINATOR Inhaled Oxygen Concentration - - Weight 59 kg (130 lb) 04/21/2009 7:27 AM MARKETING AND DEVELOPMENT COORDINATOR Height 167.6 cm (5' 6 ) 04/21/2009 10:5 9 AM MARKETING AND DEVELOPMENT COORDINATOR previous entrie error correct 5'6 . Body Mass Index 20.98 04/21/2009 7:27 AM MARKETING AND DEVELOPMENT COORDINATOR documented in this encounter Discharge Instructions * Discharge Instructions* Ju Cunningham RN - 04/21/2009 11:12 AM MARKETING AND DEVELOPMENT COORDINATOR Discharge Instructions for: Brianna Inessa Norman Discharge Procedure Orders DIET INSTRUCTIONS Start light diet today (i.e soup, Jell-O, toast). If no nausea or vomiting, may resume normal diet.In case of nausea or vomiting, reduce diet to fluids low in acid (water, sports drinks, white sodas). As you are able to tolerate the fluids, gradually increase your diet. IF NAUSEA AND/OR VOMITING PERSISTS, CONTACT YOUR PHYSICIAN. NO ALCOHOLIC BEVERAGES For the next 24 hours or while taking pain medication. REST TODAY Increase activity tomorrow as tolerated. Walk 10 - 15 minutes, three times a day DO NOT DRIVE Do not drive or operate hazardous machinery while taking pain medication. Order Specific Question Answer Comments For how long? other (enter comment) GENERAL ANESTHESIA /IV SEDATION INSTRUCTIONS For the remainder of the day, plan to relax. A feeling of dizziness, light- headedness or drowsinessis not unusual. Move cautiously, fast movements can make this feeling worse. If you have been lyingdown, sit up slowly and pause briefly before standing. We strongly suggest that a responsible adultbe with you until tomorrow AM for your comfort and safety. CALL PHYSICIAN If you experience increasing or unrelieved pain, drainage, redness, bleeding, or swelling at surgical site and/or IV site. CALL PHYSICIAN For any vomiting or fever of 100.5 degrees or greater. CALL PHYSICIAN If unable to urinate in 6 - 8 hours or if uncomfortable. PATIENT TO CALL PHYSICIAN FOR APPOINTMENT Follow up with Dr. Simons [phone] PRESCRIPTIONS GIVEN TO PATIENT/FAMILY Vicodin script given at pt. MEDICATION INSTRUCTIONS Take prescribed pain medications as needed. Exercise caution when walking, driving, or climbing stairs. NO SEXUAL ACTIVITY / DOUCHING/ TAMPONS Order Specific Question Answer Comments For how long? Two weeks Do not smoke. Avoid second hand smoke. The following belonging have been returned to you Clothing Clothing: Yes With Patient: Shirt;Pants;Footwear;Undergarments Secured: (locker) Jewelry Jewelry: None Electronics Electronic Items: None Dentures Dentures/Retainers: None Vision Visual Aids: None Hearing Aids Hearing Aids: None Equipment/Assistive Devices Equipment with Patient: None Monetary Monetary Items: None WEIGHT MONITORING - If you have heart failure, weigh yourself every morning. Contact your physician if your weight increases by 3 pounds in 1 day OR 5 pounds in 1 week. WHAT TO DO IF SYMPTOMS WORSEN - Contact your physician if you have shortness of breath/difficulty breathing, or any swelling of your legs, ankles or feet. The discharge and medication instructions have been reveiwed with me and my questions have been answered. I have received a copy of the discharge instructions. 04/21/2009 ETING AND DEVELOPMENT COORDINATOR * Discharge Instructions* Document, Scanned - 04/21/2009 12:00 AM MARKETING AND DEVELOPMENT COORDINATOR documented in this encounter Medications at Time of Discharge Medication Sig Dispensed Refills Start Date End Date azithromycin (ZITHROMAX) 250 MG tablet Take by mouth. Take 2 tablets now, then 1 tablet daily for 4 more days. 6 0 03/20/2009 12/27/2011 documented as of this encounter Progress Notes * Anish Hargrove MD - 04/21/2009 6:54 PM CST POST-OP ANESTHESIA EVALUATION Brianna Inessa Norman is a 48 y.o. female Post-op Evaluation: POST-OP EVALUATION A post-op evaluation was performed on the patient with the following assessment: No Apparent Anesthesia Complications;Vital Signs and Mental Status unchanged from Preop Unless otherwise indicated, the patient is being discharged from anesthesia care. Anish Hargrove MD ETING AND DEVELOPMENT COORDINATOR * Anish Hargrove MD - 04/21/2009 7:45 AM CST PRE-ANESTHESIA EVALUATION Evaluated By: Anish Hargrove MD, 04/21/2009 7:54 AM Brianna M Emerson is a 48 y.o. female Purpose: Scheduled Procedure Scheduled procedure: hysterroscopy with endometrial ablation Hospital Problem List Patient Active Problem List Diagnoses Code ??? 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 Excessive or Frequent Menstruation 626.2 Allergies Codeine Past Medical History Diagnosis Date ??? Abnormal Uterine Bleeding Meds Prescriptions prior to admission Medication Sig Dispense Refill ??? azithromycin (ZITHROMAX) 250 MG tablet Take by mouth. Take 2 tablets now, then 1 tablet daily for 4 more days. 6 0 Current hospital medications Medication Dose Route Frequency Provider Last Rate Last Dose ??? lactated ringers infusion ??? lidocaine (XYLOCAINE) 1 % injection Past Medical History Past Medical History Diagnosis Date ??? Abnormal Uterine Bleeding Past Surgical History Past Surgical History Procedure Date ??? section ??? Bilateral tubal ligation (btl) ??? Dilation and curettage Past Social History History Social History ??? Marital Status: Spouse Name: N/A Number of Children: N/A ??? Years of Education: N/A Occupational History ??? Not on file. Social History Main Topics ??? Tobacco Use: Yes -- 1.0 packs/day for 20.0 years ??? Alcohol Use: 0.5 oz/week 1 Can(s) of beer per week 04/20/09 ??? Drug Use: Not on file ??? Sexually Active: Not on file Other Topics Concern ??? Not on file Social History Narrative ??? No narrative on file Last Vital Signs VITAL SIGNS Temp: 98.2 ??F Pulse: 66 Resp: 16 BP: 104/60 mmHg Weight: 130 lb Height: 6' 5 SpO2: 98 % Pre-Eval Exam PHYSICAL EXAM NPO status: Since Midnight Heart Sounds: S1 S2 Respiratory Pattern/Effort: CTA Oriented x 3: Yes Teeth: Ok Airway Class: II ANESTHESIA ASA: II Anesthesia Choices: General Post-Op: PACU ETING AND DEVELOPMENT COORDINATOR * Ju Reese MD - 04/21/2009 7:32 AM CST Resident Pre-Op Note Pre-op diagnosis: menorrhagia Procedure: Hysteroscopy with endomerial ablation Labs: -- Vitals: Blood pressure 104/60, pulse 66, temperature 98.2 ??F, resp. rate 16, height 6' 5 (1.956 m), weight 130 lb (58.968 kg), SpO2 98%. PE: RRR, CTAB, Abd: soft, NT, ND, ext: no c/c/e Consent signed and in chart. Ju Reese MD R1 04/21/2009 7:35 AM ETING AND DEVELOPMENT COORDINATOR documented in this encounter H&P Notes * Sunny West MD - 04/20/2009 10:05 AM CST CALL CENTER RECRUITER Pre Op History & Physical 04/20/2009 10:06 AM Brianna Norman Chief Complaint / History of Present Illness: Brianna Norman is a 48 y.o. with menorrhagia. She had hysteroscopic resection of submucous fibroids this summer by Dr Parson. She now presents for hysteroscopy w/ endometrial ablation. OB Hx : then CALL CENTER RECRUITER Hx: neg except for menorrhagia and fibroids Pt is healthy and on no meds + smoker PMH: Past Medical History Diagnosis Date ??? Abnormal Uterine Bleeding PSH: Past Surgical History Procedure Date ??? section ??? Bilateral tubal ligation (btl) ??? Dilation and curettage SOC: History Social History ??? Marital Status: Spouse Name: N/A Number of Children: N/A ??? Years of Education: N/A Occupational History ??? Not on file. Social History Main Topics ??? Tobacco Use: Yes ??? Alcohol Use: Yes ??? Drug Use: Not on file ??? Sexually Active: Not on file Other Topics Concern ??? Not on file Social History Narrative ??? No narrative on file Allergies Allergen Reactions ??? Codeine Current outpatient prescriptions Medication Sig Dispense Refill ??? azithromycin (ZITHROMAX) 250 MG tablet Take by mouth. Take 2 tablets now, then 1 tablet daily for 4 more days. 6 0 Exam: Vitals: Heart: normal rate, regular rhythm, normal S1, S2, no murmurs, rubs, clicks or gallops. Chest: clear to auscultation, no wheezes, rales or rhonchi, symmetric air entry. Abdominal exam: soft, nontender, nondistended, no masses or organomegaly. Pelvic exam: normal external genitalia, vulva, vagina, cervix, uterus and adnexa. Extremities: No edema or cyanosis Assessment: 1) Mennorhagia S/P resection of submucous fibroids Wants endometrial ablation Plan: Hysteroscopy w/ endometrial ablation The risks, reasons, and benefits of the procedure were explained to the patient. Patients understands and will proceed with hysteroscopy w/ endometrial ablation. Consent signed. Sunny West MD ETING AND DEVELOPMENT COORDINATOR documented in this encounter Procedure Notes * Document, Scanned - 04/21/2009 12:00 AM CSTAssociated Order(s): CARDIAC RHYTHM STRIP ORDER documented in this encounter OR Notes * Operative - Sunny West MD - 04/21/2009 8:59 AM CST Post-OP Note 04/21/2009 9:00 AM Preoperative Diagnosis: Menorrhagia Postoperative Diagnosis: Same Procedure(s): Hysteroscopy w/ endometrial ablation (Novasure) surgeon: Sunny West MD Urban Renewal Manager: None Type of anesthesia: General and MAC Disposition: OPS Status: Stable Complications: none EBL: 0 cc Brief findings: Uterus sounds to 9 cm. Normal findings. Specimen(s) removed: no specimen Op Note dictated. ETING AND DEVELOPMENT COORDINATOR * Operative - Sunny West MD - 04/21/2009 12:00 [place] [address] Operative Report PATIENT NAME: BRIANNA NORMAN MR#: [id number] ROOM#: [facility]#: [id number] DATE OF ADMISSION: 04/21/2009 : 1960 DATE OF SERVICE: 04/21/2009 PREOPERATIVE DIAGNOSIS: Menorrhagia. POSTOPERATIVE DIAGNOSIS: Menorrhagia. PROCEDURE PERFORMED: Hysteroscopy with endometrial ablation using NovaSure. SURGEON: Sunny West M.D. ANESTHESIA: General. PROCEDURE: The patient was taken to the operating room and placed on the operating table. General anesthesia was given. Legs were elevated in the stirrups and the vagina and perineum were sterilely prepped and draped in usual fashion. Speculum was placed into the vagina and the cervix was visualized and then grasped using a tenaculum. Uterine cavity was sounded to 9 cm to the external os. The cervix was gently dilated and a hysteroscope was introduced. Under saline infusion, hysteroscopy was performed. The patient had been status post resection of submucous fibroids. There was some evidence of this resection on the left lateral wall of the fundus, but the cavity did appear relatively normal. There were no polyps or additional uterine fibroids seen. The hysteroscope was removed. The NovaSure device was introduced easily following further dilatation of the cervix. The cavity length was calculated to be 5.5 cm, the cavity width was measured to be 3.5 cm. Following the usual cavity assessment procedure, the ablation cycle was performed and lasted about 90 seconds. Following the ablation, the NovaSure device was removed and this concluded the procedure. The patient tolerated this procedure quite well, was awakened from anesthesia and taken to the recovery room in good condition. DJB - [id number] Sunny West M.D. cc: ETING AND DEVELOPMENT COORDINATOR documented in this encounter Miscellaneous Notes * Miscellaneous Scans - Document, Scanned - 04/21/2009 12:00 AM MARKETING AND DEVELOPMENT COORDINATOR * Miscellaneous Scans - Document, Scanned - 04/21/2009 12:00 AM MARKETING AND DEVELOPMENT COORDINATOR * Miscellaneous Scans - Document, Scanned - 04/21/2009 12:00 AM MARKETING AND DEVELOPMENT COORDINATOR * Miscellaneous Scans - Document, Scanned - 04/21/2009 12:00 AM MARKETING AND DEVELOPMENT COORDINATOR * Miscellaneous Scans - Document, Scanned - 04/21/2009 12:00 AM MARKETING AND DEVELOPMENT COORDINATOR documented in this encounter Plan of Treatment Not on file documented as of this encounter Procedures Procedure Name Priority Date/Time Associated Diagnosis Comments CARDIAC RHYTHM STRIP ORDER 05/02/2009 7:18 AM MARKETING AND DEVELOPMENT COORDINATOR documented in this encounter Results * CARDIAC RHYTHM STRIP ORDER (05/02/2009 7:18 AM MARKETING AND DEVELOPMENT COORDINATOR) Narrative 05/02/2009 7:18 AM MARKETING AND DEVELOPMENT COORDINATOR Ordered by an unspecified provider. Transcriptions Document, Scanned - 04/21/2009 12:00 AM MARKETING AND DEVELOPMENT COORDINATOR Scanned Document CARDIAC SERVICES ORD ERABLES documented in this encounter Visit Diagnoses Not on filedocumented in this encounter Administered Medications Inactive Administered Medications - up to 3 most recent administrations Medication Order MAR Action Action Date Dose Rate Site fentanyl (SUBLIMAZE) injection 25-50 mcg 25-50 mcg, Intravenous, POST-OP MULTIPLE, 4 doses, Starting on Mon04/21/09 at 0857, Until Mon04/21/09 at 0944, Fentanyl 25 mcg IVP for pain. If ineffective at 2 minutes, increase dose to 50 mcg IVP. May repeat q 2 minutes to a total of 150 mcg. $ Given 04/21/2009 9:43 AM MARKETING AND DEVELOPMENT COORDINATOR 50 mcg $ Given 04/21/2009 9:19 AM MARKETING AND DEVELOPMENT COORDINATOR 25 mcg $ Given 04/21/2009 9:11 AM MARKETING AND DEVELOPMENT COORDINATOR 50 mcg hydrocodone-acetaminophen (VICODIN) 5-500 MG tablet 1 Tab 1 tablet, Oral, EVERY 4 HOURS PRN, Pain, Starting on Mon04/21/09 at 1021, Until Mon04/21/09 at 2352, Maximum allowable Acetaminophen amount = 4 Grams / 24 hours. $ Given 04/21/2009 10:26 AM MARKETING AND DEVELOPMENT COORDINATOR 1 tablet hydrocodone-acetaminophen (VICODIN) 5-500 MG tablet 1 dose, Starting on Mon04/21/09 at 1022, Until Mon04/21/09 at 1027, [place] CALVO: Cabinet Override documented in this encounter Active and Recently Administered Medications Times are shown in MARKETING AND DEVELOPMENT COORDINATOR. Scheduled Medication Order 04/19/2009 04/20/2009 04/21/2009 fentanyl (SUBLIMAZE) injection 25-50 mcg (COMPLETED) 25-50 mcg, Intravenous, POST-OP MULTIPLE, 4 doses, Starting on Mon04/21/09 at 0857, Until Mon04/21/09 at 0944, Fentanyl 25 mcg IVP for pain. If ineffective at 2 minutes, increase dose to 50 mcg IVP. May repeat q 2 minutes to a total of 150 mcg. 0859 ($ Given - Prov ider: Bonny Monson RN)0911 ($ Given - Provider: Bonny Monson RN)0919 ($ Given - Provider: Bonny Monson RN)0943 ($ Given - Provider: Bonny Monson, RN) PRN Medication Order 04/19/2009 04/20/2009 04/21/2009 hydrocodone-acetaminophen (VICODIN) 5-500 MG tablet 1 Tab (CANCELED) 1 tablet, Oral, EVERY 4 HOURS PRN, Pain, Starting on Mon04/21/09 at 1021, Until Mon04/21/09 at 2352, Maximum allowable Acetaminophen amount = 4 Grams / 24 hours. 1026 ($ Given - Prov ider: [place] Calvo RN - Comment: pt staes she can take vicodin) documented in this encounter Care Teams Rock Wool Applicator Relationship Specialty Start Date End Date Sunny West MD PCP - OBGYN 03/28/08 Kelechi Rico III, MD RETIRED PCP - General 03/13/09 01/11/12 documented as of this encounter
--- OUTSIDE RECORDS SUMMARY | 2024-06-02 01:47 | XMS_ITS | Encounter Summary ---
Author Organization [facility] Health Address [address] [facility] [place] [address] Care Team Providers Care Waste Machine Tender Name Role Phone Sunny West MD Unavailable [phone] Reason for Visit * Reason Comments Menstrual Problem Weight Gain Encounter Details Date Type Department Care Team (Late Contact Info) Description 10/15/2008 12:00 PM CDT Office Visit [facility] - EQUAL OPPORTUNITY OFFICER [address] [facility] [address] [place] [id number] Sunny West MD [address] [place] [address] Excessive or Frequent Menstruation (Primary Dx); Submucous Leiomyoma of Uterus Social History Tobacco Use Types Packs/Day Years [...] Reading Time Taken Comments Blood Pressure 118/72 10/15/2008 12:21 PM CDT Pulse - - Temperature - - Respiratory Rate - - Oxygen Saturation - - Inhaled Oxygen Concentration - - Weight 64 kg (141 lb) 10/15/2008 12:21 PM CDT Height - - Body Mass Index - - documented in this encounter Progress Notes * Sunny West MD - 10/15/2008 4:28 PM CDT C/O heavyand long periods, getting worse past several months. Usually misses 1 day of work each month due to heavy flow. Healthy but +smoker S/P LSC-BTL C/S the Considering Novasure ablation. Talked. Pelvic: nl Cx, Fundus nl size and mobile No masses US done today shows 2 sub-mucosal fibroids 2.1 and 2.3 cm Discussed submucosal fibroids, menorrhagia and not a good candidate for Novasure due to distorted endometrial cavity. Rec. Dr Parson for eval and possible hysteroscopic resection of fibroids documented in this encounter Plan of Treatment Not on file documented as of this encounter Visit Diagnoses Diagnosis Excessive or frequent menstruation- Primary Submucous leiomyoma of uterus documented in this encounter Care Teams Waste Machine Tender Relationship Specialty Start Date End Date Sunny West MD PCP - OBGYN 03/28/08 documented as of this encounter
--- OUTSIDE RECORDS SUMMARY | 2024-06-02 01:47 | XMS_ITS | Encounter Summary ---
Author Organization [facility] Health Address [address] [place] [address] Care Team Providers Care Flooring Grader Name Role Phone Sunny West MD Unavailable [phone] Jacky STEPHENS MD, Kelechi Primary Care Provider Brooke vailable Encounter Details Date Type Department Care Team (Late st Contact Info) Description 03/13/2009 10:20 AM CDT - 03/13/2009 11:59 PM CDT Hospital Encounter [facility] [address] [place] [address] Sunny West MD [address] [facility] [place] [address] Surgery General Social History Tobacco Use Types Packs/Day Years [...] Date azithromycin (ZITHROMAX) 250 MG tablet Take 1 Tab by mouth daily. Take 2 tablets now, then 1 tablet daily for 4 more days. 6 0 08/14/2008 03/20/2009 documented as of this encounter Plan of Treatment Not on file documented as of this encounter Visit Diagnoses Not on filedocumented in this encounter Care Teams Flooring Grader Relationship Specialty Start Date End Date Sunny West MD PCP - OBGYN 03/28/08 Kelechi Rico III, MD RETIRED PCP - General 03/13/09 01/11/12 documented as of this encounter
--- OUTSIDE RECORDS SUMMARY | 2024-06-02 01:48 | XMS_ITS | Encounter Summary ---
Author Organization [facility] Address [address] [place] [address] Care Team Providers Care Foundry Worker General Name Role Phone Sunny West MD Unavailable [phone] Encounter Details Date Type Department Care Team (Late st Contact Info) Description 04/14/2008 Orders Only [facility] - CHIEF OPERATING ENGINEER [address] [place], [place] [id number] Sunny West MD [address] [facility] [place] [address] Social History Tobacco Use Types Packs/Day Years [...] Diagnosis Comments PAP IG RFLX HPV ASCU 04/14/2008 3:32 PM APARTMENT MAINTENANCE documented in this encounter Results * PAP SMEAR IG RFLX HPV ASCU (PO REF LAB) (04/14/2008 3:32 PM APARTMENT MAINTENANCE) [facility] ACCOUNT BILL Diagnosis [facility] ACCOUNT BILL Comment:NEGATIVE FOR INTRAEP ITHELIAL LESION AND MALIGNANCY. Specimen Adequacy [facility] ACCOUNT BILL Comment: Satisfactory for evaluation. ??Endocervical and/or squamous metaplastic cells (endocervical component) are present. [facility] ACCOUNT BILL Clinician Provided ICD9 [facility] ACCOUNT BILL Comment:V72.31 ; Routine burr bench operator ecological examination Performed by [facility] ACCOUNT BILL Comment:Itzel Winkler Cytot echnologist ([facility]) QC Reviewed by [facility] ACCOUNT BILL Comment:Kevin Lopez upervisory Application Dba ([facility]) Comment . [facility] ACCOUNT BILL . [facility] ACCOUNT BILL Comment: This liquid based ThinPrep(R) pap test was screened with the use of an image guided system. Note [facility] ACCOUNT BILL Comment: The Pap smear is a screening test designed to aid in the detection of premalignant and malignant conditions of the uterine cervix. ??It is not a diagnostic procedure and should not be used as the sole means of detecting cervical cancer. ??Both false-positive and false-negative reports do occur. ? . Reflex [facility] ACCOUNT BILL Comment: The HPV DNA reflex criteria were not met with this specimen result therefore, no HPV testing was performed. ? . 04/14/2008 3:32 PM APARTMENT MAINTENANCE 04/15/2008 12:44 AM APARTMENT MAINTENANCE Narrative [facility] ACCOUNT BILL - 04/19/2008 2:10 PM APARTMENT MAINTENANCE LMP / Prev Treat...LLC=[id number] No. of containers..01 CYTYC Thin Prep Vial Resulting Agency Comment [facility] ??[place] [id number] Sunny West MD LAB - PATHOLOGY/CYTO LOGY ORDERABLES [facility] ACCOUNT BILL documented in this encounter Visit Diagnoses Not on filedocumented in this encounter Care Teams Foundry Worker General Relationship Specialty Start Date End Date Sunny West MD PCP - OBGYN 03/28/08 documented as of this encounter
--- OUTSIDE RECORDS SUMMARY | 2024-06-02 01:48 | XMS_ITS | Encounter Summary ---
Author Organization [facility] Address [address] [place] [address] Care Team Providers Care Reservations And Ticketing Agent Name Role Phone Sunny West MD Unavailable [phone] Encounter Details Date Type Department Care Team (Late st Contact Info) Description 05/16/2008 Orders Only [facility] - PASSENGER FLAGMAN [address] [facility] [address] [facility] [address] [place] [address] Sunny West MD [address] [place] [address] Abnormal Mammogram Social History Tobacco Use Types Packs/Day Years [...] unspecified documented in this encounter Care Teams Reservations And Ticketing Agent Relationship Specialty Start Date End Date Sunny West MD PCP - OBGYN 03/28/08 documented as of this encounter
== END 2024-05-27 07:53 | disposition home or self-care (01) ==
PROVIDERS: PCP Internal Medicine; Visit Provider Internal Medicine
DX: Z12.2 Encounter for screening for malignant neoplasm of respiratory organs (principal); F17.210 Nicotine dependence, cigarettes, uncomplicated
CPT/HCPCS: 71271

== ENCOUNTER 2024-12-26 13:25 | Outpatient (CLI) | payer BC, SELFPAY ==
--- NOTE | ~2024-12-26 | MM_ITS ---
EXAMINATION: MM screening tomi BI w ciro HISTORY: Screening TECHNIQUE: Craniocaudal and mediolateral oblique 3-D tomosynthesis images were obtained and synthetic 2-D images were generated. CAD analysis was submitted and interpreted. COMPARISON: Comparison to multiple prior studies sequentially, with oldest reviewed study dated 01/02. BREAST PARENCHYMAL COMPOSITION: Dense: The breasts are heterogeneously dense, which may obscure small masses FINDINGS: There is no evidence of suspicious mass, calcification, or architectural distortion to sugg est malignancy in either breast. There has been no suspicious interval change. IMPRESSION: 1. No mammographic evidence of malignancy. 2. Recommend routine screening mammography in one year. BI-RADS Category 1: Negative Reviewed, dictated and finalized at location B.
== END 2024-12-26 13:26 | disposition home or self-care (01) ==
LOC: MICIMG 13:28
PROVIDERS: PCP Obstetrics & Gynecology; Visit Provider Internal Medicine
DX: Z12.31 Encounter for screening mammogram for malignant neoplasm of breast (principal)
CPT/HCPCS: 77063; 77067

== ENCOUNTER 2024-12-27 12:00 | Emergency (ER) | payer BC, SELFPAY ==
--- NOTE | ~2024-12-27 | US_ITS ---
EXAMINATION: US abdomen limited DATE: 12/27/2024 17:00 INDICATION: abnl gb on ct TECHNIQUE: Multiple grayscale and Doppler ultrasound images of limited portions of the abdomen were o btained. COMPARISON: None available. FINDINGS: The visualized portions of the pancreas are normal. The liver is normal with normal echogen icity and echotexture. Scattered liver calcifications. No surface nodularity. Normal hepatopetal flow in the main portal vein. 5 mm nodular focus at the gallbladder fundus. Multiple gallstones. The gall bladder is otherwise normal with no diffuse wall thickening or pericholecystic fluid. The common bile duct measures 5 mm. There was no sonographic Galvez sign. IMPRESSION: 5 mm nodular focus of the gallbladder fundus, may represent focal adenomyosis, a small polyp, or a ti ny phrygian cap. Cholelithiasis, without inflammatory change. Otherwise unremarkable sonographic find ings. Reviewed, dictated and finalized at location K. IMPRESSION: 5 mm nodular focus of the gallbladder fundus, may represent focal adenomyosis, a small polyp, or a tiny phrygian cap. Cholelithiasis, without inflammatory fer nge. Otherwise unremarkable sonographic findings.
--- NOTE | ~2024-12-27 | CT_ITS ---
CT abdomen pelvis w con Ordering provider: Jackie Wolf PA-C History: 63 years Female with . lower abd pain, diarrhea, rectal bleeding . Comparison: None. Technique: CT abdomen and pelvis with IV and without oral contrast. Automated exposure control and it erative reconstruction technique were employed. The dose-length product was 314.86 mGy-cm. 100 mL Omn ipaque 350 was given IV. Findings: VISUALIZED LOWER CHEST: Dependent atelectatic changes. UPPER ABDOMINAL ORGANS: Liver: Normal. Gallbladder: Thickening in the wall in the fundus of the gallbladder. Follow-up advised. Spleen: Normal. Benign calcifications. Stomach/duodenum: Normal. Pancreas: Normal. Adrenals: Normal. Kidneys: Tiny cyst in the right kidney lower pole. Minimal fullness of the right and left renal pelvi s which may be due to extrarenal position. PELVIC ORGANS: The bladder is normal. BOWEL AND MESENTERY: Colon: No evidence of diverticulitis. Appendix is not demonstrated. Small Bowel: Normal. No obstruction. Peritoneum/mesentery: No free air or free fluid. No mesenteric lymphadenopathy. RETROPERITONEUM: Mild atheromatous disease of the abdominal aorta. Congested veins are seen in both sides of the pelvis more on the left side which is suggestive of pelvic congestion syndrome. No retro peritoneal lymphadenopathy. MUSCULOSKELETAL: Superficial soft tissues: The superficial soft tissues are normal. Bones: Age appropriate degenerative changes of the spine. Bilateral hip osteoarthritic changes more o n the right side. 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 IMPRESSION: 1. Thickening in the wall of the gallbladder fundus area. Follow-up advised. 2. Bilateral renal pelvis prominence which may be due to extrarenal position. Follow-up advised. 3. No evidence of appendicitis, diverticulitis or intestinal obstruction. No definite active bleedin g seen. Reviewed, dictated and finalized at location A. IMPRESSION: 1. Thickening in the wall of the gallbladder fundus area. Follow-up advised. 2. Bilateral renal pelvis prominence which may be due to extrarenal position. Follow-up advised. 3. No evidence of appendicitis, diverticulitis or intestinal obstruction. No d efinite active bleeding seen.
--- OUTSIDE RECORDS SUMMARY | 2024-12-27 12:02 | XMS_ITS | Patient Health Record ---
Author Organization [facility] Address [address] [place], [place] [id number] Care Team Providers Care Salvage Clerk Name Role Phone FADY BANG Unavailable [phone] Alex Babb Unavailable Unavailable Allergies Allergen (clinical drug ingredient) Drug/Non Drug Allergy documented on EMR Reaction Allergy Type Onset Date Status codeine Codeine Unknown Drug Allergy Active Penicillin Unknown Drug Allergy Active Reason For Referral No Information Medications Medication SIG (Take, Route, Frequency, Duration) Notes Start Date End Date Status Medrol 4 MG as directed Orally 02/15/2024 Active Zepbound Active Immunizations Vaccine Route Administration Date Status Comme nts Influenza, high dose seasonal Unknown 02/14/2024 Admini stered Pneumococcal conjugate PCV 13 Unknown 03/11/2019 Admini stered Social History Tobacco Use: Social History Observation Description Date Details (start date - stop date) Former Smoker NA - NA Tobacco Control (Standard) Question Answer Notes Tobacco use: Former smoker Vital Signs Height-cm 165.1 cm 03/28/2024 Weight-kg 58.97 kg 02/15/2024 Height 65 in 03/28/2024 Weight 130 lbs 02/15/2024 BMI 21.63 kg/m2 02/15/2024 Encounters Encounter Location Date Provider Diagnosis [facility] [place] [address] [place], [place] [id number] 02/15/2024 FADY BANG Hallux rigidus of right foot M20.21 ; Hallux valgus (acquired), left foot M20.12 ; Tarsal tunnel syndrome of left side G57.52 ; Pain in right foot M79.671 and Left foot pain M79.672 [facility] [place] [address] [place] [id number] 03/07/2024 FADY [place] Hallux rigidus of right foot M20.21 ; Hallux valgus (acquired), left foot M20.12 ; Tarsal tunnel syndrome of left side G57.52 ; Pain in right foot M79.671 and Left foot pain M79.672 [facility] [place] [address] [place] [id number] 03/28/2024 FADY [place] Hallux rigidus of right foot M20.21 ; Hallux valgus (acquired), left foot M20.12 ; Tarsal tunnel syndrome of left side G57.52 ; Pain in right foot M79.671 and Left foot pain M79.672 Assessments Encounter Date Diagnosis (ICD Code) Assessment Notes Treatment Notes Treatment Clinical Notes Section Notes 02/15/2024 Hallux valgus (acquired), left foot (ICD-10 - M20.12) 02/15/2024 Hallux rigidus of right foot (ICD-10 - M20.21) 03/07/2024 Hallux rigidus of right foot (ICD-10 - M20.21) 03/28/2024 Hallux rigidus of right foot (ICD-10 - M20.21) Orthotic dispense: The orthotic devices were dispensed and fitted. It was noted that the orthotic conformed well to the patients foot in the subtalar joint neutral position. 03/28/2024 Hallux valgus (acquired), left foot (ICD-10 - M20.12) 03/07/2024 Hallux valgus (acquired), left foot (ICD-10 - M20.12) 02/15/2024 Tarsal tunnel syndrome of left side (ICD-10 - G57.52) 03/07/2024 Tarsal tunnel syndrome of left side (ICD-10 - G57.52) Orthotic casting: The patient was casted for functional orthotic devices. This was done in the subtalar joint neutral position in a non-weightbeari ng fashion. The patient will follow-up in 3 weeks time to be dispensed and fitted with the devices. 02/15/2024 Pain in right foot (ICD-10 - M79.671) 03/28/2024 Tarsal tunnel syndrome of left side (ICD-10 - G57.52) 03/28/2024 Pain in right foot (ICD-10 - M79.671) 02/15/2024 Left foot pain (ICD-10 - M79.672) 03/07/2024 Pain in right foot (ICD-10 - M79.671) 03/07/2024 Left foot pain (ICD-10 - M79.672) 03/28/2024 Left foot pain (ICD-10 - M79.672) 02/15/2024 Other The patient was given heel stretching exercises. Orthotic recommendation: Custom orthotics were recommended. Surgical correction was discussed. The patient opted not to proceed at this time. Plan Of Treatment No Information Insurance Providers Payer Name Payer Address Payer Phone Subscriber Number Group Number Insured Name Patient Relationship to Insured Coverage Start Date Coverage End Date [facility] ([facility]) ATTN CLAIMS [address] [place] [address] [id number] Brianna Garcia Self - patient is the insured Medical (General) History Medical History History ICD Code hypertension Surgical History Surgery Date(Month/Year) [place] right foot
--- OUTSIDE RECORDS SUMMARY | 2024-12-27 12:02 | XMS_ITS | Clinical Summary ---
Author Organization [facility] Address [address] [place] [address] Care Team Providers Care Destination Sign Repairer Name Role Phone Sunny West MD Unavailable [phone] Villa Talavera DO Primary Care Provider [phone] Source Comments [facility],non-owned Affiliates and Associated [facility] Practices is amultiple site organization consisting of ambulatory clinics and hospital sitesin [place], [place], [place] and [place]. This disclosure is being madepursuant to the Care Everywhere program and may not contain all information available regarding this patient. Last updated 18.[facility] Allergies Active Allergy Reactions Criticality Noted Date Comments Amoxicillin Itching 07/10/2017 Codeine 08/14/2008 Medications * Be aware that medications may not be up to date on this document. Alwaysverify current medications with the patient. Zepbound 7.5 MG/0.5ML injection Inject 7.5 (seven and one-half) mg subcutaneously every 7 days 4 Active hydroCHLOROthi azide (Hydrodiuril) 25 MG tablet Take 1 (one) tablet by mouth once daily 4 Active Active Problems Problem Noted Date Diagnosed Date Polyp of ascending colon-tubular adenoma 019 Chronic depression 05/22/2015 Screen for colon cancer ord'd 05/02/13, 07/04/19 15 Pure hypercholesterolemia 05/03/2013 Family history of premature coronary artery dise ase 05/03/2013 Overview (05/03/2013): Brother [place] age 52 Vitamin D deficiency 04/04/2010 GERD (gastroesophageal reflux disease) 0 Submucous leiomyoma of uterus 10/15/2008 Overview (05/05/2009): S/P hysteroscopic removal Dr Parson Resolved Problems Problem Noted Date Diagnosed Date Resolved Date Perimenopausal 04/02/2010 01/02/2017 Excessive or frequent menstruation 10/15/2008 01/02/2017 Overview (05/05/2009): S/P Novasure ablation Immunizations Immunization Administration Dates Next Due FLU VACCINE TRI IIV3 SPLIT PF IM (FLUVIRIN) 04/13 INFLUENZA VACCINE 05/10/2018 INFLUENZA VACCINE, QUADR. 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 [employer] Not on file Not on file Not on fi le Last Filed Vital Signs Vital Sign Reading Time Taken Comments Blood Pressure 112/70 05/27/2024 10:52 AM FINANCE AND ADMINISTRATION MANAGER Pulse 72 05/24/2019 9:32 AM FINANCE AND ADMINISTRATION MANAGER Temperature 37.3 C (99.1 F) 07/30/2018 2:39 PM FINANCE AND ADMINISTRATION MANAGER Respiratory Rate 12 05/24/2019 9:32 AM FINANCE AND ADMINISTRATION MANAGER Oxygen Saturation 98% 07/30/2018 2:39 PM FINANCE AND ADMINISTRATION MANAGER Inhaled Oxygen Concentration - - Weight 65.9 kg (145 lb 3.2 oz) 05/27/2024 10:52 AM FINANCE AND ADMINISTRATION MANAGER Height 165.1 cm (5' 5) 05/27/2024 10:52 AM FINANCE AND ADMINISTRATION MANAGER Body Mass Index 24.16 05/27/2024 10:52 AM FINANCE AND ADMINISTRATION MANAGER Plan of Treatment Health Maintenance Due Date Last Done Comments COLOGUARD (AGES 45-75) - COLON CA SCREENING 1960 CT COLONOGRAPHY - COLON CA SCREENING 1960 FIT - COLON CA SCREENING 1960 FLEX SIG - COLON CA SCREENING 1960 HEPATITIS C SCREENING 12/24/1980 DTAP/TDAP/TD VACCINES (1 - Tdap) 1981 LUNG CANCER SCREENING 2012 ZOSTER VACCINE (1 of 2) 2012 PNEUMOCOCCAL VACCINE 50+ (2 of 2 - PCV) 03/29/2019 03/29/2018 COLON MONITORING 08/16/2021 08/16/2018, 07/02/2015 Colorectal Cancer Screening 08/16/2021 LIPID TESTING 07/31/2023 07/31/2018, 06/13, 05/02/2013, Additional history exists COVID-19 VACCINE ( season) 2024 09/09/2020, 08/12/2020 DEPRESSION SCREENING 06/12/2024 05/27/2024, 05/27/20 22 INFLUENZA VACCINE (#1) 2025 , 02/11/2020, 02/09/2019, Additional history exists MAMMOGRAM 12/26/2026 12/26/2024, 09/11, 05/11/2020, Additional history exists PAP SMEAR 05/27/2027 05/27/2024, 05/13, 05/27/2022, Additional history exists COLONOSCOPY - COLON CA SCREENING 08/16/2028 08/16/2018, 07/02/2015 Respiratory Syncytial Virus (RSV) Vaccine Pt: or over 60 yrs (1 - 1-dose 75+ series) 2037 HIV SCREENING Completed 07/31/2018, 04/02/2010 HEPATITIS B VACCINE Aged Out No longe r eligible based on patient's age to complete this topic HIB VACCINE Aged Out No longer eligi ble based on patient's age to complete this topic HPV VACCINE Aged Out No longer eligi ble based on patient's age to complete this topic MENINGOCOCCAL (Group B) VACCINE SHARED DECISION-MAKING Aged Out No longer eligible based on patient's age to complete this topic MENINGOCOCCAL GROUPS A/C/Y/W VACCINE Aged Out No longer eligible based on patient's age to complete this topic Goals Goal Patient Goal Type Associated Problems Recent Progress Patient-Stated? Author Quit smoking / using tobacco Lifestyle On track( 015 11:44 AM FINANCE AND ADMINISTRATION MANAGER) Courtney Victor Procedures Procedure Name Priority Date/Time Associated Diagnosis Comments MAMMOGRAM 12/26/2024 PAP IG RFLX HPV HR ASCUS RFLX 16/18/45 Routine 05/27/2024 11:33 AM FINANCE AND ADMINISTRATION MANAGER Pap smear, as part of routine gynecological examination ENDOSCOPY, COLON, SCREENING Routine 08/16/2018 LIPID PROFILE W TCHOL/HDL Routine 07/31/2018 10:59 AM FINANCE AND ADMINISTRATION MANAGER Routine general medical examination at a [facility] care facility HIV-1 HIV-2 ANTIGEN/ANTIBODY W RFLX Routine 07/31/2018 10:59 AM FINANCE AND ADMINISTRATION MANAGER STD exposure from Last 3 Months or Most Recently Relevant to Health Maintenance Results * MAMMOGRAM (12/26/2024) Anatomical Region Laterality Modality Other 12/26/2024 Narrative 12/26/2024 Ordered by an unspecified provider. us Scanned Document SCANNING ONLY Final Result * PAP IG RFLX HPV HR ASCUS RFLX 16/18/45 (05/27/2024 11:33 AM FINANCE AND ADMINISTRATION MANAGER) Diagnosis Comment [facility] ACCOUNT BILL Comment:NEGATIVE FOR INTRAEP ITHELIAL LESION OR MALIGNANCY. Specimen Adequacy Comment [facility] ACCOUNT BILL Comment:Satisfactory for karen lopez. No endocervical component is identified. Clinician Provided ICD10 Comment [facility] ACCOUNT BILL Comment:Z01.419 Performed by Comment [facility] ACCOUNT BILL Comment:Reema Arroyo, Cyto technologist Comment . [facility] ACCOUNT BILL Note Comment [facility] ACCOUNT BILL Comment: The Pap smear is a screening test designed to aid in the detection of premalignant and malignant conditions of the uterine cervix. It is not a diagnostic procedure and should not be used as the sole means of detecting cervical cancer. Both false-positive and false-negative reports do occur. IGLBP [...] UTERINE CERVIX / Unknown 05/27/2024 11:33 AM FINANCE AND ADMINISTRATION MANAGER 05/27/2024 Comment:Cervix Release to [facility] Narrative [facility] ACCOUNT BILL - 06/01/2024 7:08 AM FINANCE AND ADMINISTRATION MANAGER Performed at: [address] [place] [id number] Economic Historian: Aleta Paiz MD, Phone: [phone] Specimen Comment: [id number] Specimen Comment: Source.............Cervix;Endocervix Specimen Comment: No. of containers..01 ThinPrep Vial us Sunny West MD LAB - PATHOLOGY/CYTOLOGY ORD ERABLES Final Result [facility] ACCOUNT BILL [address] [place] [address] * ENDOSCOPY, COLON, SCREENING (08/16/2018) us Scanned Document GI PROCEDURE ORDERABLES Final R esult * HIV-1 HIV-2 ANTIGEN/ANTIBODY W RFLX (07/31/2018 10:59 AM FINANCE AND ADMINISTRATION MANAGER) HIV Screen 4th Generation w Reflex Non Reactive Non Reactive [facility] INSURANCE BILL Comment:FASTING Blood BLOOD SPECIMEN / Unknown 07/31/2018 10:59 AM FINANCE AND ADMINISTRATION MANAGER 07/31/2018 Narrative Resulting Agency Comment [facility] [address] [facility] [id number] Kelechi Rico III, MD LAB - SEROLOGY ORDERABLES Final Result [facility] INSURANCE BILL [address] [place] [address] * (ABNORMAL) LIPID PROFILE W TCHOL/HDL (07/31/2018 10:59 AM FINANCE AND ADMINISTRATION MANAGER) Cholesterol 217(H) 100 - 199 mg/dL [facility] [...] - 4.4 ratio [facility] INSURANCE BILL Comment: T. Chol/HDL Ratio Men Women 1/2 Avg.Risk 3.4 3.3 Avg.Risk 5.0 4.4 2X Avg.Risk 9.6 7.1 3X Avg.Risk 23.4 11.0 FASTING Blood BLOOD SPECIMEN / Unknown 07/31/2018 10:59 AM FINANCE AND ADMINISTRATION MANAGER 07/31/2018 Narrative Resulting Agency Comment [facility] [address] [facility] [phone] Kelechi Rico III, MD LAB - CHEMISTRY ORDERABLES Final Result [facility] INSURANCE BILL [address] [place] [address] from Last 3 Months or Most Recently Relevant to Health Maintenance Insurance ANTHEM ANTHEM Advance Directives Documents on File Type Date Recorded Patient Insurance Billing Clerk Expl anation Adv Directive/Living Will/POA 05/01/2009 10:56 AM Care Teams Destination Sign Repairer Relationship Specialty Start Date End Date Sunny West MD PCP - OBGYN 03/28/08 Villa Talavera DO [address] [facility] [address] [facility] [address] [place] [address] [facility] - General 08/17/22
--- OUTSIDE RECORDS SUMMARY | 2024-12-27 12:02 | XMS_ITS ---
Author [facility] Address [address] [place], [place] [id number] Care Team Providers Care Steel Heater Name Role Phone FADY CALVO Unavailable [phone] Alex Babb Unavailable Unavailable REASON FOR VISIT feet doing well Encounters Encounter Location Date Provider Diagnosis [facility] [place] [address] [place], [place] [id number] 04/25/2024 FADY CALVO Plan Of Treatment No Information Progress Notes * CRAIG DE SOUZABULMAROFariha GarnerSherryB:[birth year] (63 yo F)Acc No.[id number]:04/25/2024 Patient: Brianna CASTAÑEDA Provider: Molly Calvo DPM :1960 A ge:63 Y S ex:Female Date:04/25/2024 Address:[address] [place] [id number] Subjective: * Chief Complaints: * 1 . Feet doing well. * Medical History: Objective: * Vitals: Assessment: Plan: * Treatment: * Billing Information: * Visit Code: * Procedure Codes: * Electronic signature of FADY CALVO DPM on 12/27/2024 at 12:02 PM CDT Sign off status: Pending * Provider: Molly Calvo DPM Date: 06/25/2023 Generated for Koki oden/Tuyet/eTransmitting on: 0 12/27/2024 12:02 PM CDT
[2024-12-27 12:11] VITALS: BP 131/73; PULSE 93; RESP 18; TEMP 36.4; O2SAT 100
[2024-12-27 12:41] LABS: Hematocrit 38.6 % (37.0-47.0); Hemoglobin 12.8 g/dL (12.0-15.0); Immature Granulocyte Percent A 0.3 % (0-0.5); Lymphocytes Absolute Auto 1.23 K/mm3 (0.9-3.2); Mean Corpuscular HGB Conc 33.2 g/dl (32-36); Mean Corpuscular Hemoglobin 29.8 pg (26-34); Mean Corpuscular Volume 90.0 fl (80-100); Nucleated Red Blood Cells Absolute Auto 0.000 K/mm3 (0.0-0.012); Nucleated Red Blood Cells Perc 0.0 % (0.0-0.2); Platelet Count Result 334 k/mm3 (150-375); Red Blood Count 4.29 M/mm3 (4.2-5.4); White Blood Count 8.7 K/mm3 (4.5-10.0)
--- OUTSIDE RECORDS SUMMARY | 2024-12-27 12:48 | XMS_ITS | Clinical Summary ---
Author Organization [facility] Address [address] [facility] [place] [address] Care Team Providers Care Cloud Software Engineer Name Role Phone Sunny West MD Unavailable [phone] Villa Talavera DO Primary Care Provider [phone] Source Comments [facility],non-owned Affiliates and Associated [facility] Practices is amultiple site organization consisting of ambulatory clinics and hospital sitesin [place], [place], [place] and [place]. This disclosure is being madepursuant to the Care Everywhere program and may not contain all information available regarding this patient. 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 Not on file Not on fi le Last Filed Vital Signs Vital Sign Reading Time Taken Comments Blood Pressure 112/70 05/27/2024 10:52 AM OPERATIONS FORESTER Pulse 72 05/24/2019 9:32 AM OPERATIONS FORESTER Temperature 37.3 C (99.1 F) 07/30/2018 2:39 PM OPERATIONS FORESTER Respiratory Rate 12 05/24/2019 9:32 AM OPERATIONS FORESTER Oxygen Saturation 98% 07/30/2018 2:39 PM OPERATIONS FORESTER Inhaled Oxygen Concentration - - Weight 65.9 kg (145 lb 3.2 oz) 05/27/2024 10:52 AM OPERATIONS FORESTER Height 165.1 cm (5' 5) 05/27/2024 10:52 AM OPERATIONS FORESTER Body Mass Index 24.16 05/27/2024 10:52 AM OPERATIONS FORESTER Plan of Treatment Health Maintenance Due Date [...] tobacco Lifestyle On track( 015 11:44 AM OPERATIONS FORESTER) Courtney Victor Procedures Procedure Name Priority Date/Time Associated Diagnosis Comments MAMMOGRAM 12/26/2024 PAP IG RFLX HPV HR ASCUS RFLX 16/18/45 Routine 05/27/2024 11:33 AM OPERATIONS FORESTER Pap smear, as part of routine gynecological examination ENDOSCOPY, COLON, SCREENING Routine 08/16/2018 LIPID PROFILE W TCHOL/HDL Routine 07/31/2018 10:59 AM OPERATIONS FORESTER Routine general medical examination at a [facility] care facility HIV-1 HIV-2 ANTIGEN/ANTIBODY W RFLX Routine 07/31/2018 10:59 AM OPERATIONS FORESTER STD exposure from Last 3 Months or Most Recently Relevant to Health Maintenance Results * MAMMOGRAM (12/26/2024) Anatomical Region Laterality Modality Other 12/26/2024 Narrative 12/26/2024 Ordered by an unspecified provider. us Scanned Document SCANNING ONLY Final Result * PAP IG RFLX HPV HR ASCUS RFLX 16/18/45 (05/27/2024 11:33 AM OPERATIONS FORESTER) Diagnosis Comment [facility] ACCOUNT BILL Comment:NEGATIVE FOR [...] UTERINE CERVIX / Unknown 05/27/2024 11:33 AM OPERATIONS FORESTER 05/27/2024 Comment:Cervix Release to [facility] Narrative [facility] ACCOUNT BILL - 06/01/2024 7:08 AM OPERATIONS FORESTER Performed at: [address] [place] [id number] Warp Hand: Aleta Paiz MD, Phone: [phone] Specimen Comment: [id number] Specimen Comment: Source.............Cervix;Endocervix Specimen Comment: No. of containers..01 ThinPrep Vial us Sunny West MD LAB - PATHOLOGY/CYTOLOGY ORD ERABLES Final Result [facility] ACCOUNT BILL [address] [place] [address] * ENDOSCOPY, COLON, SCREENING (08/16/2018) us Scanned Document GI PROCEDURE ORDERABLES Final R esult * HIV-1 HIV-2 ANTIGEN/ANTIBODY W RFLX (07/31/2018 10:59 AM OPERATIONS FORESTER) HIV Screen 4th Generation w Reflex Non Reactive Non Reactive [facility] INSURANCE BILL Comment:FASTING Blood BLOOD SPECIMEN / Unknown 07/31/2018 10:59 AM OPERATIONS FORESTER 07/31/2018 Narrative Resulting Agency Comment [facility] [address] [facility] [phone] Kelechi Rico III, MD LAB - SEROLOGY ORDERABLES Final Result [facility] INSURANCE BILL [address] [place] [address] * (ABNORMAL) LIPID PROFILE W TCHOL/HDL (07/31/2018 10:59 AM OPERATIONS FORESTER) Cholesterol 217(H) 100 - 199 mg/dL [facility] [...] BLOOD SPECIMEN / Unknown 07/31/2018 10:59 AM OPERATIONS FORESTER 07/31/2018 Narrative Resulting Agency Comment [facility] [address] [facility] [phone] Kelechi Rico III, MD LAB - CHEMISTRY ORDERABLES Final Result [facility] INSURANCE BILL [address] [place] [address] from Last 3 Months or Most Recently Relevant to Health Maintenance Insurance ANTHEM ANTHEM Advance Directives Documents on File Type Date Recorded Patient Hot Dog Vender Expl anation Adv Directive/Living Will/POA 05/01/2009 10:56 AM Care Teams Cloud Software Engineer Relationship Specialty Start Date End Date Sunny West MD PCP - OBGYN 03/28/08 Villa Talavera DO [address] [facility] [address] [facility] [address] [place] [address] [facility] - General 08/17/22
[2024-12-27 12:54] LABS: Alanine Aminotransferase 19 U/L (6-35); Albumin Level 4.9 g/dL (3.5-5.1); Alkaline Phosphatase 48 U/L (38-126); Anion Gap 12 mmol/L (4-12); Aspartate Amino Transferase 27 U/L (14-36); Bilirubin,Total 0.6 mg/dL (0.2-1.3); Blood Urea Nitrogen 11 mg/dL (7-17); Calcium 10.0 mg/dL (8.4-10.2); Carbon Dioxide 27 mmol/L (22-30); Chloride 98 mmol/L (98-107); Estimated CRCL calculation 59 ml/min; Estimated Glomerular Filt Rate > 60; Glucose 113 mg/dL (65-110); Lipase 110 U/L (23-300); Potassium 3.8 mmol/L (3.4-5.0); Sodium 137 mmol/L (137-145); Total Protein 8.5 g/dL (6.3-8.2)
[2024-12-27 12:58] LABS: Add Urine Microscopic? YES; Appearance Urine Clear (Clear); Glucose Urine UA Negative (Negative); Leukocyte Esterase Ur Trace LEU/UL (Negative); Nitrate Urine Negative (Negative); Non Pathogenic Casts 0-2; Specific Grav Ur 1.008 (1.001-1.035)
--- NOTE | 2024-12-27 13:50 | ED.ABDPAIN ---
HPI - Abdominal Pain General Chief Complaint: Abdominal Pain Stated Complaint: diverticulitis Time Seen by Provider: 12/27/24 12:23 Source: patient Mode of arrival: ambulatory Limitations: no limitations History of Present Illness HPI narrative: Patient is a 63-year-old female who presents the ED with report of lower abdominal pain/cramping. Patient reports she woke up around 3:00 a.m. this morning with pain/cramping throughout her lower abdomen. Had several large bowel movements. Noticed a small amount of blood, up to a tsp with 2 bowel movements. Contacted her primary care doctor, who prescribed an antispasmodic medication but was told to go to the ED if sx's worsened. Patient does report chills/cold sweats with bowel movements. Denies fevers. Denies significant nausea or vomiting. Does have history of previous diverticulitis and states this feels similar. Related Data Allergies Allergy/AdvReac Type Severity Reaction Status Date / Time codeine Allergy Severe pancreas Verified 12/27/24 12:27 FAILURE morphine Allergy Severe PANCREATIC Verified 12/27/24 12:27 FAILURE Penicillins Allergy Mild Itching Verified 12/27/24 12:27 Review of Systems Review of Systems: All systems reviewed & are unremarkable except as noted in HPI. All systems reviewed & are unremarkable except as noted in HPI and below PMFSH Past Medical History Medical History Hypertension History of COVID-19 Tobacco abuse Colon polyps Benign essential HTN Surgical History Surgical History H/O foot surgery Hx of colonoscopy 2019, repeat in 3 years- mltpl. polyps. Hx of tubal ligation History of endometrial ablation Hx of section Family History Family History Sibling Acute myocardial infarction Heart disease Diabetes mellitus Father Diabetes mellitus Hypertension Mother Hypertension Social History Social History Social History: Smoking packs per day: 1 Smoking cigarettes per day: 20.0 Years smoked: 40 Smoking pack-years: 40.00 Smoking status: Former smoker Tobacco type: cigarettes Second hand tobacco smoke exposure: Yes Smoking end date: 05/05/21 Alcohol intake: current Drinks per week: 4 Alcohol use details: SOCIAL - APPROX TWICE/MONTH Substance use: current Substance use type: does not use Lack of Transportation: No Lack of Food: Never True Current Housing: I Have Housing Concerned About Future Housing: No Difficulty Paying Gas/Electric Bills: No Difficulty Paying for Meds: No Currently Unemployed: No Education: High School Diploma/GED Difficulty w/ Childcare or Family Care: No Living arrangements: alone Occupation/Education: occupation Gender identity (if verbalized by the patient): Female Sexual Orientation (if Verbalized by the Patient): Straight or Heterosexual Spiritual care concerns: No Exam Narrative: GENERAL: Well appearing, well-nourished, non-toxic, in no acute distress. HEAD: Normocephalic, atraumatic. RESPIRATORY: Airway patent, respirations nonlabored. Clear to auscultation bilaterally, no rales, rhonchi, wheezing. CARDIOVASCULAR: Regular rate and rhythm without murmurs, rubs, or gallops. ABDOMINAL: Soft, mild diffuse tenderness throughout lower abdomen, nondistended. Normoactive BS. MUSCULOSKELETAL: Moves all extremities. No gross deformities. SKIN: Warm, dry, normal color. NEURO: A&O X3. Speech clear. Cranial nerves II-XII grossly intact. Steady gait. No ataxic movements. PSYCHIATRIC: Appropriate mood and affect. Normal interaction. Course Vital Signs Vital signs: Vital Signs Temperature 97.6 F 12/27/24 12:11 Pulse Rate 93 12/27/24 12:11 Respiratory Rate 18 12/27/24 12:11 Blood Pressure 131/73 12/27/24 12:11 Pulse Oximetry 100 12/27/24 12:11 Oxygen Delivery Room Air 12/27/24 12:11 Temperature 97.6 F 12/27/24 12:11 Pulse Rate 85 12/27/24 17:58 Respiratory Rate 18 12/27/24 17:58 Blood Pressure 126/79 12/27/24 17:45 Pulse Oximetry 99 12/27/24 17:58 Oxygen Delivery Room Air 12/27/24 12:11 MDM - Abdominal Pain MDM Narrative Medical decision making narrative: Patient presented to ED with lower abdominal pain/cramping, small amount of rectal bleeding. History of diverticulitis. Vital signs are stable upon arrival. Patient in no acute distress. Laboratory studies are reassuring. No leukocytosis or anemia. H&H is stable. Consistent with previous records. CMP is unremarkable. Lactic acid within normal range. UA is clear. CT scan of abdomen/pelvis was obtained and does not show any evidence of active bleeding or diverticulitis. No bowel obstruction. Does show thickening of gallbladder fundus. Recommended further evaluation. Will obtain right upper quadrant ultrasound. Right upper quadrant ultrasound was obtained showing possible polyp versus adenomyosis verses phrygian cap of GB. Cholelithiasis without cholecystitis. Discussed lab and imaging findings with patient, overall reassuring workup. Patient has remained stable throughout ED stay. Has not had any further rectal bleeding. Discussed possibility of gastroenteritis, gas pains, internal/external hemorrhoids. Feel she is safe for discharge home at this time. Her primary care doctor prescribed her hyoscyamine today. Also prescribe Bentyl. Discussed diverticulitis diet, recommended follow-up with primary care doctor, GI/general surgery for further evaluation. Discussed strict return precautions should bleeding or pain become worse. She is in agreement with plan. Feels comfortable going home. D/c in stable condition. Medical Records Attestation: I reviewed the patient's medical records. Lab Data Attestation: I reviewed the patient's lab results. 12/27/24 12:32 12/27/24 12:32 Labs: Lab Results 12/27/24 12/27/24 Range/Units 12:32 12:43 WBC 8.7 (4.5-10.0) K/mm3 RBC 4.29 (4.2-5.4) M/mm3 Hgb 12.8 (12.0-15.0) g/dL Hct 38.6 (37.0-47.0) % MCV 90.0 (80-100) fl MCH 29.8 (26-34) pg MCHC 33.2 (32-36) g/dl RDW 12.3 (11.5-14.5) % Plt Count 334 (150-375) k/mm3 MPV 9.6 (7.4-10.4) fl Immature Gran % (Auto) 0.3 (0-0.5) % Neut % (Auto) 79.2 H (45.5-73.1) % Lymph % (Auto) 14.1 L (18.3-44.2) % [place]itt % (Auto) 6.2 (2.6-8.5) % Eos % (Auto) 0.0 (0-4.4) % Baso % (Auto) 0.2 (0.2-1.2) % Lymph # (Auto) 1.23 (0.9-3.2) K/mm3 Bullitt # (Auto) 0.5 (0.1-0.6) K/mm3 Eos # (Auto) 0.0 (0-0.3) K/mm3 Baso # (Auto) 0.0 (0.0-0.1) K/mm3 Abs Immat Gran (auto) 0.03 (0.00-0.031) K/mm3 Absolute Neuts (auto) 6.9 H (1.3-6.7) K/mm3 Absolute Nucleated RBC 0.000 (0.0-0.012) K/mm3 Nucleated RBC % 0.0 (0.0-0.2) % Sodium 137 (137-145) mmol/L Potassium 3.8 (3.4-5.0) mmol/L Chloride 98 (98-107) mmol/L Carbon Dioxide 27 (22-30) mmol/L Anion Gap 12 (4-12) mmol/L BUN 11 (7-17) mg/dL Creatinine 0.79 (0.7-1.0) mg/dL Estim Creat Clear Calc 59 ml/min Estimated GFR > 60 (59 - ) Glucose 113 H (65-110) mg/dL Lactic Acid 1.1 (0.7-2.0) mmol/L Calcium 10.0 (8.4-10.2) mg/dL Total Bilirubin 0.6 (0.2-1.3) mg/dL AST 27 (14-36) U/L ALT 19 (6-35) U/L Alkaline Phosphatase 48 (38-126) U/L Total Protein 8.5 H (6.3-8.2) g/dL Albumin 4.9 (3.5-5.1) g/dL Lipase 110 (23-300) U/L Urine Color Yellow (Yellow) Urine Appearance Clear (Clear) Urine pH 7.0 (5.0-9.0) Ur Specific [place] 1.008 (1.001-1.035) Urine Protein Negative (Negative) mg/dL Urine Glucose (UA) Negative (Negative) mg/dL Urine Ketones Negative (Negative) mg/dL Ur Blood (Man) Negative (Negative) Urine Nitrate Negative (Negative) Urine Bilirubin Negative (Negative) Urine Urobilinogen 0.2 (<2.0) mg/dL Leukocyte Esterase Rfl Trace H (Negative) BALAJI/UL Urine RBC 0-2 (0-2) /hpf Urine WBC 0-5 (0-3) /hpf Ur Squamous Epith Cells None seen (Few) /hpf Urine Bacteria None seen /hpf Urine Casts 0-2 Blood Type O Negative Antibody Screen Negative Imaging Data Attestation: I personally reviewed and interpreted this imaging study as follows: Radiologist's impression: ITS Impressions Abdomen/Pelvis CT 12/27/24 14:15 IMPRESSION: 1. Thickening in the wall of the gallbladder fundus area. Follow-up advised. 2. Bilateral renal pelvis prominence which may be due to extrarenal position. Follow-up advised. 3. No evidence of appendicitis, diverticulitis or intestinal obstruction. No definite active bleeding seen. Abdomen Ultrasound 12/27/24 17:09 IMPRESSION: 5 mm nodular focus of the gallbladder fundus, may represent focal adenomyosis, a small polyp, or a tiny phrygian cap. Cholelithiasis, without inflammatory change. Otherwise unremarkable sonographic findings. Discharge Plan Discharge Clinical Impression: Abdominal cramping, bilateral lower quadrant, Bright red rectal bleeding Cholelithiasis Qualifiers: Cholelithiasis location: gallbladder Cholecystitis presence: without cholecystitis Biliary obstruction: without biliary obstruction Qualified Code(s): K80.20 - Calculus of gallbladder without cholecystitis without obstruction Patient Disposition: Home Condition: Stable Instructions: Antibiotic Form, Rectal Bleeding (ED), Gallstones (ED), Diverticulitis Diet (ED), Abdominal Pain (ED) Additional Instructions: Recommend Tylenol, hyoscyamine, Bentyl as needed for further abdominal discomfort. Continue to monitor symptoms. Recommend close follow-up with your primary care doctor, general surgery, and/or GI. Return to the ED if you experience worsening or severe pain, severe bleeding, unable to keep down food or drink, fevers, passing out, severe dizziness or lightheadedness, or any other symptoms of concern. Patient Language: Maltese Prescriptions: New dicyclomine 20 mg tablet 20 mg PO TID PRN (Reason: Abdominal Discomfort) Qty: 15 0RF No Action hydrochlorothiazide 25 mg tablet 25 mg PO DAILY Qty: 90 3RF Zepbound 7.5 mg/0.5 mL pen injector 7.5 mg subcut WEEKLY Qty: 6 1RF hyoscyamine sulfate [Levsin] 0.125 mg tablet 0.125 mg PO BID-TID PRN (Reason: cramping) Qty: 20 0RF Follow-up/Referrals: Williams Rich MD [Physician] - (GENERAL SURGERY) Alex Babb DO [Primary Care Provider] - Eder Bolton MD [Physician] - (GI) Time of Disposition: 17:41
[2024-12-27] MEDS: DICYCLOMINE HCL 10 MG CAPSULE 20 MG PO (17:44)
[2024-12-27 17:45] VITALS: BP 126/79
[2024-12-27 17:58] VITALS: PULSE 85; RESP 18; O2SAT 99
== END 2024-12-27 17:59 | disposition home or self-care (01) ==
PROVIDERS: Emergency Provider Physician Assistant; PCP Internal Medicine
DX: K80.20 Calculus of gallbladder without cholecystitis without obstruction (principal); K62.5 Hemorrhage of anus and rectum; R10.32 Left lower quadrant pain; R10.31 Right lower quadrant pain; I10 Essential (primary) hypertension; Z86.16 Personal history of COVID-19; Z86.0100 Personal history of colon polyps, unspecified; Z87.891 Personal history of nicotine dependence; Z79.899 Other long term (current) drug therapy
CPT/HCPCS: 36415; 74177; 76705; 80053; 81001; 83605; 83690; 85025; 86850; 86900; 86901; 99284; A9270; Q9967

== ENCOUNTER 2025-02-13 07:17 | Outpatient (CLI) | payer OTHER, SELFPAY ==
--- OUTSIDE RECORDS SUMMARY | 2024-02-29 03:40 | XMS_ITS ---
Author Organization [facility] Address [address] [place], [place] [id number] Care Team Providers Care Shell Machine Operator Name Role Phone FADY CALVO Unavailable [phone] Alex Babb Unavailable Unavailable REASON FOR VISIT Strapping check/possible orthotics Encounters Encounter Location Date Provider Diagnosis [facility] [place] [address] [place], [place] [id number] 02/29/2024 FADY CALVO Plan Of Treatment No Information Progress Notes * CRAIG MARNIEFariha BarnesSherryB:[birth year]/29 (64 yo F)Acc No.[id number]:02/29/2024 Patient: Cristina DE SOUZABULMAROBrianna Barnes Provider: Molly Calvo DPM :1960 A ge:63 Y S ex:Female Date:02/29/2024 Address:[address] [place] [id number] Subjective: * Chief Complaints: * 1 . Strapping check/possible orthotics. * Medical History: Objective: * Vitals: Assessment: Plan: * Treatment: * Billing Information: * Visit Code: * Procedure Codes: * Electronic signature of FADY CALVO DPM on 02/13/2025 at 07:22 AM CDT Sign off status: Pending * Provider: Molly Calvo DPM Date: 0 02/29/2024 Generated for Koki oden/Tuyet/Curt on: 0 02/13/2025 07:22 AM CDT
--- OUTSIDE RECORDS SUMMARY | 2024-04-25 09:40 | XMS_ITS ---
[facility] Address [address] [place], [place] [id number] Care Team Providers Care Dye Boarding Machine Operator Name Role Phone FADY CALVO Unavailable [phone] Alex Babb Unavailable Unavailable REASON FOR VISIT feet doing well Encounters Encounter Location Date Provider Diagnosis [facility] [place] [address] [place], [place] [id number] 04/25/2024 FADY CALVO Plan Of Treatment No Information Progress Notes * CRAIG DE SOUZABULMAROFariha GarnerSherryB:12/29 (64 yo F)Acc No.[id number]:04/25/2024 Patient: Brianna CASTAÑEDA Provider: Molly Calvo DPM :1960 A ge:63 Y S ex:Female Date:04/25/2024 Address:[address] [place] [id number] Subjective: * Chief Complaints: * 1 . Feet doing well. * Medical History: Objective: * Vitals: Assessment: Plan: * Treatment: * Billing Information: * Visit Code: * Procedure Codes: * Electronic signature of FADY CALVO DPM on 02/13/2025 at 07:22 AM CDT Sign off status: Pending * Provider: Molly Calvo DPM Date: 06/25/2023 Generated for Koki oden/Tuyet/eTransmitting on: 0 02/13/2025 07:22 AM CDT
--- OUTSIDE RECORDS SUMMARY | 2025-02-13 07:22 | XMS_ITS | Clinical Summary ---
Author Organization [facility] [employer] Address [address] [place] [address] Care Team Providers Care Breaker Off Name Role Phone Sunny West MD Unavailable [phone] Villa Talavera DO Primary Care Provider [phone] Source Comments [facility],non-owned Affiliates and Associated Physician Practices is amultiple site organization consisting of ambulatory clinics and hospital sitesin [place], [place], [place] and [place]. This disclosure is being madepursuant to the Care Everywhere program and may not contain all information available regarding this patient. Last updated 18.[facility] [employer] Allergies Active Allergy Reactions Criticality Noted Date [...] artery dise ase 05/03/2013 Overview (05/03/2013): Brother [place] age 52 Vitamin D deficiency 04/04/2010 GERD [...] History Relation Name Comments Diabetes Brother 1 [place]<55(male) Brother 1 Cancer - Breast Other cousin [...] on file Legal Sex Female 6:53 AM CLOTH COLORER Gender Identity Not on file Sexual Orientation Not on file Occupation Industry Job Start Date Job End Date [employer] Not on file Not on file Not on fi le Last Filed Vital Signs Vital Sign Reading Time Taken Comments Blood Pressure 112/70 05/27/2024 10:52 AM CLOTH COLORER Pulse 72 05/24/2019 9:32 AM CLOTH COLORER Temperature 37.3 C (99.1 F) 07/30/2018 2:39 PM CLOTH COLORER Respiratory Rate 12 05/24/2019 9:32 AM CLOTH COLORER Oxygen Saturation 98% 07/30/2018 2:39 PM CLOTH COLORER Inhaled Oxygen Concentration - - Weight 65.9 kg (145 lb 3.2 oz) 05/27/2024 10:52 AM CLOTH COLORER Height 165.1 cm (5' 5) 05/27/2024 10:52 AM CLOTH COLORER Body Mass Index 24.16 05/27/2024 10:52 AM CLOTH COLORER Plan of Treatment Health Maintenance Due Date [...] tobacco Lifestyle On track( 015 11:44 AM CLOTH COLORER) Courtney Victor Procedures Procedure Name Priority Date/Time Associated Diagnosis Comments LAB RESULTS ORDER 12/27/2024 LAB RESULTS ORDER 12/27/2024 LAB RESULTS ORDER 12/27/2024 LAB RESULTS ORDER 12/27/2024 LAB RESULTS ORDER 12/27/2024 MAMMOGRAM 12/26/2024 PAP IG RFLX HPV HR ASCUS RFLX 16/18/45 Routine 05/27/2024 11:33 AM CLOTH COLORER Pap smear, as part of routine gynecological examination ENDOSCOPY, COLON, SCREENING Routine 08/16/2018 LIPID PROFILE W TCHOL/HDL Routine 07/31/2018 10:59 AM CLOTH COLORER Routine general medical examination at a health care facility HIV-1 HIV-2 ANTIGEN/ANTIBODY W RFLX Routine 07/31/2018 10:59 AM CLOTH COLORER STD exposure from Last 3 Months or Most Recently Relevant to Health Maintenance Results * LAB RESULTS ORDER (12/27/2024) Only the most recent of5 resultswithin the time period is included. 12/27/2024 Narrative 12/27/2024 Ordered by an unspecified provider. us Scanned Document LAB - THERAPEUTIC DRUG MONITORI NG ORDERABLES Final Result * MAMMOGRAM (12/26/2024) Anatomical Region Laterality Modality Other 12/26/2024 Narrative 12/26/2024 Ordered by an unspecified provider. us Scanned Document SCANNING ONLY Final Result * PAP IG RFLX HPV HR ASCUS RFLX (05/27/2024 11:33 AM CLOTH COLORER) Diagnosis Comment [facility] ACCOUNT BILL Comment:NEGATIVE FOR [...] UTERINE CERVIX / Unknown 05/27/2024 11:33 AM CLOTH COLORER 05/27/2024 Comment:Cervix Release to pa t Narrative [facility] ACCOUNT BILL - 06/01/2024 7:08 AM CLOTH COLORER Performed at: - [address] [place] [id number] Inspector Elevators: Aleta Paiz MD, Phone: [phone] Specimen Comment: [id number] Specimen Comment: Source.............Cervix;Endocervix Specimen Comment: No. of containers..01 ThinPrep Vial us Sunny West MD LAB - PATHOLOGY/CYTOLOGY ORD ERABLES Final Result Performing Organization Address City/[facility] Co de Phone Number [facility] ACCOUNT BILL [address] [place] [address] * ENDOSCOPY, COLON, SCREENING (08/16/2018) us Scanned Document GI PROCEDURE ORDERABLES Final R esult * HIV-1 HIV-2 ANTIGEN/ANTIBODY W RFLX (07/31/2018 10:59 AM CLOTH COLORER) [facility] HIV Screen 4th Generation w Reflex Non Reactive Non Reactive [facility] INSURANCE BILL Comment:FASTING Blood BLOOD SPECIMEN / Unknown 07/31/2018 10:59 AM CLOTH COLORER 07/31/2018 Narrative Resulting Agency Comment [facility] [place] [address] [address] [phone] us Kelechi Rico III, MD LAB - SEROLOGY ORDERABLES Final Result Performing Organization Address City/[facility] Co de Phone Number [facility] INSURANCE BILL [address] [place] [address] * (ABNORMAL) LIPID PROFILE W TCHOL/HDL (07/31/2018 10:59 AM CLOTH COLORER) Pathologist [facility] Cholesterol 217(H) 100 - [...] BLOOD SPECIMEN / Unknown 07/31/2018 10:59 AM CLOTH COLORER 07/31/2018 Narrative Resulting Agency Comment [facility] [place] [address] [address] [phone] Kelechi Rico III, MD LAB - CHEMISTRY ORDERABLES Final Result [facility] INSURANCE BILL [address] [place] [address] from Last 3 Months or Most Recently Relevant to Health Maintenance [facility] Advance Directives Documents on File Type Date Recorded Patient Powder Guard Expl anation Adv Directive/Living Will/POA 05/01/2009 10:56 AM Care Teams Breaker Off Relationship Specialty Start Date End Date Sunny West MD PCP - OBGYN 03/28/08 Villa Talavera DO [address] [facility] [address] [place] [id number] PCP - General 08/17/22
--- OUTSIDE RECORDS SUMMARY | 2025-02-13 07:22 | XMS_ITS | Patient Health Record ---
Author Organization [facility] Address [address] [place], [place] [id number] Care Team Providers Care Channeling Machine Operator Name Role Phone FADY BANG Unavailable [phone] Alex Babb Unavailable Unavailable Allergies Allergen (clinical [...] [facility] [place] [address] [place], [place] [phone] 02/15/2024 FADY BANG Hallux rigidus of right foot M20.21 ; Hallux valgus (acquired), left foot M20.12 ; Tarsal tunnel syndrome of left side G57.52 ; Pain in right foot M79.671 and Left foot pain M79.672 [facility] [place] [address] [address] [place] [id number] 03/07/2024 FADY [place] Hallux rigidus of right foot M20.21 ; Hallux valgus (acquired), left foot M20.12 ; Tarsal tunnel syndrome of left side G57.52 ; Pain in right foot M79.671 and Left foot pain M79.672 [facility] [place] [address] [address] [place] [phone] 03/28/2024 FADY [place] Hallux rigidus of right [...] Insured Coverage Start Date Coverage End Date [facility] ([facility] ATTN CLAIMS [address] [place] [address] [id number] Brianna Garcia Self - patient is the insured Medical (General) History Medical History History ICD Code hypertension Surgical History Surgery Date(Month/Year) [place] right foot
[2025-02-13 08:42] LABS: Cholesterol 214 mg/dL (0-200); HDL Direct 74 mg/dL; Triglycerides 55 mg/dL (<150)
[2025-02-13 10:55] LABS: Hemoglobin A1C 5.1 % (<5.7)
== END 2025-02-13 07:18 | disposition home or self-care (01) ==
PROVIDERS: PCP Internal Medicine; Visit Provider Internal Medicine
DX: E78.5 Hyperlipidemia, unspecified (principal); R73.9 Hyperglycemia, unspecified
CPT/HCPCS: 36415; 80061; 83036